=== PATIENT | male | born 1990 | race Caucasian/White ===

== ENCOUNTER 2023-11-17 14:00 | Outpatient (OUT) | payer BC, SELFPAY | END 2023-11-17 14:01 | disposition home or self-care (01) | LOC: SLEEP 11-18 09:36 | PROVIDERS: PCP Nurse Practitioner; Visit Provider Nurse Practitioner | DX: G47.33 Obstructive sleep apnea (adult) (pediatric) (principal); G47.11 Idiopathic hypersomnia with long sleep time | CPT/HCPCS: 95806 ==

== ENCOUNTER 2024-02-18 08:06 | Outpatient (OUT) | payer MEDICAID, SELFPAY ==
--- OUTSIDE RECORDS SUMMARY | 2024-02-18 08:29 | XMS_ITS | CCD ---
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 return in february for lab draw Ordered: Testosterone Level Total Adult BMI 60.0-69.9 kg/sq m (Z68.44: Body mass index [BMI] 60.0-69.9, adult) BMI education given. pt continues making healthy food choices. Ordered: phentermine, 37.5 mg = 1 tab(s), Oral, Daily, 30 day supply, # 30 tab(s), Refills(s) 0, Pharmacy: [facility] [id number], 180.3, cm, 12/02/23 10:22:00 EDT, Height/Length Dosing, 199.3, kg, 12/02/23 10:22:00 EDT, Weight Dosing phentermine, 37.5 mg = 1 tab(s), Oral, Daily, 30 day supply, # 30 tab(s), Refills(s) 0, Pharmacy: [facility] [id number], 180.2, cm, 01/13/24 10:23:00 EDT, Height/Length Dosing, 196, kg, 01/13/24 10:23:00 EDT, Weight Dosing Testosterone Level Total Obesities, morbid (E66.01: Morbid (severe) obesity due to excess calories) see above Ordered: phentermine, 37.5 mg = 1 tab(s), Oral, Daily, 30 day supply, # 30 tab(s), Refills(s) 0, Pharmacy: [facility] [id number], 180.3, cm, 12/02/23 10:22:00 EDT, Height/Length Dosing, 199.3, kg, 12/02/23 10:22:00 EDT, Weight Dosing phentermine, 37.5 mg = 1 tab(s), Oral, Daily, 30 day supply, # 30 tab(s), Refills(s) 0, Pharmacy: [id number], 180.2, cm, 01/13/24 10:23:00 EDT, Height/Length Dosing, 196, kg, 01/13/24 10:23:00 EDT, Weight Dosing Smokeless tobacco use (Z72.0: Tobacco use) consider not chewing tobacco Ordered: phentermine, 37.5 mg = 1 tab(s), Oral, Daily, 30 day supply, # 30 tab(s), Refills(s) 0, Pharmacy: [facility] [id number], 180.3, cm, 12/02/23 10:22:00 EDT, Height/Length Dosing, 199.3, kg, 12/02/23 10:22:00 EDT, Weight Dosing phentermine, 37.5 mg = 1 tab(s), Oral, Daily, 30 day supply, # 30 tab(s), Refills(s) 0, Pharmacy: [facility] [id number], 180.2, cm, 01/13/24 10:23:00 EDT, Height/Length Dosing, 196, kg, 01/13/24 10:23:00 EDT, Weight Dosing Orders: testosterone, = 2 pump, Topical, qAM, # 75 gm, Refills(s) 1, Pharmacy: [facility] [id number], 180.3, cm, 12/02/23 10:22:00 EDT, Height/Length Dosing, 199.3, kg, 12/02/23 10:22:00 EDT, Weight Dosing testosterone, = 2 pump, Topical, qAM, # 75 gm, Refills(s) 1, Pharmacy: [facility] [id number], 180.2, cm, 01/13/24 10:23:00 EDT, Height/Length Dosing, 196, kg, 01/13/24 10:23:00 EDT, Weight Dosing Follow-up No qualifying data available Problem List/Past Medical History Ongoing Adult BMI 60.0-69.9 kg/sq m Decreased libido Decreased testosterone level Encounter for weight management Fatigue Hypogonadism male Loud snoring Low testosterone in male Morbid obesity Obesities, morbid Obstructive sleep apnea Occipital neuralgia Screening for hypercholesterolemia Somnolence, daytime Wellness examination Witnessed episode of apnea Historical No qualifying data Procedure/Surgical History Gastric sleeve, Myringotomy, T and A (tonsillectomy and adenoidectomy) postoperative education. Medications Ajovy 225 mg/1.5 mL subcutaneous solution, 225 mg, SubCutaneous, qMonth (more content not included)... Normal [facility] Comment on above: Result Comment: Elec tronically Signed By: Rina Maguire.shaneka\Date and Time Signed: 01/13/24 12:38 EDT CNOVon 12-23-2023 CNOV Office Visit (NEAD[facility] ) ONEAL ECKERT ([id number]) 1990 M Date Time Provider Department 12/23/23 3:00 PM TEX ORDOÑEZFV During your visit today, we recorded the following information about you: Pulse Blood pressure Weight Height 80/minute 123/80 197.8 kg 1.829 m Jami Hopkins RN 12/23/2023 2:59 PM Signed Patient name and confirmed. Patient states he would like to receive Botox treatment today. 2 vials of Botox A (100 units in each) reconstituted with 2.2 cc of normal saline in each vial. Botox drawn up into four, 1 cc syringes. Each syringe containing 50 units of Botox. Assisted by: Otf Marie RN Botox, X 2 vials: Lot # [id number] Exp 02/[address] Ordoñez to administer and verified order. Tex Ordoñez MD 12/24/2023 12:01 PM Signed PROCEDURE NOTE UNIVERSAL PROTOCOL / SAFETY CHECKLIST Procedure to be Performed: Botox therapy for migraine Sign In: A Moment of CARE was completed. Personnel directly involved with the procedure wore the appropriate PPE (Personal Protective Equipment). Patient/Surrogate Stated/Verified: PATIENT VERIFIED(optional for EMERGENT procedures): Patient name, Date of , Relevant allergies and The intended procedure Time Out Communication: Intended patient and procedure match the source documents. Consent documented and matches the intended procedure. No relevant labs, photos, and/or imaging studies were applicable for review. No correct side/site applicable for marking and visibility. Medications required for procedure verified. No fire risk assessment and interventions applicable. No implant(s) inserted. Sign Out: SIGN OUT (optional for EMERGENT procedures): No specimen collected. No instruments, equipment or retained foreign bodies applicable. Post-procedure follow-up management communicated and Plan of Care Visit completed when applicable. Botox procedure note Treatment #7 Consent in EPIC BOTOX brought in by patient? No Dilution: 5 units/0.1 ml ( 100 unit vial with 2 cc diluent or 200 unit vial with 4 cc diluent) Diluent: normal saline Indication: Chronic Intractable Migraine Injection Sites Muscle Fixed Site/Fixed Dose Bilat Shellfish Grower 20 U divided in 2 sites Procerus 10 U in 1 site Bilat Frontalis 20 U divided in 4 sites Bilat Temporalis 50 U divided in 8 sites Bilat Occipitalis 40 U divided in 6 sites Bilat Cervical PSPs 20 U divided in 4 sites Bilat Trapezius 40 U divided in 6 sites Subtotals 200 units Total Units used: 200 Total Units wasted: 0 Tex Ordoñez MD Referring Provider: TEX ORDOÑEZ [[id number]] Allergies As of Date: 12/23/2023 (No Known Allergies) Date Reviewed: 12/23/2023 Reviewed by: Hannah Sims MA - Fully Assessed Reason for Visit: Established Patient [175] Cmt: Botox Primary Visit Diagnosis:Chronic migraine without aura, intractable, without status migrainosus [G43.719] Order(s):[] onabotulinum toxin type A 200 Units injection (BOTOX)Disp: Rfl: Prescriptions as of 12/24/2023 - Phentermine HCl (ADIPEX-P) 37.5 mg capsule Take 37.5 mg by mouth once daily. - lurasidone (LATUDA) 40 mg tablet - fremanezumab-vfrm (AJOVY AUTOINJECTOR) 225 mg/1.5 mL auto-injector Inject 1.5 mL subcutaneously once every month. - Naproxen Sodium 550 mg tablet Take 1 tablet by mouth two times a day as needed. - nortriptyline (PAMELOR) 50 mg capsule Take 1 capsule by mouth daily at bedtime. - DULoxetine (CYMBALTA) 60 mg capsule Take 1 capsule by mouth once daily. - topiramate (TOPAMAX) 200 mg tablet Take 1 tablet by mouth once daily. - clonazePAM (KLONOPIN) 1 mg tablet Take 1 tablet by mouth twice daily as needed for anxiety for up to 30 days. Problem List As Of Date: 12/23/2023 (None) Visit Notes: >> ApathyJami RN ThuDec 23, 2023 2:58 PM Status: Signed Patient name and confirmed. Patient states he would like to receive Botox treatment today. 2 vials of Botox A (100 units in each) reconstituted with 2.2 cc of normal saline in each vial. Botox drawn up into four, 1 cc syringes. Each syringe containing 50 units of Botox. Assisted by: Otf Marie RN Botox, X 2 vials: Lot # [id number] Exp 02/[address] Ordoñez to administer and verified order. Prescriptions ordered this encounter Disp Refills Start End ONABOTULINUMTOXINA 100 UNIT SOLUTION* 12/24/2023 12/24/2023 Route: INTRAMUSCULA Encounter Status:Closed by TEX ORDOÑEZ on 12/24/[address] [facility] Ambulatory Visit Summaryon 0 12-16-2023 Ambulatory Visit Summary ONEAL ECKERT :1990 Visit Date:12/16/2023 Ambulatory Visit Instructions Your Diagnosis Encounter for weight management BMI 60.0-69.9, adult, Adult BMI 60.0-69.9 kg/sq m, Body mass index [BMI] 60.0-69.9, adult Class 3 severe obesity due to excess calories with body mass index (BMI) of 60.0 to 69.9 in adult, Class 3 obesity, Obesities, morbid Smokeless tobacco use, Smokeless tobacco use Your Care Team Attending Physician - Rina Maguire Primary Care Physician - Rina Maguire This Is Your Medications List duloxetine (duloxetine 60 mg Pati) fremanezumab (Ajovy 225 mg/1.5 mL subcutaneous solution) lurasidone (lurasidone 40 mg oral tablet) naproxen (naproxen sodium 550 mg Tab) nortriptyline (nortriptyline 50 mg oral capsule) phentermine (phentermine 37.5 mg Tab) testosterone (testosterone 20.25 mg/1.25 g (1.62%) transdermal gel) topiramate (Topamax 200 mg Tab) Procedures Performed Gastric sleeve, Myringotomy, T and A (tonsillectomy and adenoidectomy) postoperative education. Discharge Vitals Temperature (Temporal Artery) 36.3 ?C Heart Rate (Peripheral) 134 Heart Rate (Apical) 80 Respiratory Rate 18 Blood Pressure 150/86 Height 71 in Height 180.3 cm Weight 435.38 lb Weight 197.9 kg BMI 60.88 What to do next Scheduled Follow-Up Appointments Thursday 10:00 AM EDT With: Rina Maguire Where: [facility] Normal [facility] Medicine Office/Clini c Noteon 12-16-2023 Family Medicine Office/Clinic Note HPI Staff Oneal is a 33 year old male presenting for 1 month follow up Weight management: Started Phentermine on 08/20/23 Sleeping well:Yes, 6-8 hoursvaries Chest pain:No Tremors:No Headaches:Yes Heart fluttering:No Blurred Vision:No Beginning weight: 487.3 Previous weight: 444.0 Today's weight: 435 lbs Questions/Concerns: none needs his adipex refilled History of Present Illness pt presents today for weight management Review of Systems PHQ Score Initial Depression Screen Score: 0 SCORE Physical Exam Vitals & Measurements T: 36.3 ?C(Temporal Artery) HR: 134(Peripheral) HR: 80(Apical) RR: 18 BP: 150/86 SpO2: 98% HT: 71 in HT: 180.3 cm WT: 197.9 kg WT: 435.38 lb BMI: 60.88 General: alert, no acute distress ENMT: oral mucosa moist, no pharyngeal erythema or exudate Cardiovascular: regular rate and rhythm, normal peripheral perfusion Respiratory: Lungs CTA, respirations non labored Extremities: no deformity, no trauma Neurological: oriented x 4, LOC appropriate for age, CN II-XII intact, motor strength equal & normal bilaterally, speech normal Assessment/Plan 1. Encounter for weight management (Z76.89: Persons encountering health services in other specified circumstances) pt is doing well down 52 pounds. will send refill. RTC 4 weeks Ordered: phentermine, 37.5 mg = 1 tab(s), Oral, Daily, 30 day supply bmi66.08, # 30 tab(s), Refills(s) 0, Pharmacy: [id number], 180.3, cm, 11/17/23 10:09:00 EDT, Height/Length Dosing, 201.4, kg, 11/17/23 10:09:00 EDT, Weight Dosing phentermine, 37.5 mg = 1 tab(s), Oral, Daily, 30 day supply, # 30 tab(s), Refills(s) 0, Pharmacy: [facility] [id number], 180.3, cm, 12/02/23 10:22:00 EDT, Height/Length Dosing, 199.3, kg, 12/02/23 10:22:00 EDT, Weight Dosing Body Mass Index (BMI) documented 3008F Current smokeless tobacco user 1035F Depression Screening Negative 3352F Most recent diastolic blood pressure 80-89 mm Hg 3079F Most recent systolic blood pressure >= 140 mm Hg 3077F 2. BMI 60.0-69.9, adult, (Z68.44: Body mass index [BMI] 60.0-69.9, adult)Adult BMI 60.0-69.9 kg/sq m, (Z68.44: Body mass index [BMI] 60.0-69.9, adult)Body mass index [BMI] 60.0-69.9, adult BMI education. pt is doing well with weight loss Ordered: phentermine, 37.5 mg = 1 tab(s), Oral, Daily, 30 day supply bmi66.08, # 30 tab(s), Refills(s) 0, Pharmacy: [id number], 180.3, cm, 11/17/23 10:09:00 EDT, Height/Length Dosing, 201.4, kg, 11/17/23 10:09:00 EDT, Weight Dosing phentermine, 37.5 mg = 1 tab(s), Oral, Daily, 30 day supply, # 30 tab(s), Refills(s) 0, Pharmacy: [facility] [id number], 180.3, cm, 12/02/23 10:22:00 EDT, Height/Length Dosing, 199.3, kg, 12/02/23 10:22:00 EDT, Weight Dosing Body Mass Index (BMI) documented 3008F Current smokeless tobacco user 1035F Depression Screening Negative 3352F Most recent diastolic blood pressure 80-89 mm Hg 3079F Most recent systolic blood pressure >= 140 mm Hg 3077F 3. Class 3 severe obesity due to excess calories with body mass index (BMI) of 60.0 to 69.9 in adult, (E66.01: Morbid (severe) obesity due to excess calories)Class 3 obesity, (E66.01: Morbid (severe) obesity due to excess calories)Obesities, morbid see above Ordered: phentermine, 37.5 mg = 1 tab(s), Oral, Daily, 30 day supply bmi66.08, # 30 tab(s), Refills(s) 0, Pharmacy: [facility], 180.3, cm, 11/17/23 10:09:00 EDT, Height/Length Dosing, 201.4, kg, 11/17/23 10:09:00 EDT, Weight Dosing phentermine, 37.5 mg = 1 tab(s), Oral, Daily, 30 day supply, # 30 tab(s), Refills(s) 0, Pharmacy: [facility] [id number], 180.3, cm, 12/02/23 10:22:00 EDT, Height/Length Dosing, 199.3, kg, 12/02/23 10:22:00 EDT, Weight Dosing Body Mass Index (BMI) documented 3008F Current smokeless tobacco user 1035F Depression Screening Negative 3352F Most recent diastolic blood pressure 80-89 mm Hg 3079F Most recent systolic blood pressure >= 140 mm Hg 3077F 4. Smokeless tobacco use, (Z72.0: Tobacco use)Smokeless tobacco use consider not using Ordered: phentermine, 37.5 mg = 1 tab(s), Oral, Daily, 30 day supply bmi66.08, # 30 tab(s), Refills(s) 0, Pharmacy: [facility], 180.3, cm, 11/17/23 10:09:00 EDT, Height/Length Dosing, 201.4, kg, 11/17/23 10:09:00 EDT, Weight Dosing phentermine, 37.5 mg = 1 tab(s), Oral, Daily, 30 day supply, # 30 tab(s), Refills(s) 0, Pharmacy: [facility] [id number], 180.3, cm, 12/02/23 10:22:00 EDT, Height/Length Dosing, 199.3, kg, 12/02/23 10:22:00 EDT, Weight Dosing Body Mass Index (BMI) documented 3008F Current smokeless tobacco user 1035F Depression Screening Negative 3352F Most recent diastolic blood pressure 80-89 mm Hg 3079F Most recent systolic blood pressure >= 140 mm Hg 3077F Follow-up No qualifying data available Problem List/Past Medical History Ongoing Adult BMI 60.0-69.9 kg/sq m Decreased libido Encounter for weight management Fatigue Hypogonadism male Loud snoring Low testosterone in male Morb (more content not included)... Normal [facility] Comment on above: Result Comment: Elec tronically Signed By: Rina Maguire\.br\Date and Time Signed: 12/16/23 09:52 EDT Ambulatory Visit Summaryon 0 12-02-2023 Ambulatory Visit Summary ONEAL ECKERT :1990 Visit Date:12/02/2023 Ambulatory Visit Instructions Your Diagnosis Wellness examination Screening for hypercholesterolemia Fatigue Morbid obesity BMI 60.0-69.9, adult Non-smoker Your Care Team Attending Physician - Rina Maguire Primary Care Physician - Rina Maguire This Is Your Medications List duloxetine (duloxetine 60 mg Walt-) fremanezumab (Ajovy 225 mg/1.5 mL subcutaneous solution) lurasidone (lurasidone 40 mg oral tablet) naproxen (naproxen sodium 550 mg Tab) nortriptyline (nortriptyline 50 mg oral capsule) phentermine (phentermine 37.5 mg Tab) testosterone (testosterone 20.25 mg/1.25 g (1.62%) transdermal gel) topiramate (Topamax 200 mg Tab) Procedures Performed Gastric sleeve, Myringotomy, T and A (tonsillectomy and adenoidectomy) postoperative education. Discharge Vitals Heart Rate (Peripheral) 76 Respiratory Rate 18 Blood Pressure 138/78 Height 180.3 cm Height 71 in Weight 199.3 kg Weight 438.46 lb BMI 61.31 What to do next Scheduled Follow-Up Appointments Thursday 8:40 AM EDT With: Rina Maguire Where: [facility] Normal [facility] CBC w/ Auto Diffon 4 Basophils/100 WBC (Bld) 4.0 % High 0.0-2.0 [facility] Comment on above: Performed By: #### 2 [id number] #### [facility] [address] [place] [address] Basophils/Leukocytes Auto (Bld) [Pure # fraction] 0.4 E9/L High 0.0-0.2 [facility] Comment on above: Performed By: #### 2 [id number] #### [facility] [address] [place] [address] Eosinophils (Bld) [#/Vol] 0.1 E9/L Normal 0.0-0.5 [facility] Comment on above: Performed By: #### 2 [id number] #### [facility] [address] [place] [address] Eosinophils/100 WBC (Bld) 1.0 % Normal 0.0-8.0 [facility] Comment on above: Performed By: #### 2 [id number] #### [facility] [address] [place] [address] Erythrocyte distribution width (RBC) [Ratio] 14.1 % Normal 10.9-14.2 [facility] Comment on above: Performed By: #### 2 [id number] #### [facility] [address] [place] [address] Hematocrit (Bld) [Volume fraction] 44.1 % Normal 37.7-49.0 [facility] Comment on above: Performed By: #### 2 [id number] #### [facility] [address] [place] [address] Hemoglobin (Bld) [Mass/Vol] 14.7 g/dL Normal 13.5-17.5 [facility] Comment on above: Performed By: #### 2 [id number] #### [facility] [address] [place] [address] Lymphocytes (Bld) [#/Vol] 1.8 E9/L Normal 1.0-4.0 [facility] Comment on above: Performed By: #### 2 [id number] #### [facility] [address] [place] [address] Lymphocytes/100 WBC (Bld) 20.2 % Normal 14.0-50.0 [facility] Comment on above: Performed By: #### 2 [id number] #### [facility] [address] [place] [address] MCH (RBC) [Entitic mass] 29.0 pg Normal 27.0-34.0 [facility] Comment on above: Performed By: #### 2 [id number] #### [facility] [address] [place] [address] MCHC (RBC) [Mass/Vol] 33.3 g/dL Normal 31.4-36.0 [facility] Comment on above: Performed By: #### 2 [id number] #### [facility] [address] [place] [address] MCV (RBC) [Entitic vol] 87.0 fL Normal 80.0-100.0 [facility] Comment on above: Performed By: #### 2 [id number] #### [facility] [address] [place] [address] Monocytes (Bld) [#/Vol] 0.5 E9/L Normal 0.2-1.0 [facility] Comment on above: Performed By: #### 2 [id number] #### [facility] [address] [place] [address] Neutrophils (Bld) [#/Vol] 6.2 E9/L Normal 2.0-7.5 [facility] Comment on above: Performed By: #### 2 [id number] #### [facility] [address] [place] [address] Neutrophils/100 WBC (Bld) 69.2 % Normal 36.0-75.0 [facility] Comment on above: Performed By: #### 2 [id number] #### [facility] [address] [place] [address] Platelet 216.0 E9/L Normal 150.0-500.0 [facility] Comment on above: Performed By: #### 2 [id number] #### [facility] [address] [place] [address] Platelet mean volume (Bld) [Entitic vol] 10.5 fL Normal 6.4-10.8 [facility] Comment on above: Performed By: #### 2 [id number] #### [facility] [address] [place] [address] RBC (Bld) [#/Vol] 5.1 E12/L Normal 4.3-5.9 [facility] Comment on above: Performed By: #### 2 [id number] #### [facility] [address] [place] [address] WBC corrected for nucl RBC Auto (Bld) [#/Vol] 9.0 E9/L Normal 4.0-11.0 [facility] Comment on above: Performed By: #### 2 [id number] #### [facility] [address] [place] [address] CHEMISTRYOrdered By: SYSTEM SYSTEM on 12-02-2023 Albumin [Mass/Vol] 4.2 g/dL Normal 3.3 - 5.0 gm/dL R emisol Chem Albumin/Globulin [Mass ratio] 1.5 {ratio} Normal 1.1 - 2.2 [facility] ALP [Catalytic activity/Vol] 68 [iU]/d Normal 21 - 98 Int._Unit/L [facility] ALT No additional P-5'-P [Catalytic activity/Vol] 15 [iU]/d Normal 6 - 46 Int._Unit/L [facility] Anion gap [Moles/Vol] 12 mmol/L Normal 6 - 16 mEq/L R em[facility] Chem AST [Catalytic activity/Vol] 14 [iU]/d Normal 5 - 43 Int._Unit/L [facility] Bilirubin [Mass/Vol] 0.5 mg/dL Normal 0.0 - 1.1 mg/dL [facility] Calcium [Mass/Vol] 8.8 mg/dL Low 8.9 - 11. 1 mg/dL [facility] Chloride [Moles/Vol] 107 mmol/L Normal 101 - 1 11 mmol/L [facility] Cholesterol [Mass/Vol] 149 mg/dL Normal 120 - 200 mg/dL [facility] Cholesterol in HDL [Mass/Vol] 32 mg/dL Invalid Interpretation Code [facility] Comment on above: Result Comment: '>= 60 LOW RISK' '<= 40 HIGH RISK' Cholesterol in LDL [Mass/Vol] 108 mg/dL Normal <=129mg/dL [facility] Cholesterol in VLDL [Mass/Vol] 14 mg/dL Normal 7 - 40 mg/dL [facility] CO2 [Moles/Vol] 23 mmol/L Normal 21 - 31 mmol/L [facility] Creatinine [Mass/Vol] 1.0 mg/dL Normal 0.5 - 1.3 mg/d L [facility] eGFR 103 mL/min/1.73 m2 Normal >=59mL/mi n/1.73 m2 [facility] Globulin (S) [Mass/Vol] 2.8 g/dL Normal 1.4 - 4.0 gm/dL [facility] Glucose [Mass/Vol] 108 mg/dL Normal 55 - 199 mg/dL Re misol Chem Potassium [Moles/Vol] 3.6 mmol/L Normal 3.5 - 5.3 mmol/L [facility] Protein [Mass/Vol] 7.0 g/dL Normal 6.0 - 7.8 gm/dL R em[facility] Chem Sodium [Moles/Vol] 138 mmol/L Normal 135 - 145 mmol/L [facility] Triglyceride [Mass/Vol] 71 mg/dL Normal <=149mg/dL [facility] TSH Qn 1.82 m[IU]/L Normal 0.34 - 5.60 mcIU/mL [facility] Urea nitrogen [Mass/Vol] 17 mg/dL Normal 5 - 21 mg/dL [facility] Urea nitrogen/Creatinine [Mass ratio] 17 mg/mg Normal 10 - 20 [facility] CMPon 12-02-2023 Albumin [Mass/Vol] 4.2 g/dL Normal 3.3-5.0 [facility] Comment on above: Performed By: #### 2 [id number] #### [facility] [address] [place] [address] Albumin/Globulin (S) [Mass conc ratio] 1.5 Normal 1.1-2.2 [facility] Comment on above: Performed By: #### 2 [id number] #### [facility] [address] [place] [address] ALP [Catalytic activity/Vol] 68 Int._Unit/L Normal 21-98 [facility] Comment on above: Performed By: #### 2 [id number] #### [facility] [address] [place] [address] ALT No additional P-5'-P [Catalytic activity/Vol] 15 Int._Unit/L Normal 6-46 [facility] Comment on above: Performed By: #### 2 [id number] #### [facility] [address] [place] [address] Anion gap [Moles/Vol] 12 mmol/L Normal 6-16 [facility] Comment on above: Performed By: #### 2 [id number] #### [facility] [address] [place] [address] AST [Catalytic activity/Vol] 14 Int._Unit/L Normal 5-43 [facility] Comment on above: Performed By: #### 2 628114 #### [facility] [address] [place] [address] Bilirubin [Mass/Vol] 0.5 mg/dL Normal 0.0-1.1 [facility] Comment on above: Performed By: #### 2 [id number] #### [facility] [address] [place] [address] Calcium [Mass/Vol] 8.8 mg/dL Low 8.9-11.1 [facility] Comment on above: Performed By: #### 2 [id number] #### [facility] [address] [place] [address] Chloride [Moles/Vol] 107 mmol/L Normal 101-111 [facility] Comment on above: Performed By: #### 2 377508 #### [facility] [address] [place] [address] CO2 [Moles/Vol] 23 mmol/L Normal 21-31 [facility] Comment on above: Performed By: #### 2 529698 #### [facility] [address] [place] [address] Creatinine [Mass/Vol] 1.0 mg/dL Normal 0.5-1.3 [facility] Comment on above: Performed By: #### 2 250757 #### [facility] [address] [place] [address] Globulin (S) [Mass/Vol] 2.8 g/dL Normal 1.4-4.0 [facility] Comment on above: Performed By: #### 2 [id number] #### [facility] [address] [place] [address] Glucose [Mass/Vol] 108 mg/dL Normal 55-199 [facility] Comment on above: Performed By: #### 2 [id number] #### [facility] Laboratory [address] [place] [address] Potassium [Moles/Vol] 3.6 mmol/L Normal 3.5-5.3 [facility] Comment on above: Performed By: #### 2 [id number] #### [facility] [address] [place] [address] Protein [Mass/Vol] 7.0 g/dL Normal 6.0-7.8 [facility] Comment on above: Performed By: #### 2 [id number] #### [facility] [address] [place] [address] Sodium [Moles/Vol] 138 mmol/L Normal 135-145 [facility] Comment on above: Performed By: #### 2 [id number] #### [facility] [address] [place] [address] Urea nitrogen [Mass/Vol] 17 mg/dL Normal 5-21 [facility] Comment on above: Performed By: #### 2 [id number] #### [facility] [address] [place] [address] Urea nitrogen/Creatinine [Mass ratio] 17 No Units Normal 10-20 [facility] Comment on above: Performed By: #### 2 [id number] #### [facility] [address] [place] [address] Family Medicine Office/Clini c Noteon 12-02-2023 Family Medicine Office/Clinic Note HPI Staff Oneal is a 33 year old male presenting for physical Health Maintenance: Colonoscopy: 5-10 years ago [place], EGD scare tissue on esophagus- Eosinophilic esophagitis PSA: n/a Last Labs: Due needs refill testosterone History of Present Illness pt presents today for wellness visit. due for labs Review of Systems PHQ Score Initial Depression Screen Score: 0 SCORE Physical Exam Vitals & Measurements HR: 76(Peripheral) RR: 18 BP: 138/78 SpO2: 99% HT: 71 in HT: 180.3 cm WT: 199.3 kg WT: 438.46 lb BMI: 61.31 General: alert, no acute distress ENMT: oral mucosa moist, no pharyngeal erythema or exudate Cardiovascular: regular rate and rhythm, normal peripheral perfusion Respiratory: Lungs CTA, respirations non labored Extremities: no deformity, no trauma Neurological: oriented x 4, LOC appropriate for age, CN II-XII intact, motor strength equal & normal bilaterally, speech normal Assessment/Plan 1. Wellness examination (Z00.00: Encounter for general adult medical examination without abnormal findings) pt presents for wellness visit. c/o fatigue would like to discuss increasing testosterone to 2 pumps. labs drawn in office. pt to continue with weight loss program is already down 49 pounds. RTC as needed Ordered: CBC w/ Auto Diff Comprehensive Metabolic Panel Lab Specimen Collect [id number] Lipid Panel Thyroid Stimulating Hormone 2. Screening for hypercholesterolemia (Z13.220: Encounter for screening for lipoid disorders) lipid drawn in office today Ordered: CBC w/ Auto Diff Comprehensive Metabolic Panel Lab Specimen Collect [id number] Lipid Panel Thyroid Stimulating Hormone 3. Fatigue (R53.83: Other fatigue) testosterone dose increased to 2 pumps. will recheck in 6 weeks Ordered: CBC w/ Auto Diff Comprehensive Metabolic Panel Lab Specimen Collect [id number] Lipid Panel Thyroid Stimulating Hormone 4. Morbid obesity (E66.01: Morbid (severe) obesity due to excess calories) on adipex. has lost 49 pounds so far Ordered: CBC w/ Auto Diff Comprehensive Metabolic Panel Lab Specimen Collect [id number] Lipid Panel Thyroid Stimulating Hormone 5. BMI 60.0-69.9, adult (Z68.44: Body mass index [BMI] 60.0-69.9, adult) BMI education complete 6. Non-smoker (Z78.9: Other specified health status) continue not smoking Orders: testosterone, = 2 pump, Topical, qAM, # 75 gm, Refills(s) 1, Pharmacy: [facility] [id number], 180.3, cm, 12/02/23 10:22:00 EDT, Height/Length Dosing, 199.3, kg, 12/02/23 10:22:00 EDT, Weight Dosing testosterone, = 1 pump, Topical, qAM, # 75 gram, Refills(s) 0, Pharmacy: [facility], 180.3, cm, 09/18/23 10:05:00 EDT, Height/Length Dosing, 214.8, kg, 09/18/23 10:05:00 EDT, Weight Dosing testosterone, = 1 patch(es), Topical, Once a day (at bedtime), # 60 EA, Refills(s) 1, Pharmacy: [facility], 180.3, cm, 09/18/23 10:05:00 EDT, Height/Length Dosing, 214.8, kg, 09/18/23 10:05:00 EDT, Weight Dosing Follow-up No qualifying data available Problem List/Past Medical History Ongoing Adult BMI 60.0-69.9 kg/sq m Decreased libido Encounter for weight management Fatigue Hypogonadism male Loud snoring Low testosterone in male Morbid obesity Obesities, morbid Obstructive sleep apnea Occipital neuralgia Screening for hypercholesterolemia Somnolence, daytime Wellness examination Witnessed episode of apnea Historical No qualifying data Procedure/Surgical History Gastric sleeve, Myringotomy, T and A (tonsillectomy and adenoidectomy) postoperative education. Medications Ajovy 225 mg/1.5 mL subcutaneous solution, 225 mg, SubCutaneous, qMonth duloxetine 60 mg Cap-DR, 60 mg, Oral, Daily lurasidone 40 mg oral tablet, 40 mg= 1 tab(s), Oral, Daily naproxen sodium 550 mg Tab, 550 mg= 1 tab(s), Oral, BID nortriptyline 50 mg oral capsule, 50 mg= 1 cap(s), Oral, Once a day (at bedtime) phentermine 37.5 mg Tab, 37.5 mg= 1 tab(s), Oral, Daily testosterone 20.25 mg/1.25 g (1.62%) transdermal gel, 2 pump, Topical, qAM, 1 refills Topamax 200 mg Tab, 200 mg= 1 tab(s), Oral, Daily Allergies No Known Medication Allergies Social History Tobacco Never (less than 100 in lifetime) Tobacco Use:. Smokeless tobacco user within last 30 days Smokeless Tobacco Use:. Household tobacco concerns: No., 12/02/2023 Family History Family history is negative Immunizations Vaccine Date Status influenza virus vaccine, inactivated 04/27/2020 Recorded influenza virus vaccine, inactivated 04/28/2018 Recorded human papillomavirus vaccine 03/23/2017 Recorded influenza, whole 04/05/2015 Recorded diphtheria/pertussis, acel/tetanus adult 02/25/2014 Recorded hepatitis B pediatric vaccine 10/26/2008 Recorded hepatitis B pediatric vaccine 07/27/2008 Recorded meningococcal conjugate vaccine 04/27/2008 Recorded hepatitis B pediatric vaccine 04/27/2008 Recorded measles/mumps/rubella virus vaccine 02/15/1998 Recorded DTaP, unspecified fo (more content not included)... Normal [facility] Comment on above: Result Comment: Elec tronically Signed By: Rina Maguire\.br\Date and Time Signed: 12/02/23 11:24 EDT HEMATOLOGYOrdered By: SYSTEM SYSTEM on 12-02-2023 Basophils/100 WBC (Bld) 4.0 % High 0.0 - 2.0 % Remisol Heme Basophils/Leukocytes Auto (Bld) [Pure # fraction] 0.4 E9/L High 0.0 - 0.2 E9/L Remisol Heme Eosinophils (Bld) [#/Vol] 0.1 E9/L Normal 0.0 - 0.5 E9/L Remisol Heme Eosinophils/100 WBC (Bld) 1.0 % Normal 0.0 - 8.0 % Remisol Heme Erythrocyte distribution width (RBC) [Ratio] 14.1 % Normal 10.9 - 14.2 % Remisol Heme Hematocrit (Bld) [Volume fraction] 44.1 % Normal 37.7 - 49.0 % Remisol Heme Hemoglobin (Bld) [Mass/Vol] 14.7 g/dL Normal 13.5 - 17.5 gm/dL Remisol Heme Lymphocytes (Bld) [#/Vol] 1.8 E9/L Normal 1.0 - 4.0 E9/L Remisol Heme Lymphocytes/100 WBC (Bld) 20.2 % Normal 14.0 - 50.0 % Remisol Heme MCH (RBC) [Entitic mass] 29.0 pg Normal 27.0 - 34.0 pg Remisol Heme MCHC (RBC) [Mass/Vol] 33.3 g/dL Normal 31.4 - 36.0 gm/dL Remisol Heme MCV (RBC) [Entitic vol] 87.0 fL Normal 80.0 - 100.0 fL Remisol Heme Monocytes (Bld) [#/Vol] 0.5 E9/L Normal 0.2 - 1.0 E9/L Remisol Heme Monocytes/100 WBC (Bld) 5.6 % Normal 4.0 - 14.0 % Remisol Heme Neutrophils (Bld) [#/Vol] 6.2 E9/L Normal 2.0 - 7.5 E9/L Remisol Heme Neutrophils/100 WBC (Bld) 69.2 % Normal 36.0 - 75.0 % Remisol Heme Platelet 216.0 E9/L Normal 150.0 - 500.0 E9/L Remisol Heme Platelet mean volume (Bld) [Entitic vol] 10.5 fL Normal 6.4 - 10.8 fL Remisol Heme RBC (Bld) [#/Vol] 5.1 E12/L Normal 4.3 - 5.9 E12/L Re misol Heme WBC corrected for nucl RBC Auto (Bld) [#/Vol] 9.0 E9/L Normal 4.0 - 11.0 E9/L Remisol Heme Lipid Panelon 12-02-2023 Cholesterol [Mass/Vol] 149 mg/dL Normal 120-200 [facility] Comment on above: Performed By: #### 2 [id number] #### [facility] [address] [place] [address] Cholesterol in HDL [Mass/Vol] 32 mg/dL Invalid Interpretation Code [facility] Comment on above: Result Comment: '>= 60 LOW RISK' '<= 40 HIGH RISK' Performed By: #### 2 [id number] #### [facility] [address] [place] [address] Cholesterol in LDL [Mass/Vol] 108 mg/dL Normal <=129 [facility] Comment on above: Performed By: #### 2 [id number] #### [facility] [address] [place] [address] Cholesterol in VLDL [Mass/Vol] 14 mg/dL Normal 7-40 [facility] Comment on above: Performed By: #### 2 [id number] #### [facility] [address] [place] [address] Triglyceride [Mass/Vol] 71 mg/dL Normal <=149 [facility] Comment on above: Performed By: #### 2 [id number] #### [facility] [address] [place] [address] TSHon 12-02-2023 TSH Qn 1.82 m[IU]/L Normal 0.34-5.60 [facility] Comment on above: Performed By: #### 2 [id number] #### [facility] [address] [place] [address] eGFRon 12-02-2023 eGFR 103 mL/min/1.73 m2 Normal >=59 [facility] Comment on above: Order Comment: Order added by Discern Expert. Performed By: #### 1 [id number] #### [facility] [address] [place] [address] Testost Totalon 11-19-2023 Testosterone [Mass/Vol] 266 ng/dL Invalid Interpretation Code [id number] [facility] Comment on above: Result Comment: Adul t male reference interval is based on a population of healthy nonobese males (BMI <30) between 19 and 39 years old. Travison, et.al. JCEM 2017,102;4440-0684. PMID: [id number]. Performed at: [facility] [id number] PhD David Freitas Performed By: #### 2 [id number] #### [facility] [address] [place] [address] Ambulatory Visit Summaryon 0 11-17-2023 Ambulatory Visit Summary ONEAL ECKERT :1990 Visit Date:11/17/2023 Ambulatory Visit Instructions Your Diagnosis Encounter for weight management Low testosterone in male Non-smoker Adult BMI 60.0-69.9 kg/sq m Class 3 obesity, Obesities, morbid Smokeless tobacco use Your Care Team Attending Physician - Rina Maguire Primary Care Physician - Rina Maguire This Is Your Medications List duloxetine (duloxetine 60 mg Walt-DR) fremanezumab (Ajovy 225 mg/1.5 mL subcutaneous solution) lurasidone (lurasidone 40 mg oral tablet) naproxen (naproxen sodium 550 mg Tab) nortriptyline (nortriptyline 50 mg oral capsule) phentermine (phentermine 37.5 mg Tab) testosterone (Androderm 2 mg/24 hr transdermal film, extended release) testosterone (testosterone 20.25 mg/1.25 g (1.62%) transdermal gel) topiramate (Topamax 200 mg Tab) Procedures Performed Gastric sleeve, Myringotomy, T and A (tonsillectomy and adenoidectomy) postoperative education. Discharge Vitals Heart Rate (Peripheral) 80 Respiratory Rate 18 Blood Pressure 136/84 Height 180.3 cm Height 71 in Weight 201.395 kg Weight 443.069 lb BMI 61.95 What to do next Scheduled Follow-Up Appointments Thursday. 2023 10:00 AM EDT With: Rina Maguire Where: [facility] Normal [address] [place] [phone] \.br\ Medications\.br \ What How Much When Why Instructions\.b r\ New phentermine (phentermine 37.5 mg Tab) 1 Tablets By Mouth Every day Encounter for weight management Occipital neuralgia Smokeless tobacco use Adult BMI 60.0-69.9 kg/sq m Obesities, morbid Class 3 obesity 30 day supply bmi66.08 Pickup at [facility]\.br\ Unchanged duloxetine (duloxetine 60 mg Cap-DR) 60 Milligram By Mouth Every day\.br\ Unchanged fremanezumab (Ajovy 225 mg/ 1.5 mL subcutaneous solution) 225 Milligram Subcutaneous Once a month\.br\ Unchanged lurasidone (lurasidone 40 mg oral tablet) 1 Tablets By Mouth Every day\.br\ Unchanged naproxen (naproxen sodium 550 mg Tab) 1 Tablets By Mouth 2 times a day as needed \.br\ Unchanged nortriptyline (nortriptyline 50 mg oral capsule) 1 Capsules By Mouth Once a day (at bedtime)\.br\ Unchanged testosterone (Androderm 2 mg/ 24 hr transdermal film, extended release) 1 Patches Topical Once a day (at bedtime)\.br\ Unchanged testosterone (testosterone 20.25 mg/ 1.25 g (1.62%) transdermal gel) 1 Pump Topical Once a day (in the morning)\.br\ Unchanged topiramate (Topamax 200 mg Tab) 1 Tablets By Mouth Every day at bedtime \.br\ Pharmacy Information\.br \ [facility]: [address] [place], [place] [id number] [phone]\.br\ Allergies\.br\ No Known Medication Allergies\.br\ Problems\.br\ Ongoing - Any problem that you are currently receiving treatment for.\.br\ Adult BMI 60.0-69.9 kg/sq m\.br\ Decreased libido\.br\ Encounter for weight management\.br\ Fatigue\.br\ Hypogonadism male\.br\ Loud snoring\.br\ Low testosterone in male\.br\ Obesities, morbid\.br\ Obstructive sleep apnea\.br\ Occipital neuralgia\.br\ Somnolence, daytime\.br\ Witnessed episode of apnea\.br\ Patient Survey\.br\ You may receive a survey via text or e-mail asking about your office visit. Please share your experience with us by completing your survey. We appreciate your feedback and thank you for choosing us for your care.\.br\ \.br\ [facility] Ambulatory Visit Summary ONEAL ECKERT :1990 Visit Date:11/17/2023 Ambulatory Visit Instructions Your Diagnosis Encounter for weight management Low testosterone in male Non-smoker Adult BMI 60.0-69.9 kg/sq m Class 3 obesity, Obesities, morbid Smokeless tobacco use Your Care Team Attending Physician - Rina Maguire Primary Care Physician - Rina Maguire This Is Your Medications List duloxetine (duloxetine 60 mg Cap-DR) fremanezumab (Ajovy 225 mg/1.5 mL subcutaneous solution) lurasidone (lurasidone 40 mg oral tablet) naproxen (naproxen sodium 550 mg Tab) nortriptyline (nortriptyline 50 mg oral capsule) phentermine (phentermine 37.5 mg Tab) testosterone (Androderm 2 mg/24 hr transdermal film, extended release) testosterone (testosterone 20.25 mg/1.25 g (1.62%) transdermal gel) topiramate (Topamax 200 mg Tab) Procedures Performed Gastric sleeve, Myringotomy, T and A (tonsillectomy and adenoidectomy) postoperative education. Discharge Vitals Heart Rate (Peripheral) 80 Respiratory Rate 18 Blood Pressure 136/84 Height 180.3 cm Height 71 in Weight 201.395 kg Weight 443.069 lb BMI 61.95 What to do next Scheduled Follow-Up Appointments Thursday. 2023 10:00 AM EDT With: Rina Maguire Where: [facility] Normal [address] [place], [place] [id number]- \.br\ Medications\.br \ What How Much When Why Instructions\.b r\ New phentermine (phentermine 37.5 mg Tab) 1 Tablets By Mouth Every day Encounter for weight management Occipital neuralgia Smokeless tobacco use Adult BMI 60.0-69.9 kg/sq m Obesities, morbid Class 3 obesity 30 day supply bmi66.08 Pickup at [facility]\.br\ Unchanged duloxetine (duloxetine 60 mg Cap-DR) 60 Milligram By Mouth Every day\.br\ Unchanged fremanezumab (Ajovy 225 mg/ 1.5 mL subcutaneous solution) 225 Milligram Subcutaneous Once a month\.br\ Unchanged lurasidone (lurasidone 40 mg oral tablet) 1 Tablets By Mouth Every day\.br\ Unchanged naproxen (naproxen sodium 550 mg Tab) 1 Tablets By Mouth 2 times a day as needed \.br\ Unchanged nortriptyline (nortriptyline 50 mg oral capsule) 1 Capsules By Mouth Once a day (at bedtime)\.br\ Unchanged testosterone (Androderm 2 mg/ 24 hr transdermal film, extended release) 1 Patches Topical Once a day (at bedtime)\.br\ Unchanged testosterone (testosterone 20.25 mg/ 1.25 g (1.62%) transdermal gel) 1 Pump Topical Once a day (in the morning)\.br\ Unchanged topiramate (Topamax 200 mg Tab) 1 Tablets By Mouth Every day at bedtime \.br\ Pharmacy Information\.br \ [facility]: [address] [place], [place] [id number] [phone]\.br\ Allergies\.br\ No Known Medication Allergies\.br\ Problems\.br\ Ongoing - Any problem that you are currently receiving treatment for.\.br\ Adult BMI 60.0-69.9 kg/sq m\.br\ Decreased libido\.br\ Encounter for weight management\.br\ Fatigue\.br\ Hypogonadism male\.br\ Loud snoring\.br\ Low testosterone in male\.br\ Obesities, morbid\.br\ Obstructive sleep apnea\.br\ Occipital neuralgia\.br\ Somnolence, daytime\.br\ Witnessed episode of apnea\.br\ Patient Survey\.br\ You may receive a survey via text or e-mail asking about your office visit. Please share your experience with us by completing your survey. We appreciate your feedback and thank you for choosing us for your care.\.br\ \.br\ [facility] Family Medicine Office/Clini c Noteon 11-17-2023 Family Medicine Office/Clinic Note HPI Staff No is a 33 year old male presenting for 1 month follow up Weight management: Started Phentermine on 08/20/23 Sleeping well:Yes, 6-8 hours Chest pain:No Tremors:No Headaches:No Heart fluttering:No Blurred Vision:No Beginning weight: 487.3 Previous weight: 459.36 Today's weight: 444.0 Questions/Concerns: none History of Present Illness pt presents today for wellness visit Review of Systems PHQ Score Initial Depression Screen Score: 0 SCORE Physical Exam Vitals & Measurements HR: 80(Peripheral) RR: 18 BP: 136/84 SpO2: 99% HT: 71 in HT: 180.3 cm WT: 201.395 kg WT: 443.069 lb BMI: 61.95 General: alert, no acute distress ENMT: oral mucosa moist, no pharyngeal erythema or exudate Cardiovascular: regular rate and rhythm, normal peripheral perfusion Respiratory: Lungs CTA, respirations non labored Extremities: no deformity, no trauma Neurological: oriented x 4, LOC appropriate for age, CN II-XII intact, motor strength equal & normal bilaterally, speech normal Assessment/Plan 1. Encounter for weight management (Z76.89: Persons encountering health services in other specified circumstances) pt down another 16 pounds since last visit. pt is doing well. denies needs. RTC 4 weeks. would like to come back for wellness visit and labs Ordered: phentermine, 37.5 mg = 1 tab(s), Oral, Daily, 30 day supply bmi66.08, # 30 tab(s), Refills(s) 0, Pharmacy: [facility], 180.3, cm, 11/17/23 10:09:00 EDT, Height/Length Dosing, 201.4, kg, 11/17/23 10:09:00 EDT, Weight Dosing phentermine, 37.5 mg = 1 tab(s), Oral, Daily, 30 day supply bmi66.08, # 30 tab(s), Refills(s) 0, Pharmacy: [facility], 180.3, cm, 10/15/23 10:14:00 EDT, Height/Length Dosing, 208.8, kg, 10/15/23 10:14:00 EDT, Weight Dosing 2. Low testosterone in male (R79.89: Other specified abnormal findings of blood chemistry) testosterone drawn in office today Ordered: Testosterone Level Total 3. Non-smoker (Z78.9: Other specified health status) continue not smoking Ordered: Testosterone Level Total Adult BMI 60.0-69.9 kg/sq m (Z68.44: Body mass index [BMI] 60.0-69.9, adult) BMI education complete. pt down 16 pounds Ordered: phentermine, 37.5 mg = 1 tab(s), Oral, Daily, 30 day supply bmi66.08, # 30 tab(s), Refills(s) 0, Pharmacy: [facility], 180.3, cm, 11/17/23 10:09:00 EDT, Height/Length Dosing, 201.4, kg, 11/17/23 10:09:00 EDT, Weight Dosing phentermine, 37.5 mg = 1 tab(s), Oral, Daily, 30 day supply bmi66.08, # 30 tab(s), Refills(s) 0, Pharmacy: [facility], 180.3, cm, 10/15/23 10:14:00 EDT, Height/Length Dosing, 208.8, kg, 10/15/23 10:14:00 EDT, Weight Dosing Testosterone Level Total Class 3 obesity, (E66.01: Morbid (severe) obesity due to excess calories)Obesities, morbid see above Ordered: phentermine, 37.5 mg = 1 tab(s), Oral, Daily, 30 day supply bmi66.08, # 30 tab(s), Refills(s) 0, Pharmacy: [facility], 180.3, cm, 11/17/23 10:09:00 EDT, Height/Length Dosing, 201.4, kg, 11/17/23 10:09:00 EDT, Weight Dosing phentermine, 37.5 mg = 1 tab(s), Oral, Daily, 30 day supply bmi66.08, # 30 tab(s), Refills(s) 0, Pharmacy: [facility], 180.3, cm, 10/15/23 10:14:00 EDT, Height/Length Dosing, 208.8, kg, 10/15/23 10:14:00 EDT, Weight Dosing Smokeless tobacco use (Z72.0: Tobacco use) consider not using tobacco Ordered: phentermine, 37.5 mg = 1 tab(s), Oral, Daily, 30 day supply bmi66.08, # 30 tab(s), Refills(s) 0, Pharmacy: [facility], 180.3, cm, 11/17/23 10:09:00 EDT, Height/Length Dosing, 201.4, kg, 11/17/23 10:09:00 EDT, Weight Dosing phentermine, 37.5 mg = 1 tab(s), Oral, Daily, 30 day supply bmi66.08, # 30 tab(s), Refills(s) 0, Pharmacy: [facility], 180.3, cm, 10/15/23 10:14:00 EDT, Height/Length Dosing, 208.8, kg, 10/15/23 10:14:00 EDT, Weight Dosing Follow-up No qualifying data available Problem List/Past Medical History Ongoing Adult BMI 60.0-69.9 kg/sq m Decreased libido Encounter for weight management Fatigue Hypogonadism male Loud snoring Low testosterone in male Obesities, morbid Obstructive sleep apnea Occipital neuralgia Somnolence, daytime Witnessed episode of apnea Historical No qualifying data Procedure/Surgical History Gastric sleeve, Myringotomy, T and A (tonsillectomy and adenoidectomy) postoperative education. Medications Ajovy 225 mg/1.5 mL subcutaneous solution, 225 mg, SubCutaneous, qMonth Androderm 2 mg/24 hr transdermal film, extended release, 1 patch(es), Topical, Once a day (at bedtime), 1 refills duloxetine 60 mg Cap-DR, 60 mg, Oral, Daily lurasidone 40 mg oral tablet, 40 mg= 1 tab(s), Oral, Daily naproxen sodium 550 mg Tab, 550 mg= 1 tab(s), Oral, BID nortriptyline 50 mg oral capsule, 50 mg= 1 cap(s), Oral, Once a day (at bedtime) phentermine 37.5 mg Tab, 37.5 mg= 1 tab(s), Oral, Daily testosterone 20.25 mg/1.25 g (1.62%) transdermal gel, 1 pump, Topical, qAM Topamax 200 mg Tab, (more content not included)... Normal [facility] Comment on above: Result Comment: Elec tronically Signed By: Rina Maguire.shaneka\Date and Time Signed: 11/17/23 10:52 EDT Princess 10-27-2023 CNOV Office Visit ([facility] ) TOMEKAONEAL ([id number]) 1990 M Date Time Provider Department 10/27/23 2:00 PM TEX ORDOÑEZ [facility] During your visit today, we recorded the following information about you: Pulse Blood pressure Weight Height 80/minute 123/80 206.8 kg 1.829 m Tex Ordoñez MD 10/28/2023 9:13 AM Signed PROCEDURE NOTE: UNIVERSAL PROTOCOL / SAFETY CHECKLIST Procedure to be Performed: Occipital neuralgia Sign In: A Moment of CARE was completed. Personnel directly involved with the procedure wore the appropriate PPE (Personal Protective Equipment). Patient/Surrogate Stated/Verified: PATIENT VERIFIED(optional for EMERGENT procedures): Patient name, Date of , Relevant allergies and The intended procedure Time Out Communication: Intended patient and procedure match the source documents. Consent documented and matches the intended procedure. No relevant labs, photos, and/or imaging studies were applicable for review. No correct side/site applicable for marking and visibility. Medications required for procedure verified. No fire risk assessment and interventions applicable. No implant(s) inserted. Sign Out: SIGN OUT (optional for EMERGENT procedures): No specimen collected. No instruments, equipment or retained foreign bodies applicable. Post-procedure follow-up management communicated and Plan of Care Visit completed when applicable. Bilateral Occipital Nerve Block: Dx: Occipital neuralgia Consent: In Epic Informational guide about Occipital nerve block given Procedure: The patient was placed in a seated position. The site of pain and procedure were confirmed with the patient prior to starting the procedure. The patient's nuchal ridge of the occipital bone was identified and prepped with well with chlorhexidine x 3. A 25 Gauge 5/8 inch needle was advanced through the skin and subcutaneous tissues lateral to the occipital protuberance in the area of the Greater Occipital Nerve bilaterally. Aspiration for blood and CSF was negative. FOR AURA: The needle was again repositioned 2 cm laterally. This area was injected with 1 cc of fluid after ensuring there was no obstruction or back flow of blood. A total of 4 cc of bupivacaine 0.25% mixed with 40 mg of Kenalog was injected. Needle was then removed and bleeding was nil. MD Chiki Ruano Luzma M, MD 10/28/2023 9:13 AM Signed PROGRESS NOTE- HEADACHE MEDICINE SERVICE DATE: October 27, 2023 Participants: patient and provider Location: [facility] Subjective HPI: Oneal Eckert is here for nerve block. The last one was 06/09/2023 and still has not wore off completely. His occipital pain disappeared and he feels it even helped decreased his migraine frequency. BP 123/80 Pulse 80 Ht 182.9 cm (6') Wt (!) 206.8 kg (456 lb) BMI 61.84 kg/m? Current Outpatient Medications Medication Sig Phentermine HCl (ADIPEX-P) 37.5 mg capsule Take 37.5 mg by mouth once daily. lurasidone (LATUDA) 40 mg tablet fremanezumab-vfrm (AJOVY AUTOINJECTOR) 225 mg/1.5 mL auto-injector Inject 1.5 mL subcutaneously once every month. Naproxen Sodium 550 mg tablet Take 1 tablet by mouth two times a day as needed. nortriptyline (PAMELOR) 50 mg capsule Take 1 capsule by mouth daily at bedtime. DULoxetine (CYMBALTA) 60 mg capsule Take 1 capsule by mouth once daily. topiramate (TOPAMAX) 200 mg tablet Take 1 tablet by mouth once daily. clonazePAM (KLONOPIN) 1 mg tablet Take 1 tablet by mouth twice daily as needed for anxiety for up to 30 days. No current facility-administered medications for this visit. PAST MEDICAL HISTORY Diagnosis Date Anxiety Chronic migraine without aura Impression/Recommendat ions - Bilateral Occipital neuralgia RECS: 1. STACIA block today, see attached procedure note Tex Ordoñez MD [facility] Allergies As of Date: 10/27/2023 (No Known Allergies) Date Reviewed: 10/27/2023 Reviewed by: Hannah Sims MA - Fully Assessed Reason for Visit: Established Patient [175] Cmt: Occipital nerve block Primary Visit Diagnosis:Bilateral occipital neuralgia [M54.81] Order(s):[] triamcinolone acetonide 40 mg injection (KeNALog 40)Disp: Rfl: [] bupivacaine (PF) 0.25 % (2.5 mg/mL) 12 mg injection (SENSORCAINE MPF)Disp: Rfl: Prescriptions as of 10/29/2023 - Phentermine HCl (ADIPEX-P) 37.5 mg capsule Take 37.5 mg by mouth once daily. - lurasidone (LATUDA) 40 mg tablet - fremanezumab-vfrm (AJOVY AUTOINJECTOR) 225 mg/1.5 mL auto-injector Inject 1.5 mL subcutaneously once every month. - Naproxen Sodium 550 mg tablet Take 1 tablet by mouth two times a day as needed. - nortriptyline (PAMELOR) 50 mg capsule Take 1 capsule by mouth daily at bedtime. - DULoxetine (CYMBALTA) 60 mg capsule Take 1 capsule by mouth once daily. - topiramate (more content not included)... Normal [facility] Ambulatory Visit Summaryon 0 10-15-2023 Ambulatory Visit Summary ONEAL ECKERT :1990 Visit Date:10/15/2023 Ambulatory Visit Instructions Your Diagnosis Encounter for weight management Low testosterone in male BMI 60.0-69.9, adult Your Care Team Attending Physician - Rina Maguire Primary Care Physician - Rina Maguire This Is Your Medications List duloxetine (duloxetine 60 mg Pati) fremanezumab (Ajovy 225 mg/1.5 mL subcutaneous solution) lurasidone (lurasidone 40 mg oral tablet) naproxen (naproxen sodium 550 mg Tab) nortriptyline (nortriptyline 50 mg oral capsule) phentermine (phentermine 37.5 mg Tab) testosterone (Androderm 2 mg/24 hr transdermal film, extended release) testosterone (testosterone 20.25 mg/1.25 g (1.62%) transdermal gel) topiramate (Topamax 200 mg Tab) Procedures Performed Gastric sleeve, Myringotomy, T and A (tonsillectomy and adenoidectomy) postoperative education. Discharge Vitals Heart Rate (Peripheral) 96 Blood Pressure 140/90 Height 180.3 cm Height 71 in Weight 208.8 kg Weight 459.36 lb BMI 64.23 What to do next Scheduled Follow-Up Appointments Thursday. 2023 10:00 AM EDT With: Rina Maguire Where: [facility] [place] [facility] Family Medicine Office/Clini c Noteon 10-15-2023 Family Medicine Office/Clinic Note Chief Complaint weight loss HPI Staff Oneal is a 33 year old male presenting for 1 month follow up Weight management: Started Phentermine on 08/20/23 Sleeping well:Yes, 6-8 hours Chest pain:No Tremors:No Headaches:Yes nothing new Heart fluttering:No Blurred Vision:No Beginning weight: 487.3Ibs Previous weight: 472.6 Ibs Today's weight: 459.36 lbs Questions/Concerns: History of Present Illness pt presents today for weight managmenet Review of Systems PHQ Score Initial Depression Screen Score: 0 SCORE Physical Exam Vitals & Measurements HR: 96(Peripheral) BP: 140/90 SpO2: 98% HT: 71 in HT: 180.3 cm WT: 208.8 kg WT: 459.36 lb BMI: 64.23 General: alert, no acute distress ENMT: oral mucosa moist, no pharyngeal erythema or exudate Cardiovascular: regular rate and rhythm, normal peripheral perfusion Respiratory: Lungs CTA, respirations non labored Extremities: no deformity, no trauma Neurological: oriented x 4, LOC appropriate for age, CN II-XII intact, motor strength equal & normal bilaterally, speech normal Assessment/Plan 1. Encounter for weight management (Z76.89: Persons encountering health services in other specified circumstances) pt presents today for weight management. pt is down 28 pounds. doing very well. all questions answered. RTC 4 weeks Ordered: phentermine, 37.5 mg = 1 tab(s), Oral, Daily, 30 day supply bmi66.08, # 30 tab(s), Refills(s) 0, Pharmacy: [facility], 180.3, cm, 09/18/23 10:05:00 EDT, Height/Length Dosing, 214.8, kg, 09/18/23 10:05:00 EDT, Weight Dosing phentermine, 37.5 mg = 1 tab(s), Oral, Daily, 30 day supply bmi66.08, # 30 tab(s), Refills(s) 0, Pharmacy: [facility], 180.3, cm, 10/15/23 10:14:00 EDT, Height/Length Dosing, 208.8, kg, 10/15/23 10:14:00 EDT, Weight Dosing 2. Low testosterone in male (R79.89: Other specified abnormal findings of blood chemistry) had some issues with prescribing testosterone that insurance would cover and what pharmacy had available. pt was able to get that picked up last week. says he is feeling better 3. Obstructive sleep apnea (G47.33: Obstructive sleep apnea (adult) (pediatric)) pt was diagnosed many years ago but has not used his machine in over 7 years. states machine is dirty and has a residue inside of it. will order home sleep study. pt will call supplies store to see if he can get new machine or what kind of orders he needs to get a new machine. 4. Witnessed episode of apnea (R06.81: Apnea, not elsewhere classified) see above 5. Somnolence, daytime (R40.0: Somnolence) see above 6. Loud snoring (R06.83: Snoring) girlfriend has to go to a different room to sleep due to loud snoring 7. Adult BMI 60.0-69.9 kg/sq m, (Z68.44: Body mass index [BMI] 60.0-69.9, adult)BMI 60.0-69.9, adult Pt is down 28 pounds since starting adipex Ordered: phentermine, 37.5 mg = 1 tab(s), Oral, Daily, 30 day supply bmi66.08, # 30 tab(s), Refills(s) 0, Pharmacy: [facility], 180.3, cm, 09/18/23 10:05:00 EDT, Height/Length Dosing, 214.8, kg, 09/18/23 10:05:00 EDT, Weight Dosing phentermine, 37.5 mg = 1 tab(s), Oral, Daily, 30 day supply bmi66.08, # 30 tab(s), Refills(s) 0, Pharmacy: [facility], 180.3, cm, 10/15/23 10:14:00 EDT, Height/Length Dosing, 208.8, kg, 10/15/23 10:14:00 EDT, Weight Dosing 9. Obesities, morbid (E66.01: Morbid (severe) obesity due to excess calories) see above Ordered: phentermine, 37.5 mg = 1 tab(s), Oral, Daily, 30 day supply bmi66.08, # 30 tab(s), Refills(s) 0, Pharmacy: [facility], 180.3, cm, 09/18/23 10:05:00 EDT, Height/Length Dosing, 214.8, kg, 09/18/23 10:05:00 EDT, Weight Dosing phentermine, 37.5 mg = 1 tab(s), Oral, Daily, 30 day supply bmi66.08, # 30 tab(s), Refills(s) 0, Pharmacy: [facility], 180.3, cm, 10/15/23 10:14:00 EDT, Height/Length Dosing, 208.8, kg, 10/15/23 10:14:00 EDT, Weight Dosing Follow-up No qualifying data available Problem List/Past Medical History Ongoing Adult BMI 60.0-69.9 kg/sq m Decreased libido Encounter for weight management Fatigue Hypogonadism male Loud snoring Low testosterone in male Obesities, morbid Obstructive sleep apnea Occipital neuralgia Somnolence, daytime Witnessed episode of apnea Historical No qualifying data Procedure/Surgical History Gastric sleeve, Myringotomy, T and A (tonsillectomy and adenoidectomy) postoperative education. Medications Ajovy 225 mg/1.5 mL subcutaneous solution, 225 mg, SubCutaneous, qMonth Androderm 2 mg/24 hr transdermal film, extended release, 1 patch(es), Topical, Once a day (at bedtime), 1 refills duloxetine 60 mg Cap-DR, 60 mg, Oral, Daily lurasidone 40 mg oral tablet, 40 mg= 1 tab(s), Oral, Daily naproxen sodium 550 mg Tab, 550 mg= 1 tab(s), Oral, BID nortriptyline 50 mg oral capsule, 50 mg= 1 cap(s), Oral, Once a day (at bedtime) phentermine 37.5 mg Tab, 37.5 mg= 1 tab(s), Oral, Daily testosterone 20.25 mg/1.25 g (1.62%) transde (more content not included)... [facility] Comment on above: Result Comment: Elec tronically Signed By: Rina Maguire.br\Date and Time Signed: 10/15/23 11:13 EDT Pre-Certification Formon Pre-Certification Form [id number]#[id number] 0TIFF Normal [facility] Pre-Certification Formon Pre-Certification Form [id number]#1.0 0TIFF Normal [facility] Pre-Certification Formon Pre-Certification Form [id number]#1.0 0TIFF Normal [facility] Testost Totalon 09-20-2023 Testosterone [Mass/Vol] 210 ng/dL Low 264-916 [facility] Comment on above: Result Comment: Adul t male reference interval is based on a population of healthy nonobese males (BMI <30) between 19 and 39 years old. Luci et.al. JCEM 2017,102;4441-5780. PMID: [id number]. Performed at: [facility] [address] [id number] PhD David Freitas Performed By: #### [id number] ####[facility] [id number] [place] [address] [facility] Medicine Office/Clini c Noteon 09-18-2023 Family Medicine Office/Clinic Note HPI Staff Oneal is a 33 year old male presenting for 1 month follow up Weight management: Started Phentermine on 08/20/23 Sleeping well:Yes, 6-8 hours Chest pain:No Tremors:No Headaches:No Heart fluttering:No Blurred Vision:No Beginning weight: 487.3Ibs Previous weight: same as above Today's weight: 472.60Ibs Questions/Concerns: History of Present Illness pt presents today for weight management. pt is also wanting testosterone level drawn Review of Systems PHQ Score Initial Depression Screen Score: 0 SCORE Physical Exam Vitals & Measurements HR: 88(Peripheral) RR: 18 BP: 130/86 SpO2: 99% HT: 71 in HT: 180.3 cm WT: 214.82 kg WT: 472.604 lb BMI: 66.08 General: alert, no acute distress ENMT: oral mucosa moist, no pharyngeal erythema or exudate Cardiovascular: regular rate and rhythm, normal peripheral perfusion Respiratory: Lungs CTA, respirations non labored Extremities: no deformity, no trauma Neurological: oriented x 4, LOC appropriate for age, CN II-XII intact, motor strength equal & normal bilaterally, speech normal Assessment/Plan 1. Encounter for weight management (Z76.89: Persons encountering health services in other specified circumstances) pt presents today for weight management. is down 15 pounds. doing very well. all questions answered. RTC 4 weeks 2. Hypogonadism male (E29.1: Testicular hypofunction) pt would like testosterone level checked today. feels it is low due to fatigue, decreased libido Ordered: Testosterone Level Total 3. Fatigue (R53.83: Other fatigue) see above Ordered: Testosterone Level Total 4. Decreased libido (R68.82: Decreased libido) see above Ordered: Testosterone Level Total 5. Adult BMI 60.0-69.9 kg/sq m (Z68.44: Body mass index [BMI] 60.0-69.9, adult) BMI education complete Ordered: Testosterone Level Total 6. Non-smoker (Z78.9: Other specified health status) continue not smoking Ordered: Testosterone Level Total Follow-up No qualifying data available Problem List/Past Medical History Ongoing Adult BMI 60.0-69.9 kg/sq m Decreased libido Encounter for weight management Fatigue Hypogonadism male Obesities, morbid Occipital neuralgia Historical No qualifying data Procedure/Surgical History Gastric sleeve, Myringotomy, T and A (tonsillectomy and adenoidectomy) postoperative education. Medications Ajovy 225 mg/1.5 mL subcutaneous solution, 225 mg, SubCutaneous, qMonth duloxetine 60 mg Cap-DR, 60 mg, Oral, Daily lurasidone 40 mg oral tablet, 40 mg= 1 tab(s), Oral, Daily naproxen sodium 550 mg Tab, 550 mg= 1 tab(s), Oral, BID nortriptyline 50 mg oral capsule, 50 mg= 1 cap(s), Oral, Once a day (at bedtime) phentermine 37.5 mg Tab, 37.5 mg= 1 tab(s), Oral, Daily Topamax 200 mg Tab, 200 mg= 1 tab(s), Oral, Daily Allergies No Known Medication Allergies Social History Tobacco Never (less than 100 in lifetime) Tobacco Use:. Smokeless tobacco user within last 30 days Smokeless Tobacco Use:. Household tobacco concerns: No., 09/18/2023 Family History Family history is negative Immunizations Vaccine Date Status influenza virus vaccine, inactivated 04/27/2020 Recorded influenza virus vaccine, inactivated 04/28/2018 Recorded human papillomavirus vaccine 03/23/2017 Recorded influenza, whole 04/05/2015 Recorded diphtheria/pertussis, acel/tetanus adult 02/25/2014 Recorded hepatitis B pediatric vaccine 10/26/2008 Recorded hepatitis B pediatric vaccine 07/27/2008 Recorded meningococcal conjugate vaccine 04/27/2008 Recorded hepatitis B pediatric vaccine 04/27/2008 Recorded measles/mumps/rubella virus vaccine 02/15/1998 Recorded DTaP, unspecified formulation 02/15/1998 Recorded measles/mumps/rubella virus vaccine 02/20/1994 Recorded Hib, unspecified formulation 02/20/1994 Recorded DTaP, unspecified formulation 02/20/1994 Recorded Hib, unspecified formulation 01/03/1993 Recorded Hib, unspecified formulation 1992 Recorded Hib, unspecified formulation 1992 Recorded Normal [facility] Comment on above: Result Comment: Elec tronically Signed By: Rina Maguire\.br\Date and Time Signed: 09/18/23 10:18 EDT Ambulatory Visit Summaryon 0 08-20-2023 Ambulatory Visit Summary ONEAL ECKERT :1990 Visit Date:08/20/2023 Ambulatory Visit Instructions Your Diagnosis Encounter for weight management Obesities, morbid, Class 3 obesity Occipital neuralgia BMI 60.0-69.9, adult Smokeless tobacco use Your Care Team Attending Physician - Rina Maguire Primary Care Physician - Rina Maguire This Is Your Medications List duloxetine (duloxetine 60 mg Pati) fremanezumab (Ajovy 225 mg/1.5 mL subcutaneous solution) lurasidone (lurasidone 40 mg oral tablet) naproxen (naproxen sodium 550 mg Tab) nortriptyline (nortriptyline 50 mg oral capsule) topiramate (Topamax 200 mg Tab) Procedures Performed Gastric sleeve, Myringotomy, T and A (tonsillectomy and adenoidectomy) postoperative education. Discharge Vitals Temperature (Oral) 36.7 ?C Heart Rate (Peripheral) 78 Respiratory Rate 16 Blood Pressure 142/88 Height 180.3 cm Height 71 in Weight 221.5 kg Weight 487.3 lb BMI 68.14 What to do next Scheduled Follow-Up Appointments Thursday 10:00 AM EDT With: Rina Maguire Where: [facility] [place] [facility] Family Medicine Office/Clini c Noteon 08-20-2023 Family Medicine Office/Clinic Note HPI Staff Patient presents to establish care. Establish Care: History: anxiety, depression, migraines, occiptial neuralgia Last provider: michoacano Flores Any recent labs: none Health Maintenance UTD: Colonoscopy: within last 10 years, also EGD at that time EGD found esophagitis PSA: none phq: 4 phq9: 23 joe: 14 Acute: wants to talk about his head issues and maybe change psych drPan and weight loss medicine ( you see his girlfriend and put her on weight loss and it's worked great for her) Gets botox and nerve blocks for the occiptal neuralgia @ [facility] Current issues/complaints: History of Present Illness pt presents today to discuss weight management. pt is also looking for referral for his psych issues Review of Systems PHQ Score Initial Depression Screen Score: 4 SCORE Detailed Depression Screen Score: 19 Total Depression Screen Score: 23 ROS - Provider Constitutional: no fever, no chills, no sweats, no fatigue Respiratory: no shortness of breath, no cough, no orthopnea, no wheezing. Cardiovascular: no chest pain, no palpitations, no edema. Neurologic: no headache, no dizziness, no numbness, no weakness. Physical Exam Vitals & Measurements T: 36.7 ?C(Oral) HR: 78(Peripheral) RR: 16 BP: 142/88 SpO2: 99% HT: 71 in HT: 180.3 cm WT: 221.5 kg WT: 487.3 lb BMI: 68.14 General: alert, no acute distress ENMT: oral mucosa moist, no pharyngeal erythema or exudate Cardiovascular: regular rate and rhythm, normal peripheral perfusion Respiratory: Lungs CTA, respirations non labored Extremities: no deformity, no trauma Neurological: oriented x 4, LOC appropriate for age, CN II-XII intact, motor strength equal & normal bilaterally, speech normal Assessment/Plan 1. Encounter for weight management (Z76.89: Persons encountering health services in other specified circumstances) pt would like to discuss weight loss. will start adipex. medication agreement signed. risks and benefits discussed. all questions answered. RTC 4 weeks. Gave pt information on in [place]. he will check into that. Ordered: phentermine, 37.5 mg = 1 tab(s), Oral, Daily, # 30 tab(s), Refills(s) 0, Pharmacy: [facility], 180.3, cm, 08/20/23 9:34:00 EST, Height/Length Dosing, 221.5, kg, 08/20/23 9:34:00 EST, Weight Dosing 2. Occipital neuralgia (M54.81: Occipital neuralgia) follows neurologist. botox injections Ordered: phentermine, 37.5 mg = 1 tab(s), Oral, Daily, # 30 tab(s), Refills(s) 0, Pharmacy: [facility], 180.3, cm, 08/20/23 9:34:00 EST, Height/Length Dosing, 221.5, kg, 08/20/23 9:34:00 EST, Weight Dosing 3. Smokeless tobacco use (Z72.0: Tobacco use) consider no using tobacco Ordered: phentermine, 37.5 mg = 1 tab(s), Oral, Daily, # 30 tab(s), Refills(s) 0, Pharmacy: [facility], 180.3, cm, 08/20/23 9:34:00 EST, Height/Length Dosing, 221.5, kg, 08/20/23 9:34:00 EST, Weight Dosing Body Mass Index (BMI) documented 3008F Current smokeless tobacco user 1035F Depression Screening Positive 3354F Influenza immunization status assessed 1030F Most recent diastolic blood pressure 80-89 mm Hg 3079F Most recent systolic blood pressure >= 140 mm Hg 3077F 4. Adult BMI 60.0-69.9 kg/sq m (Z68.44: Body mass index [BMI] 60.0-69.9, adult) BMI education complete. will start adipex Ordered: phentermine, 37.5 mg = 1 tab(s), Oral, Daily, # 30 tab(s), Refills(s) 0, Pharmacy: [facility], 180.3, cm, 08/20/23 9:34:00 EST, Height/Length Dosing, 221.5, kg, 08/20/23 9:34:00 EST, Weight Dosing Body Mass Index (BMI) documented 3008F Current smokeless tobacco user 1035F Depression Screening Positive 3354F Influenza immunization status assessed 1030F Most recent diastolic blood pressure 80-89 mm Hg 3079F Most recent systolic blood pressure >= 140 mm Hg 3077F 5. Obesities, morbid, (E66.01: Morbid (severe) obesity due to excess calories)Class 3 obesity see above Ordered: phentermine, 37.5 mg = 1 tab(s), Oral, Daily, # 30 tab(s), Refills(s) 0, Pharmacy: [facility], 180.3, cm, 08/20/23 9:34:00 EST, Height/Length Dosing, 221.5, kg, 08/20/23 9:34:00 EST, Weight Dosing Body Mass Index (BMI) documented 3008F Current smokeless tobacco user 1035F Depression Screening Positive 3354F Influenza immunization status assessed 1030F Most recent diastolic blood pressure 80-89 mm Hg 3079F Most recent systolic blood pressure >= 140 mm Hg 3077F Follow-up No qualifying data available Problem List/Past Medical History Ongoing Adult BMI 60.0-69.9 kg/sq m Encounter for weight management Obesities, morbid Occipital neuralgia Historical No qualifying data Procedure/Surgical History Gastric sleeve, Myringotomy, T and A (tonsillectomy and adenoidectomy) postoperative education. Medications Ajovy 225 mg/1.5 mL subcutaneous solution, 225 mg, SubCutaneous, qMonth duloxetine 60 mg Cap-DR, 60 mg, Oral, Daily lurasidone 40 mg oral tablet, 40 mg= 1 tab(s), Oral, (more content not included)... [facility] Comment on above: Result Comment: Elec tronically Signed By: Rina Maguire\.shaneka\Date and Time Signed: 08/20/23 10:19 EST Medication Consenton 024 Medication Consent [id number]#1.0 0TIFF [facility] CNOVon 06-09-2023 CNOV Office Visit ([facility]AD[facility] ) ONEAL ECKERT ([id number]) 1990 M Date Time Provider Department 06/09/23 4:30 PM TEX ORDOÑEZ NEAD[facility] During your visit today, we recorded the following information about you: Pulse Blood pressure Weight Height 85/minute 135/82 221.8 kg 1.829 m Masha Valenzuela Ma 06/09/2023 5:14 PM Signed There is no data to display for this encounter Tex Ordoñez MD 06/09/2023 5:14 PM Signed PROCEDURE NOTE: UNIVERSAL PROTOCOL / SAFETY CHECKLIST Procedure to be Performed: Occipital neuralgia Sign In: A Moment of CARE was completed. Personnel directly involved with the procedure wore the appropriate PPE (Personal Protective Equipment). Patient/Surrogate Stated/Verified: PATIENT VERIFIED(optional for EMERGENT procedures): Patient name, Date of , Relevant allergies and The intended procedure Time Out Communication: Intended patient and procedure match the source documents. Consent documented and matches the intended procedure. No relevant labs, photos, and/or imaging studies were applicable for review. No correct side/site applicable for marking and visibility. Medications required for procedure verified. No fire risk assessment and interventions applicable. No implant(s) inserted. Sign Out: SIGN OUT (optional for EMERGENT procedures): No specimen collected. No instruments, equipment or retained foreign bodies applicable. Post-procedure follow-up management communicated and Plan of Care Visit completed when applicable. Bilateral Occipital Nerve Block: Dx: Occipital neuralgia Consent: In [facility] Informational guide about Occipital nerve block given Procedure: The patient was placed in a seated position. The site of pain and procedure were confirmed with the patient prior to starting the procedure. The patient's nuchal ridge of the occipital bone was identified and prepped with well with chlorhexidine x 3. A 25 Gauge 5/8 inch needle was advanced through the skin and subcutaneous tissues lateral to the occipital protuberance in the area of the Greater Occipital Nerve bilaterally. Aspiration for blood and CSF was negative. FOR AURA: The needle was again repositioned 2 cm laterally. This area was injected with 1 cc of fluid after ensuring there was no obstruction or back flow of blood. A total of 4 cc of bupivacaine 0.25% mixed with 40 mg of Kenalog was injected. Needle was then removed and bleeding was nil. Tex Ordoñez MD Referring Provider: TEX ORDOÑEZ [[id number]] Allergies As of Date: 06/09/2023 (No Known Allergies) Date Reviewed: 06/09/2023 Reviewed by: Hannah Sims MA - Fully Assessed Primary Visit Diagnosis:Bilateral occipital neuralgia [M54.81] Other Visit Diagnosis:Chronic migraine without aura, intractable, without status migrainosus [G43.719] Order(s):fremanezumab- vfrm (AJOVY AUTOINJECTOR) 225 mg/1.5 mL auto-injectorInject 1.5 mL subcutaneously once every month.Disp: 1.5 mLRfl: 5 Naproxen Sodium 550 mg tabletTake 1 tablet by mouth two times a day as needed.Disp: 20 tabletRfl: 5 triamcinolone acetonide 40 mg injection (KeNALog 40)Disp: Rfl: bupivacaine (PF) 0.25 % (2.5 mg/mL) 12 mg injection (SENSORCAINE MPF)Disp: Rfl: Prescriptions as of 06/09/2023 - lurasidone (LATUDA) 40 mg tablet - fremanezumab-vfrm (AJOVY AUTOINJECTOR) 225 mg/1.5 mL auto-injector Inject 1.5 mL subcutaneously once every month. - Naproxen Sodium 550 mg tablet Take 1 tablet by mouth two times a day as needed. - nortriptyline (PAMELOR) 50 mg capsule Take 1 capsule by mouth daily at bedtime. - DULoxetine (CYMBALTA) 60 mg capsule Take 1 capsule by mouth once daily. - topiramate (TOPAMAX) 200 mg tablet Take 1 tablet by mouth once daily. - clonazePAM (KLONOPIN) 1 mg tablet Take 1 tablet by mouth twice daily as needed for anxiety for up to 30 days. Facility-Administered Medications as of 06/09/2023 - triamcinolone acetonide 40 mg injection (KeNALog 40) (Completed) - bupivacaine (PF) 0.25 % (2.5 mg/mL) 12 mg injection (SENSORCAINE MPF) (Completed) Problem List As Of Date: 06/09/2023 (None) Prescriptions ordered this encounter Disp Refills Start End AJOVY 225 MG/1.5 ML SUBCUTANEOUS AUT* 1.5 * 5 06/09/2023 Route: SUBCUTANEOUS Sig: Inject 1.5 mL subcutaneously once every month. NAPROXEN SODIUM 550 MG TABLET 20 t* 5 06/09/2023 Route: ORAL Sig: Take 1 tablet by mouth two times a day as needed. TRIAMCINOLONE ACETONIDE 40 MG/ML JOSIAS* 06/09/2023 06/09/2023 Route: INTRALESIONA BUPIVACAINE (PF) 0.25 % (2.5 MG/ML) * 06/09/2023 06/09/2023 Route: [id number] Medications Discontinued During This Encounter Prescriptions - fremanezumab-vfrm (AJOVY AUTOINJECTOR) 225 mg/1.5 mL auto-injector (Discontinued) Inject 1.5 mL subcutaneously once every month. - Naproxen Sodium 550 mg tablet (Discontinued) Take 1 tablet by mouth twice daily as needed Encounter Number: (more content not included)... [facility] CNOVon 04-21-2023 OV Office Visit (NEADFV ) ONEAL ECKERT ([id number]) 1990 M Date Time Provider Department 04/21/23 11:00 AM TEX ORDOÑEZ NEADFV During your visit today, we recorded the following information about you: Pulse Blood pressure Weight Height 69/minute 130/83 219.5 kg 1.829 m Tex Ordoñez MD 04/21/2023 12:18 PM Signed PROGRESS NOTE- HEADACHE MEDICINE SERVICE DATE: April 21, 2023 Participants: patient and provider Location: [facility] Subjective HPI: Oneal Eckert is here for follow up visit and Botox therapy. He had a STACIA block in February and he says it helped. Decreased frequency and severity of headaches. He also feels that Ajovy helps, he feels it wearing off. BOTOX PRIOR TO TREATMENT Total headache days per month: daily Severity of headaches: mild to severe Start date: 12/25/21 AFTER TREATMENT Now Total headache days per month: 5-10 Severity of headaches: mild to moderate Wearing off: 1 week Migraine description: see note from October 07, 2021 Ubrelvy not helpful. PAST MEDICAL HISTORY Diagnosis Date Anxiety Chronic migraine without aura Current Outpatient Medications Medication Sig Naproxen Sodium 550 mg tablet Take 1 tablet by mouth twice daily as needed nortriptyline (PAMELOR) 50 mg capsule Take 1 capsule by mouth daily at bedtime. DULoxetine (CYMBALTA) 60 mg capsule Take 1 capsule by mouth once daily. topiramate (TOPAMAX) 200 mg tablet Take 1 tablet by mouth once daily. fremanezumab-vfrm (AJOVY AUTOINJECTOR) 225 mg/1.5 mL auto-injector Inject 1.5 mL subcutaneously once every month. clonazePAM (KLONOPIN) 1 mg tablet Take 1 tablet by mouth twice daily as needed for anxiety for up to 30 days. Current Facility-Administered Medications Medication Dose Route Frequency [COMPLETED] onabotulinum toxin type A 200 Units injection (BOTOX) 200 Units INTRAMUSCULAR ONCE (AMB - Up to 30 Days) Allergies: No Known Allergies Impression/Recommendat ions - chronic migraine without aura - episodes of cognitive impairment/brain fog - I suspect he has an underlying/untreated generalized anxiety disorder. RECS: 1. Migraine prevention: -Botox therapy today, see attached procedure note. -Continue Topamax 200 mg at bedtime continue. -Continue Cymbalta 60 mg daily. This is also prescribed for the suspected JOE -Continue nortriptyline 50 mg at bedtime -Continue Ajovy 2. Migraine abortive therapy: -Continue naproxen 550 mg. 3. STACIA block PRN 4.Follow-up in 3 months. Tex Ordoñez MD [facility] [place] Violette Ceron RN 04/21/2023 11:12 AM Signed Patient name and confirmed. Patient states she would like to receive Botox treatment today. 2 vials of Botox A (100 units in each) reconstituted with 2.2 cc of normal saline in each vial. Botox drawn up into four, 1 cc syringes. Each syringe containing 50 units of Botox. Assisted by: Ruth Ann GRACE Botox, 2 vials: Lot # [id number] Exp Lot # [id number] Exp Botox handed to Dr. Ordoñez to administer and verified order. Tex Ordoñez MD 04/21/2023 12:18 PM Signed PROCEDURE NOTE UNIVERSAL PROTOCOL / SAFETY CHECKLIST Procedure to be Performed: Botox therapy for migraine Sign In: A Moment of CARE was completed. Personnel directly involved with the procedure wore the appropriate PPE (Personal Protective Equipment). Patient/Surrogate Stated/Verified: PATIENT VERIFIED(optional for EMERGENT procedures): Patient name, Date of , Relevant allergies and The intended procedure Time Out Communication: Intended patient and procedure match the source documents. Consent documented and matches the intended procedure. No relevant labs, photos, and/or imaging studies were applicable for review. No correct side/site applicable for marking and visibility. Medications required for procedure verified. No fire risk assessment and interventions applicable. No implant(s) inserted. Sign Out: SIGN OUT (optional for EMERGENT procedures): No specimen collected. No instruments, equipment or retained foreign bodies applicable. Post-procedure follow-up management communicated and Plan of Care Visit completed when applicable. Botox procedure note Treatment #6 Consent in EPIC BOTOX brought in by patient? No Dilution: 5 units/0.1 ml ( 100 unit vial with 2 cc diluent or 200 unit vial with 4 cc diluent) Diluent: normal saline Indication: Chronic Intractable Migraine Injection Sites Muscle Fixed Site/Fixed Dose Bilat Shellfish Grower 20 U divided in 2 sites Procerus 10 U in 1 site Bilat Frontalis 20 U divided in 4 sites Bilat Temporalis 50 U divided in 8 sites Bilat Occipitalis 40 U divided in 6 sites Bilat Cervical PSPs 20 U divided in 4 sites Bilat Trapezius 40 U divided in 6 sites Subtotals 200 units Total Units used: 200 Total Units wasted: 0 Tex Gordillo Car (more content not included)... [facility] 03-30-2023 [facility] ([facility]) ONEAL ECKERT ([id number]) 1990 Date Time Provider Department 03/30/23 TEX ORDOÑEZ [facility] During your visit today, we recorded the following information about you: Dorothy Apodaca 03/30/2023 9:40 AM Signed Botox PA denied, Peer to peer required: Reason for Peer to Peer Request Denial for botox Off Label Use: Y/N N Ordering Provider: Ajay Ordoñez MD Provider Tax ID: [id number] [facility] code(s) AND drug name(s): [id number] Botox Diagnosis submitted (ICD -10 code AND description): G43.719 (ICD-10-CM) - Chronic migraine without aura, intractable, without status migrainosus Clinical Documentation Submitted: 02/17 OV, 01/08 OV, 01/2023 OV, 07/2022 OV showing improvement with Botox New Start or Renewal? Renewal [place] / [place] Plan order applied date (if applicable) - new starts only Patient: Oneal Eckert : 1990 DOS: 04/21/2023 Date request submitted to payer: 03/17/2023 SDND Add On:? 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 He said about 5-10 headaches a month that are mild to moderate. Nimajonathon Colette 04/01/2023 1:22 PM Signed Spoke with Insurance regarding botox.re-completing botox PA for reconsideration. Called patient again to confirm that he is not currently taking ajovy. He states he e has not been able to time it up correctly with the botox as Dr. Ordoñez wanted him to take it 2 weeks before botox, and he cant get it from pharmacy until the (which is same time he is due for botox). Patient has not taken ajovy this month. PA# [id number] Will fax office visit notes to [phone] Nimajonathon Colette 04/01/2023 2:11 PM Signed Faxed office visit notes from 01/08/23, confirmation received. Minnie Fall 04/01/2023 3:20 PM Signed Received approval for Botox. Patient approved from 04/21/23 to 04/20/24 auth # [id number]. Uploaded fax to patient's chart. Allergies As of Date: 03/30/2023 (No Known Allergies) Date Reviewed: 02/17/2023 Reviewed by: Hannah Sims MA - Fully Assessed Reason for Visit: Insurance Authorization [[id number]] Cmt: Botox denied; Peer to peer requested Prescriptions as of 04/03/2023 - nortriptyline (PAMELOR) 50 mg capsule Take 1 capsule by mouth daily at bedtime. - DULoxetine (CYMBALTA) 60 mg capsule Take 1 capsule by mouth once daily. - topiramate (TOPAMAX) 200 mg tablet Take 1 tablet by mouth once daily. - Naproxen Sodium 550 mg tablet Take 1 tablet by mouth twice daily as needed. - fremanezumab-vfrm (AJOVY AUTOINJECTOR) 225 mg/1.5 mL auto-injector Inject 1.5 mL subcutaneously once every month. - clonazePAM (KLONOPIN) 1 mg tablet Take 1 tablet by mouth twice daily as needed for anxiety for up to 30 days. Problem List As Of Date: 03/30/2023 (None) Encounter Status:Closed by DOROTHY APODACA on 04/03/23 [facility] CNOVon 02-17-2023 CNOV Office Visit (NEADFV ) TOMEKAONEAL ([id number]) 1990 M Date Time Provider Department 02/17/23 3:30 PM TEX ORDOÑEZ NEADFV During your visit today, we recorded the following information about you: Pulse Blood pressure Weight Height 80/minute 136/82 219 kg 1.829 m Tex Ordoñez MD 02/17/2023 4:13 PM Signed Occipital Nerve Block Procedure note: - no procedures with a steroid in the last 3 months UNIVERSAL PROTOCOL / SAFETY CHECKLIST Procedure to be Performed: Occipital neuralgia Sign In: A Moment of CARE was completed. Personnel directly involved with the procedure wore the appropriate PPE (Personal Protective Equipment). Patient/Surrogate Stated/Verified: PATIENT VERIFIED(optional for EMERGENT procedures): Patient name, Date of , Relevant allergies and The intended procedure Time Out Communication: Intended patient and procedure match the source documents. Consent documented and matches the intended procedure. No relevant labs, photos, and/or imaging studies were applicable for review. No correct side/site applicable for marking and visibility. Medications required for procedure verified. No fire risk assessment and interventions applicable. No implant(s) inserted. Sign Out: SIGN OUT (optional for EMERGENT procedures): No specimen collected. No instruments, equipment or retained foreign bodies applicable. Post-procedure follow-up management communicated and Plan of Care Visit completed when applicable. Bilateral Occipital Nerve Block: Dx: Occipital neuralgia Consent: In Epic Informational guide about Occipital nerve block given Procedure: The patient was placed in a seated position. The site of pain and procedure were confirmed with the patient prior to starting the procedure. The patient's nuchal ridge of the occipital bone was identified and prepped with well with chlorhexidine x 3. A 25 Gauge 5/8 inch needle was advanced through the skin and subcutaneous tissues lateral to the occipital protuberance in the area of the Greater Occipital Nerve bilaterally. Aspiration for blood and CSF was negative. FOR AURA: The needle was again repositioned 2 cm laterally. This area was injected with 1 cc of fluid after ensuring there was no obstruction or back flow of blood. A total of 4 cc of bupivacaine 0.25% mixed with 40 mg of Kenalog was injected. Needle was then removed and bleeding was nil. Tex Ordoñez MD Referring Provider: TEX ORDOÑEZ [[id number]] Allergies As of Date: 02/17/2023 (No Known Allergies) Date Reviewed: 02/17/2023 Reviewed by: Hannah Sims MA - Fully Assessed Primary Visit Diagnosis:Bilateral occipital neuralgia [M54.81] Order(s):[] triamcinolone acetonide 40 mg injection (KeNALog 40)Disp: Rfl: [] BUPivacaine (PF) 0.25 % (2.5 mg/mL) 12 mg injection (SENSORCAINE MPF)Disp: Rfl: Prescriptions as of 02/17/2023 - Naproxen Sodium 550 mg tablet Take 1 tablet by mouth twice daily as needed. - fremanezumab-vfrm (AJOVY AUTOINJECTOR) 225 mg/1.5 mL auto-injector Inject 1.5 mL subcutaneously once every month. - nortriptyline (PAMELOR) 50 mg capsule Take 1 capsule by mouth daily at bedtime. - DULoxetine (CYMBALTA) 60 mg capsule Take 1 capsule by mouth once daily. - topiramate (TOPAMAX) 200 mg tablet Take 1 tablet by mouth once daily. - clonazePAM (KLONOPIN) 1 mg tablet Take 1 tablet by mouth twice daily as needed for anxiety for up to 30 days. Problem List As Of Date: 02/17/2023 (None) Prescriptions ordered this encounter Disp Refills Start End TRIAMCINOLONE ACETONIDE 40 MG/ML JOSIAS* 02/17/2023 02/17/2023 Route: INTRALESIONA BUPIVACAINE (PF) 0.25 % (2.5 MG/ML) * 02/17/2023 02/17/2023 Route: [id number] Medications Discontinued During This Encounter Prescriptions - traZODone (DESYREL) 50 mg tablet (Discontinued) Reported on 02/17/2023 - TENS unit and electrodes (CEFALY) cmpk (Discontinued) Reported on 02/17/2023 Encounter Status:Closed by TEX ORDOÑEZ on 02/17/23 [facility] 08-07-2022 [facility] Tele[facility] (NIQ) ONEAL ECKERT ([id number]) 1990 Date Time Provider Department 08/07/22 TEX ORDOÑEZ NI During your visit today, we recorded the following information about you: Ivonne Kennedy Pss 08/07/2022 8:55 AM Signed Received Markie approval by fax from [employer]. Scanned to patient's chart. Allergies As of Date: 08/07/2022 (No Known Allergies) Date Reviewed: 07/10/2022 Reviewed by: Marie Elias MA - Fully Assessed Reason for Visit: AJovy [Other] Prescriptions as of 09/12/2022 - fremanezumab-vfrm (AJOVY AUTOINJECTOR) 225 mg/1.5 mL auto-injector Inject 1.5 mL subcutaneously once every month. - TENS unit and electrodes (CEFALY) cmpk 1 Device once daily as needed (use for 20 minutes. For migraine.). - Naproxen Sodium 550 mg tablet TAKE 1 TABLET BY MOUTH TWICE DAILY NEEDED WITH MEALS AT MIGRAINE ONSET - nortriptyline (PAMELOR) 50 mg capsule Take 1 capsule by mouth daily at bedtime. - DULoxetine (CYMBALTA) 60 mg capsule Take 1 capsule by mouth once daily. - topiramate (TOPAMAX) 200 mg tablet Take 1 tablet by mouth once daily. - clonazePAM (KLONOPIN) 1 mg tablet Take 1 tablet by mouth twice daily as needed for anxiety for up to 30 days. - traZODone (DESYREL) 50 mg tablet Take 1 tablet by mouth at bedtime as needed. Problem List As Of Date: 08/07/2022 (None) Encounter Status:Closed by KENNEDY HILLJERONIMOIVONNE on 09/12/[facility] (NIQ) ONEAL ECKERT ([id number]) 1990 Date Time Provider Department 07/17/22 TEX ORDOÑEZ During your visit today, we recorded the following information about you: Ivonne Kennedy Hill 07/17/2022 10:40 AM Signed Received approval letter by fax from [employer] for Ubrelvy. Scanned fax to patient's chart. Allergies As of Date: 07/17/2022 (No Known Allergies) Date Reviewed: 07/10/2022 Reviewed by: Marie Elias MA - Fully Assessed Reason for Visit: Medication Authorization [[id number]] Prescriptions as of 09/12/2022 - fremanezumab-vfrm (AJOVY AUTOINJECTOR) 225 mg/1.5 mL auto-injector Inject 1.5 mL subcutaneously once every month. - TENS unit and electrodes (CEFALY) cmpk 1 Device once daily as needed (use for 20 minutes. For migraine.). - Naproxen Sodium 550 mg tablet TAKE 1 TABLET BY MOUTH TWICE DAILY NEEDED WITH MEALS AT MIGRAINE ONSET - nortriptyline (PAMELOR) 50 mg capsule Take 1 capsule by mouth daily at bedtime. - DULoxetine (CYMBALTA) 60 mg capsule Take 1 capsule by mouth once daily. - topiramate (TOPAMAX) 200 mg tablet Take 1 tablet by mouth once daily. - clonazePAM (KLONOPIN) 1 mg tablet Take 1 tablet by mouth twice daily as needed for anxiety for up to 30 days. - traZODone (DESYREL) 50 mg tablet Take 1 tablet by mouth at bedtime as needed. Problem List As Of Date: 07/17/2022 (None) Encounter Status:Closed by IVONNE SHANKAR on 09/12/[address] [facility] XR CHEST (2 VW)on 06-06-2022 XR CHEST (2 VW) EXAMINATION: TWO XRAY VIEWS OF THE CHEST 06/06/2022 10:34 am COMPARISON: May 2021 HISTORY: ORDERING SYSTEM PROVIDED HISTORY: Shortness of breath FINDINGS: The lungs are without acute focal process. There is no effusion or pneumothorax. The cardiomediastinal silhouette is without acute process. The osseous structures are without acute process. IMPRESSION: No acute process. Interpreted by: Jake Son DO Signed by: Jake Son DO 06/06/22 Final result Normal [facility] CBC auto differentialOrdered By: Eligio Soriano on 05-08-2021 Absolute Eos # 0.03 [employer] Phone: Absolute Immature Granulocyte 0.00 [employer] Phone: Absolute Lymph # 0.99 Low [employer] Phone: Absolute [place] # 0.17 [employer] Phone: Atypical Lymphocytes 9 % [place] Phone: Atypical Lymphocytes Absolute 0.30 k/uL [employer] Phone: Basophils (Bld) [#/Vol] 0.00 10*3/uL [employer] Phone: Basophils/100 WBC (Bld) 0 % 0 - 2 % [employer] Phone: Differential Type NOT REPORTED [employer] Phone: Eosinophils/100 WBC (Bld) 1 % 1 - 4 % [employer] Phone: Hematocrit (Bld) [Volume fraction] 46.4 % 40.7 - 50.3 % [employer] Phone: Hemoglobin.gastrointe stinal spec 1 Ql (Stl) 15.5 g/dL 13.0 - 17.0 g/dL [employer] Phone: Immature granulocytes/100 WBC (Bld) 0 % 0 [employer] Phone: Interpretation and review of laboratory results Abnormal [employer] Phone: Lymphocytes/100 WBC (Bld) 30 % 24 - 43 % [employer] Phone: MCH (RBC) [Entitic mass] 29.0 pg 25.2 - 33.5 pg [employer] Phone: MCHC (RBC) [Mass/Vol] 33.4 g/dL 28.4 - 34.8 g/dL [employer] Phone: MCV (RBC) [Entitic vol] 86.7 fL 82.6 - 102.9 fL [employer] Phone: Monocytes/100 WBC (Bld) 5 % 3 - 12 % [employer] Phone: Morphology Ramon (Bld) [Interp] Normal [employer] Phone: NRBC Automated 0.0 0.0 per 100 WBC [employer] Phone: Platelet distribution width (Bld) [Ratio] 12.1 % 11.8 - 14.4 % [employer] Phone: Platelet Estimate NOT REPORTED [employer] Phone: Platelet mean volume (Bld) [Entitic vol] NOT REPORTED 8.1 - 13.5 fL [employer] Phone: Platelets (Bld) [#/Vol] See Reflexed IPF Result [employer] Phone: RBC (Bld) [#/Vol] 5.35 10*6/uL 4.21 - 5.7 7 m/uL [employer] Phone: RBC (Bld) [#/Vol] NOT REPORTED [employer] Phone: Segmented neutrophils/100 WBC (Bld) 55 % 36 - 65 % [employer] Phone: Segs Absolute 1.81 [employer] Phone: WBC (Bld) [#/Vol] 3.3 10*3/uL Low [employer] Phone: WBC (Bld) [#/Vol] NOT REPORTED [employer] Phone: [employer] Phone: CT CHEST PULMONARY EMBOLISM W CONTRASTOrdered By: Haider James on 05-08-2021 EXAMINATION: CTA OF THE CHEST 05/08/2021 8:12 pm TECHNIQUE: CTA of the chest was performed after the administration of intravenous contrast. Multiplanar reformatted images are provided for review. MIP images are provided for review. Dose modulation, iterative reconstruction, and/or weight based adjustment of the mA/kV was utilized to reduce the radiation dose to as low as reasonably achievable. COMPARISON: Chest x-ray 05/08/2021 HISTORY: ORDERING SYSTEM PROVIDED HISTORY: r/o PE TECHNOLOGIST PROVIDED HISTORY: r/o PE Decision Support Exception - unselect if not a suspected or confirmed emergency medical condition->Emergency Medical Condition (MA) FINDINGS: Pulmonary Arteries: Evaluation challenge due to patient body habitus and motion. No central or lobar pulmonary emboli. No definite proximal segmental emboli Mediastinum: . Heart is borderline size. Right hilar lymph nodes and right paratracheal lymph nodes could be reactive. A mildly enlarged. Lungs/pleura: Multifocal airspace opacities identified worrisome for multifocal pneumonia. Airspace opacities have a more however slight nodular component right upper lobe left lower lobe again likely infectious inflammatory a given nodular component, follow-up is strongly recommended to document complete resolution 3 months. No effusion pneumothorax Upper Abdomen: Previous bypass surgery. Spleen is enlarged/normal size. Soft Tissues/Bones: Mild degenerate change. [employer] Phone: Clay, Mhpn Incoming Radiant Results From [employer] - 05/08/2021 9:35 PM EDT EXAMINATION: CTA OF THE CHEST 05/08/2021 8:12 pm TECHNIQUE: CTA of the chest was performed after the administration of intravenous contrast. Multiplanar reformatted images are provided for review. MIP images are provided for review. Dose modulation, iterative reconstruction, and/or weight based adjustment of the mA/kV was utilized to reduce the radiation dose to as low as reasonably achievable. COMPARISON: Chest x-ray 05/08/2021 HISTORY: ORDERING SYSTEM PROVIDED HISTORY: r/o PE TECHNOLOGIST PROVIDED HISTORY: r/o PE Decision Support Exception - unselect if not a suspected or confirmed emergency medical condition->Emergency Medical Condition (MA) FINDINGS: Pulmonary Arteries: Evaluation challenge due to patient body habitus and motion. No central or lobar pulmonary emboli. No definite proximal segmental emboli Mediastinum: . Heart is borderline size. Right hilar lymph nodes and right paratracheal lymph nodes could be reactive. A mildly enlarged. Lungs/pleura: Multifocal airspace opacities identified worrisome for multifocal pneumonia. Airspace opacities have a more however slight nodular component right upper lobe left lower lobe again likely infectious inflammatory a given nodular component, follow-up is strongly recommended to document complete resolution 3 months. No effusion pneumothorax Upper Abdomen: Previous bypass surgery. Spleen is enlarged/normal size. Soft Tissues/Bones: Mild degenerate change. IMPRESSION: Evaluation challenge due to patient body habitus. No central to proximal pulmonary emboli. Multifocal airspace opacities. Favor multifocal pneumonia. However given the nodular appearance of the upper lobe opacities, 3 month follow-up is recommended document complete resolution following medical treatment course. [employer] Phone: [employer] Phone: Comprehensive Metabolic Pane lOrdered By: Eligio Soriano on 05-08-2021 Albumin [Mass/Vol] 4.2 g/dL 3.5 - 5.2 g/dL [employer] Phone: Albumin/Globulin [Mass ratio] 1.3 {ratio} [employer] Phone: ALP (Bld) [Catalytic activity/Vol] 69 U/L 40 - 129 U/L [employer] Phone: ALT [Catalytic activity/Vol] 27 U/L 5 - 41 U/L [employer] Phone: Anion gap [Moles/Vol] 10 mmol/L 9 - 17 mmol/L [employer] Phone: AST [Catalytic activity/Vol] 31 U/L <40 [employer] Phone: Bilirubin [Mass/Vol] 0.34 mg/dL 0.3 - 1.2 mg/dL [employer] Phone: Calcium [Mass/Vol] 8.8 mg/dL 8.6 - 10. 4 mg/dL [employer] Phone: Chloride [Moles/Vol] 101 mmol/L 98 - 107 mmol/L [employer] Phone: CO2 [Moles/Vol] 26 mmol/L 20 - 31 mmol/L [employer] Phone: Creatinine [Mass/Vol] 0.78 mg/dL 0.70 - 1.20 mg/dL [employer] Phone: Free PSA/Total PSA [Mass fraction] 7.5 g/dL 6.4 - 8.3 g/dL [employer] Phone: GFR >60 >60 mL/min [place] Phone: GFR Non- >60 >60 mL/min [employer] Phone: Glucose [Mass/Vol] 114 mg/dL High 70 - 99 mg/dL [facility] [employer] Phone: Interpretation and review of laboratory results Abnormal [employer] Phone: Potassium [Moles/Vol] 4.0 mmol/L 3.7 - 5.3 mmol/L [employer] Phone: Sodium [Moles/Vol] 137 mmol/L 135 - 144 mmol/L [employer] Phone: Urea nitrogen (BldV) [Mass/Vol] 10 mg/dL 6 - 20 mg/dL [employer] Phone: Urea nitrogen/Creatinine (Bld) [Mass ratio] 13 [employer] Phone: [employer] Phone: D-Dimer, QuantitativeOrdered By: Haider James on 05-08-2021 D-Dimer, Quant 0.91 High [employer] Phone: Comment on above: When combined with a low clinical probability, a D dimer value of <0.50 mg/L FEU is considered negative for DVT and PE (negative predictive value of 98%, sensitivity of 97%). If this test is not being used to help rule out DVT and PE, then the following reference range should be utilized: 0.00 - 0.59 mg/L FEU. The D-Dimer assay is intended for use as an aid in the diagnosis of venous thromboembolism (DVT and PE) and the results should be interpreted in conjunction with the patient's medical history, clinical presentation, and other findings. Elevated levels of D-dimer activity can be seen in any state of coagulation activation and is not recommended in patients with therapeutic dose anticoagulant therapy for >24 hours, fibrinolytic therapy within the previous 7 days, trauma or surgery within the previous 4 weeks, disseminated malignancies, aortic aneurysm, sepsis, severe infections, pneumonia, severe skin infections, liver cirrhosis, advanced age, coronary disease, diabetes, and . A very low percentage of patients with DVT may yield D-dimer results below the cutoff of 0.5 mg/L FEU. This is known to be more prevalent in patients with distal DVT. Interpretation and review of laboratory results Abnormal [employer] Phone: [employer] Phone: Immature Platelet FractionOr dered By: Eligio Soriano on 05-08-2021 Interpretation and review of laboratory results Abnormal [employer] Phone: Platelet, Fluorescence 131 Low [employer] Phone: Platelet, Immature Fraction 8.6 % 1.1 - 10.3 % [employer] Phone: [employer] Phone: Laboratory - Chemistry and C hemistry - challengeOrdered By: Eligio Soriano on 05-08-2021 GFR/1.73 sq M.predicted MDRD (S/P/Bld) [Vol rate/Area] [employer] Phone: Comment on above: Average GFR for 20-2 9 years old: 116 mL/min/1.73sq m Chronic Kidney Disease: <60 mL/min/1.73sq m Kidney failure: <15 mL/min/1.73sq m eGFR calculated using average adult body mass. Additional eGFR calculator available at: http://www.[employer]/multiple_crcl_2012.htm Stage 1: Some kidney damage normal GFR Stage 2: Mild kidney damage GFR 60-89 Stage 3: Moderate kidney damage GFR 30-59 Stage 4: Severe kidney damage GFR 15-29 Stage 5: Severe kidney damage GFR <15 ESRD - chronic treatment by dialysis or transplant TroponinOrdered By: Eligio Centeno ches on 05-08-2021 Troponin Interp NOT REPORTED [employer] Phone: Troponin T NOT REPORTED <0.03 ng/mL [employer] Phone: Troponin, High Sensitivity <6 0 - 22 ng/L [employer] Phone: Comment on above: High Sensitivity Troponin values cannot be compared with other Troponin methodologies. Patients with high levels of Biotin oral intake (i.e >5mg/day) may have falsely decreased Troponin levels. Samples collected within 8 hours of biotin intake may require additional information for diagnosis. [facility] Phone: XR CHEST PORTABLEOrdered By: Eligio Soriano on 05-08-2021 SARS-CoV-2 (COVID-19) RNA DANIEL+probe Ql (Unsp spec) Bilateral pulmonary opacities suggest multifocal pneumonia, in this COVID positive patient COVID pneumonia could give this appearance [employer] Phone: EXAMINATION: ONE XRA Y VIEW OF THE CHEST 05/08/2021 6:36 pm COMPARISON: 12/27/2018 HISTORY: ORDERING SYSTEM PROVIDED HISTORY: chest pain, shortness of breath, COVID + TECHNOLOGIST PROVIDED HISTORY: chest pain, shortness of breath, COVID + FINDINGS: Cardiomediastinal silhouette stable. Bilateral pulmonary opacities. No pneumothorax. No pleural effusion. [employer] Phone: Clay, Mhpn Incoming Radiant Results From [employer] - 05/08/2021 6:55 PM EDT EXAMINATION: ONE XRAY VIEW OF THE CHEST 05/08/2021 6:36 pm COMPARISON: 12/27/2018 HISTORY: ORDERING SYSTEM PROVIDED HISTORY: chest pain, shortness of breath, COVID + TECHNOLOGIST PROVIDED HISTORY: chest pain, shortness of breath, COVID + FINDINGS: Cardiomediastinal silhouette stable. Bilateral pulmonary opacities. No pneumothorax. No pleural effusion. IMPRESSION: Bilateral pulmonary opacities suggest multifocal pneumonia, in this COVID positive patient COVID pneumonia could give this appearance [employer] Phone: [employer] Phone: CBC Auto DifferentialOrdered By: Matty Cordoba on 01-30-2021 Absolute Eos # 0.30 [employer] Phone: Absolute Immature Granulocyte 0.04 [employer] Phone: Absolute Lymph # 2.45 [employer] Phone: Absolute [place] # 0.82 [employer] Phone: Basophils (Bld) [#/Vol] 0.04 10*3/uL [employer] Phone: Basophils/100 WBC (Bld) 0 % 0 - 2 % [employer] Phone: Differential Type NOT REPORTED [employer] Phone: Eosinophils/100 WBC (Bld) 3 % 1 - 4 % [employer] Phone: Hematocrit (Bld) [Volume fraction] 48.8 % 40.7 - 50.3 % [employer] Phone: Hemoglobin.gastrointe stinal spec 1 Ql (Stl) 15.7 g/dL 13.0 - 17.0 g/dL [employer] Phone: Immature granulocytes/100 WBC (Bld) 0 % 0 [employer] Phone: Lymphocytes/100 WBC (Bld) 25 % 24 - 43 % [employer] Phone: MCH (RBC) [Entitic mass] 28.7 pg 25.2 - 33.5 pg [employer] Phone: MCHC (RBC) [Mass/Vol] 32.2 g/dL 28.4 - 34.8 g/dL [employer] Phone: MCV (RBC) [Entitic vol] 89.2 fL 82.6 - 102.9 fL [employer] Phone: Monocytes/100 WBC (Bld) 8 % 3 - 12 % [employer] Phone: NRBC Automated 0.0 0.0 per 100 WBC [employer] Phone: Platelet distribution width (Bld) [Ratio] 13.2 % 11.8 - 14.4 % [employer] Phone: Platelet Estimate NOT REPORTED [employer] Phone: Platelet mean volume (Bld) [Entitic vol] 11.3 fL 8.1 - 13.5 fL [employer] Phone: Platelets (Bld) [#/Vol] 240 10*3/uL [employer] Phone: RBC (Bld) [#/Vol] 5.47 10*6/uL 4.21 - 5.7 7 m/uL [employer] Phone: RBC (Bld) [#/Vol] NOT REPORTED [employer] Phone: Segmented neutrophils/100 WBC (Bld) 64 % 36 - 65 % [employer] Phone: Segs Absolute 6.33 [employer] Phone: WBC (Bld) [#/Vol] 10.0 10*3/uL [employer] Phone: WBC (Bld) [#/Vol] NOT REPORTED [employer] Phone: [employer] Phone: CKOrdered By: Matty Cordoba on 01-30-2021 CK [Catalytic activity/Vol] 146 U/L 39 - 308 U/L [employer] Phone: Myoglobin, SerumOrdered By: Matty Cordoba on 01-30-2021 Myoglobin [Mass/Vol] 56 ng/mL 28 - 72 ng/mL [place] Phone: [employer] Phone: No Panel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 Work Phone: End: 02-03-2025 EPIL EEG ROUTINE EPIL EEG ROUTINE NEUROLOGY Routine Loss of consciousness (HCC) Transient alteration of awareness 1 Occurrences starting 02/04/2024 until 02/03/2025 [facility] Work Phone: Comment on above: 1 Occurrences starti ng 02/04/2024 until 02/03/2025 End: 01-30-2021 Hemoglobin A1c/Hemoglobin.total in Blood Hemoglobin A1C Lab Routine Once for 1 Occurrences starting 01/30/2021 until 01/30/2021 [employer] Phone: Comment on above: Once for 1 Occurrenc es starting 01/30/2021 until 01/30/2021 Hemoglobin A1c/Hemoglobin.total in Blood Hemoglobin A1C Lab Routine 01/30/2021 10:11 AM [employer] Work Phone: End: 01-30-2021 Nuclear Ab [Titer] in Serum by Immunofluorescence [facility] Lab Routine Once for 1 Occurrences starting 01/30/2021 until 01/30/2021 [employer] Phone: Comment on above: Once for 1 Occurrenc es starting 01/30/2021 until 01/30/2021 Nuclear Ab [Titer] i n Serum by Immunofluorescence [facility] Lab Routine 01/30/2021 10:11 AM [employer] Work Phone: [facility] Immunizations Immunization Date Immunization Notes Care Provider Sonia andrade 04-27-2020 influenza virus vacc ine, unspecified formulation Tex Ordoñez MD Work Phone: [facility] 04-28-2018 influenza virus vacc ine, unspecified formulation Rina Shahab [facility] 03-23-2017 HPV, unspecified formulation Rina Shahab [facility] 04-05-2015 influenza virus vacc ine, whole virus Deon Herrera [facility] [place] 04-05-2015 influenza, whole Rina Shahab [facility] 02-25-2014 tetanus toxoid, redu cleve diphtheria toxoid, and acellular pertussis vaccine, [facility] 10-26-2008 hepatitis B vaccine, pediatric or pediatric/adolescent dosage Rina Shahab [facility] 07-27-2008 hepatitis B vaccine, pediatric or pediatric/adolescent dosage Rina Shahab [facility] 04-27-2008 hepatitis B vaccine, pediatric or pediatric/adolescent dosage Rina Shahab [facility] 04-27-2008 meningococcal ACWY vaccine, unspecified formulation Rina Shahab [facility] 02-15-1998 DTaP, unspecified formulation Rina Shahab [facility] 02-15-1998 measles, mumps and rubella virus vaccine Rina Shahab [facility] 02-20-1994 DTaP, unspecified formulation Rina Shahab [facility] 02-20-1994 Hib, unspecified formulation Rina Shahab [facility] 02-20-1994 measles, mumps and rubella virus vaccine Rina Shahab [facility] 01-03-1993 Hib, unspecified formulation Rina Shahab [facility] 1992 Hib, unspecified formulation Rina Shahab [facility] 1992 Hib, unspecified formulation Rina Shahab [facility] Payers Date Payer Category Payer Medicaid [id number] 2020 Medicaid [employer] MEDICAID [id number] 2020-Present [phone] [address] [place] [address] Medicaid [id number] 2020 Medicaid [id number] 2018 Unknown 2017 Unknown [employer] AGE [employer]AGE xxxxxxxxxxx 2017-Present [phone] [address] [place] [address] xxxxxxxxxxx [id number] 2017 Unknown [id number] 2017 Unknown [id number] [id number]. [id number] 1992 Unknown [id number] 2.16.840.1.974711.3.579.2. 196 1992 Unknown [id number] 2.16.840.1.306316.3.579.2. 175 1992 Unknown [id number] 2.16.840.1.666547.3.579.2. 175 1992 Unknown [id number] 2.16.840.1.315345.3.579.2. 175 1992 Unknown [id number] 2.16.840.1.944390.3.579.2. 173 1992 Unknown [id number] 2.16.840.1.429245.3.579.2. 173 1992 Unknown [id number] 2.16.840.1.790715.3.579.2. 727 1992 Unknown [id number] 2.16.840.1.193371.3.579.2. 727 1992 Unknown [id number] 2.16.840.1.707366.3.579.2. 72 1992 Unknown [id number] 2.16.840.1.645112.3.579.2. 727 1992 Unknown [id number] 2.16.840.1.671878.3.579.2. 72 1992 Unknown [id number] 2.16.840.1.607052.3.579.2. 727 1992 Unknown [id number] 2.16.840.1.643821.3.579.2. 72 1992 Unknown [id number] 2.16.840.1.539541.3.579.2. 727 1992 Unknown [id number] 2.16.840.1.071255.3.579.2. 727 1992 Unknown [id number] 2.16.840.1.286344.3.579.2. 727 1992 Unknown [id number] 2.16.840.1.978122.3.579.2. 727 1992 Unknown [id number] 2.16.840.1.392512.3.579.2. 727 1992 Unknown [id number] 2.16.840.1.565034.3.579.2. 727 1992 Unknown [id number] 2.16.840.1.284196.3.579.2. 727 1959 Private Health Insurance [id number] Social History Date Type Detail Facility Start: 02-16-2019 End: 04-03-2022 Tobacco smoking status NHIS Never smoker [facility] End: 08-06-2018 History of tobacco use [facility] Start: 02-16-2019 End: 11-13-2022 Alcohol intake No [facility] Start: 1990 [facility] Start: 09-14-2019 End: 05-08-2021 Tobacco use and exposure Former user [employer] Start: 09-14-2019 End: 05-08-2021 Alcohol intake Current non-drinker of alcohol (finding) [facility] [employer] Work Phone: Start: 09-14-2019 End: 11-13-2022 Alcohol intake [facility] Exposure to SARS-CoV -2 (event) Yes [facility] Tobacco smoking stat us [facility] Tobacco smoking consumption unknown [facility] Start: 09-27-2021 End: 12-25-2021 Exposure to SARS-CoV-2 (event) Not sure [facility] Work Phone: Start: 10-07-2021 End: 04-03-2022 Tobacco use and exposure User of smokeless tobacco [facility] Start: 1990 Sex Assigned At Male C [facility] Adult Depression Screening Assessment 2 [facility] Start: 12-25-2021 Gender identity Identifies as male gender (finding) [facility] Start: 12-25-2021 Sexual orientation Heterosexual (fin ding) [facility] Clinical Notes 05-08-2021 to 02-04-2024 Tex Ordoñez MD - 02/04/2024 9:56 AM Tex Hancock MD - 12/24/2023 11:59 AM Tex Hancock MD - 12/24/2023 11:59 AM Jami Bejarano RN - 12/23/2023 2:58 PM EDTInstructions Note Date & Type Note Facility 02-04-2024 Note HNO ID: [id number] Author: TEX ORDOÑEZ MD Service: ? Author Type: Physician Type: Progress Notes Filed: 02/04/2024 10:34 Note Text: DISTANCE HEALTH VISIT I have communicated my name and active licensure. The patient's identity and physical location were verified at the time of this visit. Either the patient or their legal field representative has been informed of the risks and benefits of -- and alternatives to -- treatment through a remote evaluation and consents to proceed with the evaluation remotely. Total time spent on medical discussion: 30 minutes Tex Ordoñez MD PROGRESS NOTE- HEADACHE MEDICINE SERVICE DATE: February 04, 2024 Participants: patient and provider Subjective HPI: Oneal Eckert is here for follow up visit. Last Botox therapy done by a mid-level. Complaint #1 My severe migraines are getting more severe. Number remains the same. Complaint# 2 He says he has a band pressure like pain that started 1 month ago without a precipitant and has continued daily. No associated migrainous, positional, sinus, autonomic or valsalva related symptoms. Complaint #3 I am losing time he is unaware of this episodes of losing time. His girlfriend says that sometimes it takes him 20 minutes to put on a shirt, for him only a few minutes have passed by. He is concerned that he has a return of seizures. He says that after his head trauma he was told that he had seizures. I could not find any documentation and he says that this is from many years ago and that records by that neurology team have been lost. He tried to get those records because I had requested them for his migraines. Apparently is the same neurologist that treated him back then and he says that when he called office he was told the records are no longer available. Migraine description: see note from October 07, 2021 Ubrelvy not helpful. PAST MEDICAL HISTORY No date: Anxiety No date: Chronic migraine without aura Current Outpatient Medications Medication Sig Phentermine HCl (ADIPEX-P) 37.5 mg capsule Take 37.5 mg by mouth once daily. lurasidone (LATUDA) 40 mg tablet fremanezumab-vfrm (AJOVY AUTOINJECTOR) 225 mg/1.5 mL auto-injector Inject 1.5 mL subcutaneously once every month. Naproxen Sodium 550 mg tablet Take 1 tablet by mouth two times a day as needed. nortriptyline (PAMELOR) 50 mg capsule Take 1 capsule by mouth daily at bedtime. DULoxetine (CYMBALTA) 60 mg capsule Take 1 capsule by mouth once daily. topiramate (TOPAMAX) 200 mg tablet Take 1 tablet by mouth once daily. clonazePAM (KLONOPIN) 1 mg tablet Take 1 tablet by mouth twice daily as needed for anxiety for up to 30 days. No current facility-administered medications for this visit. Current medication review: 1.BOTOX PRIOR TO TREATMENT Total headache days per month: daily Severity of headaches: mild to severe Start date: 12/25/21 AFTER TREATMENT Total headache days per month: 5-10 Severity of headaches: mild to moderate Wearing off: 1 week 2.Ajovy- for migraine prevention since . He also feels that Ajovy helps, he feels it wearing off. 3.Duloxetine- for migraine and anxiety 4.Nortriptyline- for migraine prevention 5.Topiramate- for migraine prevention 6. STACIA block 10/27/2023 Allergies: No Known Allergies Impression/Recommendations - chronic migraine without aura - new headache is a tension type vs NDPH. RECS: 1. Migraine prevention: -Continue Botox therapy -Continue Topamax 200 mg at bedtime continue. -Continue Cymbalta 60 mg daily. -Continue nortriptyline 50 mg at bedtime -Continue Ajovy 2. Migraine abortive therapy: -Continue naproxen 550 mg. 3. STACIA block PRN 4. For his new headache I asked him to keep a headache journal. If it ends up being tension type headache we can try a TCA with physical therapy. If it is new daily persistent headache I would have to go back and review his headache workup and if it is too old repeat brain imaging and then discussed with him potential pharmacotherapy trials. We will discuss this during his next Botox appointment in roughly 2 months. 5. Follow-up in 2 months. Tex Ordoñez MD [facility] Neurological [facility] 02-04-2024 History of Present illness Narrative DISTANCE HEALTH VISIT I have communicated my name and active licensure. The patient's identity and physical location were verified at the time of this visit. Either the patient or their legal field representative has been informed of the risks and benefits of -- and alternatives to -- treatment through a remote evaluation and consents to proceed with the evaluation remotely. Total time spent on medical discussion: 30 minutes Tex Ordoñez MD PROGRESS NOTE- HEADACHE MEDICINE SERVICE DATE: February 04, 2024 Participants: patient and provider Subjective HPI: Oneal Eckert is here for follow up visit. Last Botox therapy done by a mid-level. Complaint #1 My severe migraines are getting more severe. Number remains the same. Complaint# 2 He says he has a band pressure like pain that started 1 month ago without a precipitant and has continued daily. No associated migrainous, positional, sinus, autonomic or valsalva related symptoms. Complaint #3 I am losing time he is unaware of this episodes of losing time. His girlfriend says that sometimes it takes him 20 minutes to put on a shirt, for him only a few minutes have passed by. He is concerned that he has a return of seizures. He says that after his head trauma he was told that he had seizures. I could not find any documentation and he says that this is from many years ago and that records by that neurology team have been lost. He tried to get those records because I had requested them for his migraines. Apparently is the same neurologist that treated him back then and he says that when he called office he was told the records are no longer available. Migraine description: see note from October 07, 2021 Ubrelvy not helpful. PAST MEDICAL HISTORY No date: Anxiety No date: Chronic migraine without aura Current Outpatient Medications Medication Sig Phentermine HCl (ADIPEX-P) 37.5 mg capsule Take 37.5 mg by mouth once daily. lurasidone (LATUDA) 40 mg tablet fremanezumab-vfrm (AJOVY AUTOINJECTOR) 225 mg/1.5 mL auto-injector Inject 1.5 mL subcutaneously once every month. Naproxen Sodium 550 mg tablet Take 1 tablet by mouth two times a day as needed. nortriptyline (PAMELOR) 50 mg capsule Take 1 capsule by mouth daily at bedtime. DULoxetine (CYMBALTA) 60 mg capsule Take 1 capsule by mouth once daily. topiramate (TOPAMAX) 200 mg tablet Take 1 tablet by mouth once daily. clonazePAM (KLONOPIN) 1 mg tablet Take 1 tablet by mouth twice daily as needed for anxiety for up to 30 days. No current facility-administered medications for this visit. Current medication review: 1.BOTOX PRIOR TO TREATMENT Total headache days per month: daily Severity of headaches: mild to severe Start date: 12/25/21 AFTER TREATMENT Total headache days per month: 5-10 Severity of headaches: mild to moderate Wearing off: 1 week 2.Ajovy- for migraine prevention since . He also feels that Ajovy helps, he feels it wearing off. 3.Duloxetine- for migraine and anxiety 4.Nortriptyline- for migraine prevention 5.Topiramate- for migraine prevention 6. STACIA block 10/27/2023 Allergies: No Known Allergies Impression/Recommendations - chronic migraine without aura - new headache is a tension type vs NDPH. RECS: 1. Migraine prevention: -Continue Botox therapy -Continue Topamax 200 mg at bedtime continue. -Continue Cymbalta 60 mg daily. -Continue nortriptyline 50 mg at bedtime -Continue Ajovy 2. Migraine abortive therapy: -Continue naproxen 550 mg. 3. STACIA block PRN 4. For his new headache I asked him to keep a headache journal. If it ends up being tension type headache we can try a TCA with physical therapy. If it is new daily persistent headache I would have to go back and review his headache workup and if it is too old repeat brain imaging and then discussed with him potential pharmacotherapy trials. We will discuss this during his next Botox appointment in roughly 2 months. 5. Follow-up in 2 months. Tex Ordoñez MD [facility] Neurological [place] documented in this encounter [facility] 12-24-2023 Note HNO ID: [id number] Author: TEX ORDOÑEZ MD Service: ? Author Type: Physician Type: Procedures Filed: 12/24/2023 12:01 Note Text: PROCEDURE NOTE UNIVERSAL PROTOCOL / SAFETY CHECKLIST Procedure to be Performed: Botox therapy for migraine Sign In: A Moment of CARE was completed. Personnel directly involved with the procedure wore the appropriate PPE (Personal Protective Equipment). Patient/Surrogate Stated/Verified: PATIENT VERIFIED(optional for EMERGENT procedures): Patient name, Date of , Relevant allergies and The intended procedure Time Out Communication: Intended patient and procedure match the source documents. Consent documented and matches the intended procedure. No relevant labs, photos, and/or imaging studies were applicable for review. No correct side/site applicable for marking and visibility. Medications required for procedure verified. No fire risk assessment and interventions applicable. No implant(s) inserted. Sign Out: SIGN OUT (optional for EMERGENT procedures): No specimen collected. No instruments, equipment or retained foreign bodies applicable. Post-procedure follow-up management communicated and Plan of Care Visit completed when applicable. Botox procedure note Treatment #7 Consent in EPIC BOTOX brought in by patient? No Dilution: 5 units/0.1 ml ( 100 unit vial with 2 cc diluent or 200 unit vial with 4 cc diluent) Diluent: normal saline Indication: Chronic Intractable Migraine Injection Sites Muscle Fixed Site/Fixed Dose Bilat Shellfish Grower 20 U divided in 2 sites Procerus 10 U in 1 site Bilat Frontalis 20 U divided in 4 sites Bilat Temporalis 50 U divided in 8 sites Bilat Occipitalis 40 U divided in 6 sites Bilat Cervical PSPs 20 U divided in 4 sites Bilat Trapezius 40 U divided in 6 sites Subtotals 200 units Total Units used: 200 Total Units wasted: 0 Tex Ordoñez MD [facility] 12-24-2023 Procedure note PROCEDURE NOTE UNIVERSAL PROTOCOL / SAFETY CHECKLIST Procedure to be Performed: Botox therapy for migraine Sign In: A Moment of CARE was completed. Personnel directly involved with the procedure wore the appropriate PPE (Personal Protective Equipment). Patient/Surrogate Stated/Verified: PATIENT VERIFIED(optional for EMERGENT procedures): Patient name, Date of , Relevant allergies and The intended procedure Time Out Communication: Intended patient and procedure match the source documents. Consent documented and matches the intended procedure. No relevant labs, photos, and/or imaging studies were applicable for review. No correct side/site applicable for marking and visibility. Medications required for procedure verified. No fire risk assessment and interventions applicable. No implant(s) inserted. Sign Out: SIGN OUT (optional for EMERGENT procedures): No specimen collected. No instruments, equipment or retained foreign bodies applicable. Post-procedure follow-up management communicated and Plan of Care Visit completed when applicable. Botox procedure note Treatment #7 Consent in EPIC BOTOX brought in by patient? No Dilution: 5 units/0.1 ml ( 100 unit vial with 2 cc diluent or 200 unit vial with 4 cc diluent) Diluent: normal saline Indication: Chronic Intractable Migraine Injection Sites Muscle Fixed Site/Fixed Dose Bilat Shellfish Grower 20 U divided in 2 sites Procerus 10 U in 1 site Bilat Frontalis 20 U divided in 4 sites Bilat Temporalis 50 U divided in 8 sites Bilat Occipitalis 40 U divided in 6 sites Bilat Cervical PSPs 20 U divided in 4 sites Bilat Trapezius 40 U divided in 6 sites Subtotals 200 units Total Units used: 200 Total Units wasted: 0 Tex Ordoñez MD T [facility] 12-24-2023 Procedure note PROCEDURE NOTE UNIVERSAL PROTOCOL / SAFETY CHECKLIST Procedure to be Performed: Botox therapy for migraine Sign In: A Moment of CARE was completed. Personnel directly involved with the procedure wore the appropriate PPE (Personal Protective Equipment). Patient/Surrogate Stated/Verified: PATIENT VERIFIED(optional for EMERGENT procedures): Patient name, Date of , Relevant allergies and The intended procedure Time Out Communication: Intended patient and procedure match the source documents. Consent documented and matches the intended procedure. No relevant labs, photos, and/or imaging studies were applicable for review. No correct side/site applicable for marking and visibility. Medications required for procedure verified. No fire risk assessment and interventions applicable. No implant(s) inserted. Sign Out: SIGN OUT (optional for EMERGENT procedures): No specimen collected. No instruments, equipment or retained foreign bodies applicable. Post-procedure follow-up management communicated and Plan of Care Visit completed when applicable. Botox procedure note Treatment #7 Consent in EPIC BOTOX brought in by patient? No Dilution: 5 units/0.1 ml ( 100 unit vial with 2 cc diluent or 200 unit vial with 4 cc diluent) Diluent: normal saline Indication: Chronic Intractable Migraine Injection Sites Muscle Fixed Site/Fixed Dose Bilat Shellfish Grower 20 U divided in 2 sites Procerus 10 U in 1 site Bilat Frontalis 20 U divided in 4 sites Bilat Temporalis 50 U divided in 8 sites Bilat Occipitalis 40 U divided in 6 sites Bilat Cervical PSPs 20 U divided in 4 sites Bilat Trapezius 40 U divided in 6 sites Subtotals 200 units Total Units used: 200 Total Units wasted: 0 Tex Ordoñez MD documented in this encounter [facility] 12-23-2023 Nurse Note Patient name and confirmed. Patient states he would like to receive Botox treatment today. 2 vials of Botox A (100 units in each) reconstituted with 2.2 cc of normal saline in each vial. Botox drawn up into four, 1 cc syringes. Each syringe containing 50 units of Botox. Assisted by: Otf Marie RN Botox, X 2 vials: Lot # [id number] Exp 02/[address] Ordoñez to administer and verified order. [facility] Work Phone: 12-23-2023 Nurse Note Patient name and confirmed. Patient states he would like to receive Botox treatment today. 2 vials of Botox A (100 units in each) reconstituted with 2.2 cc of normal saline in each vial. Botox drawn up into four, 1 cc syringes. Each syringe containing 50 units of Botox. Assisted by: Otf Marie RN Botox, X 2 vials: Lot # [id number] Exp 02/[address] Ordoñez to administer and verified order. documented in this encounter [facility] 10-28-2023 Note HNO ID: [id number] Author: TEX ORDOÑEZ MD Service: ? Author Type: Physician Type: Progress Notes Filed: 10/28/2023 09:13 Note Text: PROGRESS NOTE- HEADACHE MEDICINE SERVICE DATE: October 27, 2023 Participants: patient and provider Location: [facility] Subjective HPI: Oneal Eckert is here for nerve block. The last one was 06/09/2023 and still has not wore off completely. His occipital pain disappeared and he feels it even helped decreased his migraine frequency. BP 123/80 Pulse 80 Ht 182.9 cm (6') Wt (!) 206.8 kg (456 lb) BMI 61.84 kg/m? Current Outpatient Medications Medication Sig Phentermine HCl (ADIPEX-P) 37.5 mg capsule Take 37.5 mg by mouth once daily. lurasidone (LATUDA) 40 mg tablet fremanezumab-vfrm (AJOVY AUTOINJECTOR) 225 mg/1.5 mL auto-injector Inject 1.5 mL subcutaneously once every month. Naproxen Sodium 550 mg tablet Take 1 tablet by mouth two times a day as needed. nortriptyline (PAMELOR) 50 mg capsule Take 1 capsule by mouth daily at bedtime. DULoxetine (CYMBALTA) 60 mg capsule Take 1 capsule by mouth once daily. topiramate (TOPAMAX) 200 mg tablet Take 1 tablet by mouth once daily. clonazePAM (KLONOPIN) 1 mg tablet Take 1 tablet by mouth twice daily as needed for anxiety for up to 30 days. No current facility-administered medications for this visit. PAST MEDICAL HISTORY Diagnosis Date Anxiety Chronic migraine without aura Impression/Recommendations - Bilateral Occipital neuralgia RECS: 1. STACIA block today, see attached procedure note Tex Ordoñez MD [facility] 10-28-2023 History of Present illness Narrative PROGRESS NOTE- HEADACHE MEDICINE SERVICE DATE: October 27, 2023 Participants: patient and provider Location: [facility] Subjective HPI: Oneal Eckert is here for nerve block. The last one was 06/09/2023 and still has not wore off completely. His occipital pain disappeared and he feels it even helped decreased his migraine frequency. BP 123/80 Pulse 80 Ht 182.9 cm (6') Wt (!) 206.8 kg (456 lb) BMI 61.84 kg/m Current Outpatient Medications Medication Sig Phentermine HCl (ADIPEX-P) 37.5 mg capsule Take 37.5 mg by mouth once daily. lurasidone (LATUDA) 40 mg tablet fremanezumab-vfrm (AJOVY AUTOINJECTOR) 225 mg/1.5 mL auto-injector Inject 1.5 mL subcutaneously once every month. Naproxen Sodium 550 mg tablet Take 1 tablet by mouth two times a day as needed. nortriptyline (PAMELOR) 50 mg capsule Take 1 capsule by mouth daily at bedtime. DULoxetine (CYMBALTA) 60 mg capsule Take 1 capsule by mouth once daily. topiramate (TOPAMAX) 200 mg tablet Take 1 tablet by mouth once daily. clonazePAM (KLONOPIN) 1 mg tablet Take 1 tablet by mouth twice daily as needed for anxiety for up to 30 days. No current facility-administered medications for this visit. PAST MEDICAL HISTORY Diagnosis Date Anxiety Chronic migraine without aura Impression/Recommendations - Bilateral Occipital neuralgia RECS: 1. STACIA block today, see attached procedure note Tex Ordoñez MD [facility] documented in this encounter [facility] 10-28-2023 Note HNO ID: [id number] Author: TEX ORDOÑEZ MD Service: ? Author Type: Physician Type: Procedures Filed: 10/28/2023 09:13 Note Text: PROCEDURE NOTE: UNIVERSAL PROTOCOL / SAFETY CHECKLIST Procedure to be Performed: Occipital neuralgia Sign In: A Moment of CARE was completed. Personnel directly involved with the procedure wore the appropriate PPE (Personal Protective Equipment). Patient/Surrogate Stated/Verified: PATIENT VERIFIED(optional for EMERGENT procedures): Patient name, Date of , Relevant allergies and The intended procedure Time Out Communication: Intended patient and procedure match the source documents. Consent documented and matches the intended procedure. No relevant labs, photos, and/or imaging studies were applicable for review. No correct side/site applicable for marking and visibility. Medications required for procedure verified. No fire risk assessment and interventions applicable. No implant(s) inserted. Sign Out: SIGN OUT (optional for EMERGENT procedures): No specimen collected. No instruments, equipment or retained foreign bodies applicable. Post-procedure follow-up management communicated and Plan of Care Visit completed when applicable. Bilateral Occipital Nerve Block: Dx: Occipital neuralgia Consent: In Epic Informational guide about Occipital nerve block given Procedure: The patient was placed in a seated position. The site of pain and procedure were confirmed with the patient prior to starting the procedure. The patient's nuchal ridge of the occipital bone was identified and prepped with well with chlorhexidine x 3. A 25 Gauge 5/8 inch needle was advanced through the skin and subcutaneous tissues lateral to the occipital protuberance in the area of the Greater Occipital Nerve bilaterally. Aspiration for blood and CSF was negative. FOR AURA: The needle was again repositioned 2 cm laterally. This area was injected with 1 cc of fluid after ensuring there was no obstruction or back flow of blood. A total of 4 cc of bupivacaine 0.25% mixed with 40 mg of Kenalog was injected. Needle was then removed and bleeding was nil. Tex Ordoñez MD [facility] 10-28-2023 Procedure note PROCEDURE NOTE: UNIVERSAL PROTOCOL / SAFETY CHECKLIST Procedure to be Performed: Occipital neuralgia Sign In: A Moment of CARE was completed. Personnel directly involved with the procedure wore the appropriate PPE (Personal Protective Equipment). Patient/Surrogate Stated/Verified: PATIENT VERIFIED(optional for EMERGENT procedures): Patient name, Date of , Relevant allergies and The intended procedure Time Out Communication: Intended patient and procedure match the source documents. Consent documented and matches the intended procedure. No relevant labs, photos, and/or imaging studies were applicable for review. No correct side/site applicable for marking and visibility. Medications required for procedure verified. No fire risk assessment and interventions applicable. No implant(s) inserted. Sign Out: SIGN OUT (optional for EMERGENT procedures): No specimen collected. No instruments, equipment or retained foreign bodies applicable. Post-procedure follow-up management communicated and Plan of Care Visit completed when applicable. Bilateral Occipital Nerve Block: Dx: Occipital neuralgia Consent: In [facility] Informational guide about Occipital nerve block given Procedure: The patient was placed in a seated position. The site of pain and procedure were confirmed with the patient prior to starting the procedure. The patient's nuchal ridge of the occipital bone was identified and prepped with well with chlorhexidine x 3. A 25 Gauge 5/8 inch needle was advanced through the skin and subcutaneous tissues lateral to the occipital protuberance in the area of the Greater Occipital Nerve bilaterally. Aspiration for blood and CSF was negative. FOR AURA: The needle was again repositioned 2 cm laterally. This area was injected with 1 cc of fluid after ensuring there was no obstruction or back flow of blood. A total of 4 cc of bupivacaine 0.25% mixed with 40 mg of Kenalog was injected. Needle was then removed and bleeding was nil. Tex Ordoñez MD [facility] 10-28-2023 Procedure note PROCEDURE NOTE: UNIVERSAL PROTOCOL / SAFETY CHECKLIST Procedure to be Performed: Occipital neuralgia Sign In: A Moment of CARE was completed. Personnel directly involved with the procedure wore the appropriate PPE (Personal Protective Equipment). Patient/Surrogate Stated/Verified: PATIENT VERIFIED(optional for EMERGENT procedures): Patient name, Date of , Relevant allergies and The intended procedure Time Out Communication: Intended patient and procedure match the source documents. Consent documented and matches the intended procedure. No relevant labs, photos, and/or imaging studies were applicable for review. No correct side/site applicable for marking and visibility. Medications required for procedure verified. No fire risk assessment and interventions applicable. No implant(s) inserted. Sign Out: SIGN OUT (optional for EMERGENT procedures): No specimen collected. No instruments, equipment or retained foreign bodies applicable. Post-procedure follow-up management communicated and Plan of Care Visit completed when applicable. Bilateral Occipital Nerve Block: Dx: Occipital neuralgia Consent: In [facility] Informational guide about Occipital nerve block given Procedure: The patient was placed in a seated position. The site of pain and procedure were confirmed with the patient prior to starting the procedure. The patient's nuchal ridge of the occipital bone was identified and prepped with well with chlorhexidine x 3. A 25 Gauge 5/8 inch needle was advanced through the skin and subcutaneous tissues lateral to the occipital protuberance in the area of the Greater Occipital Nerve bilaterally. Aspiration for blood and CSF was negative. FOR AURA: The needle was again repositioned 2 cm laterally. This area was injected with 1 cc of fluid after ensuring there was no obstruction or back flow of blood. A total of 4 cc of bupivacaine 0.25% mixed with 40 mg of Kenalog was injected. Needle was then removed and bleeding was nil. Tex Ordoñez MD documented in this encounter [facility] 09-01-2023 Procedure note Procedure(s): CHEMODERVATE FACIAL/TRIGEM/CERV MUSC MIGRAINE Pre-Procedure Diagnose(s): Intractable chronic migraine without aura and without status migrainosus Post-Procedure Diagnose(s): Intractable chronic migraine without aura and without status migrainosus [facility] for General Neurology Follow-Up Onabotulinum Toxin A (BotoxTM) for Migraine Indication: Chronic Intractable Migraine Treatment #: Since 12/25/2021 Referral Expiration: 04/20/2024 Prior to the initiation of the FIRST treatment with Onabotulinum Toxin A, the patient reported the following average headache frequency over the past 3 MONTHS: Number of moderate-severe migraine days/month: 30 Number of mild migraine days/month: 0 Number of headache free days/month: 0 Migraine severity: 10 After treatment with Onabotulinum Toxin A: Number of moderate-severe migraine days/month: 8 Number of mild migraine days/month: 22 Number of headache free days/month: 0 Migraine severity: 6/10 Patient reduction in overall migraine days: Yes Patient reduction in moderate-severe migraine days: Yes Patient reduction of headache hours by 100 hours or more: Individual has obtained clinical benefit deemed significant by individual or prescriber (Y/N): Yes Patient's quality of life and ability to perform ADLs has improved (Y/N): Yes Wearing off: A few week prior to next dosing The patient has been assessed for disorders which could contribute to breathing or swallowing difficulty, and there is no contraindication with PREEMPT Botox. There is no documented allergic reaction/hypersensitivity to any botulinum toxin and there is no active infection at proposed injection site. PAST HISTORY REVIEWED: PAST MEDICAL HISTORY Diagnosis Date Anxiety Chronic migraine without aura No past surgical history on file. SOCIAL HISTORY REVIEWED: Social History Tobacco Use Smoking status: Not on file Alcohol use: Not on file Drug use: Not on file EXAM: There were no vitals filed for this visit. Well-groomed. No acute distress. The patient was alert and oriented to person, place, and time with normal language, attention and concentration, recent and remote memory, praxis, and intellectual function. Affect was normal. The patient did not appear depressed. UNIVERSAL PROTOCOL / SAFETY CHECKLIST Procedure to be Performed: Botox Sign In: A Moment of CARE was completed. Personnel directly involved with the procedure wore the appropriate PPE (Personal Protective Equipment). No special equipment needed. Patient/Surrogate Stated/Verified: PATIENT VERIFIED(optional for EMERGENT procedures): Patient name, Date of , Relevant allergies, and The intended procedure Time Out Communication: Intended patient and procedure match the source documents. Consent documented and matches the intended procedure. No relevant labs, photos, and/or imaging studies were applicable for review. No correct side/site applicable for marking and visibility. Medications required for procedure verified. No fire risk assessment and interventions applicable. No implant(s) inserted. Sign Out: SIGN OUT (optional for EMERGENT procedures): No specimen collected. All instruments, equipment, possible retained foreign bodies accounted for. Post-procedure follow-up management communicated and Plan of Care Visit completed when applicable. Haylie Guillermo PA-C Botox Procedure Note Treatment # Since 12/25/2021 Consent: In [facility] Medication guide given: yes PA: until 04/20/2024 BOTOX brought in by patient? No Lot #: [id number] Dilution: 5 units/0.1 ml ( 100 unit vial with 2 cc diluent or 200 unit vial with 4 cc diluent) Diluent: normal saline Indication: chronic intractable migraine Shellfish Grower 5 Units in 1 site bilaterally Procerus 5 Units in 1 site Frontalis 5 Units in 2 sites bilaterally Temporalis 5 Units in 4 sites bilaterally Occipitalis 5 units in 3 sites bilaterally Cervical PSPs 5 Units in 2 site bilaterally Trapezius 5 Units in 3 sites bilaterally Subtotals 155 Units Total Units used: 155 Total Units wasted: 45 IMPRESSION/PLAN: Oneal Eckert is a 33 year old male with chronic migraine presents for botox treatment. The skin was prepped with alcohol three times. Trigger points were identified in the muscles prior to injection. The needle was then withdrawn. The patient tolerated the procedure well and there was no evidence of procedural complications. The patient was stable post-procedure. The patient was able to ambulate and had no dyspnea upon discharge to home. 1. Return in 90 days for Botox I spent a total of 30 minutes on the date of the service which included preparing to see the patient, [id number] patient care, completing clinical documentation, obtaining and/or reviewing separately obtained history, performing a medically appropriate examination, counseling and educating the patient/family/caregiver, and ordering medications, tests, or procedures. Haylie Guillermo PA-C documented in this encounter [facility] 09-01-2023 History of Present illness Narrative See procedure note. Haylie Guillermo PA-C documented in this encounter [facility] 06-09-2023 Note HNO ID: [id number] Author: Tex Ordoñez MD Service: ? Author Type: Physician Type: Procedures Filed: 06/09/2023 5:14 PM Note Text: PROCEDURE NOTE: UNIVERSAL PROTOCOL / SAFETY CHECKLIST Procedure to be Performed: Occipital neuralgia Sign In: A Moment of CARE was completed. Personnel directly involved with the procedure wore the appropriate PPE (Personal Protective Equipment). Patient/Surrogate Stated/Verified: PATIENT VERIFIED(optional for EMERGENT procedures): Patient name, Date of , Relevant allergies and The intended procedure Time Out Communication: Intended patient and procedure match the source documents. Consent documented and matches the intended procedure. No relevant labs, photos, and/or imaging studies were applicable for review. No correct side/site applicable for marking and visibility. Medications required for procedure verified. No fire risk assessment and interventions applicable. No implant(s) inserted. Sign Out: SIGN OUT (optional for EMERGENT procedures): No specimen collected. No instruments, equipment or retained foreign bodies applicable. Post-procedure follow-up management communicated and Plan of Care Visit completed when applicable. Bilateral Occipital Nerve Block: Dx: Occipital neuralgia Consent: In [facility] Informational guide about Occipital nerve block given Procedure: The patient was placed in a seated position. The site of pain and procedure were confirmed with the patient prior to starting the procedure. The patient's nuchal ridge of the occipital bone was identified and prepped with well with chlorhexidine x 3. A 25 Gauge 5/8 inch needle was advanced through the skin and subcutaneous tissues lateral to the occipital protuberance in the area of the Greater Occipital Nerve bilaterally. Aspiration for blood and CSF was negative. FOR AURA: The needle was again repositioned 2 cm laterally. This area was injected with 1 cc of fluid after ensuring there was no obstruction or back flow of blood. A total of 4 cc of bupivacaine 0.25% mixed with 40 mg of Kenalog was injected. Needle was then removed and bleeding was nil. Tex Ordoñez MD [facility] 06-09-2023 Procedure note PROCEDURE NOTE: UNIVERSAL PROTOCOL / SAFETY CHECKLIST Procedure to be Performed: Occipital neuralgia Sign In: A Moment of CARE was completed. Personnel directly involved with the procedure wore the appropriate PPE (Personal Protective Equipment). Patient/Surrogate Stated/Verified: PATIENT VERIFIED(optional for EMERGENT procedures): Patient name, Date of , Relevant allergies and The intended procedure Time Out Communication: Intended patient and procedure match the source documents. Consent documented and matches the intended procedure. No relevant labs, photos, and/or imaging studies were applicable for review. No correct side/site applicable for marking and visibility. Medications required for procedure verified. No fire risk assessment and interventions applicable. No implant(s) inserted. Sign Out: SIGN OUT (optional for EMERGENT procedures): No specimen collected. No instruments, equipment or retained foreign bodies applicable. Post-procedure follow-up management communicated and Plan of Care Visit completed when applicable. Bilateral Occipital Nerve Block: Dx: Occipital neuralgia Consent: In Epic Informational guide about Occipital nerve block given Procedure: The patient was placed in a seated position. The site of pain and procedure were confirmed with the patient prior to starting the procedure. The patient's nuchal ridge of the occipital bone was identified and prepped with well with chlorhexidine x 3. A 25 Gauge 5/8 inch needle was advanced through the skin and subcutaneous tissues lateral to the occipital protuberance in the area of the Greater Occipital Nerve bilaterally. Aspiration for blood and CSF was negative. FOR AURA: The needle was again repositioned 2 cm laterally. This area was injected with 1 cc of fluid after ensuring there was no obstruction or back flow of blood. A total of 4 cc of bupivacaine 0.25% mixed with 40 mg of Kenalog was injected. Needle was then removed and bleeding was nil. Tex Ordoñez MD documented in this encounter [facility] 06-09-2023 Note HNO ID: [id number] Author: Masha Valenzuela Ma Service: ? Author Type: ? Type: Progress Notes Filed: 06/09/2023 5:14 PM Note Text: There is no data to display for this encounter [facility] 06-09-2023 History of Present illness Narrative There is no data to display for this encounter documented in this encounter [facility] 04-21-2023 Note HNO ID: [id number] Author: Tex Ordoñez MD Service: ? Author Type: Physician Type: Procedures Filed: 04/21/2023 12:18 PM Note Text: PROCEDURE NOTE UNIVERSAL PROTOCOL / SAFETY CHECKLIST Procedure to be Performed: Botox therapy for migraine Sign In: A Moment of CARE was completed. Personnel directly involved with the procedure wore the appropriate PPE (Personal Protective Equipment). Patient/Surrogate Stated/Verified: PATIENT VERIFIED(optional for EMERGENT procedures): Patient name, Date of , Relevant allergies and The intended procedure Time Out Communication: Intended patient and procedure match the source documents. Consent documented and matches the intended procedure. No relevant labs, photos, and/or imaging studies were applicable for review. No correct side/site applicable for marking and visibility. Medications required for procedure verified. No fire risk assessment and interventions applicable. No implant(s) inserted. Sign Out: SIGN OUT (optional for EMERGENT procedures): No specimen collected. No instruments, equipment or retained foreign bodies applicable. Post-procedure follow-up management communicated and Plan of Care Visit completed when applicable. Botox procedure note Treatment #6 Consent in EPIC BOTOX brought in by patient? No Dilution: 5 units/0.1 ml ( 100 unit vial with 2 cc diluent or 200 unit vial with 4 cc diluent) Diluent: normal saline Indication: Chronic Intractable Migraine Injection Sites Muscle Fixed Site/Fixed Dose Bilat Shellfish Grower 20 U divided in 2 sites Procerus 10 U in 1 site Bilat Frontalis 20 U divided in 4 sites Bilat Temporalis 50 U divided in 8 sites Bilat Occipitalis 40 U divided in 6 sites Bilat Cervical PSPs 20 U divided in 4 sites Bilat Trapezius 40 U divided in 6 sites Subtotals 200 units Total Units used: 200 Total Units wasted: 0 Tex Ordoñez MD [facility] 04-21-2023 Procedure note PROCEDURE NOTE UNIVERSAL PROTOCOL / SAFETY CHECKLIST Procedure to be Performed: Botox therapy for migraine Sign In: A Moment of CARE was completed. Personnel directly involved with the procedure wore the appropriate PPE (Personal Protective Equipment). Patient/Surrogate Stated/Verified: PATIENT VERIFIED(optional for EMERGENT procedures): Patient name, Date of , Relevant allergies and The intended procedure Time Out Communication: Intended patient and procedure match the source documents. Consent documented and matches the intended procedure. No relevant labs, photos, and/or imaging studies were applicable for review. No correct side/site applicable for marking and visibility. Medications required for procedure verified. No fire risk assessment and interventions applicable. No implant(s) inserted. Sign Out: SIGN OUT (optional for EMERGENT procedures): No specimen collected. No instruments, equipment or retained foreign bodies applicable. Post-procedure follow-up management communicated and Plan of Care Visit completed when applicable. Botox procedure note Treatment #6 Consent in EPIC BOTOX brought in by patient? No Dilution: 5 units/0.1 ml ( 100 unit vial with 2 cc diluent or 200 unit vial with 4 cc diluent) Diluent: normal saline Indication: Chronic Intractable Migraine Injection Sites Muscle Fixed Site/Fixed Dose Bilat Shellfish Grower 20 U divided in 2 sites Procerus 10 U in 1 site Bilat Frontalis 20 U divided in 4 sites Bilat Temporalis 50 U divided in 8 sites Bilat Occipitalis 40 U divided in 6 sites Bilat Cervical PSPs 20 U divided in 4 sites Bilat Trapezius 40 U divided in 6 sites Subtotals 200 units Total Units used: 200 Total Units wasted: 0 Tex Ordoñez MD documented in this encounter [facility] 04-21-2023 Note HNO ID: [id number] Author: Tex Ordoñez MD Service: ? Author Type: Physician Type: Progress Notes Filed: 04/21/2023 12:18 PM Note Text: PROGRESS NOTE- HEADACHE MEDICINE SERVICE DATE: April 21, 2023 Participants: patient and provider Location: [facility] Subjective HPI: Oneal Eckert is here for follow up visit and Botox therapy. He had a STACIA block in February and he says it helped. Decreased frequency and severity of headaches. He also feels that Ajovy helps, he feels it wearing off. BOTOX PRIOR TO TREATMENT Total headache days per month: daily Severity of headaches: mild to severe Start date: 12/25/21 AFTER TREATMENT Now Total headache days per month: 5-10 Severity of headaches: mild to moderate Wearing off: 1 week Migraine description: see note from October 07, 2021 Ubrelvy not helpful. PAST MEDICAL HISTORY Diagnosis Date Anxiety Chronic migraine without aura Current Outpatient Medications Medication Sig Naproxen Sodium 550 mg tablet Take 1 tablet by mouth twice daily as needed nortriptyline (PAMELOR) 50 mg capsule Take 1 capsule by mouth daily at bedtime. DULoxetine (CYMBALTA) 60 mg capsule Take 1 capsule by mouth once daily. topiramate (TOPAMAX) 200 mg tablet Take 1 tablet by mouth once daily. fremanezumab-vfrm (AJOVY AUTOINJECTOR) 225 mg/1.5 mL auto-injector Inject 1.5 mL subcutaneously once every month. clonazePAM (KLONOPIN) 1 mg tablet Take 1 tablet by mouth twice daily as needed for anxiety for up to 30 days. Current Facility-Administered Medications Medication Dose Route Frequency [COMPLETED] onabotulinum toxin type A 200 Units injection (BOTOX) 200 Units INTRAMUSCULAR ONCE (AMB - Up to 30 Days) Allergies: No Known Allergies Impression/Recommendations - chronic migraine without aura - episodes of cognitive impairment/brain fog - I suspect he has an underlying/untreated generalized anxiety disorder. RECS: 1. Migraine prevention: -Botox therapy today, see attached procedure note. -Continue Topamax 200 mg at bedtime continue. -Continue Cymbalta 60 mg daily. This is also prescribed for the suspected JOE -Continue nortriptyline 50 mg at bedtime -Continue Ajovy 2. Migraine abortive therapy: -Continue naproxen 550 mg. 3. STACIA block PRN 4.Follow-up in 3 months. Tex Ordoñez MD [facility] 04-21-2023 History of Present illness Narrative PROGRESS NOTE- HEADACHE MEDICINE SERVICE DATE: April 21, 2023 Participants: patient and provider Location: [facility] Subjective HPI: Oneal Eckert is here for follow up visit and Botox therapy. He had a STACIA block in February and he says it helped. Decreased frequency and severity of headaches. He also feels that Ajovy helps, he feels it wearing off. BOTOX PRIOR TO TREATMENT Total headache days per month: daily Severity of headaches: mild to severe Start date: 12/25/21 AFTER TREATMENT Now Total headache days per month: 5-10 Severity of headaches: mild to moderate Wearing off: 1 week Migraine description: see note from October 07, 2021 Ubrelvy not helpful. PAST MEDICAL HISTORY Diagnosis Date Anxiety Chronic migraine without aura Current Outpatient Medications Medication Sig Naproxen Sodium 550 mg tablet Take 1 tablet by mouth twice daily as needed nortriptyline (PAMELOR) 50 mg capsule Take 1 capsule by mouth daily at bedtime. DULoxetine (CYMBALTA) 60 mg capsule Take 1 capsule by mouth once daily. topiramate (TOPAMAX) 200 mg tablet Take 1 tablet by mouth once daily. fremanezumab-vfrm (AJOVY AUTOINJECTOR) 225 mg/1.5 mL auto-injector Inject 1.5 mL subcutaneously once every month. clonazePAM (KLONOPIN) 1 mg tablet Take 1 tablet by mouth twice daily as needed for anxiety for up to 30 days. Current Facility-Administered Medications Medication Dose Route Frequency [COMPLETED] onabotulinum toxin type A 200 Units injection (BOTOX) 200 Units INTRAMUSCULAR ONCE (AMB - Up to 30 Days) Allergies: No Known Allergies Impression/Recommendations - chronic migraine without aura - episodes of cognitive impairment/brain fog - I suspect he has an underlying/untreated generalized anxiety disorder. RECS: 1. Migraine prevention: -Botox therapy today, see attached procedure note. -Continue Topamax 200 mg at bedtime continue. -Continue Cymbalta 60 mg daily. This is also prescribed for the suspected JOE -Continue nortriptyline 50 mg at bedtime -Continue Ajovy 2. Migraine abortive therapy: -Continue naproxen 550 mg. 3. STACIA block PRN 4.Follow-up in 3 months. Tex Ordoñez MD [facility] [place] documented in this encounter [facility] 04-21-2023 Nurse Note Patient name and confirmed. Patient states she would like to receive Botox treatment today. 2 vials of Botox A (100 units in each) reconstituted with 2.2 cc of normal saline in each vial. Botox drawn up into four, 1 cc syringes. Each syringe containing 50 units of Botox. Assisted by: Ruth Ann GRACE Botox, 2 vials: Lot # [id number] Exp Lot # [id number] Exp Botox handed to Dr. Ordoñez to administer and verified order. documented in this encounter [facility] 04-01-2023 Miscellaneous Notes Received approval for Botox. Patient approved from 04/21/23 to 04/20/24 auth # [id number]. Uploaded fax to patient's chart. Faxed office visit notes from 01/08/23, confirmation received. Spoke with Insurance regarding botox.re-completing botox PA for reconsideration. Called patient again to confirm that he is not currently taking ajovy. He states he e has not been able to time it up correctly with the botox as Dr. Ordoñez wanted him to take it 2 weeks before botox, and he cant get it from pharmacy until the (which is same time he is due for botox). Patient has not taken ajovy this month. PA# [id number] Will fax office visit notes to [phone] Called patient and got update on specific amount of headache days he is having a month. He said about 5-10 headaches a month that are mild to moderate. Botox PA denied, Peer to peer required: Reason for Peer to Peer Request Denial for botox Off Label Use: Y/N N Ordering Provider: Ajay Ordoñez MD Provider Tax ID: [id number] HCPCS code(s) & drug name(s): J0585 Botox Diagnosis submitted (ICD -10 code & description): G43.719 (ICD-10-CM) - Chronic migraine without aura, intractable, without status migrainosus Clinical Documentation Submitted: 02/17 OV, 01/08 OV, 01/2023 OV, 07/2022 OV showing improvement with Botox New Start or Renewal? Renewal [place] / [place] Plan order applied date (if applicable) - new starts only Patient: Oneal Eckert : 1990 DOS: 04/21/2023 Date request submitted to payer: 03/17/2023 SDND Add On:? 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 Author Type: Physician Type: Progress Notes Filed: 02/17/2023 4:13 PM Note Text: Occipital Nerve Block Procedure note: - no procedures with a steroid in the last 3 months UNIVERSAL PROTOCOL / SAFETY CHECKLIST Procedure to be Performed: Occipital neuralgia Sign In: A Moment of CARE was completed. Personnel directly involved with the procedure wore the appropriate PPE (Personal Protective Equipment). Patient/Surrogate Stated/Verified: PATIENT VERIFIED(optional for EMERGENT procedures): Patient name, Date of , Relevant allergies and The intended procedure Time Out Communication: Intended patient and procedure match the source documents. Consent documented and matches the intended procedure. No relevant labs, photos, and/or imaging studies were applicable for review. No correct side/site applicable for marking and visibility. Medications required for procedure verified. No fire risk assessment and interventions applicable. No implant(s) inserted. Sign Out: SIGN OUT (optional for EMERGENT procedures): No specimen collected. No instruments, equipment or retained foreign bodies applicable. Post-procedure follow-up management communicated and Plan of Care Visit completed when applicable. Bilateral Occipital Nerve Block: Dx: Occipital neuralgia Consent: In [facility] Informational guide about Occipital nerve block given Procedure: The patient was placed in a seated position. The site of pain and procedure were confirmed with the patient prior to starting the procedure. The patient's nuchal ridge of the occipital bone was identified and prepped with well with chlorhexidine x 3. A 25 Gauge 5/8 inch needle was advanced through the skin and subcutaneous tissues lateral to the occipital protuberance in the area of the Greater Occipital Nerve bilaterally. Aspiration for blood and CSF was negative. FOR AURA: The needle was again repositioned 2 cm laterally. This area was injected with 1 cc of fluid after ensuring there was no obstruction or back flow of blood. A total of 4 cc of bupivacaine 0.25% mixed with 40 mg of Kenalog was injected. Needle was then removed and bleeding was nil. Tex Ordoñez MD [facility] 02-17-2023 History of Present illness Narrative Occipital Nerve Block Procedure note: - no procedures with a steroid in the last 3 months UNIVERSAL PROTOCOL / SAFETY CHECKLIST Procedure to be Performed: Occipital neuralgia Sign In: A Moment of CARE was completed. Personnel directly involved with the procedure wore the appropriate PPE (Personal Protective Equipment). Patient/Surrogate Stated/Verified: PATIENT VERIFIED(optional for EMERGENT procedures): Patient name, Date of , Relevant allergies and The intended procedure Time Out Communication: Intended patient and procedure match the source documents. Consent documented and matches the intended procedure. No relevant labs, photos, and/or imaging studies were applicable for review. No correct side/site applicable for marking and visibility. Medications required for procedure verified. No fire risk assessment and interventions applicable. No implant(s) inserted. Sign Out: SIGN OUT (optional for EMERGENT procedures): No specimen collected. No instruments, equipment or retained foreign bodies applicable. Post-procedure follow-up management communicated and Plan of Care Visit completed when applicable. Bilateral Occipital Nerve Block: Dx: Occipital neuralgia Consent: In [facility] Informational guide about Occipital nerve block given Procedure: The patient was placed in a seated position. The site of pain and procedure were confirmed with the patient prior to starting the procedure. The patient's nuchal ridge of the occipital bone was identified and prepped with well with chlorhexidine x 3. A 25 Gauge 5/8 inch needle was advanced through the skin and subcutaneous tissues lateral to the occipital protuberance in the area of the Greater Occipital Nerve bilaterally. Aspiration for blood and CSF was negative. FOR AURA: The needle was again repositioned 2 cm laterally. This area was injected with 1 cc of fluid after ensuring there was no obstruction or back flow of blood. A total of 4 cc of bupivacaine 0.25% mixed with 40 mg of Kenalog was injected. Needle was then removed and bleeding was nil. Tex Ordoñez MD documented in this encounter [facility] 01-09-2023 Procedure note PROCEDURE NOTE UNIVERSAL PROTOCOL / SAFETY CHECKLIST Procedure to be Performed: Botox therapy for migraine Sign In: A Moment of CARE was completed. Personnel directly involved with the procedure wore the appropriate PPE (Personal Protective Equipment). Patient/Surrogate Stated/Verified: PATIENT VERIFIED(optional for EMERGENT procedures): Patient name, Date of , Relevant allergies and The intended procedure Time Out Communication: Intended patient and procedure match the source documents. Consent documented and matches the intended procedure. No relevant labs, photos, and/or imaging studies were applicable for review. No correct side/site applicable for marking and visibility. Medications required for procedure verified. No fire risk assessment and interventions applicable. No implant(s) inserted. Sign Out: SIGN OUT (optional for EMERGENT procedures): No specimen collected. No instruments, equipment or retained foreign bodies applicable. Post-procedure follow-up management communicated and Plan of Care Visit completed when applicable. Botox procedure note Treatment #5 Consent in [facility] BOTOX brought in by patient? No Dilution: 5 units/0.1 ml ( 100 unit vial with 2 cc diluent or 200 unit vial with 4 cc diluent) Diluent: normal saline Indication: Chronic Intractable Migraine Injection Sites Muscle Fixed Site/Fixed Dose Bilat Shellfish Grower 20 U divided in 2 sites Procerus 10 U in 1 site Bilat Frontalis 20 U divided in 4 sites Bilat Temporalis 50 U divided in 8 sites Bilat Occipitalis 40 U divided in 6 sites Bilat Cervical PSPs 20 U divided in 4 sites Bilat Trapezius 40 U divided in 6 sites Subtotals 200 units Total Units used: 200 Total Units wasted: 0 Tex Ordoñez MD documented in this encounter [facility] 01-08-2023 Nurse Note Patient name and confirmed. Patient states she would like to receive Botox treatment today. 2 vials of Botox A (100 units in each) reconstituted with 2.2 cc of normal saline in each vial. Botox drawn up into four, 1 cc syringes. Each syringe containing 50 units of Botox. Assisted by: Colette GRACE Botox, 2 vials: Lot # [id number] Exp Lot # [id number] Exp Botox handed to Dr. Ordoñez to administer and verified order. documented in this encounter [facility] 12-06-2022 History of Present illness Narrative DISTANCE HEALTH VISIT This visit is a distance health encounter. It required patient-provider interaction for the medical decision making as documented below. 1. Patient has consented to this telephone and video encounter instead of office visit due to COVID-19 pandemic 2. Patient and provider present during telemedicine encounter 3. Reason: headache 4. Total time spent on medical discussion: 25 minutes I have communicated my name and active licensure. The patient's identity and physical location were verified at the time of this visit. Either the patient or their legal field representative has been informed of the risks and benefits of -- and alternatives to -- treatment through a remote evaluation and consents to proceed with the evaluation remotely. Tex Ordoñez MD PROGRESS NOTE- ACCESS CLINIC- HEADACHE MEDICINE SERVICE DATE: December 06, 2022 Participants: patient and provider Subjective HPI: Oneal Eckert is here for virtual follow up visit. This appointment was made because of his concern about symptoms he is having after his nerve block. He says that after the November, block he has regressed to how he was doing when I first saw you. He says 1 week after the block he had a lot of occipital neuralgia episodes, minor things would trigger an attack. He says he is doing much better now after close to a month after the block. Not so many attacks but he is not back to baseline attacks before the block. He did some research online and found that he strongly thinks that he does have the occipital neuralgia. PAST MEDICAL HISTORY Diagnosis Date Anxiety Chronic migraine without aura Current Outpatient Medications Medication Sig fremanezumab-vfrm (AJOVY AUTOINJECTOR) 225 mg/1.5 mL auto-injector Inject 1.5 mL subcutaneously once every month. TENS unit and electrodes ([employer]) cmpk 1 Device once daily as needed (use for 20 minutes. For migraine.). Naproxen Sodium 550 mg tablet TAKE 1 TABLET BY MOUTH TWICE DAILY NEEDED WITH MEALS AT MIGRAINE ONSET nortriptyline (PAMELOR) 50 mg capsule Take 1 capsule by mouth daily at bedtime. DULoxetine (CYMBALTA) 60 mg capsule Take 1 capsule by mouth once daily. topiramate (TOPAMAX) 200 mg tablet Take 1 tablet by mouth once daily. clonazePAM (KLONOPIN) 1 mg tablet Take 1 tablet by mouth twice daily as needed for anxiety for up to 30 days. traZODone (DESYREL) 50 mg tablet Take 1 tablet by mouth at bedtime as needed. No current facility-administered medications for this visit. Allergies: No Known Allergies PHYSICAL EXAMINATION: via virtual observation General appearance: Well appearing, alert, in no acute distress, well-hydrated, well nourished. Skin: no jaundice Head: Normocephalic, no masses, atraumatic. Eyes: Anicteric sclera.Extraocular movements are grossly intact. Lungs: unlabored on room air Neuro: Negative findings: speech normal, mental status intact Impression/Recommendations - nerve block side effects? We discussed anatomy of the area and outcomes of the procedure. He may have had an atypical reaction. RECS: -He actually wishes to try another occipital nerve block because he feels that this is what is causing his occipital pain attacks. I am concerned that he might have the same result that he had after the November 13 block. We compromised to discuss this during his next Botox appointment. Tex Ordoñez MD [facility] [place] documented in this encounter [facility] 11-13-2022 Procedure note Procedure(s): GREATER OCCIPITAL NERVE BLOCK Responsible practitioner performing the procedure(s)/treatment(s): Tex Ordoñez Practitioner obtaining the consent: Tex Ordoñez Procedure(s)/treatment(s): Occipital neuralgia Consent Source: Patient Consent DEPARTMENT of NEUROLOGY UNIVERSAL PROTOCOL / SAFETY CHECKLIST Procedure to be Performed: Occipital neuralgia Sign In: A Moment of CARE was completed. Personnel directly involved with the procedure wore the appropriate PPE (Personal Protective Equipment). Patient/Surrogate Stated/Verified: PATIENT VERIFIED(optional for EMERGENT procedures): Patient name, Date of , Relevant allergies and The intended procedure Time Out Communication: Intended patient and procedure match the source documents. Consent documented and matches the intended procedure. No relevant labs, photos, and/or imaging studies were applicable for review. No correct side/site applicable for marking and visibility. Medications required for procedure verified. No fire risk assessment and interventions applicable. No implant(s) inserted. Sign Out: SIGN OUT (optional for EMERGENT procedures): No specimen collected. No instruments, equipment or retained foreign bodies applicable. Post-procedure follow-up management communicated and Plan of Care Visit completed when applicable. Bilateral Occipital Nerve Block: Dx: Occipital neuralgia Consent: In [facility] Informational guide about Occipital nerve block given Procedure: The patient was placed in a seated position. The site of pain and procedure were confirmed with the patient prior to starting the procedure. The patient's nuchal ridge of the occipital bone was identified and prepped with well with chlorhexidine x 3. A 25 Gauge 5/8 inch needle was advanced through the skin and subcutaneous tissues lateral to the occipital protuberance in the area of the Greater Occipital Nerve bilaterally. Aspiration for blood and CSF was negative. FOR AURA: The needle was again repositioned 2 cm laterally. This area was injected with 1 cc of fluid after ensuring there was no obstruction or back flow of blood. A total of 4 cc of bupivacaine 0.25% mixed with 40 mg of Kenalog was injected. Needle was then removed and bleeding was nil. Tex Ordoñez MD documented in this encounter [facility] 10-09-2022 Procedure note PROCEDURE NOTE UNIVERSAL PROTOCOL / SAFETY CHECKLIST Procedure to be Performed: Botox therapy for migraine Sign In: A Moment of CARE was completed. Personnel directly involved with the procedure wore the appropriate PPE (Personal Protective Equipment). Patient/Surrogate Stated/Verified: PATIENT VERIFIED(optional for EMERGENT procedures): Patient name, Date of , Relevant allergies and The intended procedure Time Out Communication: Intended patient and procedure match the source documents. Consent documented and matches the intended procedure. No relevant labs, photos, and/or imaging studies were applicable for review. No correct side/site applicable for marking and visibility. Medications required for procedure verified. No fire risk assessment and interventions applicable. No implant(s) inserted. Sign Out: SIGN OUT (optional for EMERGENT procedures): No specimen collected. No instruments, equipment or retained foreign bodies applicable. Post-procedure follow-up management communicated and Plan of Care Visit completed when applicable. Botox procedure note Treatment #4 Consent in EPIC BOTOX brought in by patient? No Dilution: 5 units/0.1 ml ( 100 unit vial with 2 cc diluent or 200 unit vial with 4 cc diluent) Diluent: normal saline Indication: Chronic Intractable Migraine Injection Sites Muscle Fixed Site/Fixed Dose Bilat Shellfish Grower 20 U divided in 2 sites Procerus 10 U in 1 site Bilat Frontalis 20 U divided in 4 sites Bilat Temporalis 50 U divided in 8 sites Bilat Occipitalis 40 U divided in 6 sites Bilat Cervical PSPs 20 U divided in 4 sites Bilat Trapezius 40 U divided in 6 sites Subtotals 200 units Total Units used: 200 Total Units wasted: 0 Tex Ordoñez MD documented in this encounter [facility] 10-09-2022 Nurse Note Patient name and confirmed. Patient states he would like to receive Botox treatment today. 2 vials of Botox A (100 units in each) reconstituted with 2.2 cc of normal saline in each vial. Botox drawn up into four, 1 cc syringes. Each syringe containing 50 units of Botox. Assisted by: Joanna Tidwell RN Botox, 2 vials: Lot # [id number] Exp 03/[address] Ordoñez to administer and verified order. documented in this encounter [facility] 08-07-2022 Miscellaneous Notes Received [employer] approval by fax from [employer]. Scanned to patient's chart. documented in this encounter [facility] 08-04-2022 History of Present illness Narrative DISTANCE HEALTH VISIT This visit is a distance health encounter. It required patient-provider interaction for the medical decision making as documented below. 1. Patient has consented to this telephone and video encounter instead of office visit due to COVID-19 pandemic 2. Patient and provider present during telemedicine encounter 3. Reason: headache 4. Total time spent on medical discussion: 30 minutes Tex Ordoñez MD PROGRESS NOTE- HEADACHE MEDICINE SERVICE DATE: August 04, 2022 Participants: patient and provider Subjective HPI: Oneal Eckert is here for virtual follow up visit. Last seen on July 10, 2022. Then he had his 3rd Botox therapy. He had been doing well on it, from daily headaches to 7 severe headaches a month. But he feels like this last cycle did nothing no effect. He has headaches daily again. He tried nerve blocks in the past, had several from a Month + of pain relief, last one lasted 1 day. Neuropsych tests report discussed extensively. Normal for age. Mild decreased processing. BOTOX: PRIOR TO TREATMENT Total headache days per month: daily Severity of headaches: mild to severe Start date: 12/25/21 AFTER TREATMENT 07/10/2022 Total headache days per month: 7 Severity of headaches: severe AFTER TREATMENT Today Total headache days per month: daily Severity of headaches: mild to severe Migraine description: see note from October 07, 2021 PAST MEDICAL HISTORY Diagnosis Date Anxiety Chronic migraine without aura Current Outpatient Medications Medication Sig fremanezumab-vfrm (AJOVY AUTOINJECTOR) 225 mg/1.5 mL auto-injector Inject 1.5 mL subcutaneously once every month. TENS unit and electrodes (CEFALY) cmpk 1 Device once daily as needed (use for 20 minutes. For migraine.). Naproxen Sodium 550 mg tablet TAKE 1 TABLET BY MOUTH TWICE DAILY NEEDED WITH MEALS AT MIGRAINE ONSET nortriptyline (PAMELOR) 50 mg capsule Take 1 capsule by mouth daily at bedtime. DULoxetine (CYMBALTA) 60 mg capsule Take 1 capsule by mouth once daily. topiramate (TOPAMAX) 200 mg tablet Take 1 tablet by mouth once daily. clonazePAM (KLONOPIN) 1 mg tablet Take 1 tablet by mouth twice daily as needed for anxiety for up to 30 days. traZODone (DESYREL) 50 mg tablet Take 1 tablet by mouth at bedtime as needed. No current facility-administered medications for this visit. Allergies: No Known Allergies PHYSICAL EXAMINATION: via virtual observation General appearance: Well appearing, alert, in no acute distress, well-hydrated, well nourished. Skin: no jaundice Head: Normocephalic, no masses, atraumatic. Eyes: Anicteric sclera.Extraocular movements are grossly intact. Lungs: unlabored on room air Neuro: Negative findings: speech normal, mental status intact Impression/Recommendations - chronic migraine without aura - episodes of cognitive impairment/brain fog are subjective. Neuropsych tests are normal. RECS: 1. Migraine prevention: -Continue Botox therapy today -Continue Topamax 200 mg at bedtime continue. -Continue Cymbalta 60 mg daily. This is also prescribed for the suspected anxiety. -Continue nortriptyline 50 mg at bedtime -Trial of Ajovy. Written information provided 2. Migraine abortive therapy: -Continue naproxen 550 mg. -Trial of Ubrelvy 100 mg. Has 8, 50 mg tabs at home, can try with those -Trial of Cefaly, in progress 3. He could do another occipital nerve block trial to see if he could be a candidate for ablation. He says he wishes to try them with me. 4.Pain clinic for Sphenopalatine ganglion block 5.Follow-up in 3 months. Tex Ordoñez MD [facility] [place] documented in this encounter [facility] 07-16-2022 Miscellaneous Notes Re-faxed pa form to rahul Received denial letter from rahul, uploaded to chart and forwarded for review. documented in this encounter [facility] 07-10-2022 History of Present illness Narrative PROGRESS NOTE- HEADACHE MEDICINE SERVICE DATE: July 10, 2022 Participants: patient and provider Location: [facility] Subjective HPI: Oneal Eckert is here for follow up visit and Botox therapy. Last seen on April 03, 2022. Migraine frequency decreased since last seen. BOTOX: PRIOR TO TREATMENT Total headache days per month: daily Severity of headaches: mild to severe Start date: 12/25/21 AFTER TREATMENT Total headache days per month: 7 Severity of headaches: severe Migraine description: see note from October 07, 2021 PAST MEDICAL HISTORY Diagnosis Date Anxiety Chronic migraine without aura Current Outpatient Medications Medication Sig Naproxen Sodium 550 mg tablet TAKE 1 TABLET BY MOUTH TWICE DAILY NEEDED WITH MEALS AT MIGRAINE ONSET nortriptyline (PAMELOR) 50 mg capsule Take 1 capsule by mouth daily at bedtime. DULoxetine (CYMBALTA) 60 mg capsule Take 1 capsule by mouth once daily. topiramate (TOPAMAX) 200 mg tablet Take 1 tablet by mouth once daily. traZODone (DESYREL) 50 mg tablet Take 1 tablet by mouth at bedtime as needed. TENS unit and electrodes (CEFALY) cmpk 1 Device once daily as needed (use for 20 minutes. For migraine.). ubrogepant (UBRELVY) 50 mg tablet Take 1 tablet by mouth as needed (take 1 tab at migraine onset. May repeat 2 hrs later if needed). clonazePAM (KLONOPIN) 1 mg tablet Take 1 tablet by mouth twice daily as needed for anxiety for up to 30 days. No current facility-administered medications for this visit. Allergies: No Known Allergies Impression/Recommendations - chronic migraine without aura - episodes of cognitive impairment/brain fog - I suspect he has an underlying/untreated generalized anxiety disorder. RECS: 1. Migraine prevention: -Botox therapy today, see attached procedure note. -Continue Topamax 200 mg at bedtime continue. -Continue Cymbalta 60 mg daily. This is also prescribed for the suspected anxiety. -Continue nortriptyline 50 mg at bedtime 2. Migraine abortive therapy: -Continue naproxen 550 mg. -Trial of Ubrelvy -Trial of Cefaly 3. Follow-up in 3 months. Tex Ordoñez MD [facility] [place] Patient name and confirmed. Patient states she would like to receive Botox treatment today. 2 vials of Botox A (100 units in each) reconstituted with 2.2 cc of normal saline in each vial. Botox drawn up into four, 1 cc syringes. Each syringe containing 50 units of Botox. Assisted by: Peri Tidwell RN Botox, 2 vials: Lot # [id number] Exp 09/2024 Lot # [id number] Exp 09/[address] Ordoñez to administer and verified order. documented in this encounter [facility] 07-10-2022 Procedure note PROCEDURE NOTE UNIVERSAL PROTOCOL / SAFETY CHECKLIST Procedure to be Performed: Botox therapy for migraine Sign In: A Moment of CARE was completed. Personnel directly involved with the procedure wore the appropriate PPE (Personal Protective Equipment). Patient/Surrogate Stated/Verified: PATIENT VERIFIED(optional for EMERGENT procedures): Patient name, Date of , Relevant allergies and The intended procedure Time Out Communication: Intended patient and procedure match the source documents. Consent documented and matches the intended procedure. No relevant labs, photos, and/or imaging studies were applicable for review. No correct side/site applicable for marking and visibility. Medications required for procedure verified. No fire risk assessment and interventions applicable. No implant(s) inserted. Sign Out: SIGN OUT (optional for EMERGENT procedures): No specimen collected. No instruments, equipment or retained foreign bodies applicable. Post-procedure follow-up management communicated and Plan of Care Visit completed when applicable. Botox procedure note Treatment #3 Consent in EPIC BOTOX brought in by patient? No Dilution: 5 units/0.1 ml ( 100 unit vial with 2 cc diluent or 200 unit vial with 4 cc diluent) Diluent: normal saline Indication: Chronic Intractable Migraine Injection Sites Muscle Fixed Site/Fixed Dose Bilat Shellfish Grower 20 U divided in 2 sites Procerus 10 U in 1 site Bilat Frontalis 20 U divided in 4 sites Bilat Temporalis 50 U divided in 8 sites Bilat Occipitalis 40 U divided in 6 sites Bilat Cervical PSPs 20 U divided in 4 sites Bilat Trapezius 40 U divided in 6 sites Subtotals 200 units Total Units used: 200 Total Units wasted: 0 Tex Ordoñez MD documented in this encounter [facility] 12-25-2021 Procedure note Responsible practitioner performing the procedure(s)/treatment(s): Tex Ordoñez Practitioner obtaining the consent: Tex Ordoñez Procedure(s)/treatment(s): Botox therapy for migraine Consent Source: Patient Consent DEPARTMENT of NEUROLOGY UNIVERSAL PROTOCOL / SAFETY CHECKLIST Procedure to be Performed: Botox therapy for migraine Sign In: A Moment of CARE was completed. Personnel directly involved with the procedure wore the appropriate PPE (Personal Protective Equipment). Patient/Surrogate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
== END 2024-02-18 08:07 | disposition home or self-care (01) ==
LOC: CARD 08:07
PROVIDERS: PCP Nurse Practitioner
DX: R40.20 Unspecified coma (principal); R40.4 Transient alteration of awareness
CPT/HCPCS: 95819

== ENCOUNTER 2025-05-24 14:53 | Emergency (ER) | payer MEDICARE, MEDICAID, SELFPAY ==
--- OUTSIDE RECORDS SUMMARY | 2024-09-26 04:45 | XMS_ITS ---
[facility] Organization [facility] Address [address] [place] [address] Care Team Providers Care Mill Beam Fitter Name Role Phone Hayden Duvall Primary Care Provider [phone] JEANCARLOS LEO [phone] REASON FOR VISIT BH F/U r/s from 09/23 Encounters Encounter Location Date Provider Diagnosis [address] [place] [address] 2024 Hayden Duvall Plan Of Treatment No Information Progress Notes * FELIPE ECKERT JDOB:1990 ( 34 yo M)Acc No.[id number]:09/26/2024 Behavioral Health Patient: FELIPE VARGAS :?THIERNO FisherPDOB:1990???Age:34 Y???Sex: MaleDate:09/26/2024Phone:[phone]:[address] [place], [place] [id number] Subjective: * Chief Complaints: * B H F/U r/s from 09/23 Billing Information: * Procedure Codes: * Electronic signature of JASMIN Fisher on 05/24/2025 at 03:33 PM ESTSign off status: Pending * Provider: JASMIN Dallas Date: 0 09/26/2024 Generated for Printing/Faxing/eTransmitting on:?05/24/2025 03:33 PM EST
--- OUTSIDE RECORDS SUMMARY | 2024-10-10 04:45 | XMS_ITS ---
Author Organization [employer] [facility] Address [address] [place] [address] Care Team Providers Care Health Care / Medical Job Titles Name Role Phone Jadiel Hayden Primary Care Provider JEANCARLOS LEO Unavailable [phone] REASON FOR VISIT Patient is here today for a medication follow up. Medications Medication SIG (Take, Route, Frequency, Duration) Notes Start Date End Date Status Gabapentin 400 MG Capsule 1 capsule Orally twice a day; Duration: 30 days 4ActiveARIPiprazole 10 MG Tablet1 tablet Orally Once a day; Duration: 10 days05/19/2024Not-Taking/PRNPropranolol HCl 40 MG Tablet 1 tablet Orally Twice a day; Duration: 30 days As needed 5ActiveALPRAZolam 0.5 MG Tablet 1 tablet Orally Twice a day; Duration: 30 days As needed 5ActivehydrOXYzine Pamoate 25 MG Capsule 1 capsule Orally three times a day; Duration: 30 days As needed 5ActiveARIPiprazole 15 MG Tablet1 tablet Orally Once a day; Duration: 30 days4ActiveBotoxActiveAjovy 225 MG/1.5ML Solution Prefilled Syringe 1.5 mL SubcutaneousActiveARIPiprazole 5 MG Tablet1 tablet Orally; Duration: 5 days05/10/2024Not-Taking/PRNDULoxetine HCl 60 MG Capsule Delayed Release Particles1 capsule Orally Once a dayNot-Taking/PRNTopiramate 200 MG Tablet1 tablet Orally Once a dayActiveTestosterone 20.25 MG/ACT (1.62%) Gel1 pump to skin in the morning to shoulder, upper arms or abdomen Transdermal Once a day ActiveNortriptyline HCl 50 MG Capsule1 capsule at bedtime Orally Once a day ActivePhentermine HCl 37.5 MG Capsule1 capsule Orally Once a dayActiveNaproxen 500 MG Tablet Delayed Release1 tablet as needed Orally every 12 hrsActiveVitamin DActive Encounters Encounter Location Date Provider Diagnosis [address] [address] 2024 Hayden Duvall Plan Of Treatment No Information Progress Notes * FELIPE ECKERTDOB:1990 ( 34 yo M)Acc No.[id number]:10/10/2024 Behavioral Health Patient: Shani GUEVARAFELIPE :?THIERNO FisherPDOB:1990???Age:34 Y???Sex: MaleDate:10/10/2024Phone:[phone]:[address] [place], [place] [address] Subjective: * Chief Complaints: * Linda kemelgin is here today for a medication follow up. * Medications: T akingVitamin D Testosterone 20.25 MG/ACT (1.62%) Gel 1 pump to skin in the morning to shoulder, upper arms or abdomen Transdermal Once a day Phentermine HCl 37.5 MG Capsule 1 capsule Orally Once a day Nortriptyline HCl 50 MG Capsule 1 capsule at bedtime Orally Once a day Naproxen 500 MG Tablet Delayed Release 1 tablet as needed Orally every 12 hrs Topiramate 200 MG Tablet 1 tablet Orally Once a day Ajovy 225 MG/1.5ML Solution Prefilled Syringe 1.5 mL Subcutaneous Botox ARIPiprazole 15 MG Tablet 1 tablet Orally Once a day Gabapentin 400 MG Capsule 1 capsule Orally twice a day Propranolol HCl 40 MG Tablet 1 tablet Orally Twice a day As neededhydrOXYzine Pamoate 25 MG Capsule 1 capsule Orally three times a day As neededALPRAZolam 0.5 MG Tablet 1 tablet Orally Twice a day As neededTaking Vitamin D Taking Testosterone 20.25 MG/ACT (1.62%) Gel 1 pump to skin in the morning to shoulder, upper arms or abdomen Transdermal Once a day Taking Phentermine HCl 37.5 MG Capsule 1 capsule Orally Once a day Taking Nortriptyline HCl 50 MG Capsule 1 capsule at bedtime Orally Once a day Taking Naproxen 500 MG Tablet Delayed Release 1 tablet as needed Orally every 12 hrs Taking Topiramate 200 MG Tablet 1 tablet Orally Once a day Taking Ajovy 225 MG/1.5ML Solution Prefilled Syringe 1.5 mL Subcutaneous Taking Botox Taking ARIPiprazole 15 MG Tablet 1 tablet Orally Once a day Taking Gabapentin 400 MG Capsule 1 capsule Orally twice a day Taking Propranolol HCl 40 MG Tablet 1 tablet Orally Twice a day As neededTaking hydrOXYzine Pamoate 25 MG Capsule 1 capsule Orally three times a day As neededTaking ALPRAZolam 0.5 MG Tablet 1 tablet Orally Twice a day As neededNot-Taking/PRNDULoxetine HCl 60 MG Capsule Delayed Release Particles 1 capsule Orally Once a day ARIPiprazole 5 MG Tablet 1 tablet Orally ARIPiprazole 10 MG Tablet 1 tablet Orally Once a day Not-Taking/PRN DULoxetine HCl 60 MG Capsule Delayed Release Particles 1 capsule Orally Once a day Not-Taking/PRN ARIPiprazole 5 MG Tablet 1 tablet Orally Not-Taking/PRN ARIPiprazole 10 MG Tablet 1 tablet Orally Once a day Billing Information: * Procedure Codes: * Electronic signature of JASMIN Fisher on 05/24/2025 at 03:32 PM ESTSign off status: Pending * Provider: JASMIN Dallas Date: 0 10/10/2024 Generated for Printing/Faxing/eTransmitting on:?05/24/2025 03:32 PM EST
--- OUTSIDE RECORDS SUMMARY | 2025-01-03 06:00 | XMS_ITS ---
Author Organization [facility] Address [address] [place] [address] Care Team Providers Care Railroad Auditor Name Role Phone Hayden Duvall Primary Care Provider JEANCARLOS LEO Unavailable [phone] Evangelista Garcia Unavailable [phone] REASON FOR VISIT [facility] Encounters Encounter Location Date Provider Diagnosis [facility] [address] [place] [address] 2024 Evangelista Garcia Plan Of Treatment No Information Progress Notes * FELIPE ECKERT JDOB:1990 ( 34 yo M)Acc No.[id number]:01/03/2025 F/U - Patient Patient: FELIPE VARGAS :?GITA Baptiste-SDOB:1990???Age:34 Y ???Sex:MaleDate:01/03/2025Phone:[phone]:[address] [place], [place] [id number]:Hayden Duvall Subjective: * Chief Complaints: * B H FU Care Plan Details* * Electronic signature of ALEX Baptiste, [id number] on 05/24/2025 at 03:32 PM ESTSign off status: Pending * Provider: ALEX Roldan Date: 0 01/03/2025 Generated for Printing/Faxing/eTransmitting on:?05/24/2025 03:32 PM EST
--- OUTSIDE RECORDS SUMMARY | 2025-01-30 05:30 | XMS_ITS ---
Author Organization [facility] Address [address] [place] [address] Care Team Providers Care Stone And Concrete Washer Name Role Phone Hayden Duvall Primary Care Provider [phone] JEANCARLOS LEO [phone] REASON FOR VISIT 3 month f/u Encounters Encounter Location Date Provider Diagnosis [address] [place] [address] 2024 Hayden Duvall Plan Of Treatment No Information Progress Notes * FELIPE ECKERT JDOB:1990 ( 34 yo M)Acc No.[id number]:01/30/2025 Behavioral Health Patient: Shani GUEVARAFELIPE :?THIERNO FisherPDOB:1990???Age:34 Y???Sex: MaleDate:01/30/2025Phone:[phone]:[address] [place], [place] [id number] Subjective: * Chief Complaints: * 3 month f/u * Electronic signature of JASMIN Fisher on 05/24/2025 at 03:32 PM ESTSign off status: Pending * Provider: JASMIN Dallas Date: 0 01/30/2025 Generated for Printing/Faxing/eTransmitting on:?05/24/2025 03:32 PM EST
--- OUTSIDE RECORDS SUMMARY | 2025-01-31 05:15 | XMS_ITS ---
Author Organization [facility] Address [address] [place] [address] Care Team Providers Care Dairy Machine Operator Farmworker Name Role Phone Hayden Duvall Primary Care Provider JEANCARLOS LEO [phone] REASON FOR VISIT BH F/U Encounters Encounter Location Date Provider Diagnosis [address] [address] 2024 Hayden Duvall Plan Of Treatment No Information Progress Notes * ECKERTFELIPE JDOB:1990 ( 34 yo M)Acc No.[id number]:01/31/2025 Behavioral Health Patient: Shani GUEVARAFELIPE :?THIERNO FisherPDOB:1990???Age:34 Y???Sex: MaleDate:01/31/2025Phone:[phone]:[address] [place], [place] [address] Subjective: * Chief Complaints: * B H F/U Billing Information: * Procedure Codes: * Electronic signature of JASMIN Fisher on 05/24/2025 at 03:31 PM ESTSign off status: Pending * Provider: JASMIN Dallas Date: 0 01/31/2025 Generated for Printing/Faxing/eTransmitting on:?05/24/2025 03:31 PM EST
--- OUTSIDE RECORDS SUMMARY | 2025-02-10 06:00 | XMS_ITS ---
Author Organization [facility] Address [address] [place] [address] Care Team Providers Care Audograph Operator Name Role Phone Hayden Duvall Primary Care Provider JEANCARLOS LEO [phone] REASON FOR VISIT 3 month F/U virtual Doximity Encounters Encounter Location Date Provider Diagnosis [address] [place] [address] 2024 Hayden Duvall Plan Of Treatment No Information Progress Notes * FELIPE ECKERT JDOB:1990 ( 34 yo M)Acc No.[id number]:02/10/2025 Behavioral Health Patient: FELIPE VARGAS :?THIERNO FisherPDOB:1990???Age:34 Y???Sex: MaleDate:02/10/2025Phone:[phone]:[address] [place], [place] [address] Subjective: * Chief Complaints: * 3 month F/U virtual Doximity * Electronic signature of JASMIN Fisher on 05/24/2025 at 03:32 PM ESTSign off status: Pending * Provider: JASMIN Dallas Date: 0 02/10/2025 Generated for Printing/Faxing/eTransmitting on:?05/24/2025 03:32 PM EST
[2025-05-24 14:59] VITALS: BP 165/95; PULSE 80; TEMP 36.7; O2SAT 99; BMI 62.8
--- NOTE | 2025-05-24 15:21 | ED_ITS ---
HPI HPI - General Adult General Chief complaint: Upper Respiratory Infection Stated complaint: SINUS PRESSURE Time Seen by Provider: 05/24/25 15:02 Source: patient Mode of arrival: walk-in History of Present Illness HPI narrative: 34-year-old male presented to the emergency department for a complaint that he thinks he has some food stuck in his left maxillary sinus. He states last night at 5 to 6 PM he was eating some peppers and he feels like 1 went into his left maxillary sinus. He was hoping to come here and we would be able to remove it. No fever or cough or vomiting. No forehead pain or right sided pain. Related Data Home Medications ?Medication ?Instructions ?Recorded ?Confirmed naproxen sodium 550 mg tablet mg 05/24/25 phentermine 37.5 mg tablet 37.5 mg PO DAILY 05/24/25 1 07/24/24 (Adipex-P) testosterone 05/24/25 topiramate 200 mg tablet (Topamax) 200 mg PO DAILY 05/24/25 Previous Rx's ?Medication ?Instructions ?Recorded amoxicillin 500 mg capsule 500 mg PO TID 10 days #30 c aps 05/24/25 loratadine 5 mg-pseudoephedrine ER 1 tab PO Q12H PRN n eber congestion 05/24/25 120 mg tablet,extended #20 tabs release,12hr (Claritin-D 12 Hour) Allergies Allergy/AdvReac Type Severity Reaction Status Date / Time No Known Drug Allergies Allergy Verified 05/24/25 14:58 Review of Systems ROS Narrative A ten point review of systems is negative except as noted above. PFSH PFSH Social History Little interest or pleasure in doing things: not at all Feeling down, depressed, or hopeless: not at all Exam Narrative Exam Narrative: Nurses note and vital signs reviewed General:The patient appears well and in no apparent distress.Patient is resting comfortably on cart, sitting upright. Skin:Warm, dry, no pallor noted.There is no rash noted. Head:Normocephalic, atraumatic Eye: Normal conjunctiva, no drainage Ears, Nose, Mouth, and Throat: oral mucosa is moist. Nares patent. No foreign bodies are present. Left nasal mucosa is mildly hyperemic compared to the right. No facial swelling or erythema. Cardiovascular:Regular Rate and Rhythm Respiratory:Patient is in no distress, no accessory muscle use, lungs are clear to auscultation, no wheezing, rales or rhonchi Back:non-tender GI: Soft and nontender Musculoskeletal: The patient has no evidence of calf tenderness, no pitting edema, symmetrical pulses noted bilaterally Neurological:A&O, normal speech Psychiatric:Cooperative Constitutional Vital Signs, click to edit/add: Last Vital Signs Temp 98.1 F 05/24/25 14:59 Pulse 80 05/24/25 14:59 Resp 18 05/24/25 14:59 BP 165/95 H 05/24/25 14:59 Pulse Ox 99 05/24/25 14:59 O2 Del Method Room Air 05/24/25 14:59 Course Vital Signs Vital signs: Vital Signs Temperature 98.1 F 05/24/25 14:59 Pulse Rate 80 05/24/25 14:59 Respiratory Rate 18 05/24/25 14:59 Blood Pressure 165/95 H 05/24/25 14:59 Pulse Oximetry 99 05/24/25 14:59 Oxygen Delivery Method Room Air 05/24/25 14:59 Temperature 98.1 F 05/24/25 14:59 Pulse Rate 80 05/24/25 14:59 Respiratory Rate 18 05/24/25 14:59 Blood Pressure 165/95 H 05/24/25 14:59 Pulse Oximetry 99 05/24/25 14:59 Oxygen Delivery Method Room Air 05/24/25 14:59 Medical Decision Making MDM Narrative Medical decision making narrative: I have discussed this matter with the patient. I have informed him that food would generally not go into a sinus such as the maxillary sinus. With the lack of visual foreign body in the nose there is no indication for attempting to remove anything with forceps, which is what he was hoping for. He will be placed on amoxicillin and Claritin-D and was referred to ENT if his symptoms do not improve. Treatment diagnosis and follow-up were discussed with the patient. Differential Diagnosis Differential Diagnosis: Nasal foreign body, sinusitis Discharge Plan Discharge Chief Complaint: Upper Respiratory Infection Clinical Impression: Sinus pressure Patient Disposition: Home, Self-Care Time of Disposition Decision: 15:19 Condition: Good Mode of Transportation: Private Vehicle Prescriptions / Home Meds: New amoxicillin 500 mg capsule 500 mg PO TID 10 Days Qty: 30 0RF Claritin-D 12 Hour 5-120 mg tablet extended release 12 hr 1 tab PO Q12H PRN (Reason: nasal congestion) Qty: 20 0RF No Action naproxen sodium 550 mg tablet topiramate [Topamax] 200 mg tablet 200 mg PO DAILY phentermine [Adipex-P] 37.5 mg tablet 37.5 mg PO DAILY Rx Instructions: must administer 30 minutes before or 1-2 hours after breakfast testosterone 20.25 mg/1.25 gram (1.62 %) gel in metered-dose pump Print Language: Greenlandic Instructions: Sinusitis (ED) Referrals: Irina Kaur MD [Physician, Ear, Nose, Throat] JEANCARLOS LEO [Primary Care Provider, FIELD EVIDENCE TECHNICIAN] - 1 week
--- OUTSIDE RECORDS SUMMARY | 2025-05-24 15:31 | XMS_ITS | Patient Health Record ---
Author Organization [facility] Address [address] [place] [address] Care Team Providers Care Pan Shover Name Role Phone Shaun Magallon DO Primary Care Provider Milind sanders Jenna Paco Unavailable [phone] Reason For Referral No Information Medications Medication SIG (Take, Route, Frequency, Duration) Notes Start Date End Date Status Mobic 15 mg take 1 tablet by oral route every day ORAL MOB IC 04/28/2018 Not-Taking Social History Tobacco Use: Social History Observation Description Date Details (start date - stop date) Never Smoker NA - NA Smoking History Question Answer Notes Smoking Status NonSmoker Problems Problem Type SNOMED Code ICD Code Onset Dates Problem Status W/U Status Risk Notes Problem Closed nondisplaced fracture of left talus with delayed healing, unspecified portion of talus, subsequent encounter (S92.102G)ActiveconfirmedProblem Tendonitis of right peroneus brevis tendon (M76.71)ActiveconfirmedProblemSinus tarsi syndrome of right ankle (88191389457392535)Sinus tarsi syndrome of right ankle (M25.571)ActiveconfirmedProblemArthralgia of the ankle and/or foot (256143615)Acute right ankle pain (M25.571)Activeconfirmed Plan Of Treatment No Information Insurance Providers Payer Name Payer Address Payer Phone Subscriber Number Group Number Insured Name Patient Relationship to Insured Coverage Start Date Coverage End Date xxP [employer] [address] [place] [address] [id number] Oneal Rothman Self - patient is the insured Medical (General) History Medical History History ICD Code CPAP Machine: Yes, Do you use the CPAP machine? No,Pacemaker or AICD No,Latex Allergy No,Drug Allergies: No,Bariatric Surgery: Yes,Have you been in close contact with someone who has had MRSA within the last year? No,Have you ever had or presently have MRSA? Yes,Are you a healthcare worker? No,Surgical History Surgery Date(Month/Year) Tonsilectomy, adenoidectomy unknown Tubes in ears unknown
--- OUTSIDE RECORDS SUMMARY | 2025-05-24 15:31 | XMS_ITS | Clinical Summary ---
Author Organization [facility] Address [id number] [address] [place] [address] Care Team Providers Care Energy Attorney Name Role Phone Sarah Hannon TAYLER-LOGGING ENGINEER Primary Care Provider + Allergies Active AllergyReactionsCriticalityNoted DateCommentsPhenylalanineDiarrhea 08/06/2015 Medications MedicationSigDispense QuantityRefillsLast FilledStart DateEnd DateStatus naproxen (NAPROSYN) 500 mg tablet Take 500 mg by mouth.Active clonazePAM (KlonoPIN) 0.5 mg tablet Take 0.5 mg by mouth.Active DULoxetine (CYMBALTA) 30 mg capsule Take 30 mg by mouth daily.Active traZODone (DESYREL) 50 mg tablet Take 50 mg by mouth nightly.Active NON FORMULARY [employer] 500 CBDActive divalproex (DEPAKOTE ER) 250 mg 24 hr tablet Indications:Intractable chronic migraine without aura and with status migrainosusTake 2 tablets (500 mg total) by mouth daily. 60 tablet ctive eletriptan (RELPAX) 20 mg tablet Indications:Intractable chronic migraine without aura and with status migrainosusTake 1 tablet (20 mg total) by mouth as needed for headaches or migraine. 9 tablet ctive Active Problems ProblemNoted DateDiagnosed DatePost concussion orrkyvwr31/14/2021H/O multiple hqxlcqxtcwo53/14/2021oor short term erslxn2706/18/2021Intractable chronic migraine without aura and with status ldfwlmlsudo87/14/2021Impulse control disorder in adult06/18/2021Outbursts of explosive dguhxufb52/14/2021osinophilic hdpztymsikb27/10/2016Irritable bowel syndrome with /24/2015 Gastroesophageal reflux disease without dpyrwlqmaxt50/27/2015 Immunizations ImmunizationAdministration DatesNext DueHPV Mrxucitkpkuz60/18/2017Influenza Whole04/05/2015MMR02/15/1998Meningococcal Qwvuzstiz46/23/1484Sxvi21/23/2014 Family History RelationNameStatusCommentsFatherAliveMotherAlive Social History Tobacco UseTypesPacks/DayYears UsedDateSmoking Tobacco: NeverSmokeless Tobacco: CurrentChewAlcohol UseStandard Drinks/WeekCommentsNo0 (1 standard drink = 0.6 oz pure alcohol)sociallyAUDIT-CAnswerDate RecordedFrequency of Alcohol Consumption Never06/19/2018Average Number of DrinksNot on file06/19/2018Frequency of Binge DrinkingNot on file06/19/2018PHQ-2AnswerDate RecordedTotal Dwxaa1444/14/2021 ChildcareAnswerDate IxtboahrWlzdjkupxGcxznrf98/10/2019EmploymentAnswerDate YzmmdvlwVzjdqwboixWvqosdl40/10/2019Purpose - LifeAnswerDate RecordedPurpose and direction in odpkCqoniuu35/10/2021ex and Gender InformationValueDate Recorded Sex Assigned at BirthNot on fileLegal VclMgtb7602/06/2015 3:19 PM EDTGender IdentityNot on fileSexual OrientationNot on file Last Filed Vital Signs Vital SignReadingTime TakenCommentsBlood Spdwedom968/7506/18/2021 2:56 PM EST Uibdm267106/18/2021 2:56 PM CWKBglrhxguvkg14.8 ??C (98.2 ??F)01/13/2017 12:53 AM EDTRespiratory Wxkw319212/22/2018 2:02 PM EDTOxygen Olkcmcplsk27%12/22/2018 2:02 PM EDTInhaled Oxygen Concentration--Kktawd300.5 kg (435 lb 6.4 oz)06/18/2021 2:56 PM RDWBoswdj213.9 cm (6')06/18/2021 2:56 PM ESTBody Mass Index59.05 06/18/2021 2:56 PM EST Plan of Treatment Health MaintenanceDue DateLast DoneCommentsDepression Bqcuumhem07/22/2004Tobacco Zubguthys08/22/2004Adult BMI Gwaouzsnq57/22/2010DTaP,Tdap and Td Vaccines (7 - Td or Tdap)/, 02/15/1998, 02/20/1994, Additional history existsInfluenza Jjaacul21/, 04/28/2018, 04/05/2015 Medical Devices Not on file Insurance Care Teams Team MemberRelationshipSpecialtyStart DateEnd Date Sarah Hannon, TAYLER-LOGGING ENGINEER PCP - GeneralNurse Lbecgsobgebc88/14/21
--- OUTSIDE RECORDS SUMMARY | 2025-05-24 15:32 | XMS_ITS | Patient Health Record ---
Author Organization [facility] Address [address] [place] [address] Care Team Providers Care Pricing Manager Name Role Phone Jadiel Hayden Primary Care Provider [phone] JEANCARLOS LEO Unavailable [phone] Evangelista Garcia Unavailable [phone] Allergies No Known Allergies Reason For Referral No Information Medications Medication SIG (Take, Route, Frequency, Duration) Notes Start Date End Date Status ARIPiprazole 15 MG Tablet 1 tablet Orally Once a day; Duration: 30 days 4ActiveGabapentin 400 MG Capsule1 capsule Orally twice a day; Duration: 30 days4ActiveVitamin DActivehydrOXYzine Pamoate 25 MG Capsule 1 capsule Orally three times a day; Duration: 30 days As needed 5ActiveTestosterone 20.25 MG/ACT (1.62%) Gel1 pump to skin in the morning to shoulder, upper arms or abdomen Transdermal Once a dayActive ALPRAZolam 0.5 MG Tablet 1 tablet Orally Twice a day; Duration: 30 days As needed 5ActivePropranolol HCl 40 MG Tablet 1 tablet Orally Twice a day; Duration: 30 days As needed 5ActiveNaproxen 500 MG Tablet Delayed Release1 tablet as needed Orally every 12 hrsActiveARIPiprazole 10 MG Tablet1 tablet Orally Once a day; Duration: 10 days05/19/2024Not-Taking/PRNTopiramate 200 MG Tablet1 tablet Orally Once a dayActivePhentermine HCl 37.5 MG Capsule1 capsule Orally Once a dayActive DULoxetine HCl 60 MG Capsule Delayed Release Particles1 capsule Orally Once a dayNot-Taking/PRNNortriptyline HCl 50 MG Capsule1 capsule at bedtime Orally Once a dayActiveARIPiprazole 5 MG Tablet1 tablet Orally; Duration: 5 days05/10/2024 Not-Taking/PRNBotoxActiveAjovy 225 MG/1.5ML Solution Prefilled Syringe1.5 mL SubcutaneousActive Social History Tobacco Use: Social History Observation Description Date Details (start date - stop date) Never Smoker NA - NA Social History GeneralSocial InfoQuestionAnswerNotesTransition of Care:ER/UC/hospital since last office visit?NoSpecialist seen since last office visit?NoDepression Screening (PHQ-9):Little interest or pleasure in doing thingsNearly every day Feeling down, depressed, or hopelessSeveral daysTrouble falling or staying asleep, or sleeping too muchNearly every dayFeeling tired or having little energyNearly every dayPoor appetite or overeatingNearly every dayFeeling bad about yourself-or that you are a failure or have let yourself or your family downSeveral daysTrouble concentrating on things, such as reading the newspaper or watching televisionNearly every dayMoving or speaking so slowly that other people could have noticed. Or the opposite being so fidgetyor restless that you have been moving around a lot more than usualMore than half the daysThoughts that you would be better off , or of hurting yourself in some wayNot at all Total Tlxgl81WujciosftswflVpldsvbiij severe depressionSubstance abuse/mental health issues of patient/familyPatient -Stress/Anxiety, DepressionAbility to understand healthcare/treatmentPatient:FairSocial/Support Concerns:Patient:No Behaviors affecting healthPoor/Risky Behaviors:Second Hand Smoke-Communication Barrier:Language Barrier?:NoDrug/Alcohol:Social InfoQuestionAnswerNotesAUDIT-C (Standard)Did you have a drink containing alcohol in the past year?NoPoints0 InterpretationNegativeTobacco Use:Social InfoQuestionAnswerNotesTobacco Control (Standard)Tobacco use:NonsmokerAdditional Findings: Tobacco non-userCurrent nonsmoker Problems Problem Type SNOMED Code ICD Code Onset Dates Problem Status W/U Status Risk Notes Problem Anxiety (74503647) Anxiety (F41.9) ActiveconfirmedProblemBipolar affective disorder, currently depressed, moderate (761234521)Bipolar affective disorder, currently depressed, moderate (F31.32) Activeconfirmed Vital Signs Heart Rate 67 /min 11/11/2024 Gfsfbytomej67.6 degrees Lnonvbjrhb59/21/2148Ftxcxsds63 %11/11/2024lood pressure qvmnjljou11 mm Hg11/11/20249504Tqoitw25 in11/11/2024lood pressure dptwnobn578 mm Hg 11/11/20249169Pqsfts718 lbs11/11/2024BMI55.87 kg/m211/11/2024 Encounters Encounter Location Date Provider Diagnosis [facility] [address] [place] [address] 08/17/2024 [facility] [place] [address]/04/2025[facility] [place] [address] 09/09/2024Kip SoviakS [address] [facility] [place] [address]/01/2025 Evangelista VelizBipolar affective disorder, currently depressed, moderate F31.32[facility] [address] [facility] [place] [address]/Joseph VelizBipolar affective disorder, currently depressed, moderate F31.32[facility] [address] [place] [address]/Joseph VelizBipolar affective disorder, currently depressed, moderate F31.32[facility] [address] [place] [address]/02/2025Joseph VelizBipolar affective disorder, currently depressed, moderate F31.32[facility] [address] [place] [address]/09/2023Kip SoviakBipolar affective disorder, currently depressed, moderate F31.32[facility] [address] [place] [address]/01/2025Kip SoviakBipolar affective disorder, currently depressed, moderate F31.32[facility] [address] [facility] [place] [address]/Kip SoviakBipolar affective disorder, currently depressed, moderate F31.32[facility] [address] [place] [address]/03/2025Kip SoviakBipolar affective disorder, currently depressed, moderate F31.32 Assessments Encounter Date Diagnosis (ICD Code) Assessment Notes Treatment Notes Treatment Clinical Notes Section Notes 06/07/2024 Bipolar affective di sorder, currently depressed, moderate (ICD-10 - F31.32) Patient will continue current treatment plan. Patient verbally acknowledges understanding instructions including medication education and has no further questions comments or concerns at this time. . Follow in 1 Month . Recommended treatment for Bipolar disorder includes FDA approved and OFF label medications: second generation antipsychotics and mood stabilizers. Discussed life threatening side effect of Lamotrigine. Pt is to monitor for new skin rashes or sensation of a sunburn or itchiness or redness, mouth sores or sores in mucus membranes, and call provider immediately and or go to ER, and stop the medication. Second generation antipsychotic medications can cause headache, drowsiness, agitation, dizziness, nausea, or extrapyramidal symptoms such as tremors, muscle spasms, slowness of movement or jerkingof muscles. . Stable . The patient verbalizes understanding with all questions answered thoroughly and is in agreement with treatment plan. . Continue current treatment. Call for problems . GOALS: . Maintain medication regimen . _Improve mood stability . _Improve anxiety control . _Improve social and interpersonal functioning . Patient/Guardian will call sooner if symptoms worsen. Patient understands to go to ER if needed if symptoms become severe. . Crisis Intervention plan was discussed and agreed upon. Patient/Guardian will call 911 in case of emergency. Emergency contact information was provided to the patient/guardian. . Pharmacological management: . Alternative medication plans were discussed with the patient/guardian. All relevant side effects and potential adverse effects were discussed with the patient/guardian. Standard cautions and potential benefits were discussed. Patient/Guardian consented to the start/continuation of the treatment. 08/12/2024ipolar affective disorder, currently depressed, moderate (ICD-10 - F31.32) Patient will continue current treatment plan. Patient verbally acknowledges understanding instructions including medication education and has no further questions comments or concerns at this time. . Follow in 3 Month . Recommended treatment for Bipolar disorder includes FDA approved and OFF label medications: second generation antipsychotics and mood stabilizers. Discussed life threatening side effect of Lamotrigine. Pt is to monitor for new skin rashes or sensation of a sunburn or itchiness or redness, mouth sores or sores in mucus membranes, and call provider immediately and or go to ER, and stop the medication. Second generation antipsychotic medications can cause headache, drowsiness, agitation, dizziness, nausea, or extrapyramidal symptoms such as tremors, muscle spasms, slowness of movement or jerkingof muscles. . Stable . The patient verbalizes understanding with all questions answered thoroughly and is in agreement with treatment plan. . Continue current treatment. Call for problems . GOALS: . Maintain medication regimen . _Improve mood stability . _Improve anxiety control . _Improve social and interpersonal functioning . Patient/Guardian will call sooner if symptoms worsen. Patient understands to go to ER if needed if symptoms become severe. . Crisis Intervention plan was discussed and agreed upon. Patient/Guardian will call 911 in case of emergency. Emergency contact information was provided to the patient/guardian. . Pharmacological management: . Alternative medication plans were discussed with the patient/guardian. All relevant side effects and potential adverse effects were discussed with the patient/guardian. Standard cautions and potential benefits were discussed. Patient/Guardian consented to the start/continuation of the treatment. 5Bipolar affective disorder, currently depressed, moderate (ICD-10 - F31.32) Patient will add some as needed antianxiety medications follow up in 30 days to discuss and evaluate. Patient will continue current treatment plan. Patient verbally acknowledges understanding instructions including medication education and has no further questions comments or concerns at this time. . Follow in 1 Month . Recommended treatment for Bipolar disorder includes FDA approved and OFF label medications: second generation antipsychotics and mood stabilizers. Discussed life threatening side effect of Lamotrigine. Pt is to monitor for new skin rashes or sensation of a sunburn or itchiness or redness, mouth sores or sores in mucus membranes, and call provider immediately and or go to ER, and stop the medication. Second generation antipsychotic medications can cause headache, drowsiness, agitation, dizziness, nausea, or extrapyramidal symptoms such as tremors, muscle spasms, slowness of movement or jerkingof muscles. . Stable . The patient verbalizes understanding with all questions answered thoroughly and is in agreement with treatment plan. . Continue current treatment. Call for problems . GOALS: . Maintain medication regimen . _Improve mood stability . _Improve anxiety control . _Improve social and interpersonal functioning . Patient/Guardian will call sooner if symptoms worsen. Patient understands to go to ER if needed if symptoms become severe. . Crisis Intervention plan was discussed and agreed upon. Patient/Guardian will call 911 in case of emergency. Emergency contact information was provided to the patient/guardian. . Pharmacological management: . Alternative medication plans were discussed with the patient/guardian. All relevant side effects and potential adverse effects were discussed with the patient/guardian. Standard cautions and potential benefits were discussed. Patient/Guardian consented to the start/continuation of the treatment. 5Bipolar affective disorder, currently depressed, moderate (ICD-10 - F31.32)5Bipolar affective disorder, currently depressed, moderate (ICD- 10 - F31.32)5Bipolar affective disorder, currently depressed, moderate (ICD-10 - F31.32)5Bipolar affective disorder, currently depressed, moderate (ICD-10 - F31.32)5Bipolar affective disorder, currently depressed, moderate (ICD-10 - F31.32) Patient will continue current treatment plan. Patient verbally acknowledges understanding instructions including medication education and has no further questions comments or concerns at this time. . Follow in 3 Month . Recommended treatment for Bipolar disorder includes FDA approved and OFF label medications: second generation antipsychotics and mood stabilizers. Discussed life threatening side effect of Lamotrigine. Pt is to monitor for new skin rashes or sensation of a sunburn or itchiness or redness, mouth sores or sores in mucus membranes, and call provider immediately and or go to ER, and stop the medication. Second generation antipsychotic medications can cause headache, drowsiness, agitation, dizziness, nausea, or extrapyramidal symptoms such as tremors, muscle spasms, slowness of movement or jerkingof muscles. . Stable . The patient verbalizes understanding with all questions answered thoroughly and is in agreement with treatment plan. . Continue current treatment. Call for problems . GOALS: . Maintain medication regimen . _Improve mood stability . _Improve anxiety control . _Improve social and interpersonal functioning . Patient/Guardian will call sooner if symptoms worsen. Patient understands to go to ER if needed if symptoms become severe. . Crisis Intervention plan was discussed and agreed upon. Patient/Guardian will call 911 in case of emergency. Emergency contact information was provided to the patient/guardian. . Pharmacological management: . Alternative medication plans were discussed with the patient/guardian. All relevant side effects and potential adverse effects were discussed with the patient/guardian. Standard cautions and potential benefits were discussed. Patient/Guardian consented to the start/continuation of the treatment. Plan Of Treatment No Information Insurance Providers Payer Name Payer Address Payer Phone Subscriber Number Group Number Insured Name Patient Relationship to Insured Coverage Start Date Coverage End Date [facility] [address] [place] [address] [id number] RIP ECKERTelf - patient is the [id number] [address] [address] [place] [id number], CODYSelf - patient is the [id number] 2022 Medical (General) History Medical History History ICD Code Mood swings Anxiety and depressionLOW TESTOSTERONESurgical History Surgery Date(Month/Year) T and A EAR SURGERIESGASTRIC SLEEVEHospitalization History Reason Date(Month/Year) SEE ABOVE
--- OUTSIDE RECORDS SUMMARY | 2025-05-24 15:32 | XMS_ITS | Clinical Summary ---
Author Organization [facility] Address [address] [place] [address] Care Team Providers Care Surgical Forceps Fabricator Name Role Phone Unavailable Primary Care Provider Unavailabl e Allergies No known active allergies Medications MedicationSigDispense QuantityRefillsLast FilledStart DateEnd DateStatus omeprazole [address] take 1 capsule by mouth 2 times daily. 30 capsule Active BUDESONIDE, INHALATION, 1 MG/2ML Suspension Indications:Eosinophilic esophagitisOral viscous slurry with 1 mg of budesonide mixed with 10 packets of Splenda twice daily. Do not eat or drink for 30 minutes 240 mL Active Active Problems ProblemNoted DateDiagnosed DateEosinophilic vxuhjtxkmxx96/10/2016 Social History Tobacco UseTypesPacks/DayYears UsedDateSmoking Tobacco: Every DaySmokeless Tobacco: CurrentChewAlcohol UseStandard Drinks/WeekCommentsYes3 (1 standard drink = 0.6 oz pure alcohol)Sex and Gender InformationValueDate RecordedSex Assigned at BirthNot on fileLegal SgtVnbz4710/26/2015 5:38 PM EDTGender Identity Not on fileSexual OrientationNot on file Last Filed Vital Signs Vital SignReadingTime TakenCommentsBlood Yajrsnjr641/8005 8:19 AM EDT Yvfin3202/10/2016 8:19 AM EDTTemperature--Respiratory Cycd042711/13/2015 8:19 AM EDTOxygen Ehlwxmvfpo02%11/13/2015 8:19 AM EDTInhaled Oxygen Concentration-- Tnpazx130.1 kg (441 lb 3.2 oz)11/13/2015 8:19 AM TOLAzqqmq571.9 cm (6') 11/13/2015 8:19 AM EDTBody Mass Index59.8405 8:19 AM EDT Plan of Treatment Health MaintenanceDue DateLast DoneCommentsHEPATITIS C VIRUS JCVZCRPBR1992 FXSLJYB23 1992HIV SCREENING AYBONGVWWB85/22/2007HEP B VACCINE (1 of 3 - 19+ 3-dose series)2011TDAP (ADULT)2011HPV VACCINE (1 - 3-dose SCDM series)2019COVID-19 VACCINE ( - 2024- season)2025INFLUENZA VACCINE (#1)2025PNEUMOCOCCAL VACCINE SERIESAged OutNo longer eligible based on patient's age to complete this topic Insurance
--- OUTSIDE RECORDS SUMMARY | 2025-05-24 15:33 | XMS_ITS | Clinical Summary ---
Author Organization [facility] [place] Address [address] [place] [id number] Care Team Providers Care Nutrition Services Assistant Name Role Phone Rina Gudino APRN.CNP Primary Care Provider Allergies Active AllergyReactionsCriticalityNoted DateCommentsAspartameGI Upset05/08/2025 LatexOther: See XhnydoolMgjuqc32/24/2019PhenylalanineDiarrhea,Gmebjqa1708/06/2015 Medications * This document contains information received from the source organization and may not represent a complete record from that organization. MedicationSigDispense QuantityRefillsLast FilledStart DateEnd DateStatus testosterone (ANDROGEL) 1.62 % (20.25 mg/1.25 gram) glpk Apply 1 Pump as directed once daily.10/08/2023ctive docusate sodium (COLACE) 100 mg capsule Take 1 capsule by mouth two times a day.03/13/2024ctive gabapentin (NEURONTIN) 300 mg capsule Take 1 capsule by mouth two times a day for 14 days. For sensitivity following monitoring 28 capsule 03/30/2024ctive ABILIFY 15 mg tablet Take 1 tablet by mouth once daily.05/30/2024ctive ALPRAZolam (XANAX) 0.5 mg tablet 08/26/2024tive propranolol (INDERAL) 40 mg tablet 08/26/2024tive hydrOXYzine pamoate (VISTARIL) 25 mg capsule 08/26/2024tive topiramate (TOPAMAX) 200 mg tablet Indications:Chronic migraine without aura, intractable, without status migrainosusTake 1 tablet by mouth once daily. 90 tablet 5Active Naproxen Sodium 550 mg tablet Indications:Chronic migraine without aura, intractable, without status migrainosusTake 1 tablet by mouth every 12 hours. 20 tablet 505Active fremanezumab-vfrm (AJOVY AUTOINJECTOR) 225 mg/1.5 mL auto-injector Indications:Chronic migraine without aura, intractable, without status migrainosusInject 1.5 mL subcutaneously once every month. 1.5 mL 5Active Phentermine HCl (ADIPEX-P) 37.5 mg capsule Take 37.5 mg by mouth once daily.05/08/2025Discontinued fremanezumab-vfrm (AJOVY AUTOINJECTOR) 225 mg/1.5 mL auto-injector Indications:Chronic migraine without aura, intractable, without status migrainosusInject 1.5 mL subcutaneously once every month. 1.5 mL 505107/08/2024DiscontinuedHospital, Clinic, or Other Facility Administered MedicationOrdered DoseRouteFrequencyStart DateEnd DateStatus onabotulinum toxin type A 200 Units injection (BOTOX) 200 UnitsIMONCE (UP TO 30 DAYS AMB)Ended Active Problems ProblemNoted DateDiagnosed DateObesity, Class III, BMI >= 4009Seizure- like /05/2024 Encounters DateTypeDepartmentCare KavaZwkynbjbyux19/03/2025 10:30 AM ESTOffice Visit Neurology [address] [place] [address] Marla Monet MD Chronic migraine without aura, intractable, without status lyuljtdvedl63/03/2025 Travelfrom Last 3 Months Social History Tobacco UseTypesPacks/DayYears UsedDateSmoking Tobacco: NeverSmokeless Tobacco: FormerChew Tobacco Cessation:Counseling Given: Not Answered Comments:Quit 08/2024 PHQ-2AnswerDate RecordedPHQ-2 [id number] Deprivation IndexAnswerDate RecordedNational Score (1-100), lower number is lower ylfa630011/13/2022State Score (1-10), lower number is lower [id number] from: https://www.neighborhoodatlas.medicine.[facility]/. Last address used for coaqf[address]xs[address]/13/2022Sex and Gender InformationValueDate RecordedSex Assigned at HvpdsPuot90/22/2022 7:42 AM EDTLegal VxmXcul0507/19/2021 4:06 PM EST Gender WjedtjenQkhe50/22/2022 7:42 AM EDTSexual GzrojmqhzxeQmbjnwma71/22/2022 7:42 AM EDT Last Filed Vital Signs Vital SignReadingTime TakenCommentsBlood Thybmuvu221/8211 10:33 AM EST Qtwms986605/08/2025 10:33 AM RIOTxvyoxjesll36.1 ??C (98.7 ??F)01/30/2025 11:01 AM EDTRespiratory Atns453301/30/2025 11:01 AM EDTOxygen Jeuxeengsk069%10/12/2024 11:18 AM EDTInhaled Oxygen Concentration--Odcgdn501.7 kg (471 lb 2 oz)05/08/2025 10:33 AM NNACrbhij199.9 cm (6')05/08/2025 10:33 AM ESTBody Mass Index63.9 05/08/2025 10:33 AM EST Plan of Treatment DateTypeDepartmentCare Team (Latest Contact Info)Ladqmfnirnv62/03/2026 11:30 AM ESTOffice Visit Neurology [address] [place] [address] [place] [address] [address]/[facility] [place] [address] BotoxHealth MaintenanceDue DateLast DoneCommentsAnxiety Ovuejaewa33/22/2010 Depression Nkskaybfm49/22/2010HIV Sekixmbnh68/22/2010Hepatitis C Screening 2010HPV Vaccine (2 - Male 3-dose series)Medicare Annual Wellness Visit3DTaP,Tdap,Td Vaccine (7 - Td or Tdap)02/26/2024 02/25/2014, 02/15/1998, 02/20/1994, Additional history existsCovid-19 Vaccine ( season)2025Influenza Vaccine (#1)51, 04/28/2018, 04/05/2015Hepatitis B HirynujLxsuuvivs79/23/2009, 07/27/2008, 04/27/2008 Insurance Care Teams Team MemberRelationshipSpecialtyStart DateEnd Date Rina Gudino APRN.DIGITAL PRINT OPERATOR [address] [place] [id number] PCP - GeneralNurse Practitioner03/09/24
--- OUTSIDE RECORDS SUMMARY | 2025-05-24 15:33 | XMS_ITS | Clinical Summary ---
Author Organization [facility] Address [address] [place] [address] Care Team Providers Care Plant Guard Name Role Phone Unavailable Primary Care Provider Unavailabl e Social History Tobacco UseTypesPacks/DayYears UsedDateSmoking Tobacco: Never AssessedSex and Gender InformationValueDate RecordedSex Assigned at BirthNot on fileLegal Sex Male09/17/2022 8:05 PM EDTGender IdentityNot on fileSexual OrientationNot on file Last Filed Vital Signs Vital SignReadingTime TakenCommentsBlood Khoewblh738/7206/06/2022 12:00 PM EST Pulse--Temperature--Respiratory Rate--Oxygen Saturation--Inhaled Oxygen Concentration--Tpjsvg674 kg (435 lb)06/06/2022 12:00 PM PBOBtoarr586.9 cm (6') 06/06/2022 12:00 PM ESTBody Mass Vsfzp696206/06/2022 12:00 PM EST Plan of Treatment Not on file Insurance
--- OUTSIDE RECORDS SUMMARY | 2025-05-24 15:38 | XMS_ITS | CCD ---
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 Name Role Phone LUIS VALDES Unavailable Unavailable LUIS VALDES Unavailable Unavailable MISC, DOCTOR Unavailable Unavailable SHAHAB PERRY R Unavailable Unavailable PRADEEP DUFFY Unavailable Unavailable FOGT, ALETHA Unavailable Unavailable FOGT, ALETHA Unavailable Unavailable FOGT, ALETHA Unavailable Unavailable FOGT, ALETHA Unavailable Unavailable YANG HARGROVE V Unavailable Unavailable MISC, DOCTOR Unavailable Unavailable FOGT, ALETHA Unavailable Unavailable FOGT, ALETHA Unavailable Unavailable FOGT, ALETHA Unavailable Unavailable ZIEBERWINGEN R Unavailable Unavailable FOGT, ALETHA Unavailable Unavailable FOGT, ALETHA Unavailable Unavailable FOGT, ALETHA Unavailable Unavailable ZIWING LANDINEN R Unavailable Unavailable FOGT, ALETHA Unavailable Unavailable Cj Bowman Attending Unavailable Shahab West Primary Care Unava ilable Shaun Magallon Primary Care Provider [phone] Shaun Magallon DO Primary Care Provider [phone] Shaun Magallon DO [facility] Provider [phone] Unavailable Primary Care Provider [facility] Jesus E Primary Care Provider [facility] CATRINA [facility] Primary Care Provider Jeancarlos Gudino Primary Care Physician [phone] [facility] CATRINA [facility] Primary Care Provider AhmetJeancarlos Attending Unavailable Ahmet, Jeancarlos L Admitting Unavailable Ahmet, Jeancarlos L Admitting Unavailable Ahmet, Jeancarlos L Attending Unavailable Ahmet, Jeancarlos L Attending Unavailable Ahmet, Jeancarlos L Attending Unavailable Ahmet, Jeancarlos L Attending Unavailable Ahmet, Jeancarlos L Attending Unavailable Ahmet, Jeancarlos L Attending Unavailable Ahmet, Jeancarlos L Attending Unavailable Ahmet, Jeancarlos Mccord Attending Unavailable Ahmet, Jeancarlos Mccord Admitting Unavailable Ahmet, Jeancarlos Mccord Attending Unavailable 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.CATRINA, Jeancarlos Aparicio Primary Care Provider Fru CATRINA, Jesus Cortez Primary Care Provider Sera Espinoza Admitting Unavailable MouchSera corona Attending Unavailable Sera Espinoza Referring Unavailable Ahmet, Jeancarlos Mccord Admitting Unavailable MouchSera corona Attending Unavailable Ahmet, Jeancarlos Mccord Attending Unavailable 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 TUBING, Jeancarlos Primary Care Provider Ahmet, Jeancarlos Mccord Attending Unavailable Ahmet, Jeancarlos Mccord Attending Unavailable Ahmet, Jeancarlos Mccord Attending Unavailable Ahmet, Jeancarlos Mccord Attending Unavailable Ahmet, Jeancarlos Mccord Admitting Unavailable Ahmet, Jeancarlos Mccord Attending Unavailable Ahmet, Jeancarlos Mccord Attending Unavailable Ahmet, Jeancarlos Mccord Admitting Unavailable MouchSera corona Attending Unavailable Unavailable Primary Care Provider Unavailabl e Ahmet 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 REPAIRER.CATRINA, Jeancarlos Mccord Primary Care Provider AHMET, JEANCARLOS Primary Care Unavailable JORDYN SHER Referring Unavailable BARBDAGOBERTO LEWIS Referring Unavailable AHMET, JEANCARLOS Primary Care Unavailable AHMETJEANCARLOS Primary Care Unavailable JORDYN SHER Attending Unavailable SHERJORDYN Referring Unavailable SHERJORDYN Admitting Unavailable SHERJORDYN BERG Attending Unavailable AHMETJEANCARLOS Primary Care Unavailable AHMETJEANCARLOS Primary Care Unavailable JORDYN SHER Referring Unavailable NEMMILAGROS MCKEON Attending Unavailabl e FRUTH JESUS E Primary Care Unavailable AHMETJEANCARLOS Primary Care Unavailable GLORIA RAMIREZ Attending Unavailable FRUSONIYA JESUS E Primary Care Unavailable NEME MERCANTEMILAGROS Attending Unavailabl e NEME MERCMILAGROS JAUREGUI Admitting Unavailabl e 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, 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 Jeancarlos Mccord Attending Unavailable 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, 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 Jeancarlos Mccord Admitting Unavailable MouchSera corona Attending Unavailable Ahmet, Jeancarlos Mccord Attending Unavailable Ahmet, Jeancarlos Mccord Attending Unavailable Ahmet, Jeancarlos Mccord Attending Unavailable Ahmet, Jeancarlos Mccord Attending Unavailable Ahmet, Jeancarlos L Attending Unavailable Ahmet, Jeancarlos L Admitting Unavailable Ahmet, Jeancarlos L Attending Unavailable Ahmet, Jeancarlos L Attending Unavailable ORDOÑEZ, TEX M Attending Unavailable AHMET, JEANCARLOS APARICIO Primary Care Unavailable ORDOÑEZ, TEX M Referring Unavailable ORDOÑEZ, TEX M Attending Unavailable AHMET, JEANCARLOS APARICIO Primary Care Unavailable ORDOÑEZ, TEX M Referring Unavailable ORDOÑEZ, TEX M Attending Unavailable AHMET, JEANCARLOS APARICIO Primary Care Unavailable ORDOÑEZ, TEX M Referring Unavailable AHMET, JEANCARLOS APARICIO Primary Care Unavailable ORDOÑEZ, TEX M Attending Unavailable ORDOÑEZ, TEX M Referring Unavailable Allergies Allergy ClassificationReported Allergen(s)Allergy TypeDate of OnsetReaction(s) Facilitycultivated mushroom extract (4 sources)cultivated mushroom extractDrug Wukfssj46-00-6335Dblqz (See Comments) [facility] HoldingsLatex (4 sources)LatexSubstance Itaggbg66-20-7575Ydnij (See Comments)[facility] [employer] (6 sources)cultivated mushroom extractDrug Awdtqof40-21-3511Ejvpz (See Comments) [place] (8 sources)Latex; Translations: [LATEX]Propensity to adverse reactions to drug 69-64-0498Lopke (See Comments)[place], [place] (11 sources)Aspartame And PhenylalaninePropensity to adverse reactions to drug 65-56-0822NqlvoxxvBvxfp Health- [place], [place] (6 sources)No Known Medication Allergies; Translations: [No Known Medication Allergies]Propensity to adverse reactions (disorder)[facility] Repository (1 source)Mushroom Extract Complex (Do Not Select)Propensity to adverse reactions to budc01-99-7862Aidye (See Comments)[facility] (1 source)Aspartame; Translations: [ASPARTAME]Drug Zxniuuo83-53-9676[facility]kigfqtorMet[facility] (1 source)Phenylalanine; Translations: [PHENYLALANINE]Drug Qhebveh82-59-7768 [facility] Repository Medications Current Medications MedicationDrug Class(es)DatesSig (Normalized)Sig (Original)ALPRAZolam 0.5 mg oral tablet (3 sources)BenzodiazepineStart: 63-74-1701AREUGOprdb (XANAX) 0.5 mg tablet 08/26/2024 ActiveARIPiprazole 15 mg oral tablet (8 sources)Atypical AntipsychoticStart: 74-53-7573zqyu 1 tablet by mouth once dailyABILIFY 15 mg tablet Take 1 tablet by mouth once daily. 05/30/2024 Active Start: 05-19-2024 End: 66-60-6418IADAzrlfbpbn (ABILIFY) 10 mg tablet 05/19/2024 10/12/2024 Discontinuedcalcium chloride 0.0014 meq/ml / potassium chloride 0.004 meq/ml / sodium chloride 0.103 meq/ml / sodium lactate 0.028 meq/ml injectable solution (1 source)Start: 80-77-2670OmotfJMJjsr, at 125 mL/hr, CONTINUOUS, Starting on Thu06/10/24 at 0845, Pre-op (day of surgery)calcium citrate 1040 mg oral tablet (1 source)Start: 95-40-3841xkwc 1 tablet by mouth once daily at bedtimecalcium citrate 1000 mg oral tablet = 1 tab(s), Oral, Once a day (at bedtime), Refills(s) 0 Start Date: 08/05/24 Status: OrderedFiber Tab (1 source)Start: 52-15-8058afab 1 tablet by mouth four times dailyFiber Tabs mg, Oral, QID, Refills(s) 0 Start Date: 03/31/24 Status: Ordereddocusate sodium 100 mg oral tablet (18 sources)Start: 58-53-3966vdec 100 mg by mouth once dailydocusate 100 mg, Oral, Daily, Refills(s) 0, Constipation Start Date: 03/14/24 Status: OrderedStart: 71-73-8297sdle 100 mg by mouth twice dailydocusate 100 mg, Oral, BID, Refills(s) 0 Start Date: 03/14/24 Status: OrderedStart: 46-01-2329drcn 1 capsule by mouth twice dailydocusate sodium (COLACE) 100 mg capsule Take 1 capsule by mouth two times a day. 03/13/2024 Activeduloxetine 60 mg Cap-DR (9 sources)Start: 00-32-5067uxsc 1 capsule by mouth once dailyduloxetine 60 mg Cap-DR 60 mg, Oral, Daily, Refills(s) 0, Depression Start Date: 08/20/23 Status: OrderedStart: 75-22-9602nhba 1 capsule by mouth once dailyduloxetine 60 mg Cap- DR 60 mg, Oral, Daily, Refills(s) 0 Start Date: 08/20/23 Status: Ordered esomeprazole 40 mg delayed release oral capsule (11 sources)Proton Pump InhibitorStart: 25-73-3454bfil 1 capsule by mouth twice dailyesomeprazole 40 mg Cap-EC 40 mg = 1 cap(s), Oral, BID, Refills(s) 0 Start Date: 08/05/24 Status: OrderedStart: 10-21-0823bucv 1 capsule by mouth once daily Nexium 40 mg Cap-EC 40 mg = 1 cap(s), Oral, Daily, # 60 cap(s), Refills(s) 3, [facility]acy: [facility] [id number], 179, cm, 04/06/24 8:26:00 EDT, Height/Length Dosing, 188.3, kg, 04/06/24 8:26:00 EDT,Weight Dosing Start Date: 04/08/24 Status: OrderedStart: 24-89-6813ayps 20 mg by mouth once dailyNexium 20 mg, Oral, Daily, Refills(s) 0, Control of stomach acid Start Date: 04/06/24 Status: OrderedFish Oils (3 sources)Start: 73-29-7045Lqtt Oil Oral, Refill(s) 0 Start Date: 04/21/24 Status: Ordered1.5 ml fremanezumab-vfrm 150 mg/ml auto-injector (20 sources)Start: 89-96-7035HTOAZ 225 MG/1.5ML SOAJ Inject 225 mg into the skin every 30 days 02/04/2024 ActiveStart: 68-13-9303syrhgm 225 mg by subcutaneous injection every monthAjovy 225 mg/1.5 mL subcutaneous solution 225 mg, SubCutaneous, qMonth, Refills(s) 0 Start Date: 08/20/23 Status: OrderedStart: 08-04-2022 End: 57-80-9273amwwto 1.5 mL by subcutaneous injection every monthfremanezumab- vfrm (AJOVY AUTOINJECTOR) 225 mg/1.5 mL auto-injector Indications: Chronic migraine without aura, intractable, without status migrainosus Inject 1.5 mL subcutaneously once every month. 1.5 mL 5 01/30/2025 ActiveComment on above: Inject 1.5 mL subcutaneously once every month.gabapentin 400 mg oral capsule (14 sources)Anti-epileptic AgentStart: 67-03-4119jjnh 1 capsule by mouth four times dailygabapentin 400 mg Cap 400 mg = 1 cap(s), Oral, QID, # 120 cap(s), Refills(s) 0 Start Date: 05/19/24Status: OrderedStart: 09-31-8694YFGNIUHWWQ PO 05/11/2024 ActiveStart: 64-19-6903fxbr 1 capsule by mouth twice dailygabapentin (NEURONTIN) 400 MG capsule Take 1 capsule by mouth 2 times daily. 05/10/2024 ActiveStart: 03-30-2024 End: 97-71-2466sdjl 1 capsule by mouth twice dailygabapentin (NEURONTIN) 300 mg capsule Take 1 capsule by mouth two times a day for 14 days. For sensitivity following monitoring 28 capsule 03/30/2024 ActivehydrOXYzine pamoate 25 mg oral capsule (3 sources)AntihistamineStart: 69-44-9703knqzEEUhgfo pamoate (VISTARIL) 25 mg capsule 08/26/2024 ActiveK2 Plus D3 oral tablet (3 sources)Start: 15-66-7152V9 Plus D3 oral tablet Refill(s) 0 Start Date: 04/21/24 Status: Aervgqc01 ml lidocaine hydrochloride 10 mg/ml injection (1 source)Antiarrhythmic, Amide Local AnestheticStart: 06-10-2024 End: 75-80-1878ahif 1 dose intravenously once daily1 mL, IntraDERmal, ONCE PRN, 1 dose, Starting on Thu06/10/24 at 0827, Until 06/11/24 at 0827, IVstart, Pre-op (day of surgery)Magnesium (3 sources)Start: 19-73-1762Pantccnyv Magnesium Start Date: 04/21/24 Status: Orderedmagnesium citrate 200 mg oral tablet (4 sources)take 2 tablets by mouth once dailyMagnesium Citrate 200 MG TABS Take 2 tablets by mouth daily Activemagnesium gluconate 250 mg oral tablet (4 sources)take 2 tablets by mouth once dailyMagnesium Gluconate 250 MG TABS Take 2 tablets by mouth daily ActiveMultiple Vitamin (MULTI VITAMIN DAILY) TABS (4 sources)take 4 tablets by mouth once dailyMultiple Vitamin (MULTI VITAMIN DAILY) TABS Take 4 tablets by mouth daily ActiveMultivitamin preparation (3 sources)Start: 12-11-6154wkflmktpsyiy Refill(s) 0 Start Date: 04/21/24 Status: Orderednaproxen sodium 550 mg oral tablet (20 sources)Nonsteroidal Anti-inflammatory DrugStart: 42-04-8410bwec 1 tablet by mouth every twelve hoursNaproxen Sodium 550 mg tablet Indications: Chronic migraine without aura, intractable, without status migrainosus Take 1 tablet by mouth every 12 hours. 20 tablet 5 01/30/2025 ActiveStart: 02-16-2023 End: 09-29-1358jzvl 1 tablet by mouth every twelve hoursNaproxen Sodium 550 mg tablet take 1 tablet by mouth 2 times a day as needed 20 tablet 5 03/09/2024 01/30/2025 DiscontinuedStart: 03-31-2022 End: 87-63-2293khfc 1 tablet by mouth twice daily as neededNaproxen Sodium 550 mg tablet TAKE 1 TABLET BY MOUTH TWICE DAILY NEEDED WITH MEALS AT MIGRAINE ON SET 30 tablet 0 12/24/2022 ActiveStart: 12-25-2021 End: 93-61-3554dvpx 1 tablet by mouth twice daily as neededNaproxen Sodium 550 mg tablet Indications: Chronic migraine without aura, intractable, without statu s migrainosus Take 1 tablet by mouth twice daily as needed (with meal, at migraine onset). 30 tablet 5 12/25/2021 01/24/2022 Activetake 1 tablet by mouth twice daily at mealtimenaproxen (NAPROSYN) 500 MG tablet Take 500 mg by mouth 2 times daily (with meals) 0 ActiveComment on above:Take 1 tablet by mouth twice daily as needed (with meal, at migraine onset).TAKE 1 TABLET BY MOUTH TWICE DAILY NEEDED WITH MEALS AT MIGRAINE ONSETTake 1 tablet by mouth twice daily as needed.Take 1 tablet by mouth twice daily as neededTake 1 tablet by mouth two times a day as needed.nortriptyline 50 mg oral capsule (20 sources)Tricyclic AntidepressantStart: 02-28-2023 End: 06-36-4404uwod 1 capsule by mouth once daily at bedtimenortriptyline 50 mg oral capsule 50 mg = 1 cap(s), Oral, Once a day (at bedtime), Refills(s) 0, Depr ession Start Date: 08/20/23 Status: OrderedStart: 12-25-2021 End: 53-98-9501gaen 1 capsule by mouth once daily at bedtimenortriptyline (PAMELOR) 50 mg capsule Indications: Chronic migraine without aura, intractable, without status migrainosus Take 1 capsule by mouth daily at bedtime. 90 capsule 3 12/25/2021 Active End: 74-19-2161mrfk 2 capsules by mouth once dailynortriptyline (PAMELOR) 25 MG capsule Take 2 capsules by mouth nightly ActiveComment on above:Take 50 mg by mouth.Take 1 capsule by mouth daily at bedtime.ondansetron 4 mg oral tablet (2 sources)Serotonin-3 Receptor AntagonistStart: 15-62-9805qzxu 1 tablet by mouth every eight hours as needed for nauseaondansetron (ZOFRAN) 4 MG tablet Take 1 tablet by mouth every 8 hours as needed for Nausea or Vomiting 30 tablet 0 01/04/2019 Activephentermine hydrochloride 37.5 mg oral tablet (20 sources)Sympathomimetic Amine AnorecticStart: 16-05-5541oshintmcwdj 37.5 mg Tab 37.5 mg = 1 tab(s), Oral, Daily, BMI 57.88, # 30 tab(s), Refills(s) 0, Pharm acy: [facility] [id number], 179, cm, 05/19/24 10:15:00 EST, Height/Length Dosing, 190.2, kg, 05/19/24 10:15:00 EST, Weight Dosing Start Date: 07/07/24 Status: Orderedtake 1 capsule by mouth once dailyPhentermine HCl (ADIPEX-P) 37.5 mg capsule Take 37.5 mg by mouth once daily. ActiveComment on above:Take 37.5 mg by mouth once daily.polysaccharide iron complex 50 mg oral capsule (1 source)Start: 44-63-9569yivj 2 capsules by mouth once daily at bedtimeiron polysaccharide (as elemental iron) 50 mg oral capsule = 2 cap(s), Oral, Once a day (at bedtime), Refills(s) 0 Start Date: 08/05/24 Status: Orderedpropranolol hydrochloride 40 mg oral tablet (3 sources)beta-Adrenergic BlockerStart: 57-02-6528oheolgdwtec (INDERAL) 40 mg tablet 08/26/2024 ActiveRABEprazole sodium 5 mg oral granules (3 sources)Proton Pump InhibitorStart: 40-80-6238gppw 1 capsule by mouth once dailyRABEprazole 5 mg oral delayed release capsule 5 mg = 1 cap(s), Oral, Daily, # 90 cap(s), Refills(s)3, Pharmacy: [facility] [id number], 179, cm, 08/05/24 10:00:00 EST, Height/Length Dosing, 182.3,kg, 08/05/24 10:00:00 EST, Weight Dosing Start Date: 08/05/24 Status: OrderedStart: 74-42-6444zise 1 capsule by mouth once dailyRABEprazole 5 mg oral delayed release capsule 5 mg = 1 cap(s), Oral, Daily, # 90 cap(s), Refills(s)3, Pharmacy: [facility] [id number], 179, cm, 04/06/24 8:26:00 EDT, Height/Length Dosing, 188.3, kg, 04/06/24 8:26:00 EDT, Weight Dosing Start Date: 04/19/24 Status: Ywslwnh2548 ml sodium chloride 9 mg/ml injection (3 sources)Start: 38-41-9645fvhu 20 mL intravenously every hourIntraVENous, at 5-250 mL/hr, PRN, if patient receiving piggyback infusions and maintenance fluids are not ordered OR KVO fluids to protect IV site / prevent frequent line interruptions/ long duration, Starting on Thu06/10/24 at 0827, For piggyback infusion, administer at same rate as piggyback for a total of 25 mL. Enter 25 mL into dose field and piggyback rate into rate field of order. If piggyback is infusing at a rate less than 100 mL/hr, enter 25 mL into dose field and 100 mL/hr into rate field of order. For KVO fluids, enter rate of 20 mL/hr or less into rate field of order., Pre-op (dayof surgery)Start: -40 mL, IntraVENous, EVERY 12 HOURS SCHEDULED (2 times per day), First dose on Thu06/10/24 at 0900, Until Discontinued, For Line Patency: Peripheral IV = 5 mL; Midline or Central Line = 10 mL/lumen.If following IV push medication, administer flush at same rate as the IV push. Flush volume is determined by type of infusion therapy being given. For non-viscous solutions use: Peripheral IV = 5 mL Midline or Central Line = 10 mL/lumen For viscous solutions (i.e. blood components, parenteral nutrition, contrast media, or after obtaining blood sample) use: Peripheral IV = 10 mL Midline or CentralLine = 20 mL/lumen, Pre-op (day of surgery)Start: -40 mL, IntraVENous, PRN, Starting on Thu06/10/24 at 0827, Until Discontinued, Line Care, After every IV line use, For Line Patency: Peripheral IV = 5 mL; Midline or Central Line = 10 mL/lumen. If fo llowing IV push medication, administer flush at same rate as the IV push. Flush volume is determined by type of infusion therapy being given. For non-viscous solutions use: Peripheral IV = 5 mL Midline or Central Line = 10 mL/lumen For viscous solutions (i.e. blood components, parenteral nutrition,contrast media, or after obtaining blood sample) use: Peripheral IV = 10 mL Midline or Central Line= 20 mL/lumen, Pre-op (day of surgery)60 actuat testosterone 20.25 mg/actuat topical gel (20 sources)AndrogenStart: 42-42-8742iprsonsshrih 20.25 mg/1.25 g (1.62%) transdermal gel = 2 pump, Topical, qAM, # 75 gm, Refills(s) 1,Pharmacy: [facility] [id number], 179, cm, 05/19/24 10:15:00 EST, Height/Length Dosing, 190.2, kg, 05/19/24 10:15:00 EST, Weight Dosing Start Date: 07/27/24 Status: Ordered Start: 73-55-4992xnlpqncfupqs 20.25 mg/1.25 g (1.62%) transdermal gel = 2 pump, Topical, qAM, # 75 gm, Refills(s) 1,Pharmacy: [facility] [id number], 179, cm, 04/21/24 10:09:00 EDT, Height/Length Dosing, 189, kg, 04/21/24 10:09:00 EDT, Weight Dosing Start Date: 04/21/24 Status: OrderedStart: 81-05-4095qkvbbdaoibun 20.25 mg/1.25 g (1.62%) transdermal gel = 2 pump, Topical, qAM, # 75 gm, Refills(s) 1,Pharmacy: [facility] [id number], 180.2, cm, 01/13/24 10:23:00 EDT, Height/Length Dosing, 196, kg, 01/13/24 10:23:00 EDT, Weight Dosing Start Date: 01/13/24 Status: OrderedStart: 24-21-5063kllnmzoigtkr 20.25 mg/1.25 g (1.62%) transdermal gel = 2 pump, Topical, qAM, # 75 gm, Refills(s) 1,Pharmacy: [facility] [id number], 180.3, cm, 12/02/23 10:22:00 EDT, Height/Length Dosing, 199.3, kg, 12/02/23 10:22:00 EDT, Weight Dosing Start Date: 12/02/23 Status: OrderedStart: 71-49-3700shhxfmmaqsal (ANDROGEL) 1.62 % (20.25 mg/1.25 gram) glpk Apply 1 Pump as directed once daily. 10/08/2023 ActiveStart: 47-74-4401naqjfibdeuxu 20.25 mg/1.25 g (1.62%) transdermal gel = 1 pump, Topical, qAM, # 75 gram, Refills(s) 0, Pharmacy: [id number], 180.3, cm, 09/18/23 10:05:00 EDT, Height/Length Dosing, 214.8, kg, 09/18/23 10:05:00 EDT, Weight Dosing Start Date: 10/02/23 Status: OrderedStart: 09-28-2023 Testosterone (ANDRODERM) 2 MG/24HR PT24 Apply topically. 09/28/2023 ActiveStart: 73-07-8169Saahcadgq 2 mg/24 hr transdermal film, extended release = 1 patch(es), Topical, Once a day (at bedtime), # 60 EA, Refills(s) 1, Pharmacy: [id number], 180.3, cm, 09/18/23 10:05:00 EDT, Height/Length Dosing, 214.8, kg, 09/18/23 10:05:00 EDT, Weight Dosing Start Date: 09/28/23 Status: Orderedtopiramate 200 mg oral tablet (20 sources)Start: 02-28-2023 End: 92-59-1137imih 1 tablet by mouth once dailytopiramate (TOPAMAX) 200 mg tablet Indications: Chronic migraine without aura, intractable, withoutstatus migrainosus Take 1 tablet by mouth once daily. 90 tablet 3 01/30/2025 04/30/2025 ActiveStart: 12-25-2021 End: 65-14-4241gdir 1 tablet by mouth once dailytopiramate (TOPAMAX) 200 mg tablet Indications: Chronic migraine without aura, intractable, withoutstatus migrainosus Take 1 tablet by mouth once daily. 90 tablet 3 12/25/2021 Activetake 1 tablet by mouth twice dailytopiramate (TOPAMAX) 200 MG tablet Take 1 tablet by mouth 2 times daily ActiveComment on above:Take 200 mg by mouth.Take 1 tablet by mouth once daily.Vitamin D (3 sources)Start: 74-96-7072Dppojzs D International_Unit, Oral, qWeek, Refills(s) 0 Start Date: 04/21/24 Status: OrderedVitamin D-Vitamin K (VITAMIN K2-VITAMIN D3 PO) (4 sources)take 2 tablets by mouth once dailyVitamin D-Vitamin K (VITAMIN K2- VITAMIN D3 PO) Take 2 tablets by mouth daily ActiveZinc (3 sources)Start: 88-88-3865Gcsx Refills(s) 0 Start Date: 04/21/24 Status: Ordered Completed/Discontinued Medications MedicationDrug Class(es)DatesSig (Normalized)Sig (Original)barium sulfate 96 % suspension 120 mL (1 source)Start: 05-12-2024 End: 36-31-0156odnu 1 dose by mouth esvz850 mL, Oral, IMG ONCE PRN, 1 dose, Starting on Thu05/12/24 at 1026, Until Thu05/12/24 at 1027, Otherbarium sulfate 98 % suspension 140 mL (1 source)Start: 05-12-2024 End: 93-55-3182ffro 1 dose by mouth rfym961 mL, Oral, IMG ONCE PRN, 1 dose, Starting on Berna 05/12/24 at 1026, Until Berna 05/12/24 at 1027, Other onabotulinumtoxina 100 unt injection (15 sources)Acetylcholine Release InhibitorStart: 01-30-2025 End: 81-63-8453epjxej 1 dose by intramuscular injection every 30 vurc037 Units, INTRAMUSCULAR, ONCE (UP TO 30 DAYS AMB), 1 dose, On Thu01/30/25 at 1330, This record documents the total dose provided to patient. See progress note for specific locations and amounts administered. REFRIGERATE - Pharmaceutical Waste: Lab Pack -Start: 01-30-2025 End: 50-33-2548egmlaerbodye toxin type A 200 Units injection (BOTOX)Start: 10-12-2024 End: 37-28-9626tpspym 1 dose by intramuscular injection every 30 opwu970 Units, INTRAMUSCULAR, ONCE (UP TO 30 DAYS AMB), 1 dose, On Thu10/12/24 at 1300, This record documents the total dose provided to patient. See progress note for specific locations and amounts administered. REFRIGERATE - Pharmaceutical Waste: Lab Pack -Start: 10-12-2024 End: 43-48-2367qjswixajlchr toxin type A 200 Units injection (BOTOX)Start: 07-12-2024 End: 18-46-4084cwdynzdzxmpn toxin type A 200 Units injection (BOTOX)Start: 03-29-2024 End: 90-42-7351xtqcyf 1 dose by intramuscular injection every 30 pbtk846 Units, INTRAMUSCULAR, ONCE (UP TO 30 DAYS AMB), 1 dose, On Thu03/29/24 at 1230, This record documents the total dose provided to patient. See progress note for specific locations and amounts administered. REFRIGERATE - Pharmaceutical Waste: Lab Pack -Start: 03-29-2024 End: 59-24-4932japwgjgctbwh toxin type A 200 Units injection (BOTOX)Start: 12-24-2023 End: 46-80-6734qetpmstzdrsp toxin type A 200 Units injection (BOTOX)Start: 12-24-2023 End: 49-04-2733hgdumkcwsdse toxin type A 200 Units injection (BOTOX)Start: 09-01-2023 End: 36-93-3901bvevtqozprum toxin type A 200 Units injection (BOTOX)Start: 04-21-2023 End: 75-62-6494jvafmfaptcmw toxin type A 200 Units injection (BOTOX)Start: 01-09-2023 End: 20-87-8722sdyagzqtjkpi toxin type A 200 Units injection (BOTOX)Start: 10-09-2022 End: 10-71-7953gumbuviudkcb toxin type A 200 Units injection (BOTOX)Start: 07-10-2022 End: 99-13-0902rwjpupstbpru toxin type A 200 Units injection (BOTOX)Start: 12-25-2021 End: 34-88-7736cvgdfzqfhipn toxin type A 200 Units injection (BOTOX)30 ml bupivacaine hydrochloride 2.5 mg/ml injection (5 sources)Amide Local AnestheticStart: 10-28-2023 End: 25-37-2197euntsaqrxfk (PF) 0.25 % (2.5 mg/mL) 12 mg injection (SENSORCAINE MPF)Start: 10-28-2023 End: 84-07-1132juqaklmxnib (PF) 0.25 % (2.5 mg/mL) 12 mg injection (SENSORCAINE MPF)Start: 06-09-2023 End: 89-46-1480enxbmtifxcl (PF) 0.25 % (2.5 mg/mL) 12 mg injection (SENSORCAINE MPF)Start: 02-17-2023 End: 91-23-4483LGXjlhisqmd (PF) 0.25 % (2.5 mg/mL) 12 mg injection (SENSORCAINE MPF)Start: 11-13-2022 End: 47-63-5029BMSnnjacewp (PF) 0.25 % (2.5 mg/mL) 12 mg injection (SENSORCAINE MPF)clonazePAM 1 mg oral tablet (20 sources)BenzodiazepineStart: 12-25-2021 End: 44-67-6168ssny 1 tablet by mouth every twelve hours as needed for anxiety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 tobacco use BMI 50.0-59.9, adult Morbid obesity BMI 62 Z76.89 Pickup at [facility] [id number] New testosterone (testosterone 20.25 mg/ 1.25 g (1.62%) transdermal gel) 2 Pump Topical Once a day (in the morning) Refills: 1 Pickup at [facility] [id number] Unchanged alprazolam (alprazolam 0.5 mg Tab) 1 Tablets By Mouth 3 times a day as needed for for anxiety Unchanged aripiprazole (aripiprazole 15 mg Tab) Unchanged calcium citrate (calcium citrate 1000 mg oral tablet) 1 Tablets By Mouth Once a day (at bedtime) Unchanged docusate 100 Milligram By Mouth Every day Unchanged duloxetine (duloxetine 60 mg Cap-DR) 60 Milligram By Mouth Every day Unchanged ergocalciferol (ergocalciferol 50,000 intl units Cap) 1 Capsules By Mouth Every week Unchanged ergocalciferol (Vitamin D) By Mouth Every week Unchanged esomeprazole (Nexium 40 mg Cap-EC) 1 Capsules By Mouth Every day Unchanged fremanezumab (Ajovy 225 mg/ 1.5 mL subcutaneous solution) 225 Milligram Subcutaneous Oncea month Unchanged gabapentin (gabapentin 400 mg Cap) 1 Capsules By Mouth 4 times a day Unchanged hydrOXYzine (hydrOXYzine pamoate 25 mg Cap) 1 Capsules By Mouth 4 times a day as needed for for anxiety Unchanged iron polysaccharide (iron polysaccharide (as elemental iron) 50 mg oral capsule) 2 Capsules By Mouth Once a day (at bedtime) Unchanged Misc Prescription (Magnesium) 0 Unchanged multivitamin Unchanged multivitamin (K2 Plus D3 oral tablet) Unchanged naproxen (naproxen sodium 550 mg Tab) 1 Tablets By Mouth 2 times a day as needed Unchanged nortriptyline (nortriptyline 50 mg oral capsule) 1 Capsules By Mouth Once a day (at bedtime) Unchanged omega-3 polyunsaturated fatty acids (Fish Oil) By Mouth Unchanged propranolol (propranolol 40 mg Tab) 1 Tablets By Mouth As needed for Anxiety Unchanged rabeprazole (RABEprazole 5 mg oral delayed release capsule) 1 Capsules By Mouth Every day Unchanged topiramate (Topamax 200 mg Tab) 1 Tablets By Mouth Every day Unchanged zinc sulfate (Zinc) Pharmacy Information [facility] [id number]: [address], [place] [id number] [phone] Allergies No Known Medication Allergies Problems Ongoing - Any problem that you are currently receiving treatment for. Annual wellness visit Anxiety Chronic (more content not included)...NormalPark[facility] w/ Auto Diffon [id number] Absolute0.0 E9/LNormal0.0-0.2FUniversity Hospitals Health SystemComment on above:Performed By: #### [id number] #### [facility] [address], [place] [address]Exsfitwie/100 WBC (Bld)0.6 %Normal0.0-2.0[facility] HospitalComment on above:Performed By: #### [id number] #### [facility] [address], [place] [address]Kol Absolute0.2 E9/LNormal0.0-0.5FUniversity Hospitals Health System Comment on above:Performed By: #### [id number] #### [facility] [address], [place] [address]Enpqtaifffq/100 WBC (Bld)3.1 %Normal0.0-8.0[facility] HospitalComment on above:Performed By: #### [id number] #### [facility] [address], [place] [address]Hrcebmbdvht distribution width (RBC) [Ratio]13.5 %Normal 10.9-14.2FUniversity Hospitals Health SystemComment on above:Performed By: #### [id number] #### [facility] [address], [place] [address]Fznlypfazi (Bld) [Volume fraction]40.2 %Ienbna95.7-49.0[facility] HospitalComment on above:Performed By: #### [id number] #### [facility] [address], [place] [address]Cflrcxmite (Bld) [Mass/Vol]13.7 g/nCGnswrm30.5-17.5FUniversity Hospitals Health SystemComment on above:Performed By: #### [id number] #### [facility] [address] [place] [address]Asggk Absolute2.1 E9/LNormal1.0-4.0[facility] Comment on above:Performed By: #### [id number] #### [facility] [address] [place] [address]Mbbllffeqkw/100 WBC (Bld)36.8 %Bxymeq89.0-50.0[facility] HospitalComment on above:Performed By: #### [id number] #### [facility] [address] [place] [address]MEU (RBC) [Entitic mass]29.2 lkFgarif88.0-34.0[facility] HospitalComment on above:Performed By: #### [id number] #### [facility] [address] [place] [address]HJXZ (RBC) [Mass/Vol]34.1 g/pCQjgilu95.4-36.0[facility] HospitalComment on above:Performed By: #### [id number] #### [facility] [address] [place] [address]WXZ (RBC) [Entitic vol]85.7 eTXplknm68.0-100.0[facility] HospitalComment on above:Performed By: #### [id number] #### [facility] [address] [place] [address]Twgi Absolute0.4 E9/LNormal0.2-1.0[facility] Comment on above:Performed By: #### [id number] #### [facility] [address] [place] [address]Xijfhmkua/100 WBC (Bld)6.5 %Normal4.0-14.0[facility] HospitalComment on above:Performed By: #### [id number] #### [facility] [address], [place] [address]Nulmuu Absolute3.0 E9/LNormal2.0-7.5FUniversity Hospitals Health System Comment on above:Performed By: #### [id number] #### [facility] [address], [place] [address]Lpwnje Auto53.0 %Ciwfoc67.0-75.0[facility] Comment on above:Performed By: #### [id number] #### [facility] [address], [place] [address]Tlnvielc464.0 E9/GUgfzzp663.0-500.0[facility] Comment on above:Performed By: #### [id number] #### [facility] [address] [place] [address]Heatamwv mean volume (Bld) [Entitic vol]9.4 fLNormal6.4-10.8 [facility] HospitalComment on above:Performed By: #### [id number] #### [facility] [address] [place] [address]IAP8.7 E12/LNormal4.3-5.9[facility] HospitalComment on above:Performed By: #### [id number] #### [facility] [address] [place] [address]OHC7.7 E9/LNormal4.0-11.0[facility] HospitalComment on above:Performed By: #### [id number] #### [facility] [address], [place] [address]EGRpe 56-25-0575Spzeypu [Mass/Vol]4.0 g/dLNormal3.3-5.0[facility] HospitalComment on above:Performed By: #### [id number] #### [facility] [address] [place] [address]Wzozgpq/Globulin [Mass ratio]1.7 {ratio}Normal1.1-2.2FUniversity Hospitals Health SystemComment on above:Performed By: #### [id number] #### [facility] [address], [place] [address]Con Phos58 Int._Unit/OPrqdig92-86VgcfthBethesda North Hospital Comment on above:Performed By: #### [id number] #### [facility] [address], [place] [address]RJC45 Int._Unit/LNormal6-46[facility] HospitalComment on above:Performed By: #### [id number] #### [facility] [address], [place] [address]Znyuf gap [Moles/Vol]10 mmol/LNormal6-16[facility] HospitalComment on above:Performed By: #### [id number] #### [facility] [address], [place] [address]MOY83 Int._Unit/LNormal5-43[facility] HospitalComment on above:Performed By: #### [id number] #### [facility] [address], [place] [address]Gajd Total0.8 mg/dLNormal0.0-1.1FUniversity Hospitals Health System Comment on above:Performed By: #### [id number] #### [facility] [address], [place] [address]AWY/Creat Ratio34 No SwmsxRmti20-98UyhbznBethesda North Hospital Comment on above:Performed By: #### [id number] #### [facility] [address], [place] [address]Xqvcgmo [Mass/Vol]8.9 mg/dLNormal8.9-11.1FUniversity Hospitals Health SystemComment on above:Performed By: #### [id number] #### [facility] [address], [place] [address]Tkxlhifs [Moles/Vol]108 mmol/YLtivpd264-183EcrgllBethesda North HospitalComment on above:Performed By: #### [id number] #### [facility] [address], [place] [address]FY1 [Moles/Vol]24 mmol/BYajeia60-03OdcjhqBethesda North Hospital Comment on above:Performed By: #### [id number] #### [facility] [address], [place] [address]Kbverazeao [Mass/Vol]0.7 mg/dLNormal0.5-1.3FUniversity Hospitals Health SystemComment on above:Performed By: #### [id number] #### [facility] [address], [place] [address]Iceltoja (S) [Mass/Vol]2.3 g/dLNormal1.4-4.0[facility] HospitalComment on above:Performed By: #### [id number] #### [facility] [address], [place] [address]Qobigbe [Mass/Vol]105 mg/aRLvkxdg85-091TwtyrsBethesda North HospitalComment on above:Performed By: #### [id number] #### [facility] [address], [place] [address]Urziozyjx [Moles/Vol]3.8 mmol/LNormal3.5-5.3FUniversity Hospitals Health SystemComment on above:Performed By: #### [id number] #### [facility] [address], [place] [address]Kvfpyhy [Mass/Vol]6.3 g/dLNormal6.0-7.8[facility] HospitalComment on above:Performed By: #### [id number] #### [facility] [address], [place] [address]Apfeqr [Moles/Vol]138 mmol/QFuctul831-154GglnvgBethesda North HospitalComment on above:Performed By: #### [id number] #### [facility] [address], [place] [address]Yjsp nitrogen [Mass/Vol]24 mg/dLHigh5-21[facility] HospitalComment on above:Performed By: #### [id number] #### [facility] [address] [place], [place] [address]Inhcpv Medicine Office/Clinic Noteon [id number] Medicine Office/Clinic NoteFakindred hospital northeast Medicine Office/Clinic Note HPI Staff Oneal is a 34 year old male presenting with 3 month f/u with possible labs (has not filled adipex since November) Do for annual wellness labs Last labs were done Dec 02 2023 Weight management Phentermine Sleeping well:Yes, 6-8 hours Chest pain:No Tremors:No Headaches:No Heart fluttering:No Blurred Vision:No Starting Weight: 431.2 lbs Weight last visit: 414 lbs Weight this visit: 444 lbs. Refills needed: Adipex, and testosterone He ran out of this a month ago, he is in the middle switching insurance, he is good now refills needed History of Present Illness pt presents today for wellness visit. due for labs Review of Systems PHQ Score Initial Depression Screen Score: 5 SCORE Detailed Depression Screen Score: 21 Total Depression Screen Score: 26 Physical Exam Vitals & Measurements T: 36.4 ???C(Temporal Artery) HR: 70(Peripheral) RR: 20 BP: 116/80 SpO2: 98% HT: 70 in HT: 179.0 cm WT: 444.672 lb WT: 201.7 kg BMI: 62.95 General: alert, no acute distress ENMT: oral [...] medical examination without abnormal findings) pt presents today for wellness visit. annual labs drawn in office today. all questions answered. RTC month for weight check Ordered: CBC w/ Auto Diff Comprehensive Metabolic Panel Est Preventative 18 to 39 years [address] Lab Specimen Collect 33432 Lipid Panel Testosterone Level Total Thyroid Stimulating Hormone 2. Hypogonadism male (E29.1: Testicular hypofunction) testosterone checked . will send refills Ordered: CBC w/ Auto Diff Comprehensive Metabolic Panel Est Preventative 18 to 39 years [address] Lipid Panel Testosterone Level Total Thyroid Stimulating Hormone 3. Screening for hyperlipidemia (Z13.220: Encounter for screening for lipoid disorders) lipid panel ordered Ordered: CBC w/ Auto Diff Comprehensive Metabolic Panel Est Preventative 18 to 39 years [address] Lipid Panel Testosterone Level Total Thyroid Stimulating Hormone 4. BMI 60.0-69.9, adult (Z68.44: Body mass index [BMI] 60.0-69.9, adult) pt is up 40 pounds since last visit. pt is not interested in bariatric surgery at this time. is going to hold off on that. Ordered: CBC w/ Auto Diff Comprehensive Metabolic Panel Est Preventative 18 to 39 years [address] Lipid Panel Testosterone Level Total Thyroid Stimulating Hormone Morbid (severe) obesity due to excess calories (E66.01: Morbid (severe) obesity due to excess calories) see above Ordered: phentermine, 37.5 mg = 1 tab(s), Oral, Daily, BMI 55.78 Z76.89, # 30 tab(s), Refills(s) 0, Pharmacy: [facility] [id number], 179, cm, 11/17/24 10:13:00 EDT, Height/Length Dosing, 188.2, kg, 11/17/24 10:13:00 EDT, Weight Dosing phentermine, 37.5 mg = 1 tab(s), Oral, Daily, BMI 62 Z76.89, # 30 tab(s), Refills(s) 0, Pharmacy: [facility] [id number], 179, cm, 02/16/25 10:48:00 EDT, Height/Length Dosing, 201.7, kg, 02/16/25 10:48:00 EDT, Weight Dosing CBC w/ Auto Diff Comprehensive Metabolic Panel Lipid Panel Testosterone Level Total Thyroid Stimulating Hormone Smokeless tobacco use (Z72.0: Tobacco use) consider not using. Ordered: phentermine, 37.5 mg = 1 tab(s), Oral, Daily, BMI 55.78 Z76.89, # 30 tab(s), Refills(s) 0, Pharmacy: [facility] [id number], 179, cm, 11/17/24 10:13:00 EDT, Height/Length Dosing, 188.2, kg, 11/17/24 10:13:00 EDT, Weight Dosing phentermine, 37.5 mg = 1 tab(s), Oral, Daily, BMI 62 Z76.89, # 30 tab(s), Refills(s) 0, Pharmacy: [facility] [id number], 179, cm, 02/16/25 10:48:00 EDT, Height/Length Dosing, 201.7, kg, 02/16/25 10:48:00 EDT, Weight Dosing Orders: testosterone, = 2 pump, Topical, qAM, # 75 gm, Refills(s) 1, Pharmacy: [facility] [id number], 179, cm, 11/17/24 10:13:00 EDT, Height/Length Dosing, 188.2, kg, 11/17/24 10:13:00 EDT, Weight Dosing testosterone, = 2 pump, Topical, qAM, # 75 gm, Refills(s) 1, Pharmacy: [facility] [id number], 179, cm, 02/16/25 10:48:00 EDT, Height/Length Dosing, 201.7, kg, 02/16/25 10:48:00 EDT, Weight Dosing Follow-up No qualifying data available Problem List/Past Medical History Ongoing Annual wellness visit Anxiety Chronic constipation Decreased libido Decreased testosterone level Depression Disassociation disorder Encounter for weight management Eosinophilic esophagitis Esophageal dysphagia Fatigue H/O gastric sleeve Hiatal hernia Hypogonadism male [place] grade C esophagitis Loud snoring Low testosterone in male Morbid obesity Morbid obesity with BMI of 50.0-59.9, adult Morbid ob (more content not included)...NormalBethesda North HospitalComment on above:Result Comment: Electronically Signed By: Jeancarlos Maguire\.br\Date and Time Signed: 02/16/25 12:39 EDTLipid Panelon [id number] [Mass/Vol]139 mg/uEAxwwaz441-711FgaengBethesda North HospitalComment on above: Performed By: #### [id number] #### [facility] [address], [place] [address]Qevhygujrvp in HDL [Mass/Vol]48 mg/dLInvalid Interpretation CodeBethesda North HospitalComment on above:Result Comment: '>= 60 LOW RISK' '<= 40 HIGH RISK'Performed By: #### [id number] #### [facility] [address], [place] [address]Tfjmocpzcli in LDL [Mass/Vol]85 mg/dLNormal<=129[facility] HospitalComment on above:Performed By: #### [id number] #### [facility] [address], [place] [address]Vnzhpxmsklj in VLDL [Mass/Vol]14 mg/dLNormal7-40[facility] HospitalComment on above:Performed By: #### [id number] #### [facility] [address], [place] [address]Amcqceriwujy [Mass/Vol]69 mg/dLNormal<=149[facility] HospitalComment on above:Performed By: #### [id number] #### [facility] [address] [place] [address]EZSgx 65-58-4439NBV Qn1.12 m[IU]/LNormal0.34-5.60[facility] HospitalComment on above:Performed By: #### [id number] #### [facility] [address] [place] [address]pMLDlt [id number] mL/min/1.73 y0Ixforj>=59Bet[facility] North HospitalComment on above:Performed By: #### [id number] #### [facility] [address] [place] [address]BUJLam [id number] Visit ([facility]AD[facility]) ONEAL ECKERT ([id number]) 1990 M Date Time Provider Department 01/30/25 11:00 AM TEX ORDOÑEZ [facility] During your visit today, we recorded the following information about you: Temperature Pulse Respiration Blood pressure 98.7 degrees 65/minute 18/minute 104/66 Weight Height 195.4 kg 1.829 m Jami Dowling RN 01/30/2025 1:23 PM Signed Patient name and confirmed. Patient states he would like to receive Botox treatment today. 2 vials of Botox A (100 units in each) reconstituted with 2.2 cc of normal saline in each vial. Botox drawn up into four, 1 cc syringes. Each syringe containing 50 units of Botox. Assisted by: Christiane Mccall RN Botox,X 2 vials: Lot # [id number] Exp 03/[address] Ordoñez to administer and verified order. Tex Ordoñez MD 01/30/2025 1:23 PM Signed PROCEDURE NOTE UNIVERSAL PROTOCOL / [...] completed when applicable. Botox procedure note Treatment # 11 Consent in EPIC BOTOX brought in by patient? No Dilution: 5 units/0.1 ml ( 100 unit vial with 2 cc diluent or 200 unit vial with 4 cc diluent) Diluent: normal saline Indication: Chronic Intractable Migraine Injection Sites Muscle Fixed Site/Fixed Dose Bilat Hoister 20 U divided in 2 sites Procerus [...] Units used: 200 Total Units wasted: 0 MD Chiki Ruano Luzma M, MD 01/30/2025 1:23 PM Signed PROGRESS NOTE- [facility] SERVICE DATE: January 30, 2025 Participants: patient and provider Location: [facility] Subjective HPI: Oneal Eckert is here for follow up and Botox therapy. Awaiting hiatal hernia repair and Gastric bypass surgery. Migraine description: see note from October 07, 2021 Ubrelvy not helpful. Duloxetine and Nortriptyline for migraine for many years. NO change when discontinued, maybe some help when first prescribed. PAST MEDICAL HISTORY Diagnosis Date Anxiety Chronic migraine without aura Current Outpatient Medications Medication Sig ALPRAZolam (XANAX) 0.5 mg tablet propranolol (INDERAL) 40 mg tablet hydrOXYzine pamoate (VISTARIL) 25 mg capsule ABILIFY 15 mg tablet Take 1 tablet by mouth once daily. docusate sodium (COLACE) 100 mg capsule Take 1 capsule by mouth two times a day. testosterone (ANDROGEL) 1.62 % (20.25 mg/1.25 gram) glpk Apply 1 Pump as directed once daily. Phentermine HCl (ADIPEX-P) 37.5 mg capsule Take 37.5 mg by mouth once daily. topiramate (TOPAMAX) 200 mg tablet Take 1 tablet by mouth once daily. fremanezumab-vfrm (AJOVY AUTOINJECTOR) 225 mg/1.5 mL auto-injector Inject 1.5 mL subcutaneously once every month. Naproxen Sodium 550 mg tablet Take 1 tablet by mouth every 12 hours. gabapentin (NEURONTIN) 300 mg capsule Take 1 capsule by mouth two times a day for 14 days. For sensitivity following monitoring No current facility-administered medications for this visit. [...] Ajovy helps, he feels it wearing off. 3.Topiramate- for migraine prevention 4. STACIA block PRN, last one on 10/27/2023 Allergies: No Known Allergies Impression/Recommendations - chronic migraine without aura - tension type headaches better after a better management of his anxiety RECS: 1. Migraine prevention: -Continue Botox therapy -Con (more content not included)...[facility] [id number] Telephone ([facility]) ECKERTONEAL ([id number]) 1990 M Date Time Provider Department 01/10/25 TEX ORDOÑEZ [facility] During your visit today, we recorded the following information about you: Liss Meadows 01/10/2025 12:25 PM Signed Hello, Please see below and advise Thank You Liss Allergies As of Date: 01/10/2025 (No Known Allergies) Date Reviewed: 10/12/2024 Reviewed by: Masha Valenzuela MA - Fully Assessed Reason for Visit: Insurance Authorization [[id number]] Cmt: ADDITIONAL INFORMATION NEEDED FOR BOTOX Prescriptions as of 01/10/2025 - ALPRAZolam (XANAX) 0.5 mg tablet - propranolol (INDERAL) 40 mg tablet - hydrOXYzine pamoate (VISTARIL) 25 mg capsule - ABILIFY 15 mg tablet Take 1 tablet by mouth once daily. - fremanezumab-vfrm (AJOVY AUTOINJECTOR) 225 mg/1.5 mL auto-injector Inject 1.5 mL subcutaneously once every month. - gabapentin (NEURONTIN) 300 mg capsule Take 1 capsule by mouth two times a day for 14 days. For sensitivity following monitoring - docusate sodium (COLACE) 100 mg capsule Take 1 capsule by mouth two times a day. - topiramate (TOPAMAX) 200 mg tablet Take 1 tablet by mouth once daily. - testosterone (ANDROGEL) 1.62 % (20.25 mg/1.25 gram) glpk Apply 1 Pump as directed once daily. - Naproxen Sodium 550 mg tablet take 1 tablet by mouth 2 times a day as needed - Phentermine HCl (ADIPEX-P) 37.5 mg capsule Take 37.5 mg by mouth once daily. Problem List As Of Date 01/10/2025 Noted Resolved Seizure-like activity (HCC) [R56.9] 03/10/2024 Obesity, Class III, BMI >= 40 [E66.813] 03/11/2024 Encounter Status:Closed by LISS MEADOWS on 01/10/25[facility]Amb[facility] Summaryon [id number] Visit SummaryAmbulatory Visit Summary ONEAL ECKERT :1990 Visit Date:11/17/2024 Ambulatory Visit Instructions Your Diagnosis Encounter for weight management BMI 50.0-59.9, adult Non-smoker Anxiety Depression Eosinophilic esophagitis Morbid obesity Smokeless tobacco use Your Care Team Attending Physician - Jeancarlos Maguire Primary Care Physician - Jeancarlos Maguire This Is Your Medications List [facility] Prescription (Magnesium) alprazolam (alprazolam 0.5 mg Tab) aripiprazole (aripiprazole 15 mg Tab) calcium citrate (calcium citrate 1000 mg oral tablet) docusate duloxetine (duloxetine 60 mg Cap-DR) ergocalciferol (Vitamin D) ergocalciferol (ergocalciferol 50,000 intl units Cap) esomeprazole (Nexium 40 mg Cap-EC) fremanezumab (Ajovy 225 mg/1.5 mL subcutaneous solution) gabapentin (gabapentin 400 mg Cap) hydrOXYzine (hydrOXYzine pamoate 25 mg Cap) iron polysaccharide (iron polysaccharide (as elemental iron) 50 mg oral capsule) multivitamin multivitamin (K2 Plus D3 oral tablet) naproxen (naproxen sodium 550 mg Tab) nortriptyline (nortriptyline 50 mg oral capsule) omega-3 polyunsaturated fatty acids (Fish Oil) phentermine (phentermine 37.5 mg Tab) propranolol (propranolol 40 mg Tab) rabeprazole (RABEprazole 5 mg oral delayed release capsule) testosterone (testosterone 20.25 mg/1.25 g (1.62%) transdermal gel) topiramate (Topamax 200 mg Tab) zinc sulfate (Zinc) Procedures Performed Esophagogastroduodenoscopy (04/06/2024), Colonoscopy, EGD (esophagogastroduodenoscopic) electrohydraulic lithotripsy of bezoar in stomach, Gastric sleeve, Myringotomy, Surgery, T and A (tonsillectomyand adenoidectomy) postoperative education. Discharge Vitals Heart Rate (Peripheral) 78 Respiratory Rate 18 Blood Pressure 118/80 Height 179.0 cm Height 70 in Weight 188.15 kg Weight 414.799 lb BMI 58.72 What to do next Scheduled Follow-Up Appointments 2024 10:40 AM EDT With: Jeancarlos Maguire Where: [place] [id number]- Medications What How Much When Why Instructions New phentermine (phentermine 37.5 mg Tab) 1 Tablets By Mouth Every day Anxiety Depression Eosinophilic esophagitis Smokeless tobacco use BMI 50.0-59.9, adult Morbid obesity BMI 55.78 Z76.89 [id number] New testosterone (testosterone 20.25 mg/ 1.25 g (1.62%) transdermal gel) 2 Pump Topical Once a day (in the morning) Refills: 1 Pickup at [facility] PHARMACY [id number] Unchanged alprazolam (alprazolam 0.5 mg Tab) 1 Tablets By Mouth 3 times a day as needed for for anxiety Unchanged aripiprazole (aripiprazole 15 mg Tab) Unchanged calcium citrate (calcium citrate 1000 mg oral tablet) 1 Tablets By Mouth Once a day (at bedtime) Unchanged docusate 100 Milligram By Mouth Every day Unchanged duloxetine (duloxetine 60 mg Cap-DR) 60 Milligram By Mouth Every day Unchanged ergocalciferol (ergocalciferol 50,000 intl units Cap) 1 Capsules By Mouth Every week Unchanged ergocalciferol (Vitamin D) By Mouth Every week Unchanged esomeprazole (Nexium 40 mg Cap-EC) 1 Capsules By Mouth Every day Unchanged fremanezumab (Ajovy 225 mg/ 1.5 mL subcutaneous solution) 225 Milligram Subcutaneous Oncea month Unchanged gabapentin (gabapentin 400 mg Cap) 1 Capsules By Mouth 4 times a day Unchanged hydrOXYzine (hydrOXYzine pamoate 25 mg Cap) 1 Capsules By Mouth 4 times a day as needed for for anxiety Unchanged iron polysaccharide (iron polysaccharide (as elemental iron) 50 mg oral capsule) 2 Capsules By Mouth Once a day (at bedtime) Unchanged Misc Prescription (Magnesium) 0 Unchanged multivitamin Unchanged multivitamin (K2 Plus D3 oral tablet) Unchanged naproxen (naproxen sodium 550 mg Tab) 1 Tablets By Mouth 2 times a day as needed Unchanged nortriptyline (nortriptyline 50 mg oral capsule) 1 Capsules By Mouth Once a day (at bedtime) Unchanged omega-3 polyunsaturated fatty acids (Fish Oil) By Mouth Unchanged propranolol (propranolol 40 mg Tab) 1 Tablets By Mouth As needed for Anxiety Unchanged rabeprazole (RABEprazole 5 mg oral delayed release capsule) 1 Capsules By Mouth Every day Unchanged topiramate (Topamax 200 mg Tab) 1 Tablets By Mouth Every day Unchanged zinc sulfate (Zinc) Pharmacy Information [facility] [id number]: [address], [place] [id number] [phone] Allergies No Known Medication Allergies Problems Ongoing - Any problem that you are currently receiving treatment for. Anxiety BMI 50.0-59.9, adult Chronic constipation Decreased libido Decreased testosterone level Depression Disassociation disorder Encounter for weight management Eosinophilic esophagitis Esophageal dysphagia Fatigue H/O gastric sleeve Hiatal hernia Hypogonadism male [place] grade C esophagitis Loud snoring Low testosterone in male Morbid (more content not included)...[facility] Medicine Office/Clinic Noteon [id number] Office/Clinic Note HPI Staff Oneal is a 34 year old male presenting for 3 month follow up Weight management: Phentermine Sleeping well:Yes, 6-8 hours Chest pain:No Tremors:No Headaches:No Heart fluttering:No Blurred Vision:No Beginning weight: 431.2 Previous weight: 392 Today's weight: 414 Questions/Concerns: Pt has been out of adipex for 2 weeks. History of Present Illness pt would like to re start adipex. Review of Systems PHQ Score Initial Depression Screen Score: 3 SCORE Detailed Depression Screen Score: 15 Total Depression Screen Score: 18 Physical Exam Vitals & Measurements HR: 78(Peripheral) RR: 18 BP: 118/80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 esophagitis) 2. Esophageal dysphagia (R13.19: Other dysphagia) 3. H/O gastric sleeve (Z90.3: Acquired absence of stomach [part of]) 4. Hiatal hernia (K44.9: Diaphragmatic hernia without obstruction or gangrene) 5. [place] grade C esophagitis (K20.80: Other esophagitis without bleeding) 6. Chronic constipation (K59.09: Other constipation) 7. BMI 50.0-59.9, adult (Z68.43: Body mass index [BMI] 50.0-59.9, adult) Continue rabeprazole 5 mg twice daily and decrease to once a day after 3 months total Continue to use squatty potty since it is helping Continue Dulcolax as needed Follow-up with surgery Follow-up No qualifying data available Problem List/Past Medical History Ongoing Anxiety BMI 50.0-59.9, adult Chronic constipation Decreased libido Decreased testosterone level Depression Disassociation disorder Encounter for weight management Eosinophilic esophagitis Esophageal dysphagia Fatigue H/O gastric sleeve Hiatal hernia Hypogonadism male [place] grade C esophagitis Loud snoring Low testosterone in male Morbid obesity Obstructive sleep apnea Occipital neuralgia Screening for hypercholesterolemia Somnolence, daytime Wellness examination Witnessed episode of apnea Historical No qualifying data Procedure/Surgical History Esophagogastroduodenoscopy (04/06/2024), Colonoscopy, EGD (esophagogastroduodenoscopic) electrohydraulic lithotripsy of bezoar in stomach, Gastric sleeve, Myringotomy, Surgery, T and A (tonsillectomyand adenoidectomy) postoperative education. Medications Ajovy 225 mg/1.5 mL subcutaneous solution, 225 mg, SubCutaneous, qMonth aripiprazole 15 mg Tab calcium citrate 1000 mg oral tablet, 1 tab(s), Oral, Once a day (at bedtime) docusate, 100 mg, Oral, Daily duloxetine 60 mg Cap-DR, 60 mg, Oral, Daily, Not taking ergocalciferol 50,000 intl units Cap, 85872 International_Unit= 1 cap(s), Oral, qWeek, Not taking esomeprazole 40 mg Cap-EC, 40 mg= 1 cap(s), Oral, BID Fish Oil, Oral gabapent (more content not included)...[facility] HospitalComment on above:Result Comment: Electronically Signed By: Alexis SEGAL, Sera Garcia.br\Date and Time Signed: 08/05/2509:28 ESTDrug Scr, Abuse, Uron 08-03-2024 Opiate(s), UrPositiveAbnormalNEGMercy Helm HospitalComment on above:Result Comment: Cutoff: 300 ng/ml Note: The Opiate screen is not intended to detect Oxycodone.Performed By: #### LIPR #### [employer] [address] [place] [address] Brazing Machine Operator Helper: Ayo Baker MDAmphetamine(s),UrNegativeNormalNEGMercy Helm HospitalComment on above:Result Comment: Cutoff: 1000 ng/mLPerformed By: #### LIPR #### [employer] [address] [place] [address] Brazing Machine Operator Helper: Ayo Baker MDBarbiturate(s),UrNegativeNormalNEGMercy Helm HospitalComment on above:Result Comment: Cutoff: 200 ng/mlPerformed By: #### LIPR #### [employer] [address] [place] [address] Brazing Machine Operator Helper: Ayo Baker MDBenzodiazepine(s)NegativeNormalNEGMercy Helm HospitalComment on above:Result Comment: Cutoff: 200 ng/mlPerformed By: #### LIPR #### [employer] [address] [place] [address] Brazing Machine Operator Helper: Ayo Baker MDBuprenorphrine, UrNegativeNormalNEGMercy Helm HospitalComment on above:Result Comment: Cutoff: 5 ng/mlPerformed By: #### LIPR #### [address] [address] Brazing Machine Operator Helper: CHAVO Pintoannabinoid(s),UrNegativeNormalNEGMercy Helm HospitalComment on above:Result Comment: Cutoff: 50 ng/mlPerformed By: #### LIPR #### [address] [address] Brazing Machine Operator Helper: CHAVO Pintoocaine MetaboliteNegativeNormalNEGMercy Helm HospitalComment on above:Result Comment: Cutoff: 300 ng/mlPerformed By: #### LIPR #### [address] [address] Brazing Machine Operator Helper: Ayo Baker MDFentanyl, UrineNegativeNormalNEGMercy Helm HospitalComment on above:Result Comment: Cutoff: 5 ng/mlPerformed By: #### LIPR #### [address] [address] Brazing Machine Operator Helper: Ayo Baker MDInterpretive InfoThis method is a screening test to detect only these drug classes as part of [facility] Comment on above:Result Comment: medical workup. Confirmatory testing by another method should be ordered if clinically indicated.Performed By: #### LIPR #### [address] [address] Brazing Machine Operator Helper: MANA Pintoethadone Ql (U)NegativeNormalNEGMercy Helm HospitalComment on above:Result Comment: Cutoff: 300 ng/mlPerformed By: #### LIPR #### [address] [address] Brazing Machine Operator Helper: Ayo Baker MDOxycodone, UrineNegativeNormalNEGMercy Helm HospitalComment on above:Result Comment: Cutoff: 100 ng/mlPerformed By: #### LIPR #### [facility] [address] [place], [place] [id number] Brazing Machine Operator Helper: SHARONDA Pintohencyclidine, UrNegativeNormalNEGMercy Stamford HospitalComment on above:Result Comment: Cutoff: 25 ng/mlPerformed By: #### LIPR #### [facility] [address] [place], [place] [id number] Brazing Machine Operator Helper: Ayo Baker MDUrine Drug Screenon [id number] Ql (U)NegativeNEGATIVEBon Secours Mercy HealthComment on above:Cutoff: 1000 ng/mL Barbiturates Screen Ql (U)NegativeNEGATIVEBon Secours Mercy HealthComment on above:Cutoff: 200 ng/mlBenzodiazepines Ql (U)NegativeNEGATIVEBon Secours Mercy HealthComment on above:Cutoff: 200 ng/mlBuprenorphine Ql (U)NegativeNEGATIVEBon Secours Mercy HealthComment on above:Cutoff: 5 ng/mlCannabinoids Screen Ql (U) NegativeNEGATIVEBon Secours Mercy HealthComment on above:Cutoff: 50 ng/mlCocaine Ql (U)NegativeNEGATIVEBon Secours Mercy HealthComment on above:Cutoff: 300 ng/mlfentaNYL Ql (U)NegativeNEGATIVEBon Secours Mercy HealthComment on above: Cutoff: 5 ng/mlInterpretation and review of laboratory resultsAbnormalBon Secours Mercy HealthMethadone Ql (U)NegativeNEGATIVEBon Secours Mercy Health Comment on above:Cutoff: 300 ng/mlOpiates Screen Ql (U)PositiveAbnormalNEGATIVE [facility] HealthComment on above:Cutoff: 300 ng/ml Note: The Opiate screen is not intended to detect Oxycodone. oxyCODONE Ql (U)NegativeNEGATIVEBon Secours Mercy HealthComment on above:Cutoff: 100 ng/mlPhencyclidine Ql (U)NegativeNEGATIVEBon Secours Mercy HealthComment on above:Cutoff: 25 ng/mlTest InformationThis method is a screening test to detect only these drug classes as part of a medical workup. Confirmatory testing by another method should be ordered if clinically indicated.[facility] Mercy HealthBon Secours Mercy HealthCNOVnima [id number] Visit (NEADFV) ONEAL ECKERT ([id number]) 1990 Date Time Provider Department 07/12/24 11:00 AM TEX ORDOÑEZ NEADFV During your visit today, we recorded the following information about you: Pulse Blood pressure Weight Height 87/minute 140/67 182.3 kg 1.829 m Tex Ordoñez MD 07/12/2024 1:42 PM Signed PROCEDURE NOTE UNIVERSAL PROTOCOL / [...] completed when applicable. Botox procedure note Treatment # 9 Consent in EPIC BOTOX brought in by patient? No Dilution: 5 units/0.1 ml ( 100 unit vial with 2 cc diluent or 200 unit vial with 4 cc diluent) Diluent: normal saline Indication: Chronic Intractable Migraine Injection Sites Muscle Fixed Site/Fixed Dose Bilat Hoister 20 U divided in 2 sites Procerus [...] Units used: 200 Total Units wasted: 0 MD Osmany Ruano Cynthia, RN 07/12/2024 1:42 PM Signed 07/12/2024 PROMIS Global Health Physical Health Summary Physical health: Poor Everyday physical activity, ability: A little Fatigue: Moderate Pain level: 5 General health: Poor Social activities/roles, ability: Poor Physical Health T-Score 32.4 (Poor) Physical Health Percentile 4 PROMIS Global [facility] Mental Health Summary Quality of life: Poor Mental health (mood,thinking): Poor Social satisfaction: Poor Emotional problems (anxious,depressed): Often Mental Health T-Score 25.1 (Poor) Mental Health Percentile 1 Percentiles provide an indication of how a patient's score ranks in relation to the [place] general population. > 31st percentile is within normal limits or better *< 31st percentile is at least ? SD worse than population, which may be clinically relevant < 16th percentile is at least 1 SD worse than population and warrants attention Zabrina Ceron RN 07/12/2024 1:42 PM Signed Patient name and confirmed. Patient states she would like to receive Botox treatment today. 2 vials of Botox A (100 units in each) reconstituted with 2.2 cc of normal saline in each vial. Botox drawn up into four, 1 cc syringes. Each syringe containing 50 units of Botox. Assisted by: Marylou GRACE Botox, 2 vials: Lot # [id number] Exp Lot # [id number] Exp Botox handed to Dr. Ordoñez to administer and verified order. Tex Ordoñez MD 07/12/2024 1:42 PM Signed PROGRESS NOTE- HEADACHE MEDICINE SERVICE DATE: July 12, 2024 Participants: patient and provider Location: [facility] Subjective HPI: Oneal Eckert is here for follow up and Botox therapy. He stopped most of his medications after being diagnosed with a hiatal hernia. He restarted all of them except for Duloxetine and Nortriptyline. Migraine description: see note from October 07, 2021 Ubrelvy not helpful. PAST MEDICAL HISTORY Diagnosis Date Anxiety Chronic migraine without aura Current Outpatient Medications Medication Sig ABILIFY 15 mg tablet Take 1 tablet by mouth once daily. ARIPiprazole (ABILIFY) 10 mg tablet gabapentin (NEURONTIN) 300 mg capsule Take 1 capsule by mouth two times a day for 14 days. For sensitivity following monitoring (Patient taking differently: Take 40 mg by mouth two times a day. For sensitivity following monitoring) nortriptyline (PAMELOR) 50 mg capsule Take 1 capsule by mouth daily at bedtime. DULoxetine (CYMBALTA) 60 mg capsule Take 1 capsule by mouth once daily. topiramate (TOPAMAX) 200 mg tablet Take 1 tablet by mouth once daily. fremanezumab-vfrm (AJOVY AUTOINJECTOR) 225 mg/1.5 mL auto-injector Inject 1.5 mL subcutaneously once every month. docusate sodium (COLACE) 100 mg capsule Take 1 caps (more content not included)...[facility]-10-2024 Surgical Pathology Report(NOTE) Path Number: [id number] -- Diagnosis -- A. STOMACH, BIOPSY: - MILD TO MODERATE CHRONIC GASTRITIS. - HELICOBACTER PYLORI IMMUNOSTAIN (CONTROL APPROPRIATE) IS NEGATIVE FOR INFECTIOUS BACTERIA. B. ESOPHAGUS, Z-LINE, BIOPSIES: - BENIGN PROXIMAL GASTRIC MUCOSA WITH MODERATE CHRONIC AND FOCAL ACUTE INFLAMMATION. - BENIGN SQUAMOUS MUCOSA. - NEGATIVE FOR INTESTINAL METAPLASIA, DYSPLASIA, AND MALIGNANCY. Leon Barbosa M.D. Electronically Signed Out 06/13/2024 Clinical Information Pre-Op Diagnosis: STATUS POST GASTRIC BYPASS FOR OBESITY; MORBID OBESITY; HIATAL HERNIA Operative Findings: STOMACH BIOPSY RULE OUT H. PYLORI; Z-LINE BIOPSY Operation Performed: ESOPHAGOGASTRODUODENOSCOPY STOMACH BIOPSY AND Z-LINE BIOPSY se Source of Specimen A: STOMACH BIOPSY B: Z-LINE BIOPSY Gross Description A. ONEAL ECKERT STOMACH BIOPSY Received in formalin is one pink-parkinson tissue fragment, 0.4 x 0.3 x 0.2 cm. Entirely 1 cs. B. ONEAL ECKERT, Z-LINE BIOPSY Received in formalin are two pale pink-parkinson tissue fragments, measuring 0.4 cm each and are 0.4 x 0.4 x 0.2 cm in aggregate. Entirely 1 cs. lm/mj Leon Barbosa M.D./se:06/13/2024 Microscopic Description A, B. Microscopic examination performed. Processing Lab: [address] [address] Interpretation Performed at [address] [address] SURGICAL PATHOLOGY CONSULTATION Patient Name: ONEAL ECKERT [facility] Rec: [id number] [facility] ANATOMIC PATHOLOGY [facility] [place], [place] [address] NoMercy Health Fairfield HospitalAmbulatory Visit Summaryon [id number] Visit SummaryAmbulatory Visit Summary ONEAL ECKERT :1990 Visit Date:05/19/2024 Ambulatory Visit Instructions Your Diagnosis Encounter for weight management BMI 50.0-59.9, adult Non-smoker Your Care Team Attending Physician - Jeancarlos Maguire Primary Care Physician - Jeancarlos Maguire This Is Your Medications List [facility] Prescription (Magnesium) docusate duloxetine (duloxetine 60 mg Cap-DR) ergocalciferol (Vitamin D) ergocalciferol (ergocalciferol 50,000 intl units Cap) esomeprazole (Nexium 40 mg Cap-EC) esomeprazole (Nexium) fremanezumab (Ajovy 225 mg/1.5 mL subcutaneous solution) gabapentin (gabapentin 400 mg Cap) multivitamin multivitamin (K2 Plus D3 oral tablet) naproxen (naproxen sodium 550 mg Tab) nortriptyline (nortriptyline 50 mg oral capsule) omega-3 polyunsaturated fatty acids (Fish Oil) phentermine (phentermine 37.5 mg Tab) rabeprazole (RABEprazole 5 mg oral delayed release capsule) testosterone (testosterone 20.25 mg/1.25 g (1.62%) transdermal gel) topiramate (Topamax 200 mg Tab) zinc sulfate (Zinc) Procedures Performed Esophagogastroduodenoscopy (04/06/2024), Colonoscopy, EGD (esophagogastroduodenoscopic) electrohydraulic lithotripsy of bezoar in stomach, Gastric sleeve, Myringotomy, Surgery, T and A (tonsillectomyand adenoidectomy) postoperative education. Discharge Vitals Heart Rate (Peripheral) 90 Respiratory Rate 18 Blood Pressure 130/86 Height 179.0 cm Height 70 in Weight 190.2 kg Weight 419.319 lb BMI 59.36 What to do next Scheduled Follow-Up Appointments Thursday 8:30 AM EST With: Where: [facility] Surgical Services Thursday 9:45 AM EST With: Alexis SEGAL, Sera Marshall Where: [facility] [address] [address] 10:00 AM EST With: Jeancarlos Maguire Where: [facility] [address] [address]- Medications What How Much When Why Instructions Unchanged docusate 100 Milligram By Mouth Every day Unchanged duloxetine (duloxetine 60 mg Cap-DR) 60 Milligram By Mouth Every day Unchanged ergocalciferol (ergocalciferol 50,000 intl units Cap) 1 Capsules By Mouth Every week Unchanged ergocalciferol (Vitamin D) By Mouth Every week Unchanged esomeprazole (Nexium 40 mg Cap-EC) 1 Capsules By Mouth Every day Unchanged esomeprazole (Nexium) 20 Milligram By Mouth Every day Unchanged fremanezumab (Ajovy 225 mg/ 1.5 mL subcutaneous solution) 225 Milligram Subcutaneous Oncea month Unchanged gabapentin (gabapentin 400 mg Cap) 1 Capsules By Mouth 4 times a day Unchanged Misc Prescription (Magnesium) 0 Unchanged multivitamin Unchanged multivitamin (K2 Plus D3 oral tablet) Unchanged naproxen (naproxen sodium 550 mg Tab) 1 Tablets By Mouth 2 times a day as needed Unchanged nortriptyline (nortriptyline 50 mg oral capsule) 1 Capsules By Mouth Once a day (at bedtime) Unchanged omega-3 polyunsaturated fatty acids (Fish Oil) By Mouth Unchanged phentermine (phentermine 37.5 mg Tab) 1 Tablets By Mouth Every day Anxiety Depression Eosinophilic esophagitis Smokeless tobacco use BMI 50.0-59.9, adult Morbid obesity BMI 58.89 Unchanged rabeprazole (RABEprazole 5 mg oral delayed release capsule) 1 Capsules By Mouth Every day Unchanged testosterone (testosterone 20.25 mg/ 1.25 g (1.62%) transdermal gel) 2 Pump Topical Once a day (in the morning) Unchanged topiramate (Topamax 200 mg Tab) 1 Tablets By Mouth Every day Unchanged zinc sulfate (Zinc) Allergies No Known Medication Allergies Problems Ongoing - Any problem that you are currently receiving treatment for. Anxiety BMI 50.0-59.9, adult Chronic constipation Decreased libido Decreased testosterone level Depression Disassociation disorder Encounter for weight management Eosinophilic esophagitis Esophageal dysphagia Fatigue H/O gastric sleeve Hypogonadism male [place] grade C esophagitis Loud snoring Low testosterone in male Morbid obesity Obstructive sleep apnea Occipital neuralgia Screening for hypercholesterolemia Somnolence, daytime Wellness examination Witnessed episode of apnea Patient Survey You may receive a survey via text or e-mail asking about your office visit. Please share your experience with us by completing your survey. We appreciate your feedback and thank you for choosing us for your care. [facility] Medicine Office/Clinic Noteon [id number]/Clinic NoteV[facility]/Clinic Note HPI Staff Oneal is a 33 year old male presenting with 3 month f/u ROMELIA- he was still waiting to hear back from [facility] Weight management Phentermine 37.5 mg Sleeping well:Yes, 6-8 hours Chest pain:No Tremors:No Headaches:No Heart fluttering:No Blurred Vision:No Starting Weight: Weight last visit: 415.8 lbs Weight this visit: 419 History of Present Illness pt presents today for weight management Review of Systems PHQ Score Initial Depression Screen Score: 0 SCORE Physical Exam Vitals & Measurements HR: 90(Peripheral) RR: 18 BP: 130/86 SpO2: 98% HT: 70 in HT: 179.0 cm WT: 190.2 kg WT: 419.319 lb BMI: 59.36 General: alert, no acute distress ENMT: oral [...] (Z76.89: Persons encountering health services in other specifiedcircumstances) pt is up a couple pounds. was seen by bariatric surgeon yesterday. is considering ru en y surgery. surgeon would like him to lose a little more weight before the surgery. will send refill of adipex. RTC 3 months 2. BMI 50.0-59.9, adult (Z68.43: Body mass index [BMI] 50.0-59.9, adult) BMI education given. considering bariatric surgery Ordered: phentermine, 37.5 mg = 1 tab(s), Oral, Daily, BMI 58.89, # 30 tab(s), Refills(s) 0, Pharmacy: [facility] [id number], 179, cm, 05/19/24 10:15:00 EST, Height/Length Dosing, 190.2, kg, 05/19/24 10:15:00 EST, Weight Dosing phentermine, 37.5 mg = 1 tab(s), Oral, Daily, BMI 58.89, # 30 tab(s), Refills(s) 0, Pharmacy: [facility] [id number], 179, cm, 04/21/24 10:09:00 EDT, Height/Length Dosing, 189, kg, 04/21/24 10:09:00 EDT, Weight Dosing Morbid obesity (E66.01: Morbid (severe) obesity due to excess calories) see above Ordered: phentermine, 37.5 mg = 1 tab(s), Oral, Daily, BMI 58.89, # 30 tab(s), Refills(s) 0, Pharmacy: [facility] [id number], 179, cm, 05/19/24 10:15:00 EST, Height/Length Dosing, 190.2, kg, 05/19/24 10:15:00 EST, Weight Dosing phentermine, 37.5 mg = 1 tab(s), Oral, Daily, BMI 58.89, # 30 tab(s), Refills(s) 0, Pharmacy: [facility] [id number], 179, cm, 04/21/24 10:09:00 EDT, Height/Length Dosing, 189, kg, 04/21/24 10:09:00 EDT, Weight Dosing Smokeless tobacco use (Z72.0: Tobacco use) consider not using Ordered: phentermine, 37.5 mg = 1 tab(s), Oral, Daily, BMI 58.89, # 30 tab(s), Refills(s) 0, Pharmacy: [facility] [id number], 179, cm, 05/19/24 10:15:00 EST, Height/Length Dosing, 190.2, kg, 05/19/24 10:15:00 EST, Weight Dosing phentermine, 37.5 mg = 1 tab(s), Oral, Daily, BMI 58.89, # 30 tab(s), Refills(s) 0, Pharmacy: [facility] [id number], 179, cm, 04/21/24 10:09:00 EDT, Height/Length Dosing, 189, kg, 04/21/24 10:09:00 EDT, Weight Dosing Follow-up No qualifying data available Problem List/Past Medical History Ongoing Anxiety BMI 50.0-59.9, adult Chronic constipation Decreased libido Decreased testosterone level Depression Disassociation disorder Encounter for weight management Eosinophilic esophagitis Esophageal dysphagia Fatigue H/O gastric sleeve Hypogonadism male [place] grade C esophagitis Loud snoring Low testosterone in male Morbid obesity Obstructive sleep apnea Occipital neuralgia Screening for hypercholesterolemia Somnolence, daytime Wellness examination Witnessed episode of apnea Historical No qualifying data Procedure/Surgical History Esophagogastroduodenoscopy (04/06/2024), Colonoscopy, EGD (esophagogastroduodenoscopic) electrohydraulic lithotripsy of bezoar in stomach, Gastric sleeve, Myringotomy, Surgery, T and A (tonsillectomyand adenoidectomy) postoperative education. Medications Ajovy 225 mg/1.5 mL subcutaneous solution, 225 mg, SubCutaneous, qMonth docusate, 100 mg, Oral, Daily duloxetine 60 mg Cap-DR, 60 mg, Oral, Daily ergocalciferol 50,000 intl units Cap, 16480 International_Unit= 1 cap(s), Oral, qWeek Fish Oil, Oral gabapentin 400 mg Cap, 400 mg= 1 cap(s), Oral, QID K2 Plus D3 oral tablet Magnesium, 0 multivitamin naproxen sodium 550 mg Tab, 550 mg= 1 tab(s), Oral, BID Nexium, 20 mg, Oral, Daily Nexium 40 mg Cap-EC, 40 mg= 1 cap(s), Oral, Daily, 3 refills nortriptyline 50 mg oral capsule, 50 mg= 1 cap(s), Oral, Once a day (at bedtime) phentermine 37.5 mg Tab, 37.5 mg= 1 tab(s), Oral, Daily RABEprazole 5 mg oral delayed release capsule, 5 mg= 1 cap(s), Oral, Daily, 3 refills testosterone 20.25 mg/1.25 g (1.62%) transdermal gel, 2 pump, Topical, qAM, 1 refills Topamax 200 mg Tab, 200 mg= 1 tab(s), Oral, Daily Vitamin D, Oral, qWeek Zinc Allergies No Known Medication Allergies Social Histor (more content not included)...[facility] Comment on above:Result Comment: Electronically Signed By: Jeancarlos Maguire\.br\Date and Time Signed: 05/19/24 10:42 ESTCT ABDOMEN PELVIS W IV CONTRASTon [id number] ABDOMEN PELVIS W IV CONTRASTEXAMINATION: CT OF THE ABDOMEN AND PELVIS WITH CONTRAST 05/17/2024 1:22 pm TECHNIQUE: CT of the abdomen and pelvis was performed with the administration of intravenous contrast. Multiplanar reformatted images are provided for review. Automated exposure control, iterative reconstruction, and/or weight based adjustment of the mA/kV was utilized to reduce the radiation dose to as low as reasonably achievable. COMPARISON: Upper gastrointestinal series 05/12/2024, abdomen and pelvis CT 04/24/2015 HISTORY: ORDERING SYSTEM PROVIDED HISTORY: Paraesophageal hernia TECHNOLOGIST PROVIDED HISTORY: STAT Creatinine as needed:->Yes FINDINGS: LOWER CHEST: Calcified granuloma in the left lower lobe. Minimal gravity dependent atelectasis in the bilateral lower lobes. Mild cardiomegaly. No pleural nor pericardial effusions. ORGANS: Mild hepatomegaly and splenomegaly. Normal gallbladder, pancreas, adrenal glands, and kidneys. GI/BOWEL: Possible circumferential wall thickening in the distal thoracic esophagus. Tiny sliding hiatal hernia. Otherwise normal course and caliber of the stomach, small bowel, colon, and rectum without obstruction. Changes of sleeve gastrectomy normal appendix. Minimal colonic diverticulosis without findings of acute diverticulitis. PELVIS: Normal urinary bladder and prostate. PERITONEUM/RETROPERITONEUM: No abdominal nor pelvic lymphadenopathy. No free intraperitoneal fluid nor gas. SOFT TISSUES/BONES: Laxity of the anterior and lateral abdominal wall musculature have fat containing umbilical hernia. No inguinal lymphadenopathy. No acute fractures nor suspicious bony lesions. IMPRESSION: 1. Tiny sliding hiatal hernia partially decompressed from the recent fluoroscopy study, where up to small/moderate size was present. 2. Possible circumferential wall thickening in the distal thoracic esophagus potentially due to reflux esophagitis given the above finding. No overtly suspicious features to suggest malignancy. Interpreted by: Shaun Gonzalez MD Signed by: Shaun Gonzalez MD 05/18/24 Final resultNormalMerGreenwich Hospital Abdomen and Pelvis W contrast Nigel . Tiny sliding hiatal hernia partially decompressed from the recent fluoroscopy study, where up to small/moderate size was present. 2. Possible circumferential wall thickening in the distal thoracic esophagus potentially due to reflux esophagitis given the above finding. No overtly suspicious features to suggest malignancy. [facility] RIS CONSOLIDATEDEXAMINATION: CT OF THE ABDOMEN AND PELVIS WITH CONTRAST 05/17/2024 1:22 pm TECHNIQUE: CT of the abdomen and pelvis was performed with the administration of intravenous contrast. Multiplanar reformatted images are provided for review. Automated exposure control, iterative reconstruction, and/or weight based adjustment of the mA/kV was utilized to reduce the radiation dose to as low as reasonably achievable. COMPARISON: Upper gastrointestinal series 05/12/2024, abdomen and pelvis CT 04/24/2015 HISTORY: ORDERING SYSTEM PROVIDED HISTORY: Paraesophageal hernia TECHNOLOGIST PROVIDED HISTORY: STAT Creatinine as needed:->Yes FINDINGS: LOWER CHEST: Calcified granuloma in the left lower lobe. Minimal gravity dependent atelectasis in the bilateral lower lobes. Mild cardiomegaly. No pleural nor pericardial effusions. ORGANS: Mild hepatomegaly and splenomegaly. Normal gallbladder, pancreas, adrenal glands, and kidneys. GI/BOWEL: Possible circumferential wall thickening in the distal thoracic esophagus. Tiny sliding hiatal hernia. Otherwise normal course and caliber of the stomach, small bowel, colon, and rectum without obstruction. Changes of sleeve gastrectomy normal appendix. Minimal colonic diverticulosis without findings of acute diverticulitis. PELVIS: Normal urinary bladder and prostate. PERITONEUM/RETROPERITONEUM: No abdominal nor pelvic lymphadenopathy. No free intraperitoneal fluid nor gas. SOFT TISSUES/BONES: Laxity of the anterior and lateral abdominal wall musculature have fat containing umbilical hernia. No inguinal lymphadenopathy. No acute fractures nor suspicious bony lesions. [facility] Shaun Liu MD - 05/18/2024 EXAMINATION: CT OF THE ABDOMEN AND PELVIS WITH CONTRAST 05/17/2024 1:22 pm TECHNIQUE: CT of the abdomen and pelvis was performed with the administration of intravenous contrast. Multiplanar reformatted images are provided for review. Automated exposure control, iterative reconstruction, and/or weight based adjustment of the mA/kV was utilized to reduce the radiation dose to as low as reasonably achievable. COMPARISON: Upper gastrointestinal series 05/12/2024, abdomen and pelvis CT 04/24/2015 HISTORY: ORDERING SYSTEM PROVIDED HISTORY: Paraesophageal hernia TECHNOLOGIST PROVIDED HISTORY: STAT Creatinine as needed:->Yes FINDINGS: LOWER CHEST: Calcified granuloma in the left lower lobe. Minimal gravity dependent atelectasis in the bilateral lower lobes. Mild cardiomegaly. No pleural nor pericardial effusions. ORGANS: Mild hepatomegaly and splenomegaly. Normal gallbladder, pancreas, adrenal glands, and kidneys. GI/BOWEL: Possible circumferential wall thickening in the distal thoracic esophagus. Tiny sliding hiatal hernia. Otherwise normal course and caliber of the stomach, small bowel, colon, and rectum without obstruction. Changes of sleeve gastrectomy normal appendix. Minimal colonic diverticulosis without findings of acute diverticulitis. PELVIS: Normal urinary bladder and prostate. PERITONEUM/RETROPERITONEUM: No abdominal nor pelvic lymphadenopathy. No free intraperitoneal fluid nor gas. SOFT TISSUES/BONES: Laxity of the anterior and lateral abdominal wall musculature have fat containing umbilical hernia. No inguinal lymphadenopathy. No acute fractures nor suspicious bony lesions. IMPRESSION: 1. Tiny sliding hiatal hernia partially decompressed from the recent fluoroscopy study, where up to small/moderate size was present. 2. Possible circumferential wall thickening in the distal thoracic esophagus potentially due to reflux esophagitis given the above finding. No overtly suspicious features to suggest malignancy. [facility] [employer] Abdomen and Pelvis W contrast IVOrdered By: Shaun Gonzalez on [id number] Work Phone: CT Abdomen and Pelvis W contrast Nigel 05-17-2024 Radiology Study observation (narrative)[facility] [employer] UGI W AIR CONTRASTon [id number] UGI W AIR CONTRASTEXAMINATION: DOUBLE CONTRAST UPPER GI SERIES 05/12/2024 TECHNIQUE: Double contrast upper GI series was performed with barium and air contrast. FLUOROSCOPY DOSE AND TYPE: Fluoro time: 3.2 minutes DAP: 1845.141 dGycm2 COMPARISON: CT chest from 05/08/2021 HISTORY: ORDERING SYSTEM PROVIDED HISTORY: Paraesophageal hernia TECHNOLOGIST PROVIDED HISTORY: gerd 33-year-old male with paraesophageal hernia and gastroesophageal reflux disease FINDINGS: The esophagus demonstrates normal course and contour. Patulous esophagus. Mucosal pattern of the esophagus is grossly unremarkable. No abnormal intrinsic filling defect, abnormal extrinsic compression, segmental stricture or focal stenosis is identified. The esophagus demonstrates normal peristalsis. There is patency of the GE junction with adequate distention. Small to moderate-sized hiatal hernia with moderate to severe gastroesophageal reflux. The stomach demonstrates a normal mucosal pattern as well as normal peristalsis and motility. No abnormal extrinsic compression, abnormal intrinsic filling defect, segmental stricture or focal stenosis is identified in association with the stomach. The duodenal bulb and opacified proximal small bowel loops are grossly unremarkable in appearance. IMPRESSION: 1. Patulous esophagus. Small to moderate size hiatal hernia. Moderate to severe gastroesophageal reflux. 2. Otherwise, unremarkable double-contrast upper GI series. Interpreted by: Archie Jimenez MD Signed by: Archie Jimenez MD 05/12/24 Final resultNormalLima Memorial HospitalRF Gastrointestinal tract upper Single view W air contrast Abel . Patulous esophagus. Small to moderate size hiatal hernia. Moderate to severe gastroesophageal reflux. 2. Otherwise, unremarkable double-contrast upper GI series. [facility] RIS CONSOLIDATEDEXAMINATION: DOUBLE CONTRAST UPPER GI SERIES 05/12/2024 TECHNIQUE: Double contrast upper GI series was performed with barium and air contrast. FLUOROSCOPY DOSE AND TYPE: Fluoro time: 3.2 minutes DAP: 1845.141 dGycm2 COMPARISON: CT chest from 05/08/2021 HISTORY: ORDERING SYSTEM PROVIDED HISTORY: Paraesophageal hernia TECHNOLOGIST PROVIDED HISTORY: gerd 33-year-old male with paraesophageal hernia and gastroesophageal reflux disease FINDINGS: The esophagus demonstrates normal course and contour. Patulous esophagus. Mucosal pattern of the esophagus is grossly unremarkable. No abnormal intrinsic filling defect, abnormal extrinsic compression, segmental stricture or focal stenosis is identified. The esophagus demonstrates normal peristalsis. There is patency of the GE junction with adequate distention. Small to moderate-sized hiatal hernia with moderate to severe gastroesophageal reflux. The stomach demonstrates a normal mucosal pattern as well as normal peristalsis and motility. No abnormal extrinsic compression, abnormal intrinsic filling defect, segmental stricture or focal stenosis is identified in association with the stomach. The duodenal bulb and opacified proximal small bowel loops are grossly unremarkable in appearance. MHArchie Solomon MD - 05/12/2024 EXAMINATION: DOUBLE CONTRAST UPPER GI SERIES 05/12/2024 TECHNIQUE: Double contrast upper GI series was performed with barium and air contrast. FLUOROSCOPY DOSE AND TYPE: Fluoro time: 3.2 minutes DAP: 1845.141 dGycm2 COMPARISON: CT chest from 05/08/2021 HISTORY: ORDERING SYSTEM PROVIDED HISTORY: Paraesophageal hernia TECHNOLOGIST PROVIDED HISTORY: gerd 33-year-old male with paraesophageal hernia and gastroesophageal reflux disease FINDINGS: The esophagus demonstrates normal course and contour. Patulous esophagus. Mucosal pattern of the esophagus is grossly unremarkable. No abnormal intrinsic filling defect, abnormal extrinsic compression, segmental stricture or focal stenosis is identified. The esophagus demonstrates normal peristalsis. There is patency of the GE junction with adequate distention. Small to moderate-sized hiatal hernia with moderate to severe gastroesophageal reflux. The stomach demonstrates a normal mucosal pattern as well as normal peristalsis and motility. No abnormal extrinsic compression, abnormal intrinsic filling defect, segmental stricture or focal stenosis is identified in association with the stomach. The duodenal bulb and opacified proximal small bowel loops are grossly unremarkable in appearance. IMPRESSION: 1. Patulous esophagus. Small to moderate size hiatal hernia. Moderate to severe gastroesophageal reflux. 2. Otherwise, unremarkable double-contrast upper GI series. [facility] Gastrointestinal tract upper Single view W air contrast POOrdered By: Archie Jimenez on [id number] Work Phone: Ambulatory Visit Summaryon [id number] Visit SummaryAmbulatory Visit Summary ONEAL ECKERT :1990 Visit Date:04/21/2024 Ambulatory Visit Instructions Your Diagnosis Eosinophilic esophagitis Esophageal dysphagia H/O gastric sleeve Hiatal hernia [place] grade C esophagitis BMI 50.0-59.9, adult Chronic constipation Your Care Team Attending Physician - Alexis SEGAL, Sera Marshall Primary Care Physician - Jeancarlos Maguire This Is Your Medications List Contact prescribing physician if questions or concerns Misc Prescription (Magnesium) docusate duloxetine (duloxetine 60 mg Cap-DR) ergocalciferol (Vitamin D) esomeprazole (Nexium 40 mg Cap-EC) esomeprazole (Nexium) fremanezumab (Ajovy 225 mg/1.5 mL subcutaneous solution) gabapentin (gabapentin 300 mg Cap) multivitamin multivitamin (K2 Plus D3 oral tablet) naproxen (naproxen sodium 550 mg Tab) nortriptyline (nortriptyline 50 mg oral capsule) omega-3 polyunsaturated fatty acids (Fish Oil) phentermine (phentermine 37.5 mg Tab) rabeprazole (RABEprazole 5 mg oral delayed release capsule) testosterone (testosterone 20.25 mg/1.25 g (1.62%) transdermal gel) topiramate (Topamax 200 mg Tab) zinc sulfate (Zinc) Procedures Performed Esophagogastroduodenoscopy (04/06/2024), Colonoscopy, EGD (esophagogastroduodenoscopic) electrohydraulic lithotripsy of bezoar in stomach, Gastric sleeve, Myringotomy, T and A (tonsillectomy and adenoidectomy) postoperative education. Discharge Vitals Heart Rate (Peripheral) 82 Respiratory Rate 16 Blood Pressure 130/82 Height 70 in Height 179 cm Weight 415.8 lb Weight 189 kg BMI 58.99 What to do next Scheduled Follow-Up Appointments 2023 10:00 AM EST With: Jeancarlos Maguire Where: [facility] [address] [address]- Medications What How Much When Why Instructions Unchanged docusate 100 Milligram By Mouth Every day Contact prescribing physician if questions or concerns Unchanged duloxetine (duloxetine 60 mg Cap-DR) 60 Milligram By Mouth Every day Contact prescribing physician if questions or concerns Unchanged ergocalciferol (Vitamin D) By Mouth Every week Contact prescribing physician if questionsor concerns Unchanged esomeprazole (Nexium 40 mg Cap-EC) 1 Capsules By Mouth Every day Contact prescribing physician if questions or concerns Unchanged esomeprazole (Nexium) 20 Milligram By Mouth Every day Contact prescribing physician if questions or concerns Unchanged fremanezumab (Ajovy 225 mg/ 1.5 mL subcutaneous solution) 225 Milligram Subcutaneous Oncea month Contact prescribing physician if questions or concerns Unchanged gabapentin (gabapentin 300 mg Cap) 1 Capsules By Mouth 2 times a day Contact prescribing physician if questions or concerns Unchanged Misc Prescription (Magnesium) 0 Contact prescribing physician if questions or concerns Unchanged multivitamin Contact prescribing physician if questions or concerns Unchanged multivitamin (K2 Plus D3 oral tablet) Contact prescribing physician if questions or concerns Unchanged naproxen (naproxen sodium 550 mg Tab) 1 Tablets By Mouth 2 times a day as needed Contact prescribing physician if questions or concerns Unchanged nortriptyline (nortriptyline 50 mg oral capsule) 1 Capsules By Mouth Once a day (at bedtime) Contact prescribing physician if questions or concerns Unchanged omega-3 polyunsaturated fatty acids (Fish Oil) By Mouth Contact prescribing physician if questions or concerns Unchanged phentermine (phentermine 37.5 mg Tab) 1 Tablets By Mouth Every day Anxiety Depression Eosinophilic esophagitis Smokeless tobacco use BMI 50.0-59.9, adult Morbid obesity BMI 58.89 Contact prescribing physician if questions or concerns Unchanged rabeprazole (RABEprazole 5 mg oral delayed release capsule) 1 Capsules By Mouth Every dayContact prescribing physician if questions or concerns Unchanged testosterone (testosterone 20.25 mg/ 1.25 g (1.62%) transdermal gel) 2 Pump Topical Once a day (in the morning) Contact prescribing physician if questions or concerns Unchanged topiramate (Topamax 200 mg Tab) 1 Tablets By Mouth Every day Contact prescribing physician if questions or concerns Unchanged zinc sulfate (Zinc) Contact prescribing physician if questions or concerns Allergies No Known Medication Allergies Problems Ongoing - Any problem that you are currently receiving treatment for. Anxiety BMI 50.0-59.9, adult Chronic constipation Decreased libido Decreased testosterone level Depression Disassociation disorder Encounter for weight management Eosinophilic esophagitis Esophageal dysphagia Fatigue H/O gastric sleeve Hypogonadism male [place] grade C esophagitis Loud snoring Low testosterone in male Morbid obesity Obstructive sleep apnea Occipital neuralgia Screening for hypercholesterolemia Somnolence, daytime Wellness (more content not included)...[facility] Gastroenterology Office/Clinic Noteon [id number] Office/Clinic NoteGastroenterology Office/Clinic Note Chief Complaint follow up to egd HPI Staff This is a 33 year old male who presents today for a follow up to EGD. Needs to scheduled EGD for 07/2024 patient had issues with hernia for years, that has been causing pain. nexium bid, acid seems better, not as bad. swallowing is a lot easier than it was. Last office visit w/ Dr Espinoza History of Present Illness Pt with hx of EoE used to be on PPI in the past but currently on nexium 20 mg diagnosed in 2016 Has been avoiding steak since food could get stuck in the esophagus trouble swallowing pills hx of gastric sleeve has incomplete evacuation and wipes forever could spend hours in the bathroom Assessment/Plan 1. Eosinophilic esophagitis (K20.0: Eosinophilic esophagitis) 2. BMI 50.0-59.9, adult (Z68.43: Body mass index [BMI] 50.0-59.9, adult) 3. Esophageal dysphagia (R13.19: Other dysphagia) 4. H/O gastric sleeve (Z90.3: Acquired absence of stomach [part of]) 5. incomplete evacuation and altered bowel habits schedule EGD with bx and possible dilation cont PPI might be a candidate for for Dupixent cont to work on eating healthy and losing weight now with constipation but blaming it on medications advised to use fiber and docusate try prunes and kiwi fruit advised to use squatty potty pt to lose weight and eat healthy EGD w/ Dr Espinoza 04/06/24 Findings 1. Z-line at 37. Severe reflux esophagitis ([place] grade C). Nonobstructing Schatzki's ring. Large hiatal hernia measuring 12 cm. Biopsies obtained from mid and lower esophagus and from the ring. 2. Normal examined stomach 3. Normal duodenum. Impression and Plan severe reflux episodes Large hiatal hernia Nonobstructing Schatzki's ring Final Diagnosis (Verified) A: PROXIMAL ESOPHAGUS, BIOPSY: ? SQUAMOUS MUCOSA WITH NO SIGNIFICANT PATHOLOGIC CHANGES. B: DISTAL ESOPHAGUS, BIOPSY: ? GASTROESOPHAGEAL JUNCTION WITH MILD ESOPHAGITIS. ? NO INTESTINAL METAPLASIA IDENTIFIED (SEE COMMENT). Comment: Squamous epithelium of distal esophagus contains scattered intraepithelial eosinophils (upto 10 per high-power field). Clinical correlation is indicated for etiology. History of Present Illness I have reviewed HPI staff note, most recent labs and imaging, I agree with the above documentation with the following additions/exceptions : Pt is doing well no Nexium BID and it is helping swallowing is better followed up with surgery - might benefit from revision and hernia repair Review of Systems PHQ Score Initial Depression Screen Score: 0 SCORE All systems reviewed, negative except as mentioned above Physical Exam Vitals & Measurements HR: 82(Peripheral) RR: 16 BP: 130/82 HT: 70 in HT: 179 cm WT: 189 kg WT: 415.8 lb BMI: 58.99 General: alert, no acute distress HEENT: atraumatic normocephalic Cardiovascular: regular rate and rhythm, normal peripheral perfusion Respiratory: Lungs CTA, respirations non labored Extremities: no deformity, no trauma Abdomen: Benign, soft, nontender nondistended Assessment/Plan 1. Eosinophilic esophagitis (K20.0: Eosinophilic esophagitis) 2. Esophageal dysphagia (R13.19: Other dysphagia) 3. H/O gastric sleeve (Z90.3: Acquired absence of stomach [part of]) 4. Hiatal hernia (K44.9: Diaphragmatic hernia without obstruction or gangrene) 5. [place] grade C esophagitis (K20.80: Other esophagitis without bleeding) 6. BMI 50.0-59.9, adult (Z68.43: Body mass index [BMI] 50.0-59.9, adult) 7. Chronic constipation (K59.09: Other constipation) Continue Nexium 40 mg twice daily. Plan to repeat EGD after 3 months to assess healing Advised to follow-up with surgery to discuss revising gastric sleeve and correcting hiatal hernia. He is to see them next week Patient to continue to lose weight and eat healthy and exercise Continue to use Dulcolax and plan to have 1-2 bowel movements every day Continue to consume kiwi fruit Follow-up No qualifying data available Problem List/Past Medical History Ongoing Anxiety BMI 50.0-59.9, adult Chronic constipation Decreased libido Decreased testosterone level Depression Disassociation disorder Encounter for weight management Eosinophilic esophagitis Esophageal dysphagia Fatigue H/O gastric sleeve Hypogonadism male [place] grade C esophagitis Loud snoring Low testosterone in male Morbid obesity Obstructive sleep apnea Occipital neuralgia Screening for hypercholesterolemia Somnolence, daytime Wellness examination Witnessed episode of apnea Historical No qualifying data Procedure/Surgical History Esophagogastroduodenoscopy (04/06/2024), Colonoscopy, EGD (esophagogastroduodenoscopic) electrohydraulic lithotripsy of bezoar in stomach, Gastric sleeve, Myringotomy, T and A (tonsillectomy and adenoidectomy) postoperative education. Medications Ajovy 225 mg/1.5 mL subcutaneous solution, 225 mg, SubCutaneous, qMonth doc (more content not included)...[facility]:Result Comment: Electronically Signed By: Alexis SEGAL, Sera Marshall\.br\Date and Time Signed: 04/21/2410:49 EDTVitamin B1on 00-07-1322Izuhszz B1111 nmol/L [id number] Health St. Joseph Warren HospitalComment on above:Result Comment: (NOTE) INTERPRETIVE INFORMATION: Vitamin B1, Whole Blood This assay measures the concentration of thiamine diphosphate (TDP), the primary active form of vitamin B1. Approximately 90 percent of vitamin B1 present in whole blood is TDP. Thiamine and thiamine monophosphate, which comprise the remaining 10 percent, are not measured. This test was developed and its performance characteristics determined by [facility]. It has not been cleared or approved by the [place] Food and Drug Administration. This test was performed in a CLIA certified laboratory and is intended for clinical purposes. Performed By: [facility] [address] [place], [place] [id number] C.O.D. Clerk: Param Brown MD, PhD CLIA Number: [id number] By: #### LIPR #### [employer] [address] [id number] Brazing Machine Operator Helper: Ayo Baker MDVitamin Aon [id number] [facility] HospitalComup health system on above:Result Comment: (NOTE) This test was developed and its performance characteristics determined by [facility]. It has not been cleared or approved by the [place] Food and Drug Administration. This test was performed in a CLIA certified laboratory and is intended for clinical purposes. Performed By: [facility] [address] [place], [place] [id number] C.O.D. Clerk: Param Brown MD, PhD CLIA Number: [id number] By: #### LIPR #### [employer] [address] [place] [address] Brazing Machine Operator Helper: Ayo Baker MDRetinol (Vitamin A)0.50 mg/LNormal0.30-1.20[facility] Warren HospitalComment on above:Performed By: #### LIPR #### [facility] [employer] [address] [place] [address] Brazing Machine Operator Helper: DARLINE Pintoetinyl Palmitate<0.99Svxvcj7.00-0.10[facility] Warren HospitalComment on above:Performed By: #### LIPR #### [address] [address] Brazing Machine Operator Helper: Cecilio Pinto, Serumon [id number], Serum78.0 ug/dL Hxxcls11.0-120.0[facility] Joseph Warren HospitalComment on above:Result Comment: (NOTE) INTERPRETIVE INFORMATION: Zinc, Serum or Plasma Elevated results may be due to skin or collection-related contamination, including the use of a noncertified metal-free collection/transport tube. If contamination concerns exist due to elevated levels of serum/plasma zinc, confirmation with a second specimen collected in a certified metal-free tube is recommended. Circulating zinc concentrations are dependent on albumin status and are depressed with malnutrition. Zinc may also be lowered with infection, inflammation, stress, oral contraceptives, and . Zinc may be elevated with zinc supplementation or fasting. Elevated zinc concentrations may interfere with copper absorption. This test was developed and its performance characteristics determined by [facility]. It has not been cleared or approved by the US Food and Drug Administration. This test was performed in a CLIA certified laboratory and is intended for clinical purposes. Performed By: [facility] [address] [place] [id number] C.O.D. Clerk: Param Brown MD, PhD CLIA Number: [id number] By: #### LIPR #### [facility] [address] [place] [address] Brazing Machine Operator Helper: GILL Pinto/Folate Panelon [id number] (Vitamin B12) [Mass/Vol]449 pg/yDDcnvdd390-8222Ausyf Tiffin HospitalComment on above: Performed By: #### LIPR #### [facility] [address] [place] [address] Brazing Machine Operator Helper: Ayo Baker MDFolic Acid15.1 ng/mLNormal4.8-24.2Mtrihealth m[facility] hospitaly [place] HospitalComment on above:Performed By: #### LIPR #### [facility] [address] [place] [address] Brazing Machine Operator Helper: Ayo Baker MDFerritinon 47-47-2388Yxqjhcja [Mass/Vol]195 ng/gHZlfqkc51-637CjyjzMercy Health St. Joseph Warren HospitalComment on above:Result Comment: FERRITIN Reference Ranges: Adult Males 20 - 60 years: 30 - 400 ng/mL Adult females 17 - 60 years: 13 - 150 ng/mL Adults greater than 60 years: no established reference range Pediatrics: no established reference rangePerformed By: #### MG, CDP, CP #### [facility] [address] [place] [address] Brazing Machine Operator Helper: Yang Cintron MD #### FEBC, PTHNCA, B12FOL, FERI, GLYHGB, VD25 #### [address] [address] Brazing Machine Operator Helper: Ayo Baker MD #### GINGER GOEL AVITAS #### [facility] [address] [place] [address] Brazing Machine Operator Helper: Jordon Epstein MDHemoglobin A1Con 92-30-0400Poukwzx [Mass/Vol]105 mg/dLNormalMercy Health St. Joseph Warren HospitalComment on above:Result Comment: The ADA and AACC recommend providing the estimated average glucose result to permit better patient understanding of their HBA1c result.Performed By: #### LIPR #### [address] [address] Brazing Machine Operator Helper: Ayo Baker MDHbA1c (Bld) [Mass fraction]5.3 %Normal4.0-6.[address] [facility] Warren HospitalComment on above:Performed By: #### LIPR #### [address] [address] Brazing Machine Operator Helper: Alba Pinto Binding Cap.on 04-16-2024% Fe Fenxcjcggb36 %Jbzmeu24-06FbgtlMercy Health St. Joseph Warren HospitalComment on above:Performed By: #### MG CDP, CP #### [address] [place] [id number] Brazing Machine Operator Helper: Yang Cintron MD #### FEBC, PTHNCA, B12FOL, FERI, GLYHGB, VD25 #### [address] [phone] Brazing Machine Operator Helper: Ayo Baker MD #### GINGER GOEL, CLEM #### [address] [address] Brazing Machine Operator Helper: Alba Lobo [Mass/Vol]87 ug/aDVodpyw10-803ZkppvMercy Health St. Joseph Warren HospitalComment on above:Performed By: #### TORIBIO HARPER, CP #### [address] [place] [address] Brazing Machine Operator Helper: Yang Cintron MD #### LUISABC, PTHNCA, B12FOL, FERI, GLYHGB, VD25 #### [address] [id number] Brazing Machine Operator Helper: Ayo Baker MD #### ASHLEYTBMichael AZJordana, AVITAS #### [facility] [address] [place] [address] Brazing Machine Operator Helper: Shannan Lobo Fe Binding Rsp660 ug/uGFnurzz779-461BwxawMercy Health St. Joseph Warren HospitalComment on above:Performed By: #### MG CDP, CP #### [address] [place], [place] [id number] Brazing Machine Operator Helper: Yang Cintron MD #### FEBC, PTHNCA, B12FOL, FERI, GLYHGB, VD25 #### [facility] [employer] [address] [place] [address] Brazing Machine Operator Helper: Ayo Baker MD #### ASHLEYTB1, GINGER, CLEM #### [facility] [address] [place], [place] [id number] Brazing Machine Operator Helper: Jordon Epstein MDUnbound Fe Bind Poz511 ug/rVKmddif636-797SuvpsMercy Health St. Joseph Warren HospitalComment on above:Performed By: #### MG, CDP, CP #### [address] [place] [address] Brazing Machine Operator Helper: Yang Cintron MD #### FEBC, PTHNCA, B12FOL, FERI, GLYHGB, VD25 #### [facility] [employer] [address] [place] [address] Brazing Machine Operator Helper: Ayo Baker MD #### GINGER GOEL AVITAS #### [facility] [address] [place] [address] Brazing Machine Operator Helper: Jordon Epstein MDLipid Profileon 06-18-2141Waonrueioro [Mass/Vol] 150 mg/dLNormal0-199Mer[facility] St. Joseph Warren HospitalComment on above:Result Comment: Cholesterol Guidelines: <200 Desirable 200-240 Borderline >240 UndesirablePerformed By: #### LIPR #### [address] [address] Brazing Machine Operator Helper: CHAVO Pintoholesterol in HDL [Mass/Vol]38 mg/dLLow>40Mer[facility] St. Joseph Warren HospitalComment on above:Result Comment: HDL Guidelines: <40 Undesirable 40-59 Borderline >59 DesirablePerformed By: #### LIPR #### [address] [address] Brazing Machine Operator Helper: CHAVO Pintoholesterol in LDL [Mass/Vol]97 mg/dLNormal0-[address] [facility] Warren HospitalComment on above:Result Comment: LDL Guidelines: <100 Desirable 100-129 Near to/above Desirable 130-159 Borderline >159 Undesirable Direct (measured) LDL and calculated LDL are not interchangeable tests.Performed By: #### LIPR #### [address] [address] Brazing Machine Operator Helper: CHAVO Pintoholesterol in VLDL [Mass/Vol]16 mg/dLNormal [facility] Warren HospitalComment on above:Performed By: #### LIPR #### [address] [address] Brazing Machine Operator Helper: Marce Pintostomayra.total/Cholesterol in HDL [Mass ratio]4.0 {ratio}NormalMercy Health St. Joseph Warren HospitalComment on above:Performed By: #### LIPR #### [address] [address] Brazing Machine Operator Helper: Ayo Baker MDTriglyceride [Mass/Vol]79 mg/dLNormal<150Mer[facility] St. Joseph Warren HospitalComment on above:Result Comment: Triglyceride Guidelines: <150 Desirable 150-199 Borderline 200-499 High >499 Very high Based on AHA Guidelines for fasting triglyceride, April 2012.Performed By: #### LIPR #### [place] [address] Brazing Machine Operator Helper: Ayo Baker MDPTH, Intacton 77-74-3482DVA, Eykalq07.0 pg/mL Epmhew11-63KyoiqMercy Health St. Joseph Warren HospitalComment on above:Performed By: #### LIPR #### [address] [address] Brazing Machine Operator Helper: Ayo Baker MDThyroxine, Freeon 08-89-3633Mstygkabw, Free1.1 ng/dLNormal0.92-1.68[facility]. [facility] Warren HospitalComment on above:Performed By: #### TSH #### [address] [place] [address] Brazing Machine Operator Helper: Yang Cintron MD #### FT4 #### [address] [address] Brazing Machine Operator Helper: Ayo Baker MDVitamin D 25 OHon 42-33-1353Zinxhju D 25 OH19.2 ng/mLLow30.0-100.0[facility]. Joseph Warren HospitalComment on above:Result Comment: Reference Range: Vitamin D status Range Deficiency <20 ng/mL Mild Deficiency 20-30 ng/mL Sufficiency 30-100 ng/mL Toxicity >100 ng/mLPerformed By: #### TORIBIO HARPER, CP #### [address] [place], [place] 3184183 Brazing Machine Operator Helper: Yang Cintron MD #### JONH, ROLAA, B12FOL, FERI, GLYHGB, VD25 #### [facility] [employer] [address] [place] [address] Brazing Machine Operator Helper: Ayo Baker MD #### GINGER GOEL AVITAS #### [facility] [address] [place] [address] Brazing Machine Operator Helper: Jordon Epstein [facility] with Diffon 91-98-9625Mll. Basophil0.05 k/uL Normal0.00-0.20[facility]. [facility] Warren HospitalComment on above:Performed By: #### TORIBIO HARPER, CP #### [address] [place], [place] [phone] Brazing Machine Operator Helper: Yang Cintron MD #### ZACHARIAH BORJANCA, B12FOL, FERI, GLYHGB, VD25 #### [place] [id number] [place] [address] Brazing Machine Operator Helper: Ayo Baker MD #### GINGER GOEL AVITAS #### [facility] [address] [place] [address] Brazing Machine Operator Helper: Eric Lobo.Imm.Granulocyte0.04 k/uLNormal0.00-0.30[facility]. [facility] Warren HospitalComment on above:Performed By: #### MG, CDP, CP #### [address] [place] [address] Brazing Machine Operator Helper: Yang Cintron MD #### FEBC, PTHNCA, B12FOL, FERI, GLYHGB, VD25 #### [facility] [employer] [address] [place] [address] Brazing Machine Operator Helper: Ayo Baker MD #### AMANDO, CLEM MILES #### [facility] [address] [place] [address] Brazing Machine Operator Helper: Eric Lobo.Neutrophil (Seg)4.92 k/uLNormal1.50-8.10[facility] Warren HospitalComment on above:Performed By: #### TORIBIO HARPER, CP #### [address] [place], [place] 9843683 Brazing Machine Operator Helper: Yang Cintron MD #### JONH, PTHNCA, B12FOL, FERI, GLYHGB, VD25 #### [address] [address] Brazing Machine Operator Helper: Ayo Baker MD #### AMANDO, GINGER, CLEM #### [facility] [address] [place] [address] Brazing Machine Operator Helper: Jordon Epstein MDBasophils/100 WBC (Bld)1 %Normal0-2MNationwide Children's HospitalComment on above:Performed By: #### MG, CDP, CP #### [address] [place], [place] 0316983 Brazing Machine Operator Helper: Yang Cintron MD #### FEBC, PTHNCA, B12FOL, FERI, GLYHGB, VD25 #### [facility] [address] [place] [address] Brazing Machine Operator Helper: Ayo Baker MD #### AVITB1, AZN, ASHLEYTAMattie #### [facility] [address] [place] [address] Brazing Machine Operator Helper: Jordon Epstein MDEosinophils (Bld) [#/Vol]0.10 10*3/uLNormal 0.00-0.44[facility]. [facility] Warren HospitalComment on above:Performed By: #### MG, CDP, CP #### [address] [place] [phone] Brazing Machine Operator Helper: Yang Cintron MD #### FEBC, PTHNCA, B12FOL, FERI, GLYHGB, VD25 #### [address] [address] Brazing Machine Operator Helper: Ayo Baker MD #### AVITB1, AZN, HENRYS #### [facility] [address] [place], [place] [id number] Brazing Machine Operator Helper: Jordon Epstein MDEosinophils/100 WBC (Bld)1 %Normal1-4[facility] Warren HospitalComment on above:Performed By: #### MG, CDP, CP #### [address] [place] [phone] Brazing Machine Operator Helper: Yang Cintron MD #### FEBC, PTHNCA, B12FOL, FERI, GLYHGB, VD25 #### [facility] [address] [place] [address] Brazing Machine Operator Helper: Ayo Baker MD #### AVITB1, AZN, AVITAS #### [facility] [address] [place] [address] Brazing Machine Operator Helper: Jordon Epstein MDErythrocyte distribution width (RBC) [Ratio]13.2 %Hroxjj40.8-14.4[facility] Warren HospitalComment on above:Performed By: #### MG CDP, CP #### [address] [place] [phone] Brazing Machine Operator Helper: Yang Cintron MD #### FEBC, PTHNCA, B12FOL, FERI, GLYHGB, VD25 #### [address] [phone] Brazing Machine Operator Helper: Ayo Baker MD #### AVITB1, AZN, AVITAS #### [facility] [address] [place], [place] [id number] Brazing Machine Operator Helper: Jordon Epstein MDHematocrit (Bld) [Volume fraction]48.2 %Normal 40.7-50.3MNationwide Children's HospitalComment on above:Performed By: #### TORIBIO HARPER, CP #### [address] [place] [phone] Brazing Machine Operator Helper: Yang Cintron MD #### FEBC, PTHNCA, B12FOL, FERI, GLYHGB, VD25 #### [address] [id number] Brazing Machine Operator Helper: Ayo Baker MD #### AVITB1, AZN, AVITAS #### [facility] [address] [place] [address] [phone] Brazing Machine Operator Helper: Jordon Epstein MDHemoglobin (Bld) [Mass/Vol]15.6 g/dLNormal 13.0-17.0[facility]. [facility] Warren HospitalComment on above:Performed By: #### MG CDP, CP #### [address] [place] [phone] Brazing Machine Operator Helper: Yang Cintron MD #### FEBC, PTHNCA, B12FOL, FERI, GLYHGB, VD25 #### [address] [phone] Brazing Machine Operator Helper: Ayo Baker MD #### ASHLEYTB1, GINGER, CLEM #### [facility] [address] [place] [address] Brazing Machine Operator Helper: Jordon Epstein MDImmature granulocytes/100 WBC (Bld)1 %Orhj0WnuujMercy Health St. Joseph Warren HospitalComment on above:Performed By: #### MG, CDP, CP #### [address] [place] [phone] Brazing Machine Operator Helper: Yang Cintron MD #### FEBC, PTHNCA, B12FOL, FERI, GLYHGB, VD25 #### [facility] [address] [place] [address] Brazing Machine Operator Helper: Ayo Baker MD #### ASHLEYTB1, GINGER, CLEM #### [facility] [address] [place] [address] Brazing Machine Operator Helper: Jordon Epstein MDLymphocytes (Bld) [#/Vol]2.47 10*3/uLNormal 1.10-3.70[facility]. [facility] Warren HospitalComment on above:Performed By: #### , CDP, CP #### [address] [place] [phone] Brazing Machine Operator Helper: Yang Cintron MD #### FEBC, PTHNCA, B12FOL, FERI, GLYHGB, VD25 #### [facility] [address] [place] [address] Brazing Machine Operator Helper: Ayo Baker MD #### ASHLEYTB1, GINGER, CLEM #### [facility] [address] [place] [address] Brazing Machine Operator Helper: Jordon Epstein MDLymphocytes/100 WBC (Bld)31 %Hruhwz14-46XzcufMercy Health St. Joseph Warren HospitalComment on above:Performed By: #### MG, CDP, CP #### [address] [place], [place] 2611583 Brazing Machine Operator Helper: Yang Cintron MD #### FEBC, PTHNCA, B12FOL, FERI, GLYHGB, VD25 #### [address] [phone] Brazing Machine Operator Helper: Ayo Baker MD #### ASHLEYTB1, GINGER, CLEM #### [facility] [address] [place] [address] Brazing Machine Operator Helper: MARTIN Lobo (RBC) [Entitic mass]28.4 ouDlpnjf18.2-33.[address] [facility] Warren HospitalComment on above:Performed By: #### , CDP, CP #### [address] [place] [address] Brazing Machine Operator Helper: Yang Cintron MD #### FEBC, PTHNCA, B12FOL, FERI, GLYHGB, VD25 #### [address] [phone] Brazing Machine Operator Helper: Ayo Baker MD #### AMANDO, CLEM MILES #### [facility] [address] [place] [address] [phone] Brazing Machine Operator Helper: MARTIN LoboC (RBC) [Mass/Vol]32.4 g/vGFuejgx60.4-34.[address] [facility] Warren HospitalComment on above:Performed By: #### MG, CDP, CP #### [address] [place] [address] Brazing Machine Operator Helper: Yang Cintron MD #### FEBC, PTHNCA, B12FOL, FERI, GLYHGB, VD25 #### [address] [phone] Brazing Machine Operator Helper: Ayo Baker MD #### AVITB1, AZN, AVITAS #### [facility] [address] [place] [address] Brazing Machine Operator Helper: MANA LoboCV (RBC) [Entitic vol]87.8 oTOycmzt50.6-102.[address] [facility] Warren HospitalComment on above:Performed By: #### MG, CDP, CP #### [address] [place] [phone] Brazing Machine Operator Helper: Yang Cintron MD #### FEBC, PTHNCA, B12FOL, FERI, GLYHGB, VD25 #### [place] [phone] Brazing Machine Operator Helper: Ayo Baker MD #### AVITB1, AZN, AVITAS #### [facility] [address] [place], [place] [id number] Brazing Machine Operator Helper: MANA Loboonocytes (Bld) [#/Vol]0.48 10*3/uLNormal 0.10-1.20[facility] HospitalComment on above:Performed By: #### TORIBIO HARPER, CP #### [address] [place] [phone] Brazing Machine Operator Helper: Yang Cintron MD #### FEBC, PTHNCA, B12FOL, FERI, GLYHGB, VD25 #### [place] [phone] Brazing Machine Operator Helper: Ayo Baker MD #### AVITB1, AZN, AVITAS #### [facility] [address] [place], [place] [id number] Brazing Machine Operator Helper: MANA Loboonocytes/100 WBC (Bld)6 %Normal3-12[facility] HospitalComment on above:Performed By: #### MG, CDP, CP #### [address] [place] [address] Brazing Machine Operator Helper: Yang Cintron MD #### FEBC, PTHNCA, B12FOL, FERI, GLYHGB, VD25 #### [facility] [address] [place] [address] [phone] Brazing Machine Operator Helper: Ayo Baker MD #### AVITB1, AZN, AVITAS #### [facility] [address] [place], [place] [id number] Brazing Machine Operator Helper: Jordon Epstein MDNeutrophil (Seg)60 %Eztkzb91-17EztaeMercy Health St. Joseph Warren HospitalComment on above:Performed By: #### MG, CDP, CP #### [address] [place] [address] Brazing Machine Operator Helper: Yang Cintron MD #### FEBC, PTHNCA, B12FOL, FERI, GLYHGB, VD25 #### [facility] [address] [place] [address] [phone] Brazing Machine Operator Helper: Ayo Baker MD #### AVITB1, AZN, AVITAS #### [facility] [address] [place], [place] [id number] Brazing Machine Operator Helper: Jordon Epstein MDNRBC Automated0.0 per [address] [facility] Warren HospitalComment on above:Performed By: #### MG, CDP, CP #### [address] [place], [facility]83 Brazing Machine Operator Helper: Yang Cintron MD #### FEBC, PTHNCA, B12FOL, FERI, GLYHGB, VD25 #### [facility] [address] [place] [address] [phone] Brazing Machine Operator Helper: Ayo Baker MD #### AVITB1, AZN, AVITAS #### [facility] [address] [place], [place] [phone] Brazing Machine Operator Helper: SHARONDA Lobolatelet mean volume (Bld) [Entitic vol]11.9 fL Normal8.1-13.5[facility] HospitalComment on above:Performed By: #### TORIBIO HARPER, CP #### [address] [place], [place] [phone] Brazing Machine Operator Helper: Yang Cintron MD #### FEBC, PTHNCA, B12FOL, FERI, GLYHGB, VD25 #### [facility] [address] [place] [address] Brazing Machine Operator Helper: Ayo Baker MD #### AVITB1, AZN, AVITAS #### [facility] [address] [place], [place] [id number] Brazing Machine Operator Helper: Yady Lobo (Bld) [#/Vol]250 10*3/jWUxbmjb401-[address] [facility] HospitalComment on above:Performed By: #### TORIBIO HARPER, CP #### [address] [place], [facility]83 Brazing Machine Operator Helper: Yang Cintron MD #### FEBC, PTHNCA, B12FOL, FERI, GLYHGB, VD25 #### [address] [address] Brazing Machine Operator Helper: Ayo Baker MD #### ASHLEYTB1, MILAGROSN, AVITAS #### [facility] [address] [place], [place] [id number] Brazing Machine Operator Helper: MORELIA Lobo (Bld) [#/Vol]5.49 10*6/uLNormal4.21-5.77[facility] HospitalComment on above:Performed By: #### TORIBIO HARPER, CP #### [address] [place], [place] [phone] Brazing Machine Operator Helper: Yang Cintron MD #### FEBC, PTHNCA, B12FOL, FERI, GLYHGB, VD25 #### [facility] [address] [place] [address] Brazing Machine Operator Helper: Ayo Baker MD #### GINGER GOEL AVITAS #### [facility] [address] [place] [address] Brazing Machine Operator Helper: Jordon Epstein MDWBC (d) [#/Vol]8.1 10*3/uLNormal3.5-11.3[facility] HospitalComment on above:Performed By: #### MG, CDP, CP #### [address] [place] [address] Brazing Machine Operator Helper: Yang Cintron MD #### FEBC, PTHNCA, B12FOL, FERI, GLYHGB, VD25 #### [facility] [address] [place] [address] Brazing Machine Operator Helper: Ayo Baker MD #### AMANDO, GINGER, CLEM #### [facility] [address] [place], [place] [phone] Brazing Machine Operator Helper: CHAVO Lobojordan [facility] Metabolic Profon 34-10-6953Kcsmryl [Mass/Vol]4.1 g/dLNormal3.5-5.2[facility] HospitalComment on above:Performed By: #### MG, CDP, CP #### [address] [place], [place] 4267583 Brazing Machine Operator Helper: Yang Cintron MD #### FEBC, PTHNCA, B12FOL, FERI, GLYHGB, VD25 #### [facility] [address] [place] [address] Brazing Machine Operator Helper: Ayo Baker MD #### AVITB1, GINGER, CLEM #### [facility] [address] [place] [address] Brazing Machine Operator Helper: Jordon Epstein MDAlbumin/Glob Ratio1.1Dvsjqn6.0-2.5Mer[facility] HospitalComment on above:Performed By: #### MG, CDP, CP #### [address] [place], [place] 1711883 Brazing Machine Operator Helper: Yang Cintron MD #### FEBC, PTHNCA, B12FOL, FERI, GLYHGB, VD25 #### [facility] [address] [place] [address] [phone] Brazing Machine Operator Helper: Ayo Baker MD #### AVITB1, AZN, ASHLEYTAS #### [facility] [address] [place], [place] [id number] Brazing Machine Operator Helper: Alvaro Lobo Phos88 U/TWrpxar99-729DtgweMercy Health St. Joseph Warren HospitalComment on above:Performed By: #### MG, CDP, CP #### [address] [place] [phone] Brazing Machine Operator Helper: Yang Cintron MD #### FEBC, PTHNCA, B12FOL, FERI, GLYHGB, VD25 #### [facility] [address] [place] [address] [phone] Brazing Machine Operator Helper: Ayo Baker MD #### AVITB1, AZN, CLEM #### [facility] [address] [place] [address] Brazing Machine Operator Helper: JEANE Lobo [Catalytic activity/Vol]10 U/NUfcvkc04-[address] [facility] HospitalComup health system on above:Performed By: #### MG, CDP, CP #### [address] [place] [address] Brazing Machine Operator Helper: Yang Cintron MD #### FEBC, PTHNCA, B12FOL, FERI, GLYHGB, VD25 #### [facility] [address] [place] [address] [phone] Brazing Machine Operator Helper: Ayo Baker MD #### AVITB1, AZN, AVITAS #### [facility] [address] [place] [address] Brazing Machine Operator Helper: Charlotte Lobo gap [Moles/Vol]10 mmol/LNormal9-16[facility] HospitalComment on above:Performed By: #### MG, CDP, CP #### [address] [place] [address] Brazing Machine Operator Helper: Yang Cintron MD #### FEBC, PTHNCA, B12FOL, FERI, GLYHGB, VD25 #### [address] [phone] Brazing Machine Operator Helper: Ayo Baker MD #### AVITB1, AZN, ASHLEYTAS #### [facility] [address] [place], [place] [id number] Brazing Machine Operator Helper: Jordon Epstein MDAST [Catalytic activity/Vol]12 U/WGobeab12-[address] [facility] HospitalComment on above:Performed By: #### , CDP, CP #### [address] [place] [address] Brazing Machine Operator Helper: Yang Cintron MD #### FEBC, PTHNCA, B12FOL, FERI, GLYHGB, VD25 #### [address] [phone] Brazing Machine Operator Helper: Ayo Baker MD #### AVITB1, AZN, AVITAS #### [facility] [address] [place] [address] Brazing Machine Operator Helper: Jordon Epstein MDBilirubin [Mass/Vol]0.5 mg/dLNormal0.00-1.20[facility] HospitalComment on above:Performed By: #### MG, CDP, CP #### [address] [place] [address] Brazing Machine Operator Helper: Yang Cintron MD #### FEBC, PTHNCA, B12FOL, FERI, GLYHGB, VD25 #### [facility] [address] [place], [place] 2619908 Brazing Machine Operator Helper: Ayo Baker MD #### AVITB1, AZN, CLEM #### [facility] [address] [place], [place] [id number] Brazing Machine Operator Helper: Jordon Epstein MDBUN/CRE Pekar80Bvlvja9-69Grjud [facility] Comment on above:Performed By: #### , CDP, CP #### [address] [place] [address] Brazing Machine Operator Helper: Yang Cintron MD #### FEBC, PTHNCA, B12FOL, FERI, GLYHGB, VD25 #### [address] [id number] Brazing Machine Operator Helper: Ayo Baker MD #### AVITB1, GINGER, CLEM #### [facility] [address] [place] [address] Brazing Machine Operator Helper: CHAVO Loboalcium [Mass/Vol]9.3 mg/dLNormal8.6-10.4[facility] HospitalComment on above:Performed By: #### , CDP, CP #### [address] [place] [address] Brazing Machine Operator Helper: Yang Cintron MD #### FEBC, PTHNCA, B12FOL, FERI, GLYHGB, VD25 #### [facility] [address] [place] [address] [phone] Brazing Machine Operator Helper: Ayo Baker MD #### AVITB1, AZN, ASHLEYTAS #### [facility] [address] [place], [place] [id number] Brazing Machine Operator Helper: Jordon Epstein MDChloride [Moles/Vol]104 mmol/HHjvfnb56-661IepbhMercy Health St. Joseph Warren HospitalComment on above:Performed By: #### MG, CDP, CP #### [address] [place], [place] 5963083 Brazing Machine Operator Helper: Yang Cintron MD #### FEBC, PTHNCA, B12FOL, FERI, GLYHGB, VD25 #### [address] [id number] Brazing Machine Operator Helper: Ayo Baker MD #### AVITB1, AZN, AVITAS #### [facility] [address] [place], [place] [id number] Brazing Machine Operator Helper: CHAVO LoboO2 [Moles/Vol]23 mmol/[id number] Health St. Joseph Warren HospitalComment on above:Performed By: #### , CDP, CP #### [address] [place] [id number] Brazing Machine Operator Helper: Yang Cintron MD #### FEBC, PTHNCA, B12FOL, FERI, GLYHGB, VD25 #### [address] [id number] Brazing Machine Operator Helper: Ayo Baker MD #### ASHLEYTB1, AZN, AVITAS #### [facility] [address] [place] [address] Brazing Machine Operator Helper: CHAVO Loboreatinine [Mass/Vol]0.9 mg/dLNormal0.70-1.[address] [facility] Warren HospitalComment on above:Performed By: #### MG, CDP, CP #### [address] [place] [address] Brazing Machine Operator Helper: Yang Cintron MD #### FEBC, PTHNCA, B12FOL, FERI, GLYHGB, VD25 #### [address] [id number] Brazing Machine Operator Helper: Ayo Baker MD #### GINGER GOEL AVITAS #### [facility] [address] [place] [address] Brazing Machine Operator Helper: Jordon Epstein MDGFR/1.73 sq M.predicted among non-blacks MDRD (S/P/Bld) [Vol rate/Area]mL/min/{1.73_m2}Normal>60[facility] Warren HospitalComment on above:Result Comment: These results are not intended for use in patients <18 years of age. eGFR results are calculated without a race factor using the 2020 CKD-EPI equation. Careful clinical correlation is recommended, particularly when comparing to results calculated using previous equations. The CKD-EPI equation is less accurate in patients with extremes of muscle mass, extra-renal metabolism of creatine, excessive creatine ingestion, or following therapy that affects renal tubular secretion.Performed By: #### MG CDP, CP #### [address] [place] [address] Brazing Machine Operator Helper: Yang Cintron MD #### FEBC, PTHNCA, B12FOL, FERI, GLYHGB, VD25 #### [facility] [employer] [address] [place] [address] Brazing Machine Operator Helper: Ayo Baker MD #### GINGER GOEL AVITAS #### [facility] [address] [place] [address] Brazing Machine Operator Helper: Jordon Epstein MDGlucose [Mass/Vol]98 mg/rHZrnkwo16-70Yqbck[address] [place], [place] [address] on above:Performed By: #### MG, CDP, CP #### [address] [place] [address] Brazing Machine Operator Helper: Yang Cintron MD #### FEBC, PTHNCA, B12FOL, FERI, GLYHGB, VD25 #### [facility] [address] [place] [address] Brazing Machine Operator Helper: Ayo Baker MD #### AVITB1, AZN, ASHLEYTAS #### [facility] [address] [place], [place] [id number] Brazing Machine Operator Helper: SHARODNA Lobootassium [Moles/Vol]4.0 mmol/LNormal3.7-5.3[facility] HospitalComment on above:Performed By: #### MG, CDP, CP #### [address] [place] [address] Brazing Machine Operator Helper: Yang Cintron MD #### FEBC, PTHNCA, B12FOL, FERI, GLYHGB, VD25 #### [address] [id number] Brazing Machine Operator Helper: Ayo Baker MD #### AVITB1, AZN, AVITAS #### [facility] [address] [place], [place] [id number] Brazing Machine Operator Helper: SHARONDA Loborotein [Mass/Vol]6.8 g/dLNormal6.6-8.7[facility] HospitalComment on above:Performed By: #### TORIBIO HARPER, CP #### [address] [place] [id number] Brazing Machine Operator Helper: Yang Cintron MD #### FEBC, PTHNCA, B12FOL, FERI, GLYHGB, VD25 #### [place] [id number] Brazing Machine Operator Helper: Ayo Baker MD #### AVITB1, AZN, AVITAS #### [facility] [address] [place], [place] [id number] Brazing Machine Operator Helper: Jordon Epstein MDSodium [Moles/Vol]137 mmol/XAcvthh011-146Reqps [facility]iff[facility] HospitalComment on above:Performed By: #### MG, CDP, CP #### [address] [place] [address] Brazing Machine Operator Helper: Yang Cintron MD #### FEBC, PTHNCA, B12FOL, FERI, GLYHGB, VD25 #### [address] [id number] Brazing Machine Operator Helper: Ayo Baker MD #### AVITB1, AZN, AVITAS #### [facility] [address] [place], [place] [id number] Brazing Machine Operator Helper: Jordon Epstein MDUrea nitrogen [Mass/Vol]14 mg/dLNormal6-20[facility] HospitalComment on above:Performed By: #### TORIBIO HARPER, CP #### [address] [place] [address] Brazing Machine Operator Helper: Yang Cintron MD #### FEBC, PTHNCA, B12FOL, FERI, GLYHGB, VD25 #### [place] [id number] Brazing Machine Operator Helper: Ayo Baker MD #### AVITB1, MILAGROSN, ASHLEYTAS #### [facility] [address] [place] [address] Brazing Machine Operator Helper: Marshall Lobognesiumon [id number] [Mass/Vol]2.1 mg/dLNormal1.6-2.6[facility] HospitalComment on above:Performed By: #### MG CDP, CP #### [address] [place] [address] Brazing Machine Operator Helper: Yang Cintron MD #### FEBC, PTHNCA, B12FOL, FERI, GLYHGB, VD25 #### [place] [id number] Brazing Machine Operator Helper: Ayo Baker MD #### AVITB1, AZN, AVITAS #### [facility] [address] [place] [address] Brazing Machine Operator Helper: Jordon Epstein MDThyroid Stim. Horm.on [id number] Stim. Horm.1.38 uIU/mLNormal0.27-4.20[facility] HospitalComment on above:Performed By: #### TSH #### [facility] [address] [place] [address] Brazing Machine Operator Helper: Yang Cintron MD #### FT4 #### [facility] [employer] [address] [place], [place] [id number] Brazing Machine Operator Helper: ART Pintourgical Pathology Reporton [id number] Pathology Report[address] [address]- Surgical Pathology Report Collected Date/Time: 04/06/2024 09:26 EDT Pathologist: Dudley SEGAL PhD, Rolando Mccord Received Date/Time: 04/06/2024 11:24 EDT Alexis SEGAL, Sera Espinoza MD, Sera Young Surgical Pathology Report - 04/08/2024 16:51 EDT - Auth (Verified) Final Diagnosis A: PROXIMAL ESOPHAGUS, BIOPSY: - SQUAMOUS MUCOSA WITH NO SIGNIFICANT PATHOLOGIC CHANGES. B: DISTAL ESOPHAGUS, BIOPSY: - GASTROESOPHAGEAL JUNCTION WITH MILD ESOPHAGITIS. - NO INTESTINAL METAPLASIA IDENTIFIED (SEE COMMENT). Comment: Squamous epithelium of distal esophagus contains scattered intraepithelial eosinophils (up to 10 per high-power field). Clinical correlation is indicated for etiology. (Electronic Signature) Rolando Buckner MD PhD 04/08/2024 16:51 Clinical Information Eosinophilic esophagitis, dysphagia Pre-Op Diagnosis: Eosinophilic esophagitis, dysphagia Procedure: EGD Post-Op Diagnosis: 1. Severe esophagitis 2. Large hiatal hernia 3. Nonobstructing Schatzki's ring Specimen(s) Received A.Proximal esophagus biopsy B.Distal esophagus biopsy Gross Description A: Received in formalin labeled with patient name, number, and proximal esophagus biopsy are multiple fragments of parkinson/pink tissue ranging from less than 0.1 cm up to 0.3 cm in greatest dimension. Specimen is entirely submitted in one cassette. B: Received in formalin labeled with patient name, number, and distal esophagus biopsy are multiple fragments of parkinson/pink tissue ranging from less than 0.1 cm up to 0.5 cm in greatest dimension. Specimen is entirely submitted in one cassette. (DC) DC:[facility] Microscopic Description Microscopic examination performed unless gross only specified.[facility] HospitalComment on above:Performed By: #### [id number] #### [facility] [address], [place] [address]Pxrn OR Intraoperative Recordon [id number] OR Intraoperative RecordMain OR Intraoperative Record IntraOp Document Type FT Summary Primary Physician: Sera Espinoza MD Finalized Date/Time: 04/07/24 09:17:06 Pt. Name: ONEAL ECKERT/Sex: 1990 Male Med Rec #: [id number] Physician: Sera Espinoza MD Financial #: [id number] Pt. Type: O Room/Bed: / Admit/Disch: 04/06/24 08:12:57 - 04/06/24 23:59:59 Institution: Case Times FT Entry 1 Patient Times In Room 04/06/24 09:16:00 Out Room 04/06/24 09:33:00 Procedure Times Start 04/06/24 09:23:00 Stop 04/06/24 09:27:00 Anesthesia Times Start 04/06/24 09:16:00 Stop 04/06/24 09:33:00 Last Modified By: Alonso Dykes RN 04/06/24 09:33:31 General Comments: 04/07/24 Chart opened to review and send charges LRoth CSFA Case Attendance FT Entry 1 Entry 2 Entry 3 Case Attendee Corie MA, HOG STOMACH PREPARER, Queen Jania GRACE, Francisco Javier Lombardo Role Performed HOG STOMACH PREPARER Slitter Creaser Slotter Operator - Primary Scrub - Primary Time In 04/06/24 09:16:00 04/06/24 09:16:00 04/06/24 09:16:00 Time Out 04/06/24 09:33:00 04/06/24 09:33:00 04/06/24 09:33:00 Procedure EGD(.) EGD(.) EGD(.) Comments Dr. Liu supervising case Last Modified By: Alonso Dykes RN, RN, Morgan E Souter RN, Morgan E 04/06/24 09:33:32 04/06/24 09:33:32 04/06/24 09:33:32 Entry 4 Case Attendee Alexis SEGAL, Sera Marshall Role Performed Surgeon - Primary Time In 04/06/24 09:16:00 Time Out 04/06/24 09:33:00 Procedure EGD(.) Comments Last Modified By: Alonso Dykes RN 04/06/24 09:33:32 Perioperative Protocols FT Pre-Care Text: Implements protective measures prior to operative or invasive procedure, confirms identity before the operative or invasive procedure, verifies operative procedure, surgical site, and laterality Entry 1 Procedure(s) EGD(.) Patient Identity Birthday, ID Band Verified (select at Check, Patient least 2): Participation Consents / H and P Anesthesia Consent, Operative Site N/A Verified H&P, Surgery/Procedure Marking Verified Consent Surgical Site No Laterality Verified n/a Verified Procedure Verified Yes Correct Patient Yes Position Verified Availability Equipment, Medication Prep Dry n/a Verified (If Applicable) PreOp Antibiotic No Time Out Mitpedro luis DNP, HOG STOMACH PREPARER, Domínguez Given Participants N., Alonso Dykes RN, Francisco Javier Kenny, Alexis SEGAL, Sera Marshall Time Out Complete 04/06/24 09:18:00 Outcomes Met? Yes Last Modified By: Alonso Dykes RN 04/06/24 09:18:35 Post-Care Text: The patient is free from signs and symptoms of injury caused by extraneous objects Allergy Information FT Pre-Care Text: Verifies allergies Entry 1 Allergies Reviewed? Yes Allergies Reviewed Self/Patient With Outcomes Met? Yes Last Modified By: Alonso Dykes RN 04/06/24 09:18:41 Post-Care Text: The patient received appropriate medication(s) safely administered during the perioperative period Surgical Procedures FT Entry 1 Procedure Description Procedure EGD Modifiers . Surgeon Description EGD with distal esophagus biopsy, proximal esophagus biopsy, and disruption of schatzki ring using biopsy forceps Primary Procedure Yes Primary Surgeon Alexis SEGAL, Sera Marshall Start 04/06/24 09:23:00 Stop 04/06/24 09:27:00 Anesthesia Type General Surgical Service Gastroenterology Wound Class 2 - Clean-Contaminated Last Modified By: Alonso Dykes RN 04/06/24 09:32:28 General Case Data FT Pre-Care Text: Classifies surgical wound, implements aseptic technique, initiates traffic control Entry 1 Case Information OR ENDO 1 FT Case Level Level 2 Wound Class 2 - Clean-Contaminated Specialty Gastroenterology ASA Class 3 Preop Diagnosis Eosinophilic Postop Same As Preop No esophagitis, Dysphagia Postop Diagnosis Hiatal hernia, LA Grade Outcomes Met? Yes C esophagitis, Schatzki ring Last Modified By: Alonso Dykes RN 04/06/24 09:31:40 Post-Care Text: The patient is free from signs and symptoms of infection Skin Assessment (Pre Procedure) FT Pre-Care Text: Implements protective measures to prevent skin/ tissue injury due to thermal or mechanical sources Evaluates for signs and symptoms of physical injury to skin and tissue Entry 1 Skin Integrity Dry, Warm Skin Abnormality No Outcomes Met? Yes Last Modified By: Alonso Dykes RN 04/06/24 09:19:33 Post-Care Text: The patient is free from signs and symptoms of injury caused by extraneous objects Patient Positioning FT Pre-Care Text: Identifies physical alterations that require additional precautions for procedure-specific positioning, verifies presence of prosthetics or corrective devices, positions the patient, evaluates the patient for signs and symptoms of injury as a result of positioning Entry 1 Procedure EGD(.) Body Position Lateral, right side up Feet Uncrossed? Yes Left Arm Position Resting at Side Right Arm Position Resting at Side Left Leg Position Extended Right Leg Positi (more content not included)...[facility] [id number]aw[facility] Case Information Case Priority: None Programs: -- Referral Source: Hand Pleater Referral Reason: Care coordination Case Type: High Risk Adult Risk Score: -- Case Status: Enrolled (March 14, 2024) Date Assigned: March 14, 2024 Assigned By: Davie Cabrera Date Enrolled: March 14, 2024 Assigned Primary Personnel: Davie Cabrera Assigned Secondary Personnel: -- Case Physician: Jeancarlos Maguire Problems Ongoing Anxiety BMI 50.0-59.9, adult Decreased libido Decreased testosterone level Depression Disassociation disorder Encounter for weight management Eosinophilic esophagitis Esophageal dysphagia Fatigue H/O gastric sleeve Hypogonadism male Loud snoring Low testosterone in male Morbid obesity Obstructive sleep apnea Occipital neuralgia Screening for hypercholesterolemia Somnolence, daytime Wellness examination Witnessed episode of apnea Historical No qualifying data Procedure/Surgical History Esophagogastroduodenoscopy (04/06/2024), Colonoscopy, EGD (esophagogastroduodenoscopic) electrohydraulic lithotripsy of bezoar in stomach, Gastric sleeve, Myringotomy, T and A (tonsillectomy and adenoidectomy) postoperative education. Home Medications Ajovy 225 mg/1.5 mL subcutaneous solution, 225 mg, SubCutaneous, qMonth docusate, 100 mg, Oral, Daily duloxetine 60 mg Cap-DR, 60 mg, Oral, Daily gabapentin 300 mg Cap, 300 mg= 1 cap(s), Oral, BID naproxen sodium 550 mg Tab, 550 mg= 1 tab(s), Oral, BID Nexium, 20 mg, Oral, Daily nortriptyline 50 mg oral capsule, 50 mg= [...] within last 30 days Smokeless Tobacco Use:. Oral, chewing tabacco , Household tobacco concerns: No. Yes, 04/01/2024 Family History Primary malignant neoplasm of colon: Grandparent. Thyroid cancer: Grandparent. Screenings and Assessments 03/14/24 11:35:00 Result Name Value Comment Phone Call Monitoring Consent Agreed to continue call Phone Verification Patient Information Full name, street address and date of verified CM Program Enrollment Provides verbal consent for enrollment Goals and Interventions Care Plan Progress Note [facility]#4- Called patient for final follow up call. Patient notes he is doing 'okay.' Notes that EGD was completed yesterday and he was found to have a hiatal hernia. Patient states that the diagnosis explains a lot of the symptoms he had been having over the last year or so; CP, SOB, cramping. Patientis waiting to hear back from for follow-up and biopsy results. Patient spoke with SW from [facility] yesterday and she provided a list of psychiatrist for him to possibly to follow. Patient states he hasnot heard from [facility] as of today. CN advised patient it is his choice where he decides to follow and encouraged to review list today to prevent any further delay. Advised patient to call if anything further needed, he verbalized understanding. Patient denies any need for medication refills. Patient denies any further questions or concerns. 0856- message left with [facility] of Sandhya in follow up of psych referral. Communication Events Date: April 07, 2024 Method: Phone call Type: Outbound Duration (min): 8 Outcome: Case discussion Contact Type: Patient Contact Name: ONEAL ECKERT Notes: MATHEMATICAL TECHNICIAN#4- see note Created By: Davie Cabrera Date: March 31, 2024 Method: Phone call Type: Outbound Duration (min): 19 Outcome: Case handoff Contact Type: Patient Contact Name: ONEAL ECKERT Notes: MATHEMATICAL TECHNICIAN#3- see educational technician note. Created By: Davie Cabrera Date: March 21, 2024 Method: Phone call Type: Outbound Duration (min): 1 Outcome: Left message-voicemail Contact Type: Patient Contact Name: ONAEL ECKERT Notes: MATHEMATICAL TECHNICIAN#2- message left for return call. Created By: Davie Cabrera Date: March 14, 2024 Method: Phone call Type: Outbound Duration (min): 11 Outcome: Case discussion Contact Type: Patient Contact Name: ONEAL ECKERT Notes: MATHEMATICAL TECHNICIAN#1- see educational technician note. Created By: Davie Cabrera RNBluffton HospitalCNon 04-06-2024 CNPNTelephone (CHUYN) ONEAL ECKERT ([id number]) 1990 Date Time Provider Department 04/06/24 NI LUJAN During your visit today, we recorded the following information about you: Ni Lujan LISW 04/06/2024 2:48 PM Addendum AUTO PARTS HANDLER received consult stating patient is requesting assistance in finding mental health resources. AUTO PARTS HANDLER called patient to discuss. Patient reported during recent PMU stay providers questioned whether his staring spells are caused by mental health concerns/dissociation. He stated he was hoping to get services through an agency near him but he can no longer get a hold of them. He is seeking this account underwriter's assistance. AUTO PARTS HANDLER informed pt account underwriter can ask for a psychiatry consult for patient, which pt said he would appreciate. AUTO PARTS HANDLER also inquired about therapy, and pt said he is interested in beginning talk therapy as well. Pt stated he is not interested in going through [facility] [place], and is open to seeing a female virtually. Patient also reported he has been denied SSDI and is appealing it. He said with his migraines he tends to sleep a lot, and this was witnessed during EMU stay. Pt is curious if a provider from EMU would be willing to write a statement he can provide to SSDI stating his excess sleep. Pt said he spoke with Kaitlin Ramirez about this and she was going to provide patient with some kind of report, but he has not received it yet. Plan: AUTO PARTS HANDLER consulted [facility] team to complete a psychiatry referral AUTO PARTS HANDLER routed message to [facility] team for follow-up regarding report to be sent to pt AUTO PARTS HANDLER sent in request to providers regarding letter pt is hoping to receive about excess sleep in EMU for SSDI AUTO PARTS HANDLER sent patient via [employer] therapy options Encouraged patient to reach back out with additional questions. Mayela Ramos PA-C 04/06/2024 3:04 PM Signed Addended by: MAYELA RAMOS on: 04/06/2024 03:04 PM Modules accepted: Orders Allergies As of Date: 04/06/2024 (No Known Allergies) Date Reviewed: 03/29/2024 Reviewed by: Tommy Sims MA - Fully Assessed Reason for Visit: Social Work Services [507] Primary Visit Diagnosis:Depression, unspecified depression type [F32.A] Order(s):CONSULT TO PSYCHIATRY [9035] Order #: [id number]: 1 FUTURE Prescriptions as of 04/06/2024 - gabapentin (NEURONTIN) 300 mg capsule Take 1 capsule by mouth two times a day for 14 days. For sensitivity following monitoring - docusate sodium (COLACE) 100 mg capsule Take 1 capsule by mouth two times a day. - nortriptyline (PAMELOR) 50 mg capsule Take 1 capsule by mouth daily at bedtime. - DULoxetine (CYMBALTA) 60 mg capsule Take 1 capsule by mouth once daily. - topiramate (TOPAMAX) 200 mg tablet Take 1 tablet by mouth once daily. - testosterone (ANDROGEL) 1.62 % (20.25 mg/1.25 gram) glpk Apply 1 Pump as directed once daily. - Naproxen Sodium 550 mg tablet take 1 tablet by mouth 2 times a day as needed - fremanezumab-vfrm (AJOVY AUTOINJECTOR) 225 mg/1.5 mL auto-injector Inject 1.5 mL subcutaneously once every month. - Phentermine HCl (ADIPEX-P) 37.5 mg capsule Take 37.5 mg by mouth once daily. Problem List As Of Date 04/06/2024 Noted Resolved Seizure-like activity (HCC) [R56.9] 03/10/2024 Obesity, Class III, BMI >= 40 [E66.01] 03/11/2024 Encounter Status:Closed by NI LUJAN on 04/06/24[facility] CenterDis[facility] Instructionson [id number] InstructionsDischarge Instructions ONEAL ECKERT :1990 Visit Date:04/06/2024 Inpatient Discharge Instructions Your Care Team Admitting Physician - Sera Espinoza MD Referring Physician - Sera Espinoza MD Reason for Your Visit EOE, ESOPHAGEAL DYSPHAGIA Your Diagnosis Hernia, hiatal [place] grade C esophagitis Tests Performed Pathology Tissue Exam -- Results Pending -- Please visit your patient portal for your results or contact your primary care physician. This Is Your Medications List docusate duloxetine (duloxetine 60 mg Cap-DR) esomeprazole (Nexium) fremanezumab (Ajovy 225 mg/1.5 mL subcutaneous solution) gabapentin (gabapentin 300 mg Cap) naproxen (naproxen sodium 550 mg Tab) nortriptyline (nortriptyline 50 mg oral capsule) phentermine (phentermine 37.5 mg Tab) testosterone (testosterone 20.25 mg/1.25 g (1.62%) transdermal gel) topiramate (Topamax 200 mg Tab) Procedure History Esophagogastroduodenoscopy (04/06/2024), Colonoscopy, EGD (esophagogastroduodenoscopic) electrohydraulic lithotripsy of bezoar in stomach, Gastric sleeve, Myringotomy, T and A (tonsillectomy and adenoidectomy) postoperative education. What to do next Instructions From Your Doctor No qualifying data available. Previously Scheduled Follow-Up Appointments 2023 10:00 AM EST With: Jeancarlos Maguire Where: [place] [phone]- New Follow Up Appointments after Discharge Follow Up with Alexis SEGAL, ROSIO Amador, [facility] When: Comments: Call for any problems. The office will reach out in about one week from procedure date. Where: Medications What How Much When Why Instructions Next Dose Changed topiramate (Topamax 200 mg Tab) 1 Tablets By Mouth Every day Unchanged docusate 100 Milligram By Mouth Every day Unchanged duloxetine (duloxetine 60 mg Cap-DR) 60 Milligram By Mouth Every day Unchanged esomeprazole (Nexium) 20 Milligram By Mouth Every day Unchanged fremanezumab (Ajovy 225 mg/ 1.5 mL subcutaneous solution) 225 Milligram Subcutaneous Oncea month Unchanged gabapentin (gabapentin 300 mg Cap) 1 Capsules By Mouth 2 times a day Unchanged naproxen (naproxen sodium 550 mg Tab) 1 Tablets By Mouth 2 times a day as needed Unchanged nortriptyline (nortriptyline 50 mg oral capsule) 1 Capsules By Mouth Once a day (at bedtime) Unchanged phentermine (phentermine 37.5 mg Tab) 1 Tablets By Mouth Every day Anxiety Depression Eosinophilic esophagitis Smokeless tobacco use BMI 50.0-59.9, adult Morbid obesity BMI 58.89 Unchanged testosterone (testosterone 20.25 mg/ 1.25 g (1.62%) transdermal gel) 2 Pump Topical Once a day (in the morning) Test Results No qualifying data available. Allergies No Known Medication Allergies Problems Ongoing - Any problem that you are currently receiving treatment for. Anxiety BMI 50.0-59.9, adult Decreased libido Decreased testosterone level Depression Disassociation disorder Encounter for weight management Eosinophilic esophagitis Esophageal dysphagia Fatigue H/O gastric sleeve Hypogonadism male Loud snoring Low testosterone in male Morbid obesity Obstructive sleep apnea Occipital neuralgia Screening for hypercholesterolemia Somnolence, daytime Wellness examination Witnessed episode of apnea Education Materials Esophageal Stricture Esophageal stricture is a narrowing of the esophagus. The esophagus is the part of the body that moves food and liquid from your mouth to your stomach. The esophagus can become narrow because of disease or damage to the area. This condition can make swallowing difficult, painful, or even impossible. It also makes choking more likely. What are the causes? The most common cause of this condition is gastroesophageal reflux disease (GERD). Normally, food travels down the esophagus and stays in the stomach to be digested. In GERD, food and stomach acid move back up into the esophagus. Over time, this causes scar tissue and leads to narrowing. Other causes of esophageal stricture include: ? Scarring from swallowing a harmful substance. ? Damage from medical instruments used in the esophagus. ? Radiation therapy. ? Cancer. ? Inflammation of the esophagus. What increases the risk? You are more likely to develop an esophageal stricture if you have GERD or esophageal cancer. What are the signs or symptoms? Symptoms of this condition include: ? Difficulty swallowing. ? Pain when swallowing. ? Burning pain or discomfort in the throat or chest (heartburn). ? Vomiting or spitting up food or liquids. ? Unexplained weight loss. How is this diagnosed? This condition may be diagnosed based on: ? Your symptoms and a physical exam. ? Tests, such as: ? Upper endoscopy. Your health care provider will insert a flexible (more content not included)...[facility] HospitalComment on above:Result Comment: Electronically Signed By: Elda Sauceda I\.br\Date and Time Signed: 04/06/24 09:49 EDTH&P Updateon 04-06-2024H&P UpdateH&P Update Patient: ONEAL ECKERT Age: 33 years Sex: Male : 1990 Associated Diagnoses: None Author: Sera Espinoza MD Preoperative Information Chief compliant/Indication for procedure: EOE Chief Complaint as above Review of Systems All systems reviewed, negative except as mentioned above Physical Examination Vital Signs (last 24 hrs) Last Charted Temp Temporal L 36.2 DegC (APR 06:) Heart Rate Monitored 70 bpm (APR 06:) Resp Rate 15 br/min (APR 06) SBP 130 mmHg (APR 06) DBP 76 mmHg (APR 06:) Weight 188.3 kg (APR 06:) BMI 58.77 (APR 06:) General: in Nad Abdomen: Soft, NTND Impression and Plan Diagnosis: [facility]ysph[facility] PACU II Recordon [id number] OR PACU II RecordMain OR PACU II Record PACU Phase II Document Type FT Summary Primary Physician: Sera Espinoza MD Finalized Date/Time: 04/06/24 10:28:43 Pt. Name: ONEAL ECKERT/Sex: 1990 Male Med Rec #: [id number] Physician: Sera Espinoza MD Financial #: [id number] Pt. Type: O Room/Bed: / Admit/Disch: 04/06/24 08:12:57 - Institution: Case Times PACU II FT Pre-Care Text: Identifies barriers to communication and implements measures to provide psychological support and determines knowledge level Develops individualized plan of care, and ensures continuity of care Maintains patient's dignity and privacy, and maintains patient confidentiality Identifies and reports philosophical, cultural, and spiritual beliefs and values Identifies individual values and wishes concerning care administers prescribed antibiotic therapy and immunizing agents as ordered, Evaluates postoperative tissue perfusion Implements thermoregulation measures, and monitors body temperature Evaluates postoperative respiratory statusEvaluates postoperative cardiac status Evaluates postoperative neurological status Assesses pain control, collaborated in initiating patient-controlled analgesia and implements alternative methods of pain control Verifies allergies, administers prescribed medications and solutions, evaluates response to medications Entry 1 In PACU II 04/06/24 09:35:00 Discharge from PACU 04/06/24 10:05:00 II Outcomes Met? Yes Last Modified By: Elda Sauceda I 04/06/24 10:28:39 Post-Care Text: The patient demonstrates knowledge of the expected response to the operative or invasive procedure The patient's care is consistent with the individualized perioperative plan of care The patient's rightto privacy is maintained The patient's value system, lifestyle, ethnicity, and culture are considered, respected, and incorporated into the perioperative plan of care The patient participates in decisions affecting his or her perioperative plan of care. The patient is free from signs and symptoms of infection The patient has wound/tissue perfusion consistent with or improved from baseline levels established preoperatively The patient is at or returning to normothermia at the conclusion of the immediate postoperative period The patient's respiratory function is consistent with or improved from baseline levels established preoperativelyThe patient's cardiovascular status is consistent with or improved from baseline levels established preoperatively The patient's neurological status is consistent with or improved from baseline levels established preoperatively The patient demonstrates and/or reports adequate pain control throughout the perioperative period The patient received appropriate medication(s), safely administered during the perioperativeperiod Finalized By: Elda Sauceda I Document Signatures Signed By: Elda Sauceda I 04/06/24 10:28[facility] Preoperative Recordon [id number] OR Preoperative RecordMain OR Preoperative Record Holding Area Document Type FT Summary Primary Physician: Sera Espinoza MD Finalized Date/Time: 04/06/24 08:22:38 Pt. Name: ONEAL ECKERT/Sex: 1990 Male Med Rec #: [id number] Physician: Sera Espinoza MD Financial #: [id number] Pt. Type: O Room/Bed: / Admit/Disch: 04/06/24 08:12:57 - Institution: Case Times Holding FT Pre-Care Text: Verifies consent for planned procedure, identifies individual values and wishes concerning care, includes family members in perioperative teaching Secures patient's records' belongings, and valuables, maintains patient's dignity and privacy, and maintains patient confidentiality Entry 1 In Holding 04/06/24 08:15:00 Outcomes Met? Yes Last Modified By: Lina Jaramillo RN 04/06/24 08:20:43 Post-Care Text: The patient participates in decisions affecting his or her perioperative plan of care The patient'sright to privacy is maintained Surgery Checklist FT Entry 1 Patient Birthday, ID Band Procedure History and Physical, Identification: Check, Patient Verification: Surgical Consent, With Participation Patient NPO after Midnight: Yes Date/Time: 04/06/24 00:00:00 Personal Items: Glasses Limitations: vision Pain Comment: denies Operative Site n/a Marking: Availability Equipment Verified: Does Patient Smoke Yes If Yes to Smoking. chews tobacco daily Cigars or Cigarettes. How much per day? Patient states Yes Comment - Adult Esperanza- fiancee postop adult Supervision supervision available Case Cancelled in No Holding Area see comments below for reason Last Modified By: Lina Jaramillo RN 04/06/24 08:22:34 Finalized By: Lina Jaramillo RN Document Signatures Signed By: Lina Jaramillo RN 04/06/24 08:22[facility] HospitalOperative Reporton [id number] ReportOperative Report Patient: ONEAL ECKERT Age: 33 years Sex: Male : 1990 Associated Diagnoses: None Author: Sera Espinoza MD Pre-Procedure Procedure Date 04/06/2024 09:30:00 . Procedure Type: Esophagogastroduodenoscopy with biopsy. Procedure provider Performed by Sera Espinoza MD. Current history and physical Documented on chart. Informed Consent After discussing the rationale, risks and benefits, and alternatives to this procedure, the patient provided signed consent for the procedure. Pre-procedure diagnosis: Dysphagia and EOE. Medications (Selected) Inpatient Medications Ordered Lactated Ringers IV Margarita 1000 mL 1,000 mL: 1,000 mL, IV, 100 mL/hr, Routine, Start date 04/06/24 9:13:00 EDT, 10 hour(s), Total volume (mL): 1,000, 188.3 kg, 3.06, m2 Sodium Chloride 0.9% IV Margarita 1000 mL 1,000 mL: 1,000 mL, IV, 20 mL/hr, Routine, Start date 04/06/24 6:42:00 EDT, 50 hour(s), Total volume (mL): 1,000, 188.3 kg, 3.06, m2 Prescriptions Prescribed phentermine 37.5 mg Tab: 37.5 mg = 1 tab(s), Oral, Daily, BMI 58.89, # 30 tab(s), Refills(s) 0, Pharmacy: [facility] [id number], 179, cm, 03/29/24 12:42:00 EDT, Height/Length Dosing, 188.7, kg, 03/29/24 12:42:00 EDT, Weight Dosing testosterone 20.25 mg/1.25 g (1.62%) transdermal gel: = 2 pump, Topical, qAM, # 75 gm, Refills(s) 1, Pharmacy: [facility] [id number], 180.2, cm, 01/13/24 10:23:00 EDT, Height/Length Dosing, 196, kg, 01/13/24 10:23:00 EDT, Weight Dosing Documented Medications Documented Ajovy 225 mg/1.5 mL subcutaneous solution: 225 mg, SubCutaneous, qMonth, Refills(s) 0 Nexium: 20 mg, Oral, Daily, Refills(s) 0, Control of stomach acid Topamax 200 mg Tab: 200 mg = 1 tab(s), Oral, Daily, Refills(s) 0, Migraine headache docusate: 100 mg, Oral, Daily, Refills(s) 0, Constipation duloxetine 60 mg Cap-DR: 60 mg, Oral, Daily, Refills(s) 0, Depression gabapentin 300 mg Cap: 300 mg = 1 cap(s), Oral, BID, Refills(s) 0, Neuropathy naproxen sodium 550 mg Tab: 550 mg = 1 tab(s), Oral, BID, as needed, Refills(s) 0 nortriptyline 50 mg oral capsule: 50 mg = 1 cap(s), Oral, Once a day (at bedtime), Refills(s) 0, Depression Anticoagulant/antiplatelet None. ASA Classification: Class III. . Monitoring: See anesthesia record. . Procedure The procedure was performed in the hospital. See anesthesia record for sedation given during procedure. The patient was positioned starting in the left lateral decubitus position and with safety measures. Endoscope type used was an adult- size, introduced orally, advanced to the 2nd portion of the duodenum. No difficulty was encountered during the procedure. Views were excellent. The patient tolerated the procedure well. Findings 1. Z-line at 37. Severe reflux esophagitis ([place] grade C). Nonobstructing Schatzki's ring. Large hiatal hernia measuring 12 cm. Biopsies obtained from mid and lower esophagus and from the ring. 2. Normal examined stomach 3. Normal duodenum. Images Procedure images: [id number].jpg [id number].jpg [id number]_[id number]__[id number].jpg [id number].jpg [id number]_[id number].jpg [id number]_[id number]__[id number].jpg [id number]__[id number].jpg [id number]__[id number].jpg . Post-Procedure Complications: none. Estimated blood loss: minimal. Specimens: sent to pathology. Devices/ implants: none left in place. Impression and Plan severe reflux episodes Large hiatal hernia Nonobstructing Schatzki's ring Recommendations: -Resume previous diet -Resume home medications -Increase PPI to twice a day -Repeat EGD after 3 months to assess healing -Await pathology results, follow in GI clinic in 1-2 after dischargeRiverside [facility] HospitalComment on above:Result Comment: Electronically Signed By: Alexis SEGAL, Sera Garcia.br\Date and Time Signed: 04/06/2409:31 EDTOther Comment: Missing Attachment - attachment storage system not supported [id number] Can be viewed in source systemMissing Attachment - attachment storage system not supported [id number] Can be viewed insource systemMissing Attachment - attachment storage system not supported [id number] Can be viewed in source systemMissing Attachment - attachment storage system not supported [id number] Can be viewed in so urce systemMissing Attachment - attachment storage system not supported [id number] Can be viewed in source systemMissing Attachment - attachment storage system not supported [id number] Can be viewed in source systemMissing Attachment - attachment storage system not supported [id number] Can be viewed in source systemMissing Attachment - attachment storage system not supported [id number] Can be viewed in source systemAmbulatory Visit Summaryon [id number] Visit Summary Ambulatory Visit Summary ONEAL ECKERT :1990 Visit Date:04/01/2024 Ambulatory Visit Instructions Your Diagnosis BMI 50.0-59.9, adult, Body mass index [BMI] 50.0-59.9, adult Class 3 severe obesity due to excess calories with body mass index (BMI) of 50.0 to 59.9 in adult Chewing tobacco use Your Care Team Attending Physician - Jeancarlos Maguire Primary Care Physician - Jeancarlos Maguire This Is Your Medications List docusate duloxetine (duloxetine 60 mg Cap-DR) fremanezumab (Ajovy 225 mg/1.5 mL subcutaneous solution) naproxen (naproxen sodium 550 mg Tab) nortriptyline (nortriptyline 50 mg oral capsule) phentermine (phentermine 37.5 mg Tab) polycarbophil (Fiber Tabs) testosterone (testosterone 20.25 mg/1.25 g (1.62%) transdermal gel) topiramate (Topamax 200 mg Tab) [Image Removed: STOP]Stop taking these medications gabapentin (gabapentin 300 mg Cap) Procedures Performed Colonoscopy, EGD (esophagogastroduodenoscopic) electrohydraulic lithotripsy of bezoar in stomach, Gastric sleeve, Myringotomy, T and A (tonsillectomy and adenoidectomy) postoperative education. Discharge Vitals Temperature (Oral) 36.4 ?C Heart Rate (Peripheral) 70 Respiratory Rate 18 Blood Pressure 138/88 Height 179.0 cm Height 70 in Weight 188.3 kg Weight 414.26 lb BMI 58.77 What to do next Scheduled Follow-Up Appointments Thursday 9:00 AM EDT With: Where: [facility] 2023 10:00 AM EST With: Ahmte CASTELLANOS, Jeancarlos Mccord Where: [address] [address]- Medications What How Much When Why Instructions Unchanged docusate 100 Milligram By Mouth 2 times a day Unchanged duloxetine (duloxetine 60 mg Cap-DR) 60 Milligram By Mouth Every day Unchanged fremanezumab (Ajovy 225 mg/ 1.5 mL subcutaneous solution) 225 Milligram Subcutaneous Oncea month Unchanged naproxen (naproxen sodium 550 mg Tab) 1 Tablets By Mouth 2 times a day as needed Unchanged nortriptyline (nortriptyline 50 mg oral capsule) 1 Capsules By Mouth Once a day (at bedtime) Unchanged phentermine (phentermine 37.5 mg Tab) 1 Tablets By Mouth Every day Anxiety Depression Eosinophilic esophagitis Smokeless tobacco use BMI 50.0-59.9, adult Morbid obesity BMI 58.89 Unchanged polycarbophil (Fiber Tabs) By Mouth 4 times a day Unchanged testosterone (testosterone 20.25 mg/ 1.25 g (1.62%) transdermal gel) 2 Pump Topical Once a day (in the morning) Unchanged topiramate (Topamax 200 mg Tab) 1 Tablets By Mouth Every day at bedtime What How Much When Comments Stop Taking gabapentin (gabapentin 300 mg Cap) 1 Capsules By Mouth 2 times a day Allergies No Known Medication Allergies Problems Ongoing - Any problem that you are currently receiving treatment for. Anxiety BMI 50.0-59.9, adult Decreased libido Decreased testosterone level Depression Encounter for weight management Eosinophilic esophagitis Esophageal dysphagia Fatigue H/O gastric sleeve Hypogonadism male Loud snoring Low testosterone in male Morbid obesity Obstructive sleep apnea Occipital neuralgia Screening for hypercholesterolemia Somnolence, daytime Wellness examination Witnessed episode of apnea Patient Survey You may receive a survey via text or e-mail asking about your office visit. Please share your experience with us by completing your survey. We appreciate your feedback and thank you for choosing us for your care. [facility] Medicine Office/Clinic Noteon [id number] Medicine Office/Clinic NoteFakindred hospital northeast Medicine Office/Clinic Note HPI Staff Pt presents today for [facility] follow up Message from 03/15 patient has not heard from [facility] [employer]. (2 messages has been made to [facility] to return call, as of yesterday there has been 2 VM left to return call from [facility] but has not returned call yet) Hospital: [facility] Admission date:03/10/24 Discharge date:03/13/24 Symptoms the patient presented with:seizure like activity Current concerns: Thursday he had an appt with Neurologist Dr. Ordoñez History of Present Illness pt presents today for hospital follow up Review of Systems PHQ Score Initial Depression Screen Score: 0 SCORE Physical Exam Vitals & Measurements T: 36.4 ?C(Oral) HR: 70(Peripheral) RR: 18 BP: 138/88 SpO2: 99% HT: 70 in HT: 179.0 cm WT: 188.3 kg WT: 414.26 lb BMI: 58.77 General: alert, no acute distress ENMT: oral mucosa moist, no pharyngeal erythema or exudate Cardiovascular: regular rate and rhythm, normal peripheral perfusion Respiratory: Lungs CTA, respirations non labored Extremities: no deformity, no trauma Neurological: oriented x 4, LOC appropriate for age, CN II-XII intact, motor strength equal & normal bilaterally, speech normal Assessment/Plan 1. Occipital neuralgia (M54.81: Occipital neuralgia) pt was admitted to [facility]. was on continuous eeg monitoring for 3 days. they did not observe any seizure activity. epilepsy specialist seen him on Thursday and they plan to refer him to psych through [facility]. I placed a referral to [facility] but they still have not contacted him. the 2. 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 will have further evaluation of this with psych. pt having sensory issues especially on right side of head and ear and also feels like eeg electrodes are still on his head. this feeling is driving him insane. 3. BMI 50.0-59.9, adult, (Z68.43: Body mass index [BMI] 50.0-59.9, adult)Body mass index [BMI] 50.0-59.9, adult BMI education given 4. Class 3 severe obesity due to excess calories with body mass index (BMI) of 50.0 to 59.9 in adult (E66.01: Morbid (severe) obesity due to excess calories) see above 5. Chewing tobacco use (Z72.0: Tobacco use) consider not chewing tobacco Follow-up No qualifying data available Problem List/Past Medical History Ongoing Anxiety BMI 50.0-59.9, adult Decreased libido Decreased testosterone level Depression Disassociation disorder Encounter for weight management Eosinophilic esophagitis Esophageal dysphagia Fatigue H/O gastric sleeve Hypogonadism male Loud snoring Low testosterone in male Morbid obesity Obstructive sleep apnea Occipital neuralgia Screening for hypercholesterolemia Somnolence, daytime Wellness examination Witnessed episode of apnea Historical No qualifying data Procedure/Surgical History Colonoscopy, EGD (esophagogastroduodenoscopic) electrohydraulic lithotripsy of bezoar in stomach, Gastric sleeve, Myringotomy, T and A (tonsillectomy and adenoidectomy) postoperative education. Medications Ajovy 225 mg/1.5 mL subcutaneous solution, 225 mg, SubCutaneous, qMonth docusate, 100 mg, Oral, BID duloxetine 60 mg Cap-DR, 60 mg, Oral, Daily Fiber Tabs, Oral, QID naproxen sodium 550 mg Tab, 550 mg= [...] within last 30 days Smokeless Tobacco Use:. Oral, chewing tabacco , Household tobacco concerns: No. Yes, 04/01/2024 Family History Primary malignant neoplasm of colon: Grandparent. Thyroid cancer: Grandparent. Immunizations Vaccine Date Status influenza virus vaccine, [...] Hib, unspecified formulation 1990 Recorded Hib, unspecified form (more content not included)...[facility] HospitalComment on above:Result Comment: Electronically Signed By: Jeancarlos Maguire\.br\Date and Time Signed: 04/01/24 12:14 EDTAmbulatory Visit Summaryon [id number] Visit SummaryAmbulatory Visit Summary ONEAL ECKERT :1990 Visit Date:03/31/2024 Ambulatory Visit Instructions Your Diagnosis Eosinophilic esophagitis BMI 50.0-59.9, adult Esophageal dysphagia H/O gastric sleeve Your Care Team Attending Physician - Sera Espinoza MD Primary Care Physician - Jeancarlos Maguire This Is Your Medications List Contact prescribing physician if questions or concerns docusate duloxetine (duloxetine 60 mg Walt-) fremanezumab (Ajovy 225 mg/1.5 mL subcutaneous solution) naproxen (naproxen sodium 550 mg Tab) nortriptyline (nortriptyline 50 mg oral capsule) phentermine (phentermine 37.5 mg Tab) polycarbophil (Fiber Tabs) testosterone (testosterone 20.25 mg/1.25 g (1.62%) transdermal gel) topiramate (Topamax 200 mg Tab) Procedures Performed Colonoscopy, EGD (esophagogastroduodenoscopic) electrohydraulic lithotripsy of bezoar in stomach, Gastric sleeve, Myringotomy, T and A (tonsillectomy and adenoidectomy) postoperative education. Discharge Vitals Heart Rate (Peripheral) 75 Blood Pressure 129/85 Height 179 cm Height 70 in Weight 188.3 kg Weight 414.26 lb BMI 58.77 What to do next Scheduled Follow-Up Appointments Thursday 10:40 AM EDT With: Jeancarlos Maguire Where: [address] [address]- 2023 10:00 AM EST With: Jeancarlos Maguire Where: [address] [address]- Medications What How Much When Why Instructions Unchanged docusate 100 Milligram By Mouth 2 times a day Contact prescribing physician if questions or concerns Unchanged duloxetine (duloxetine 60 mg Cap-DR) 60 Milligram By Mouth Every day Contact prescribing physician if questions or concerns Unchanged fremanezumab (Ajovy 225 mg/ 1.5 mL subcutaneous solution) 225 Milligram Subcutaneous Oncea month Contact prescribing physician if questions or concerns Unchanged naproxen (naproxen sodium 550 mg Tab) 1 Tablets By Mouth 2 times a day as needed Contact prescribing physician if questions or concerns Unchanged nortriptyline (nortriptyline 50 mg oral capsule) 1 Capsules By Mouth Once a day (at bedtime) Contact prescribing physician if questions or concerns Unchanged phentermine (phentermine 37.5 mg Tab) 1 Tablets By Mouth Every day Anxiety Depression Eosinophilic esophagitis Smokeless tobacco use BMI 50.0-59.9, adult Morbid obesity BMI 58.89 Contact prescribing physician if questions or concerns Unchanged polycarbophil (Fiber Tabs) By Mouth 4 times a day Contact prescribing physician if questions or concerns Unchanged testosterone (testosterone 20.25 mg/ 1.25 g (1.62%) transdermal gel) 2 Pump Topical Once a day (in the morning) Contact prescribing physician if questions or concerns Unchanged topiramate (Topamax 200 mg Tab) 1 Tablets By Mouth Every day at bedtime Contact prescribing physician if questions or concerns Allergies No Known Medication Allergies Problems Ongoing - Any problem that you are currently receiving treatment for. Anxiety BMI 50.0-59.9, adult Decreased libido Decreased testosterone level Depression Encounter for weight management Eosinophilic esophagitis Esophageal dysphagia Fatigue H/O gastric sleeve Hypogonadism male Loud snoring Low testosterone in male Morbid obesity Obstructive sleep apnea Occipital neuralgia Screening for hypercholesterolemia Somnolence, daytime Wellness examination Witnessed episode of apnea Patient Survey You may receive a survey via text or e-mail asking about your office visit. Please share your experience with us by completing your survey. We appreciate your feedback and thank you for choosing us for your care. [facility] Office/Clinic Noteon [id number] Office/Clinic NoteGastroenterology Office/Clinic Note Chief Complaint EOE HPI Staff This is a 33 year old male who presents today for a referral by Ahmet for complaints of EOE and reflux. Diagnosed 2015- 100 eos/hpf on EGD, Sent to [facility], allergy testing was negative for foodand enviromental; was started on Omeprazole BID and Fluticasone 2 puffs BID (was only on for a short time due to insurance). He was due to repeat EGD 6 months after, but this was never completed. He is taking currently Nexium 20mg daily Dysphagia: How Often? couple times a week When did it start: since Diagnosis 2015 Solids or liquids: solids- depends on texture of food and with pills Frequency (very meal? Or less often): couple times a week Gastric Sleeve 01/04/19 -- Diagnosis -- 1. Stomach, sleeve gastrectomy: No significant diagnostic abnormality EGD/Colon @ [facility] 10/03/15- no op note available -- Diagnosis -- 1. ESOPHAGEAL BIOPSY: - EOSINOPHILIC ESOPHAGITIS. 2. GASTRIC BIOPSY: - MILD TO MODERATE CHRONIC INACTIVE GASTRITIS. - NEGATIVE FOR HELICOBACTER PYLORI ON IMMUNOSTAIN. 3. DUODENAL BIOPSY: - NORMAL SMALL INTESTINAL MUCOSA. 4. RANDOM COLON BIOPSIES: - NORMAL COLONIC MUCOSA. Microscopic Description 1. Multiple of squamous mucosa show basaloid hyperplasia, intracellular edema and prominent intraepithelial eosinophils with some foci of over 100 eos/hpf. Focally the lamina propria appears fibrotic. History of Present Illness I have reviewed HPI staff note, most recent labs and imaging, more than 30 minutes spent reviewing the chart, during encounter, placing orders and counseling the patient. Pt with hx of EoE used to be on PPI in the past but currently on nexium 20 mg diagnosed in 2016 Has been avoiding steak since food could get stuck in the esophagus trouble swallowing pills hx of gastric sleeve has incomplete evacuation and wipes forever could spend hours in the bathroom Review of Systems PHQ Score Initial Depression Screen Score: 0 SCORE All systems reviewed, negative except as mentioned above Physical Exam Vitals & Measurements HR: 75(Peripheral) BP: 129/85 HT: 70 in HT: 179 cm WT: 188.3 kg WT: 414.26 lb BMI: 58.77 General: alert, no acute distress HEENT: atraumatic normocephalic Cardiovascular: regular rate and rhythm, normal peripheral perfusion Respiratory: Lungs CTA, respirations non labored Extremities: no deformity, no trauma Abdomen: Benign, soft, nontender nondistended Assessment/Plan 1. Eosinophilic esophagitis (K20.0: Eosinophilic esophagitis) Ordered: EGD Endoscopy (Hospital Procedure) 2. BMI 50.0-59.9, adult (Z68.43: Body mass index [BMI] 50.0-59.9, adult) Ordered: EGD Endoscopy (Hospital Procedure) 3. Esophageal dysphagia (R13.19: Other dysphagia) Ordered: EGD Endoscopy (Hospital Procedure) 4. H/O gastric sleeve (Z90.3: Acquired absence of stomach [part of]) 5. incomplete evacuation and altered bowel habits schedule EGD with bx and possible dilation cont PPI might be a candidate for for Dupixent cont to work on eating healthy and losing weight now with constipation but blaming it on medications advised to use fiber and docusate try prunes and kiwi fruit advised to use squatty potty pt to lose weight and eat healthy Follow-up No qualifying data available Problem List/Past Medical History Ongoing Anxiety BMI 50.0-59.9, adult Decreased libido Decreased testosterone level Depression Encounter for weight management Eosinophilic esophagitis Esophageal dysphagia Fatigue H/O gastric sleeve Hypogonadism male Loud snoring Low testosterone in male Morbid obesity Obstructive sleep apnea Occipital neuralgia Screening for hypercholesterolemia Somnolence, daytime Wellness examination Witnessed episode of apnea Historical No qualifying data Procedure/Surgical History Colonoscopy, EGD (esophagogastroduodenoscopic) electrohydraulic lithotripsy of bezoar in stomach, Gastric sleeve, Myringotomy, T and A (tonsillectomy and adenoidectomy) postoperative education. Medications Ajovy 225 mg/1.5 mL subcutaneous solution, 225 mg, SubCutaneous, qMonth docusate, 100 mg, Oral, BID duloxetine 60 mg Cap-DR, 60 mg, Oral, Daily Fiber Tabs, Oral, QID naproxen sodium 550 mg Tab, 550 mg= [...] within last 30 days Smokeless Tobacco Use:. Oral, chewing tabacco, Household tobacco concerns: No. Yes, 03/31/2024 Family History Primary malignant neoplasm of colon: Grandparent. Thyroid cancer: Grandparen (more content not included)...[facility] HospitalComment on above:Result Comment: Electronically Signed By: Alexis SEGAL, Sera Marshall\.br\Date and Time Signed: 03/31/2411:30 EDTPCincinnati [facility] [id number] Healthcare Case Information Case Priority: None Programs: -- Referral Source: Hand Pleater Referral Reason: Care coordination Case Type: High Risk Adult Risk Score: -- Case Status: Enrolled (March 14, 2024) Date Assigned: March 14, 2024 Assigned By: Davie Cabrera Date Enrolled: March 14, 2024 Assigned Primary Personnel: Davie Cabrera Assigned Secondary Personnel: -- Case Physician: Jeancarlos Maguire Problems Ongoing Anxiety BMI 50.0-59.9, adult Decreased libido Decreased testosterone level Depression Encounter for weight management Eosinophilic esophagitis Fatigue Hypogonadism male Loud snoring Low testosterone in male Morbid obesity Obstructive sleep apnea Occipital neuralgia Screening for hypercholesterolemia Somnolence, daytime Wellness examination Witnessed episode of apnea Historical No qualifying data Procedure/Surgical History Gastric sleeve, Myringotomy, T and A (tonsillectomy and adenoidectomy) postoperative education. Home Medications Ajovy 225 mg/1.5 mL subcutaneous solution, 225 mg, SubCutaneous, qMonth docusate, 100 mg, Oral, BID, Not taking: Patient has not started yet 03/14/24 duloxetine 60 mg Cap-DR, 60 mg, Oral, Daily naproxen sodium 550 mg Tab, [...] within last 30 days Smokeless Tobacco Use:. chewing tabacco, Household tobacco concerns: No. Yes, 02/18/2024 Family History Family history is negative Screenings and Assessments 03/14/24 11:35:00 Result Name Value Comment Phone Call Monitoring Consent Agreed to continue call Phone Verification Patient Information Full name, street address and date of verified CM Program Enrollment Provides verbal consent for enrollment Goals and Interventions Care Plan Progress Note MATHEMATICAL TECHNICIAN#3- Patient states he 'is hanging in there.' Notes he had follow up with neurology yesterday andthey referred him the the [facility] for further evaluation. Patient completed a video visit with the Epilepsy Clinic yesterday and was given a prescription for gabapentin, has not yetpicked up. Patient also notes the Clinic is setting him up with a social services director to help assist withcare. Patient reports since his EEG procedure at [facility], 'it still feels like' he is 'wearing the wires,' adds the right side of his face 'feels weird.' Patient received his regular Botox treatment at his neurology follow up and notes in the past he has never felt the injection before. Patient notes that it 'hurt me' this time. Patient states he did discuss this while at appointment. Patient notes putting his glasses on this morning was uncomfortable. Patient was encouraged to discuss with neuro, he verbalized understanding. Patient notes he has still not heard from psych (CN made follow up call/message sent to PCP.) Patient scheduled for PCP follow up 04/01/24 at 1040. GI OV scheduled today. Kieran cooperciaran denies any further questions or concerns. Communication Events Date: March 31, 2024 Method: Phone call Type: Outbound Duration (min): 19 Outcome: Case handoff Contact Type: Patient Contact Name: ONEAL ECKERT Notes: MATHEMATICAL TECHNICIAN#3- see educational technician note. Created By: Davie Cabrera Date: March 21, 2024 Method: Phone call Type: Outbound Duration (min): 1 Outcome: Left message-voicemail Contact Type: Patient Contact Name: ONEAL ECKERT Notes: MATHEMATICAL TECHNICIAN#2- message left for return call. Created By: Davie Cabrera Date: March 14, 2024 Method: Phone call Type: Outbound Duration (min): 11 Outcome: Case discussion Contact Type: Patient Contact Name: ONEAL ECKERT Notes: MATHEMATICAL TECHNICIAN#1- see educational technician note. Created By: Davie Cabrera [facility]Rem[facility] [id number] From: Davie Cabrera To: [facility] Cryptologist; Sent: 03/31/2024 09:41:28 EDT Show up: 03/31/2024 09:42:00 EDT Subject: MATHEMATICAL TECHNICIAN-OV Due Date/Time: 04/01/2024 09:41:00 EDT Reminder/RecallNormClermont County HospitalCNPNon [id number] (NE50MN) ONEAL ECKERT ([id number]) 1990 Date Time Provider Department 03/21/24 MILAGROS OROSCO NE50MN During your visit today, we recorded the following information about you: Bertha Cunningham 03/21/2024 4:26 PM Signed General call : Full name of person calling: Oneal Eckert Relationship to patient: self Phone # : [phone] (home) Reason for call: questions re EEG study Patient of Kisha Sharma RN 03/22/2024 3:28 PM Signed I spoke with Oneal, stated since EMU stay he continues to have a weird sensation that the leads are still on his head. Sensation is throughout the day. Denies seizure activity. SANJAY Chun Kelly, APRN.CATRINA 03/22/2024 4:08 PM Signed I would continue to monitor and make sure all glue and residue has been removed with shampoo. Tommy Shepard APRN.Kisha Garnica RN 03/23/2024 1:59 PM Addendum Call was made to the patient, no answer. Detailed message was left tocontinue to monitor and make sure all glue and residue has been removed with shampoo. Kisha Mayfield RN Allergies As of Date: 03/21/2024 (No Known Allergies) Date Reviewed: 03/13/2024 Reviewed by: Malina Tobar RN - Fully Assessed Reason for Visit: General [Other] Cmt: EEG Prescriptions as of 03/23/2024 - docusate sodium (COLACE) 100 mg capsule Take 1 capsule by mouth two times a day. - nortriptyline (PAMELOR) 50 mg capsule Take 1 capsule by mouth daily at bedtime. - DULoxetine (CYMBALTA) 60 mg capsule Take 1 capsule by mouth once daily. - topiramate (TOPAMAX) 200 mg tablet Take 1 tablet by mouth once daily. - testosterone (ANDROGEL) 1.62 % (20.25 mg/1.25 gram) glpk Apply 1 Pump as directed once daily. - Naproxen Sodium 550 mg tablet take 1 tablet by mouth 2 times a day as needed - fremanezumab-vfrm (AJOVY AUTOINJECTOR) 225 mg/1.5 mL auto-injector Inject 1.5 mL subcutaneously once every month. - Phentermine HCl (ADIPEX-P) 37.5 mg capsule Take 37.5 mg by mouth once daily. Problem List As Of Date 03/21/2024 Noted Resolved Seizure-like activity (HCC) [R56.9] 03/10/2024 Obesity, Class III, BMI >= 40 [E66.01] 03/11/2024 Encounter Status:Closed by KISHA ELAM on 03/23/24[facility] [id number] Case Information Case Priority: None Programs: -- Referral Source: Hand Pleater Referral Reason: Care coordination Case Type: High Risk Adult Risk Score: -- Case Status: Enrolled (March 14, 2024) Date Assigned: March 14, 2024 Assigned By: Davie Cabrera Date Enrolled: March 14, 2024 Assigned Primary Personnel: Davie Cabrera Assigned Secondary Personnel: -- Case Physician: Jeancarlos Maguire Problems Ongoing Anxiety BMI 50.0-59.9, adult Decreased libido Decreased testosterone level Depression Encounter for weight management Eosinophilic esophagitis Fatigue Hypogonadism male Loud snoring Low testosterone in male Morbid obesity Obstructive sleep apnea Occipital neuralgia Screening for hypercholesterolemia Somnolence, daytime Wellness examination Witnessed episode of apnea Historical No qualifying data Procedure/Surgical History Gastric sleeve, Myringotomy, T and A (tonsillectomy and adenoidectomy) postoperative education. Home Medications Ajovy 225 mg/1.5 mL subcutaneous solution, 225 mg, SubCutaneous, qMonth docusate, 100 mg, Oral, BID, Not taking: Patient has not started yet 03/14/24 duloxetine 60 mg Cap-DR, 60 mg, Oral, Daily naproxen sodium 550 mg Tab, [...] within last 30 days Smokeless Tobacco Use:. chewing tabacco, Household tobacco concerns: No. Yes, 02/18/2024 Family History Family history is negative Screenings and Assessments 03/14/24 11:35:00 Result Name Value Comment Phone Call Monitoring Consent Agreed to continue call Phone Verification Patient Information Full name, street address and date of verified Program Enrollment Provides verbal consent for enrollment Goals and Interventions Care Plan Progress Note Admit Date: 03/10/24 [facility] [place] Date of Discharge: 03/13/24 Follow-up appointment scheduled? yes, 03/31/24 at 1030 Did you understand your discharge instructions? yes Are you able to follow them? yes Did you receive new medications? yes, docusate 100 mg BID Have you filled the Rx's? 'not yet, forgot about that' Are you taking them as prescribed? n/a Are you having difficulty eating or swallowing your pills? no Are you having any stomach upset, diarrhea or constipation? no, last BM 03/13/24 pm 'a little loose from the adipex' How are you sleeping? fine Are you having any pain? no Do you have everything you need at home to care for yourself? yes Do you have Home Health? no Called patient for initial [facility] program call. Patient is a low readmission risk. Reviewed d/c summary and dx of: seizure like activity, obesity. Patient was admitted following EEG on 03/10/24. Medications reconciled with patient list, d/c list, and EHR. Purpose ans side effects of new medications reviewed with patient. Patient states he will start the new medication today. Patient states he is feeling 'pretty good.' Denies having any episodes he describes as 'disassociation episodes' since being home. Patient denies any pain. Patient notes he is drinking a lot of water. Patient notes his appetite is 'good.' He is uncertain of wgt loss, he has no scale to measure. Patient does note at at night he can have hesitancy with voiding. Onset approx. 2 weeks ago. Notes he has spent 45 minutes in the bathroom trying to void. Patient states his stream/ flow is healthy, color urine is good (Message sent to PCP). He denies any other urinary system c/o. Patient notes he was tested in house for UTI andnotes all testing was negative. Patient was referred to psychiatry upon d/c, however patient would like to stay local. Patient states he has not yet heard from [facility] for recent psych referral from PCP.Contact number provided to patient. CN will follow up to be sure referral received. Sooner OV with PCP offered and declined. Patient has neurology follow up on 03/29/24 at 1130 with Chiki Gutiérrez. PCP follow up, MATHEMATICAL TECHNICIAN 03/31/24 at 1030 and to bring medications. Patient denies any further questions or concerns. CN explained [facility] program and gave CN contact number. Communication Events Date: March 14, 2024 Method: Phone call Type: Outbound Duration (min): 11 Outcome: Case discussion Contact Type: Patient Contact Name: ONEAL ECKERT Notes: MATHEMATICAL TECHNICIAN#1- see [facility] note. Created By: Davie Cabrera RNCleveland [facility] 03-13-2024 CNDSHNO ID: [id number] Author: ALFONSO GUERRERO MD Service: Neurology Adult Epilepsy Author Type: Physician Type: Discharge Summary Filed: 03/16/2024 12:31 Note Text: DISCHARGE SUMMARY PATIENT NAME: Oneal Eckert ADMISSION DATE: 03/10/2024 DISCHARGE DATE: 03/13/2024 ADMITTING SERVICE: Epilepsy ATTENDING PHYSICIAN: Dr. Alfonso Guerrero Code Status: Not on file Referring/Secondary Physician: Dr. Rj Guzman Highest Readmission Risk Score: 9 The 30 day readmissions risk score is derived from an internally validated risk model which evaluates patient level characteristics, utilization history, medication orders and lab results up until the day of discharge. Patients with a score of 40 or above are considered highest risk for readmission. Specific patient level drivers will be listed at the bottom of the summary. The 30 day readmissions risk score is derived from an internally validated risk model which evaluates patient level characteristics, utilization history, medication orders and lab results up until the day of discharge. Patients with a score of 40 or above are considered highest risk for readmission. Specific patient level drivers will be listed at the bottom of the summary. REASON FOR HOSPITALIZATION: Diagnosis of Events IMPORTANT TESTS AND PROCEDURES: Continuous Video EEG HOSPITAL COURSE: Oneal Eckert is a 33 year old male with past medical history of anxiety, intermittent explosive DO, migraines, and concussions who was admitted to the [facility] EMU for diagnosis of spells described as losing time. These began during his teenage years and have recently became more frequent. Triggered by migraines. MRI from 2020 reported as unremarkable. Previous EEGs but no results available. The patient was admitted taking Topiramate 200 mg BID (for migraines), which was held on admission. Patient noted to have multiple episodes of dream-like state where he can hear, but not respond or interact with the surroundings without any EEG changes. His typical episode of losing time was not recorded. It was discussed with patient that VEEG inconclusive, but no clinical suspicion for epilepsy given milder episodes recorded without EEG change. Patient expressed concern that his episodes of losing track of time concerning for disassociation.He will follow-up with psychiatry for further evaluation. Seizureprecautions reiterated and he was discharged to home in stable condition.He will follow-up in OP clinic with Dr. Milagros Guzman. Principal Problem: Seizure-like activity (HCC) (POA: Yes) Active Problems: Obesity, Class III, BMI >= 40 (POA: Yes) Resolved Problems: * No resolved hospital problems. * Obesity Class III (BMI +/>40 or >35 with comorbidity) Transitions of Care Critical Issues: SPECIALIST FOLLOW-UP: Dr. Milagros Guzman, Psychiatry LABS AND PROCEDURES PENDING AT DISCHARGE: Finalized Video EEG Report CONSULTING TEAMS DURING HOSPITALIZATION: None PATIENT CONDITION AT DISCHARGE: Stable DISCHARGE DISPOSITION: Home with Relative Discharge Physical Exam: VITAL SIGNS: BP 117/62 Pulse 60 Temp 36.5 ?C (97.7 ?F) (Oral) Resp 16 Ht 180.3 cm (5' 11 ) Wt (!) 185.7 kg (409 lb 6.3 oz) SpO2 100% BMI 57.10 kg/m? Mental Status: Alert and oriented to person, place and time. Able to follow 1 and 2 step commands. Motor: Moves all extremities equally. Exam otherwise unchanged. INFORMATION PROVIDED TO PATIENT: Seizure first aid- DIET: Resume pre-hospital diet ACTIVITY: Seizure Precautions: no bathing or swimming unsupervised, no driving, no use of heavy machinery, no use of sharp moving objects (i.e. power tools), avoid heights. If active epilepsy, driving will need to be cleared by an Epileptologist. Driving laws vary state to state, refer to state law for restrictions. ALLERGIES No Known Allergies DISCHARGE MEDICATION: Medication List START taking these medications docusate sodium 100 mg capsule Commonly known as: COLACE Take 1 capsule by mouth two times a day. CONTINUE taking these medications ADIPEX-P 37.5 mg capsule Generic drug: Phentermine HCl AJOVY AUTOINJECTOR 225 mg/1.5 mL auto-injector Generic drug: fremanezumab-vfrm Inject 1.5 mL subcutaneously once every month. AndroGeL 1.62 % (20.25 mg/1.25 gram) Glpk Generic drug: testosterone DULoxetine 60 mg capsule Commonly known as: CYMBALTA Take 1 capsule by mouth once daily. Naproxen Sodium 550 mg tablet take 1 tablet by mouth 2 times a day as needed nortriptyline 50 mg capsule Commonly known as: PAMELOR Take 1 capsule by mouth daily at bedtime. topiramate 200 mg tablet Commonly known as: TOPAMAX Take 1 tablet by mouth once daily. PLAN OF CARE: Plan of care discussed with Provider, RN, Patient FUTURE APPOINTMENTS: Future Appointments Date Time Provider Department Center 03/29/2024 11:30 AM Tex Ordoñez MD [facility] The patient's risk for 30-day (more content not included)...[facility] W Auto Differential panel (Bld)on [id number] (Bld) [#/Vol]0.05 10*3/uLNormal<0.11CC[facility] on above:Order Comment: Specimen Type: BLOOD SPECIMENOrdering Facility: [facility] Address:[address] [place], [place] [address]Performed By: #### [id number]- 8 ####[facility] [id number] [place] [address] [place] AMERICABasophils/100 WBC (Bld)0.6 % [facility] on above:Order Comment: Specimen Type: BLOOD SPECIMENOrdering Facility: [facility] Address:[address] [place], [place] [address]Performed By: #### 58041-5 ####[facility] [id number] [place] [address] [place] AMERICADifferential cell count method Nom (Bld)AutoNormalCCleveland Clinic Marymount Hospital on above:Order Comment: Specimen Type: BLOOD SPECIMENOrdering Facility: [facility] Address:[address] [place], [place] [address]Performed By: #### 22015-3 ####[facility] [id number] [place] [address] [place] AMERICAEosinophils (Bld) [#/Vol]0.15 10*3/uLNormal<0.46[facility] on above:Order Comment: Specimen Type: BLOOD SPECIMENOrdering Facility: [facility] Address:[address] [place], [place] [address]Performed By: #### 19111-8 ####[facility] [id number] [place] [address] [place] Eosinophils/100 WBC (Bld)1.7 %NormalCleveland Clinic Medina Hospital on above: Order Comment: Specimen Type: BLOOD SPECIMENOrdering Facility: [facility] Address:[address] [place], [place] [address]Performed By: #### 36798- 8 ####[facility] [id number] [place] [address] [place] AMERICAErythrocyte distribution width (RBC) [Ratio]13.5 %Nenplq94.5-15.0[facility] on above: Order Comment: Specimen Type: BLOOD SPECIMENOrdering Facility: [facility] Address:[address] [place], [place] [address]Performed By: #### 90302- 8 ####[facility] [id number] [place] [address] [place] AMERICAHematocrit (Bld) [Volume fraction]43.9 %Tbdlcn97.0-51.0[facility] on above:Order Comment: Specimen Type: BLOOD SPECIMENOrdering Facility: [facility] Address:[address] [place], [place] [address]Performed By: #### 31295- 8 ####[facility] [id number] [place] [address] [place] AMER[place]AHemoglobin (Bld) [Mass/Vol]13.9 g/cKXgtqae08.0-17.0[facility] on above:Order Comment: Specimen Type: BLOOD SPECIMENOrdering Facility: [facility] Address:[address] [place], [place] [address]Performed By: #### 49045-9 ####[facility] [id number] [place] [address] [place] AMERICAImmature granulocytes (Bld) [#/Vol]0.06 10*3/uLNormal<0.10[facility] on above:Order Comment: Specimen Type: BLOOD SPECIMENOrdering Facility: [facility] Address:[address] [place], [place] [address]Performed By: #### 33190- 8 ####[facility] [id number] [place] [address] [place] AMERICAImmature granulocytes/100 WBC (Bld)0.7 %NormalCleveland Clinic Medina Hospital on above:Order Comment: Specimen Type: BLOOD SPECIMENOrdering Facility: [facility] Address:[address] [place], [place] [address]Performed By: #### 56894-8 ####[facility] [id number] [place] [address] [place] AMERICALymphocytes (Bld) [#/Vol]3.09 10*3/uLNormal1.00-4.00[facility] on above:Order Comment: Specimen Type: BLOOD SPECIMENOrdering Facility: [facility] Address:[address] [place], [place] [address]Performed By: #### 85148-6 ####[facility] [id number] [place] [address] [place] AMERICALymphocytes/100 WBC (Bld)36.0 % NormalCleveland Clinic Medina Hospital on above:Order Comment: Specimen Type: BLOOD SPECIMENOrdering Facility: [facility] Address:[address] [place], [place] [address]Performed By: #### 50486-8 ####[facility] [id number] [place] [address] [place] AMERICAMCH (RBC) [Entitic mass]28.6 huLikeft72.0-34.0[facility] on above:Order Comment: Specimen Type: BLOOD SPECIMENOrdering Facility: [facility] Address:[address] [place], [place] [address]Performed By: #### 06693-5 ####[facility] [id number] [place] [address] [place] MCHC (RBC) [Mass/Vol]31.7 g/kVCnrwmy66.5-36.0[facility] on above:Order Comment: Specimen Type: BLOOD SPECIMENOrdering Facility: [facility] Address:[address] [place] [address] Performed By: #### 11071-1 ####[facility] [id number] [place] [address] [place] MCV (RBC) [Entitic vol]90.3 gQJqeooi39.0-100.0[facility] on above:Order Comment: Specimen Type: BLOOD SPECIMENOrdering Facility: [facility] Address:[address] [place] [address] Performed By: #### 58420-6 ####[facility] [id number] [place] [address] [place] Monocytes (Bld) [#/Vol]0.58 10*3/uLNormal<0.87[facility] on above:Order Comment: Specimen Type: BLOOD SPECIMENOrdering Facility: [facility] Address:[address] [place] [address] Performed By: #### 74710-5 ####[facility] [id number] [place] [address] [place] Monocytes/100 WBC (Bld)6.8 %NormalCleveland Clinic Medina Hospital on above: Order Comment: Specimen Type: BLOOD SPECIMENOrdering Facility: [facility] Address:[address] [place], [place] [address]Performed By: #### 65282- 8 ####[facility] [id number] [place] [address] [place] AMERICANeutrophils (Bld) [#/Vol]4.66 10*3/uLNormal1.45-7.50[facility] on above:Order Comment: Specimen Type: BLOOD SPECIMENOrdering Facility: [facility] Address:[address] [place], [place] [address]Performed By: #### 03065-8 ####[facility] [id number] [place] [address] [place] AMERICANeutrophils/100 WBC (Bld)54.2 % NormalCleveland Clinic Med[facility] Hospital on above:Order Comment: Specimen Type: BLOOD SPECIMENOrdering Facility: [facility] Address:[address] [place], [place] [address]Performed By: #### 17710-8 ####[facility] [id number] [place] [address] [place] AMERICANucleated RBC (Bld) [#/Vol]10*3/uLNormal<0.01[facility] on above:Order Comment: Specimen Type: BLOOD SPECIMENOrdering Facility: [facility] Address:[address] [place], [place] [address]Performed By: #### 07852-0 ####[facility] [id number] [place] [address] [place] Nucleated RBC/100 WBC (Bld) [Ratio]0.0 /100 WBCNormalCMercy Health Urbana Hospital Comment on above:Order Comment: Specimen Type: BLOOD SPECIMENOrdering Facility: [facility] Address:[address] [place] [address] Performed By: #### 99152-1 ####[facility] [id number] [place] [address] [place] Platelet mean volume (Bld) [Entitic vol]12.6 fLNormal9.0-12.7CMercy Health Urbana HospitalComment on above:Order Comment: Specimen Type: BLOOD SPECIMENOrdering Facility: [facility] Address:[address] [place], [place] [address]Performed By: #### 69404-4 ####[facility] [id number] [place] [address] [place] Platelets (Bld) [#/Vol]197 10*3/yQRnotlf606-564YraownolpRegency Hospital ToledoComment on above:Order Comment: Specimen Type: BLOOD SPECIMENOrdering Facility: [facility] Address:[address] [place] [address] Performed By: #### 13304-6 ####[facility] [id number] [place] [address] [place] RBC (Bld) [#/Vol]4.86 10*6/uLNormal4.20-6.00[facility] on above:Order Comment: Specimen Type: BLOOD SPECIMENOrdering Facility: [facility] Address:[address] [place], [place] [address]Performed By: #### 49303-0 ####[facility] [id number] [place] [address] [place] AMERICAWBC (Bld) [#/Vol]8.59 10*3/uLNormal3.70-11.00Regency Hospital ToledoComment on above:Order Comment: Specimen Type: BLOOD SPECIMENOrdering Facility: [facility] Address:[address] [place], [place] [address]Performed By: #### 61837-0 ####[facility] [id number] [address] DAY ST[address]CC CBC W AUTO DIFF BLDon 30-45-9713Semukbxur/100 WBC (Bld)0.6 %[facility] BASOPHILS # BLD AUTO 0.05NIPhysicians Regional Medical Center DIFFERENTIAL METHOD BLDAutoNOMWashington University Medical Center EOSINOPHIL # BLD AUTO0.15NINFEastern Missouri State Hospital LYMPHOCYTES # BLD AUTO3.09[facility] MONOCYTES # BLD AUTO0.58NIPhysicians Regional Medical Center NEUTROPHILS # BLD AUTO4.66[facility] NRBC # BLD AUTO<0.01NIPhysicians Regional Medical Center NRBC/100 WBC BLD-RTO0.0/100 WBCEastern [facility] State Hospital PLATELET # BLD JJOV199XJEKColumbia Regional Hospital PMV BLD AUTO12.6 fL9.0 - 12.7 fLEastern [facility] WBC # BLD AUTO8.59NOSaint John's Saint Francis HospitalEosinophils/100 WBC (Bld)1.7 %[facility] CenterErythrocyte distribution width (RBC) [Ratio]13.5 %11.5 - 15.0 %[facility] HealthcareHematocrit (Bld) [Volume fraction]43.9 %39.0 - 51.0 %[facility] CenterHemoglobin (Bld) [Mass/Vol]13.9 g/dL 13.0 - 17.0 g/dLFreeman Cancer Institute GRANULOCYTES # BLD AUTO0.06NITennova Healthcare GRANULOCYTES/LEUK NFR BLD AUTO0.7 %[facility] CenterLymphocytes/100 WBC (Bld)36.0 %[facility] CenterMCH (RBC) [Entitic mass]28.6 pg26.0 - 34.0 pgNOSoutheast Missouri HospitalHC (RBC) [Mass/Vol]31.7 g/dL30.5 - 36.0 g/dLMercy hospital springfieldV (RBC) [Entitic vol]90.3 fL80.0 - 100.0 fLMissouri Rehabilitation CenterMonocytes/100 WBC (Bld)6.8 % [facility]OM[facility] HealthcareNeutrophils/100 WBC (Bld)54.2 %NOMS HealthcareRBC (Bld) [#/Vol] 4.86 10*6/uL4.20 - 6.00 m/uLNOMS HealthcareSpecimen Type: BLOOD SPECIMEN [facility] Address: [address] [place] [address] Original Ordering Provider: MILAGROS MANLEY [facility] metabolic 2000 panelon 32-45-8685Hhrvwry [Mass/Vol]3.7 g/dLLow 3.9-4.9CMercy Health Urbana HospitalComment on above:Order Comment: Specimen Type: BLOOD SPECIMENOrdering Facility: [facility] Address:[address] [place], [place] [address]Performed By: #### 52041-5, 35177-1, 2777-1, 3016-3 ####[facility] TROY[facility] [id number] [place] [address] [place] AMERICAALP [Catalytic activity/Vol]72 U/CJxhwao92-161HnfognrpxC[facility] Clinic [facility]ina Hospital on above:Order Comment: Specimen Type: BLOOD SPECIMENOrdering Facility: [facility] Address:[address] [place], [place] [address]Performed By: #### 54104-0, 85774-3, 2777-1, 3016-3 ####[facility] [id number] [place] [address] [place] AMERICAALT [Catalytic activity/Vol]20 U/QKymhjh17-70XpuvalncvCleveland Clinic Medina Hospital on above:Order Comment: Specimen Type: BLOOD SPECIMENOrdering Facility: [facility] Address:[address] [place], [place] [address]Performed By: #### 43186- 9, 27534-8, 2777-1, 3016-3 ####[facility] [id number] [place] [address] [place] AMERICAAnion gap [Moles/Vol]9 mmol/LNormal8-15[facility] on above: Order Comment: Specimen Type: BLOOD SPECIMENOrdering Facility: [facility] Address:[address] [place], [place] [address]Performed By: #### 18996- 9, 09038-5, 2777-1, 3016-3 ####[facility] [id number] [place] [address] [place] AMERICAAST [Catalytic activity/Vol]15 U/BQvtjgn07-50KzljlyogjCleveland Clinic Medina Hospital on above:Order Comment: Specimen Type: BLOOD SPECIMENOrdering Facility: [facility] Address:[address] [place], [place] [address]Performed By: #### 40926-0, 76408-6, 2777-1, 3016-3 ####[facility] [id number] [place] [address] [place] Bilirubin [Mass/Vol]0.5 mg/dLNormal0.2-1.3CCleveland Clinic [facility] on above:Order Comment: Specimen Type: BLOOD SPECIMENOrdering Facility: [facility] Address:[address] [place], [place] [address]Performed By: #### 24369-9, 51053-1, 2777-1, 3016-3 ####[facility] [id number] [place] [address] [place] Calcium [Mass/Vol]9.0 mg/dLNormal8.5-10.2CCleveland Clinic [facility] Hospital on above:Order Comment: Specimen Type: BLOOD SPECIMENOrdering Facility: [facility] Address:[address] [place], [place] [address]Performed By: #### 68241-8, 93714-7, 2777-1, 3016-3 ####[facility] [id number] [place] [address] [place] Chloride [Moles/Vol]108 mmol/SSwkx86-274NqojaknyqCleveland Clinic Medina Hospital on above:Order Comment: Specimen Type: BLOOD SPECIMENOrdering Facility: [facility] Address:[address] [place], [place] [address]Performed By: #### 20319-0, 09387-3, 2777-1, 3016-3 ####[facility] [id number] [place] [address] [place] CO2 [Moles/Vol]23 mmol/OSspkqx74-45HqkvcwziuCleveland Clinic Medina Hospital on above: Order Comment: Specimen Type: BLOOD SPECIMENOrdering Facility: [facility] Address:[address] [place], [place] [address]Performed By: #### 56352- 9, 23094-8, 2777-1, 3016-3 ####[facility] [id number] [place] [address] [place] Creatinine [Mass/Vol]1.30 mg/dLHigh0.73-1.22[facility] on above:Order Comment: Specimen Type: BLOOD SPECIMENOrdering Facility: [facility] Address:[address] [place], [place] [address]Performed By: #### 64198-5, 84449-9, 2777-1, 3016-3 ####[facility] [id number] [place] [address] [place] Creatinine and Glomerular filtration rate.predicted panel (S/P/Bld)75 mL/min/1.73m???Normal>=60[facility] on above:Order Comment: Specimen Type: BLOOD SPECIMENOrdering Facility: [facility] Address:[address] [place], [place] [address]Aizhvm Comment: Estimated Glomerular Filtration Rate (eGFR) is calculated using the 2020 CKD-EPI cre atinine equation. This equation utilizes serum creatinine, sex, and age as parameters. The creatinine assay has traceable calibration to isotope dilution- mass spectrometry. Refer to KDIGO guidelines for clinical interpretation. In patients with unstable renal function, e.g. those with acute kidney injury, the eGFR may not accurately reflect actual GFR.Performed By: #### 01797-5, 37129-1, 2777-1, 6-3 ####[facility] [id number] [address] [address] [place] AMERICAGlucose [Mass/Vol]99 mg/nPLcvuuu71-14AabdqhycpCleveland Clinic Medina Hospital on above:Order Comment: Specimen Type: BLOOD SPECIMENOrdering Facility: [facility] Address:[address] [place], [place] [address]Bkayxs Comment: The [place] [employer] Association (ADA) provides guidance for cutoff values for fasting glucose and random glucose. The ADA defines fasting as no caloric intake for at least 8 hours. Fasting plasma glucose results between 100 to 125 mg/dL indicate increased risk for diabetes (prediabetes). Fasting plasma glucose results greater than or equal to 126 mg/dL meet the criteria for diagnosis of diabetes. In the absence of unequivocal hyperglycemia, results should be confirmed by repeat testing. In a patient with classic symptoms of hyperglycemia or hyperglycemic crisis, random plasma glucose results greater than or equal to 200 mg/dL meet the criteria for diagnosis of diabetes. Reference: Standards of Medical Care in Diabetes 2016, [place] [employer]. Diabetes Care. 2016.39(Suppl 1).Performed By: #### 61739-1, 69230- 8, 2777-1, 6-3 ####[facility] [id number] [address] [address] [place] AMERICAPotassium [Moles/Vol] 4.3 mmol/LNormal3.7-5.1CCleveland Clinic [facility] Hospital on above:Order Comment: Specimen Type: BLOOD SPECIMENOrdering Facility: [facility] Address:[address] [place], [place] [address]Fkaepuura By: #### 61564-7, 73472-7, 2777-1, 3016-3 ####[facility] [id number] [place] [address] [place] AMERICAProtein [Mass/Vol]6.1 g/dLLow6.3-8.0Reg[facility] Hospital ToledoComment on above:Order Comment: Specimen Type: BLOOD SPECIMENOrdering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 10/11/24NoPomerene [facility] [id number] (NE50MN) NOEAL ECKERT ([id number]) 1990 M Date Time Provider Department 02/24/24 SHERYL WALKER NE50MN During your visit today, we recorded the following information about you: Bassam Reynoso APRN.CATRINA 02/25/2024 7:48 AM Signed [facility] Review of Records Patient: Oneal Eckert Address: [address] [place] [address] Impression: Review of records for Oneal Eckert, a 33 year old male, being referred by Dr. Tex Ordoñez [[facility] Head[facility] Medicine] to Any Epileptologist for further evaluation and treatment. Patient has previously diagnosed staring episodes. EEG has not been resulted. MRI from 2020 reported as unremarkable. Patient has trialed 2 AEDs, mainly as treatment of his migraines or mood. As he is reporting daily events, and his MRI was normal, a brief 24-48 hour VEEG is indicated for event characterization and diagnostic evaluation to determine best treatment options. Summary: Onset: 6 months ago Recent Seizure Frequency: 1-2 times per day Seizure Description(s) Available: Type A: Stares off, blank look, loses chunks of time, frustrated and panicked afterwards, aware that time has passed Duration: 10-20 minutes Current AED(s): Topiramate Previous AED(s): Valproic acid PMH: migraine headache, minor TBI in childhood (sports), concussions, eosinophilic esophagitis, IBS, GERD PRIOR EVALUATIONS: [facility] [address] [facility] [address] [facility] [address] [place] [address] EEG (NA): MRI brain wo/w contrast ([facility], 01/02/2021): Unremarkable MRI of the brain [facility] Recommendations: - Admit to EMU for VEEG monitoring, diagnostic evaluation Location: [facility] [place] - Visit with epileptologist prior to admission - Additional testing to be considered by epilepsy clinicians Signed: Bassam Reynoso APRN.SCANNING TECH February 24, [address] Walker for review and recommendations. MD Recommendations (as discussed with Dr. Walker): - Please proceed with the above plan. Please route this encounter to the EMU Scheduling Pool ( P EMU ) or PMU Scheduling Pool ( P PMU ) through LOS AND Follow up PHASE 1.0 AND 1.5 ORDER SYNOPSIS Patient: Oneal Eckert ([id number]) Best contact number: [phone] Insurance: Payor: [place] MEDICAID / Plan: [facility] [place] MEDICAID [facility] / Product Type: Medicaid / Scheduling Team: Please call for adult patients: EMU coordinator ([phone]) [place] Coordinator ([phone]) PMU coordinator([phone]) Herd Tester ([phone]) Please call for pediatric patients: PMU coordinator ([phone]) [place] Coordinator ([phone]) EMU coordinator ([phone]) Herd Tester ([phone]) 02/25/2024 -- Admission Type EMU Adult Number of Days requested 3 - 24-48 hours Location [facility] [place] Admit Priority Routine 02/25/2024 PURPOSE Patient Being Considered for Epilepsy Surgery? No VEEG recommended to assess seizure burden, address new AND concerning syymptom-sign complex, and/or clarify syndromic epilepsy diagnosis? Yes 02/25/2024 -- Sphenoidal monitoring No Electrode placement Standard Appointments and Tests EPIL VEEG ADMIT TO EMU/PMU Consultations None Please route this encounter to the EMU Scheduling pool ( P EMU ) or PMU Scheduling pool ( P PMU ) through LOS AND Follow up Scheduling coordinators: For all VNS patients being scheduled for NUNO, please schedule VNS off/on office visits. Allergies As of Date: 02/24/2024 (No Known Allergies) Date Reviewed: 12/23/2023 Reviewed by: Tommy Sims MA - Fully Assessed Primary Visit Diagnosis:Staring episodes [R40.4] Order(s):EPIL VEEG ADMIT TO EMU/PMU [[id number]] Order #: [id number]: 1 Prescriptions as of 02/25/2024 - fremanezumab-vfrm (AJOVY AUTOINJECTOR) 225 mg/1.5 mL auto-injector Inject 1.5 mL subcutaneously once every month. - Phentermine HCl (ADIPEX-P) 37.5 mg capsule Take 37.5 mg by mouth once daily. - lurasidone (LATUDA) 40 mg tablet - Naproxen Sodium 550 mg tablet Take 1 tablet by mouth two times a day as needed. - nortriptyline (PAMELOR) 50 mg capsule Take 1 capsule by mouth daily at bedtime. - DULoxetine (CYMBALTA) 60 mg capsule (more content not included)...Normal [facility] Hospitalon [id number] (NIQ) ONEAL ECKERT ([id number]) 1990 Date Time Provider Department 02/24/24 SHERYL WALKER During your visit today, we recorded the following information about you: Tommy Amaral 02/24/2024 4:29 PM Signed [facility] Initial Intake Interview February 24, 2024 4:15 PM Caller: Oneal Relationship to pt: Self Patient name: Oneal Eckert Age: [age] year old Address: [address] [place] [address] (home) Insurance: Payor: [employer] MEDICAID / Plan: [employer] [facility] MEDICAID [facility] / Product Type: Medicaid / Referred by: Physician: Tex Ordoñez M Referring to: ANY Reason for Evaluation: further evaluation and treatment/ Diagnosis Previously evaluated at: [facility] Age AND date of onset of seizures/spells: 6 months ago Frequency: 1-2 times per day Seizure Type A:Staring off/blank, loses chunks of time, when he comes out of it frustrated/panicked, aware that a lot of time has passed Duration: 10-20 minutes Recent injuries (within last 6 months)? No Recent surgeries (within the last 6 weeks)? No Seizure medications Current medications: - n.a Past medications: - n.a Developmental disabilities? No Previous neurosurgery? No Type AND Date: N.A Implants (VNS/NeuroPace/shunt/orthodontic hardware/pacemaker)? No Type AND Date: N.A Would patient require anaesthesia or sedation? No Additional pertinent medical information: migraines Test Yes or No Date Facility EEG Yes 02/2024 [place] Video EEG No MRI brain Yes 2020 [facility] CT brain Yes 2020 [facility] fMRI brain No PET No Ictal SPECT No NUNO No [place] No Neuropsych testing Yes December 2021 [facility] Visual field No Invasive video EEG (brain mapping) No If invasive video-EEG monitoring was performed, request: -- brain maps including any power point presentations -- disks of the study If resection was performed, request: -- operative notes -- surgical pathology reports If patient has had any presurgical or surgical workup, has imaging been requested? No Signed: Tommy Esqueda 02/24/2024 4:29 PM Signed Records in care everywhere Allergies As of Date: 02/24/2024 (No Known Allergies) Date Reviewed: 12/23/2023 Reviewed by: Tommy Sims MA - Fully Assessed Reason for Visit: Future Appointment [256] Cmt: NEW PT ,[place], ANY Prescriptions as of 03/25/2024 - docusate sodium (COLACE) 100 mg capsule Take 1 capsule by mouth two times a day. - nortriptyline (PAMELOR) 50 mg capsule Take 1 capsule by mouth daily at bedtime. - DULoxetine (CYMBALTA) 60 mg capsule Take 1 capsule by mouth once daily. - topiramate (TOPAMAX) 200 mg tablet Take 1 tablet by mouth once daily. - testosterone (ANDROGEL) 1.62 % (20.25 mg/1.25 gram) glpk Apply 1 Pump as directed once daily. - Naproxen Sodium 550 mg tablet take 1 tablet by mouth 2 times a day as needed - fremanezumab-vfrm (AJOVY AUTOINJECTOR) 225 mg/1.5 mL auto-injector Inject 1.5 mL subcutaneously once every month. - Phentermine HCl (ADIPEX-P) 37.5 mg capsule Take 37.5 mg by mouth once daily. Problem List As Of Date: 02/24/2024 (None) Encounter Status:Closed by TOMMY AMARAL on 03/25/24NoWestern Reserve HospitalAmbulatory Visit Summaryon [id number] Visit SummaryAmbulatory Visit Summary ONEAL ECKERT :1990 Visit Date:02/18/2024 Ambulatory Visit Instructions Your Diagnosis Anxiety Depression Eosinophilic esophagitis Smokeless tobacco use BMI 50.0-59.9, adult Morbid obesity Your Care Team Attending Physician - Jeancarlos Maguire Primary Care Physician - Jeancarlos Maguire This Is Your Medications List duloxetine [...] adenoidectomy) postoperative education. Discharge Vitals Temperature (Oral) 37.1 ?C Heart Rate (Peripheral) 75 Respiratory Rate 18 Blood Pressure 138/86 Height 179 cm Height 70 in Weight 191.3 kg Weight 420.86 lb BMI 59.7 What to do next Scheduled Follow-Up Appointments Thursday 9:20 AM EDT With: Where: [address] [id number] 2023 10:00 AM EST With: Jeancarlos Maguire Where: [address] [address]- Medications What How Much When Why Instructions Unchanged duloxetine (duloxetine 60 mg Cap-DR) 60 Milligram By Mouth Every day Unchanged fremanezumab (Ajovy 225 mg/ 1.5 mL subcutaneous solution) 225 Milligram Subcutaneous Oncea month Unchanged lurasidone (lurasidone 40 mg oral tablet) 1 Tablets By Mouth Every day Unchanged naproxen (naproxen sodium 550 mg Tab) 1 Tablets By Mouth 2 times a day as needed Unchanged nortriptyline (nortriptyline 50 mg oral capsule) 1 Capsules By Mouth Once a day (at bedtime) Unchanged phentermine (phentermine 37.5 mg Tab) 1 Tablets By Mouth Every day Encounter for weight management Occipital neuralgia Smokeless tobacco use Adult BMI 60.0-69.9 kg/sq m Obesities, morbid Class 3 obesity 30 day supply Unchanged testosterone (testosterone 20.25 mg/ 1.25 g (1.62%) transdermal gel) 2 Pump Topical Once a day (in the morning) Unchanged topiramate (Topamax 200 mg Tab) 1 Tablets By Mouth Every day at bedtime Allergies No Known Medication Allergies Problems Ongoing - Any problem that you are currently receiving treatment for. Anxiety BMI 50.0-59.9, adult Decreased libido Decreased testosterone level Depression Encounter for weight management Eosinophilic esophagitis Fatigue Hypogonadism male Loud snoring Low testosterone in male Morbid obesity Obstructive sleep apnea Occipital neuralgia Screening for hypercholesterolemia Somnolence, daytime Wellness examination Witnessed episode of apnea Patient Survey You may receive a survey via text or e-mail asking about your office visit. Please share your experience with us by completing your survey. We appreciate your feedback and thank you for choosing us for your care. [facility] Medicine Office/Clinic Noteon [id number] Medicine Office/Clinic NoteV[facility] Office/Clinic Note Chief Complaint Discuss Mental Status HPI Staff Pt is here today for referral to behavioral health Follow up for Mental Status: Medication adherence- Yes, takes medication as prescribed Duloxetine 60mg qd Medication refill needed: no Suicidal thoughts-Not at this time Most recent JOE:11 Most recent PHQ:28 Has been seen by Psych in past (few months ago). 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 Family Hx of Manic Depressant. Believes he fits the SX. History of Present Illness pt presents today to discuss referral for behavioral health Review of Systems PHQ Score Initial Depression Screen Score: 5 SCORE Detailed Depression Screen Score: 23 Total Depression Screen Score: 28 Physical Exam Vitals & Measurements T: 37.1 ?C(Oral) HR: 75(Peripheral) RR: 18 BP: 138/86 SpO2: 98% HT: 70 in HT: 179 cm WT: 191.3 kg WT: 420.86 lb BMI: 59.7 General: alert, no acute distress ENMT: oral mucosa moist, no pharyngeal erythema or exudate Cardiovascular: regular rate and rhythm, normal peripheral perfusion Respiratory: Lungs CTA, respirations non labored Extremities: no deformity, no trauma Neurological: oriented x 4, LOC appropriate for age, CN II-XII intact, motor strength equal & normal bilaterally, speech normal Assessment/Plan 1. Anxiety (F41.9: Anxiety disorder, unspecified) JOE is 11. pt is requesting psych referral. has been to a counselor but feels he needs further evaluation for further diagnosis. Ordered: phentermine, 37.5 mg = 1 tab(s), Oral, Daily, # 30 tab(s), Refills(s) 0, Pharmacy: [facility] [id number], 179, cm, 02/18/24 10:00:00 EDT, Height/Length Dosing, 191.3, kg, 02/18/24 10:00:00 EDT, Weight Dosing [facility] External Ambulatory Referral 2. Depression (F32.A: Depression, unspecified) PQH-9 is 28. is currently taking cymbalta Ordered: phentermine, 37.5 mg = 1 tab(s), Oral, Daily, # 30 tab(s), Refills(s) 0, Pharmacy: [facility] [id number], 179, cm, 02/18/24 10:00:00 EDT, Height/Length Dosing, 191.3, kg, 02/18/24 10:00:00 EDT, Weight Dosing [facility] External Ambulatory Referral 3. Eosinophilic esophagitis (K20.0: Eosinophilic esophagitis) pt was diagnosed with this as a child. was seeing GI annually but has not seen GI in a couple years. will send referral Ordered: phentermine, 37.5 mg = 1 tab(s), Oral, Daily, # 30 tab(s), Refills(s) 0, Pharmacy: [facility] [id number], 179, cm, 02/18/24 10:00:00 EDT, Height/Length Dosing, 191.3, kg, 02/18/24 10:00:00 EDT, Weight Dosing [facility] Internal Ambulatory Referral 4. Smokeless tobacco use (Z72.0: Tobacco use) consider not using tobacco Ordered: phentermine, 37.5 mg = 1 tab(s), Oral, Daily, # 30 tab(s), Refills(s) 0, Pharmacy: [facility] [id number], 179, cm, 02/18/24 10:00:00 EDT, Height/Length Dosing, 191.3, kg, 02/18/24 10:00:00 EDT, Weight Dosing [facility] External Ambulatory Referral [facility] Internal Ambulatory Referral 5. BMI 50.0-59.9, adult (Z68.43: Body mass index [BMI] 50.0-59.9, adult) pt is down another 11 pounds since last visit will refill adipex Ordered: phentermine, 37.5 mg = 1 tab(s), Oral, Daily, # 30 tab(s), Refills(s) 0, Pharmacy: [facility] [id number], 179, cm, 02/18/24 10:00:00 EDT, Height/Length Dosing, 191.3, kg, 02/18/24 10:00:00 EDT, Weight Dosing [facility] External Ambulatory Referral [facility] Internal Ambulatory Referral 6. Morbid obesity (E66.01: Morbid (severe) obesity due to excess calories) see above Ordered: phentermine, 37.5 mg = 1 tab(s), Oral, Daily, # 30 tab(s), Refills(s) 0, Pharmacy: [facility] [id number], 179, cm, 02/18/24 10:00:00 EDT, Height/Length Dosing, 191.3, kg, 02/18/24 10:00:00 EDT, Weight Dosing Body Mass Index (BMI) documented 3008F Current smokeless tobacco user 1035F Depression Screening Positive 3354F Discharge medications reconciled with current medications in outpatient record 1111F Follow-up No qualifying data available Problem List/Past Medical History Ongoing Anxiety BMI 50.0-59.9, adult Decreased libido Decreased testosterone level Depression Encounter for weight management Eosinophilic esophagitis Fatigue Hypogonadism male Loud snoring Low testosterone in male Morbid obesity Obstructive sleep apnea Occipital neuralgia Screening for [...] Tab, 37.5 mg= 1 tab(s), Oral, Daily phentermine 37.5 mg Tab, 37.5 m (more content not included)...[facility] HospitalComment on above:Result Comment: Electronically Signed By: Jeancarlos Maguire\.br\Date and Time Signed: 02/18/24 10:53 EDTAmbulatory Visit Summaryon [id number] Visit SummaryAmbulatory Visit Summary ONEAL ECKERT :1990 Visit Date:01/13/2024 Ambulatory Visit Instructions Your Care Team Attending Physician - Jeancarlos Maguire Primary Care Physician - Jeancarlos Maguire This Is Your Medications List duloxetine [...] Appointments Thursday 9:20 AM EDT With: Where: [facility] Medicine [address] [address]- \.br\ Medications\.br\ What How Much When Why Instructions\.br\ Unchanged duloxetine (duloxetine 60 mg Cap-DR) 60 Milligram By Mouth Every day\.br\ Unchanged fremanezumab (Ajovy 225 mg/ 1.5 mL subcutaneous solution) 225 Milligram Subcutaneous Once a month\.br\ Unchanged lurasidone (lurasidone 40 mg oral tablet) 1 Tablets By Mouth Every day\.br\ Unchanged naproxen (naproxen sodium 550 mg Tab) 1 Tablets By Mouth 2 times a day as needed \.br\Unchanged nortriptyline (nortriptyline 50 mg oral capsule) 1 [...] at bedtime \.br\ Allergies\.br\ No Known Medication Allergies \.br\ Problems\.br\ Ongoing - Any problem that you are currently receiving treatment for.\.br\ Adult BMI 60.0-69.9 kg/sq m\.br\ Decreased libido\.br\ Encounter for weight management\.br\ Fatigue\.br\Hypogonadism male\.br\ Loud snoring\.br\ Low testosterone in male\.br\ Morbid obesity\.br\ Obesities, morbid\.br\ Obstructive sleep apnea\.br\ Occipital neuralgia\.br\ Screening for hypercholesterolemia\.br\ Somnolence, daytime\.br\ Wellness examination\.br\ Witnessed episode of apnea\.br\ Patient Survey\.br\ You may receive a survey via text or e-mail asking about your office visit. Please shareyour experience with us by completing your survey. We appreciate your feedback and thank you for cho osing us for your care.\.br\ \.br\[facility] Medicine Office/Clinic Noteon [phone] Medicine Office/Clinic NoteV[facility]/Clinic Note HPI Staff Oneal is [...] (Z76.89: Persons encountering health services in other specifiedcircumstances) pt presents today for weight management. pt is down another 3 pounds. will see him back in 3 months. Ordered: phentermine, 37.5 mg = 1 tab(s), Oral, Daily, 30 day supply, # 30 tab(s), Refills(s) 0, Pharmacy: [facility] [id number], 180.3, cm, 12/02/23 10:22:00 EDT, Height/Length Dosing, 199.3, kg, 12/01/2409:22:00 EDT, Weight Dosing phentermine, 37.5 mg = 1 tab(s), Oral, Daily, 30 day supply, # 30 tab(s), Refills(s) 0, Pharmacy: [facility] [id number], 180.2, cm, 01/13/24 10:23:00 EDT, Height/Length Dosing, [...] supply, # 30 tab(s), Refills(s) 0, Pharmacy: [facility] [id number], 180.3, cm, 12/02/23 10:22:00 EDT, Height/Length Dosing, 199.3, kg, 12/01/2409:22:00 EDT, Weight Dosing phentermine, 37.5 mg = 1 tab(s), Oral, Daily, 30 day supply, # 30 tab(s), Refills(s) 0, Pharmacy: [facility] [id number], 180.2, cm, 01/13/24 10:23:00 EDT, Height/Length Dosing, 196, kg, 01/13/24 10:23:00 EDT, Weight Dosing Testosterone Level Total Obesities, morbid (E66.01: Morbid (severe) obesity due to excess calories) see above Ordered: phentermine, 37.5 mg = 1 tab(s), Oral, Daily, 30 day supply, # 30 tab(s), Refills(s) 0, Pharmacy: [facility] [id number], 180.3, cm, 12/02/23 10:22:00 EDT, Height/Length Dosing, 199.3, kg, 12/01/2409:22:00 EDT, Weight Dosing phentermine, 37.5 mg = 1 tab(s), Oral, Daily, 30 day supply, # 30 tab(s), Refills(s) 0, Pharmacy: [facility] [id number], 180.2, cm, 01/13/24 10:23:00 EDT, Height/Length Dosing, 196, kg, 01/13/24 10:23:00 EDT, Weight Dosing Smokeless tobacco use (Z72.0: Tobacco use) consider not chewing tobacco Ordered: phentermine, 37.5 mg = 1 tab(s), Oral, Daily, 30 day supply, # 30 tab(s), Refills(s) 0, Pharmacy: [facility] [id number], 180.3, cm, 12/02/23 10:22:00 EDT, Height/Length Dosing, 199.3, kg, 12/01/2409:22:00 EDT, Weight Dosing phentermine, 37.5 mg = 1 tab(s), Oral, Daily, 30 day supply, # 30 tab(s), Refills(s) 0, Pharmacy: [facility] [id number], 180.2, cm, 01/13/24 10:23:00 EDT, Height/Length Dosing, 196, kg, 01/13/24 10:23:00 EDT, Weight Dosing Orders: testosterone, = 2 pump, Topical, qAM, # 75 gm, Refills(s) 1, Pharmacy: [facility] [id number], 180.3, cm, 12/02/23 10:22:00 EDT, Height/Length Dosing, 199.3, kg, 12/02/23 10:22:00 EDT, Weight Dosing testosterone, = 2 pump, Topical, qAM, # 75 gm, Refills(s) 1, Pharmacy: [facility] [id number], 180.2, cm, 01/13/24 10:23:00 EDT, Height/Length Dosing, [...] 225 mg, SubCutaneous, qMonth (more content not included)...[facility] HospitalComment on above:Result Comment: Electronically Signed By: Jeancarlos Maguire\.br\Date and Time Signed: 01/13/24 12:38 EDTAmbulatory Visit Summaryon [id number] Visit Summary ONEAL ECKERT :1990 Visit Date:12/16/2023 Ambulatory Visit Instructions Your Diagnosis Encounter for weight management BMI 60.0-69.9, adult, Adult BMI 60.0-69.9 kg/sq m, Body mass index [BMI] 60.0- 69.9, adult Class 3 severe obesity due to excess calories with body mass index (BMI) of 60.0 to 69.9 in adult, Class 3 obesity, Obesities, morbid Smokeless tobacco use, Smokeless tobacco use Your Care Team Attending Physician - Jeancarlos Maguire Primary Care Physician - Jeancarlos Maguire This Is Your Medications List duloxetine [...] Follow-Up Appointments Thursday 10:00 AM EDT With: Jeancarlos Maguire Where: [facility] Medicine Office/Clinic Noteon [phone] Medicine Office/Clinic NoteHPI Staff Oneal is a 33 year old [...] (Z76.89: Persons encountering health services in other specifiedcircumstances) pt is doing well down 52 pounds. will send refill. RTC 4 weeks Ordered: phentermine, 37.5 mg = 1 tab(s), Oral, Daily, 30 day supply bmi66.08, # 30 tab(s), Refills(s) 0, Pharmacy: [id number], 180.3, cm, 11/17/23 10:09:00 EDT, Height/Length Dosing, 201.4, kg, 11/17/23 10:09:00 EDT, Weight Dosing phentermine, 37.5 mg = 1 tab(s), Oral, Daily, 30 day supply, # 30 tab(s), Refills(s) 0, Pharmacy: [facility] [id number], 180.3, cm, 12/02/23 10:22:00 EDT, Height/Length Dosing, 199.3, kg, 12/01/2409:22:00 EDT, Weight Dosing Body Mass Index (BMI) [...] bmi66.08, # 30 tab(s), Refills(s) 0, Pharmacy: [facility], 180.3, cm, 11/17/23 10:09:00 EDT, Height/Length Dosing, 201.4, kg, 11/17/23 10:09:00 EDT, Weight Dosing phentermine, 37.5 mg = 1 tab(s), Oral, Daily, 30 day supply, # 30 tab(s), Refills(s) 0, Pharmacy: [facility] [id number], 180.3, cm, 12/02/23 10:22:00 EDT, Height/Length Dosing, 199.3, kg, 12/01/2409:22:00 EDT, Weight Dosing Body Mass Index (BMI) [...] to excess calories)Class 3 obesity, (E66.01: Morbid (severe)obesity due to excess calories)Obesities, morbid see above Ordered: phentermine, 37.5 mg = 1 tab(s), Oral, Daily, 30 day supply bmi66.08, # 30 tab(s), Refills(s) 0, Pharmacy: [facility], 180.3, cm, 11/17/23 10:09:00 EDT, Height/Length Dosing, 201.4, kg, 11/17/23 10:09:00 EDT, Weight Dosing phentermine, 37.5 mg = 1 tab(s), Oral, Daily, 30 day supply, # 30 tab(s), Refills(s) 0, Pharmacy: [facility] [id number], 180.3, cm, 12/02/23 10:22:00 EDT, Height/Length Dosing, 199.3, kg, 12/01/2409:22:00 EDT, Weight Dosing Body Mass Index (BMI) [...] bmi66.08, # 30 tab(s), Refills(s) 0, Pharmacy: [facility] 16[facility], 180.3, cm, 11/17/23 10:09:00 EDT, Height/Length Dosing, 201.4, kg, 11/17/23 10:09:00 EDT, Weight Dosing phentermine, 37.5 mg = 1 tab(s), Oral, Daily, 30 day supply, # 30 tab(s), Refills(s) 0, Pharmacy: [facility] [id number], 180.3, cm, 12/02/23 10:22:00 EDT, Height/Length Dosing, 199.3, kg, 12/01/2409:22:00 EDT, Weight Dosing Body Mass Index (BMI) [...] testosterone in male Morb (more content not included)...[facility] HospitalComment on above:Result Comment: Electronically Signed By: Jeancarlos Maguire\.br\Date and Time Signed: 12/16/23 09:52 EDTAmbulatory Visit Summaryon [id number] Visit Summary ONEAL ECKERT :1990 Visit Date:12/02/2023 Ambulatory Visit Instructions Your Diagnosis Wellness examination Screening for hypercholesterolemia Fatigue Morbid obesity BMI 60.0-69.9, adult Non-smoker Your Care Team Attending Physician - Jeancarlos Maguire Primary Care Physician - Jeancarlos Maguire This Is Your Medications List duloxetine [...] Follow-Up Appointments Thursday 8:40 AM EDT With: Jeancarlos Maguire Where: [facility] [place] HospitalCBC w/ Auto Diffon [id number]/100 WBC (Bld)4.0 %High 0.0-2.0[facility] HospitalComment on above:Performed By: #### [id number] #### [facility] [address], [place] [address]Astcillge/Leukocytes Auto (Bld) [Pure # fraction]0.4 E9/LHigh 0.0-0.2[facility] CenterComment on above:Performed By: #### [id number] #### [facility] [address], [place] [address]Whnwttaasrk (Bld) [#/Vol]0.1 E9/LNormal0.0-0.5FUniversity Hospitals Health SystemComment on above:Performed By: #### [id number] #### [facility] [address], [place] [address]Tiquiphtdfa/100 WBC (Bld)1.0 %Normal0.0-8.0[facility] HospitalComment on above:Performed By: #### [id number] #### [facility] [address] [place] [address]Pidrpolmbvy distribution width (RBC) [Ratio]14.1 %Normal 10.9-14.2FUniversity Hospitals Health SystemComment on above:Performed By: #### [id number] #### [facility] [address] [place] [address]Cunlljgncd (Bld) [Volume fraction]44.1 %Pehxic79.7-49.0[facility] HospitalComment on above:Performed By: #### [id number] #### [facility] [address] [place] [address]Ayzegiyjfh (Bld) [Mass/Vol]14.7 g/lYJwcujw87.5-17.5FUniversity Hospitals Health SystemComment on above:Performed By: #### [id number] #### [facility] [address] [place] [address]Flermmkanvn (Bld) [#/Vol]1.8 E9/LNormal1.0-4.0[facility] HospitalComment on above:Performed By: #### [id number] #### [facility] [address], [place] [address]Pebeqqyayqf/100 WBC (Bld)20.2 %Gugnle60.0-50.0[facility] HospitalComment on above:Performed By: #### [id number] #### [facility] [address] [place] [address]ROZ (RBC) [Entitic mass]29.0 ftIsywxs61.0-34.0[facility] HospitalComment on above:Performed By: #### [id number] #### [facility] [address] [place] [address]ZNGO (RBC) [Mass/Vol]33.3 g/yTUybftf18.4-36.0[facility] HospitalComment on above:Performed By: #### [id number] #### [facility] [address] [place] [address]CEL (RBC) [Entitic vol]87.0 sUMkswzi02.0-100.0[facility] HospitalComment on above:Performed By: #### [id number] #### [facility] [address] [place] [address]Aazhmnyfi (Bld) [#/Vol]0.5 E9/LNormal0.2-1.0[facility] HospitalComment on above:Performed By: #### [id number] #### [facility] [address] [place] [address]Qoeezlasomo (Bld) [#/Vol]6.2 E9/LNormal2.0-7.5FUniversity Hospitals Health SystemComment on above:Performed By: #### [id number] #### [facility] [address] [place] [address]Tbyrvyohrxt/100 WBC (Bld)69.2 %Xsnryi03.0-75.0[facility] HospitalComment on above:Performed By: #### [id number] #### [facility] [address] [place] [address]Oytwhbmk711.0 E9/EZggzbk885.0-500.0[facility] Comment on above:Performed By: #### [id number] #### [facility] [address] [place] [address]Esvdnoqa mean volume (Bld) [Entitic vol]10.5 fLNormal6.4-10.8 [facility] HospitalComment on above:Performed By: #### [id number] #### [facility] [address], [place] [address]BAH (Bld) [#/Vol]5.1 E12/LNormal4.3-5.9[facility] HospitalComment on above:Performed By: #### [id number] #### [facility] [address], [place] [address]XBQ corrected for nucl RBC Auto (Bld) [#/Vol]9.0 E9/LNormal 4.0-11.0[facility] HospitalComment on above:Performed By: #### [id number] #### [facility] [address], [place] [address]MDMPPJCRMYxnpacf By: SYSTEM SYSTEM on 39-00-1636Enkxbzs [Mass/Vol]4.2 g/dLNormal3.3 - 5.0 gm/dLRemisol ChemAlbumin/Globulin [Mass ratio] 1.5 {ratio}Normal1.1 - 2.2Remisol ChemALP [Catalytic activity/Vol]68 [iU]/d Ghqsfp44 - 98 Int._Unit/LRemisol ChemALT No additional P-5'-P [Catalytic activity/Vol]15 [iU]/dNormal6 - 46 Int._Unit/LRemisol ChemAnion gap [Moles/Vol] 12 mmol/LNormal6 - 16 mEq/LRemisol ChemAST [Catalytic activity/Vol]14 [iU]/d Normal5 - 43 Int._Unit/LRemisol ChemBilirubin [Mass/Vol]0.5 mg/dLNormal0.0 - 1.1 mg/dLRemisol ChemCalcium [Mass/Vol]8.8 mg/dLLow8.9 - 11.1 mg/dLRemisol Chem Chloride [Moles/Vol]107 mmol/VRbezkx000 - 111 mmol/LRemisol ChemCholesterol [Mass/Vol]149 mg/dUImprxz389 - 200 mg/dLRemisol ChemCholesterol in HDL [Mass/Vol]32 mg/dLInvalid Interpretation CodeRemisol ChemComment on above:Result Comment: '>= 60 LOW RISK' '<= 40 HIGH RISK'Cholesterol in LDL [Mass/Vol]108 mg/dLNormal<=129mg/dLRemisol ChemCholesterol in VLDL [Mass/Vol]14 mg/dLNormal7 - 40 mg/dLRemisol ChemCO2 [Moles/Vol]23 mmol/HMsgdzk26 - 31 mmol/LRemisol ChemCreatinine [Mass/Vol]1.0 mg/dLNormal0.5 - 1.3 mg/dLRemisol ZywgjYZL280 mL/min/1.73 r3Xdjsdu >=59mL/min/1.73 v0Evuiang ChemGlobulin (S) [Mass/Vol]2.8 g/dLNormal1.4 - 4.0 gm/dLRemisol ChemGlucose [Mass/Vol]108 mg/mYLdzzow13 - 199 mg/dLRemisol Chem Potassium [Moles/Vol]3.6 mmol/LNormal3.5 - 5.3 mmol/LRemisol ChemProtein [Mass/Vol]7.0 g/dLNormal6.0 - 7.8 gm/dLRemisol ChemSodium [Moles/Vol]138 mmol/L Gjdoce426 - 145 mmol/LRemisol ChemTriglyceride [Mass/Vol]71 mg/dLNormal <=149mg/dLRemisol ChemTSH Qn1.82 m[IU]/LNormal0.34 - 5.60 mcIU/mLRemisol Chem Urea nitrogen [Mass/Vol]17 mg/dLNormal5 - 21 mg/dLRemisol ChemUrea nitrogen/Creatinine [Mass ratio]17 mg/ndSzhxtj64 - 20Remisol ChemCMPon 18-35-5561Orfyjeo [Mass/Vol]4.2 g/dLNormal3.3-5.0[facility] Comment on above:Performed By: #### [id number] #### [facility] [address] [address]Bypaouc/Globulin (S) [Mass conc ratio]1.8Bgpxfa3.1-2.2[facility] Hospital CenterComment on above:Performed By: #### [id number] #### [facility] [address], [place] [address]ZJG [Catalytic activity/Vol]68 Int._Unit/KAvfibv94-26QgmwcxBethesda North HospitalComment on above:Performed By: #### [id number] #### [facility] [address], [place] [address]XRY No additional P-5'-P [Catalytic activity/Vol]15 Int._Unit/L Normal6-46[facility] North HospitalComment on above:Performed By: #### [id number] #### [facility] [address], [place] [address]Sxkhq gap [Moles/Vol]12 mmol/LNormal6-16[facility] HospitalComment on above:Performed By: #### [id number] #### [facility] [address], [place] [address]UAA [Catalytic activity/Vol]14 Int._Unit/LNormal5-43[facility] HospitalComment on above:Performed By: #### [id number] #### [facility] [address], [place] [address]Tugatilwe [Mass/Vol]0.5 mg/dLNormal0.0-1.1FUniversity Hospitals Health SystemComment on above:Performed By: #### [id number] #### [facility] [address], [place] [address]Fzqzztf [Mass/Vol]8.8 mg/dLLow8.9-11.1FUniversity Hospitals Health SystemComment on above:Performed By: #### [id number] #### [facility] [address], [place] [address]Uzptfswd [Moles/Vol]107 mmol/HJxniss348-639UgibrmBethesda North HospitalComment on above:Performed By: #### [id number] #### [facility] [address], [place] [address]RS0 [Moles/Vol]23 mmol/ZRnxuag41-86NtmhkgBethesda North Hospital Comment on above:Performed By: #### [id number] #### [facility] [address], [place] [address]Diluomuwjw [Mass/Vol]1.0 mg/dLNormal0.5-1.3FUniversity Hospitals Health SystemComment on above:Performed By: #### [id number] #### [facility] [address], [place] [address]Mlqafxdq (S) [Mass/Vol]2.8 g/dLNormal1.4-4.0[facility] HospitalComment on above:Performed By: #### [id number] #### [facility] [address], [place] [address]Mdkqdiv [Mass/Vol]108 mg/aRUjjwsz47-965MjgfdsBethesda North HospitalComment on above:Performed By: #### [id number] #### [facility] [address], [place] [address]Aunplhbgx [Moles/Vol]3.6 mmol/LNormal3.5-5.3FUniversity Hospitals Health SystemComment on above:Performed By: #### [id number] #### [facility] [address], [place] [address]Hglntcj [Mass/Vol]7.0 g/dLNormal6.0-7.8[facility] HospitalComment on above:Performed By: #### [id number] #### [facility] [address], [place] [address]Qlbroq [Moles/Vol]138 mmol/MLwdamt903-473ExqriwBethesda North HospitalComment on above:Performed By: #### [id number] #### [facility] [address], [place] [address]Pydq nitrogen [Mass/Vol]17 mg/dLNormal5-21[facility] North HospitalComment on above:Performed By: #### [id number] #### [facility] [address], [place] [address]Dxnp nitrogen/Creatinine [Mass ratio]17 No KmbnpYihjup98-70 [facility] HospitalComment on above:Performed By: #### [id number] #### [facility] [address] [place], [place] [address]Picrzz Medicine Office/Clinic Noteon [id number] Medicine Office/Clinic NoteHPI Staff Oneal is a 33 year old [...] Diff Comprehensive Metabolic Panel Lab Specimen Collect [id number] Lipid Panel Thyroid Stimulating Hormone 2. Screening for hypercholesterolemia (Z13.220: Encounter for screening for lipoid disorders) lipid drawn in office today Ordered: CBC w/ Auto Diff Comprehensive Metabolic Panel Lab Specimen Collect 76922 Lipid Panel Thyroid Stimulating Hormone 3. Fatigue (R53.83: Other fatigue) testosterone dose increased to 2 pumps. will recheck in 6 weeks Ordered: CBC w/ Auto Diff Comprehensive Metabolic Panel Lab Specimen Collect [id number] Lipid Panel Thyroid Stimulating Hormone 4. Morbid obesity (E66.01: Morbid (severe) obesity due to excess calories) on adipex. has lost 49 pounds so far Ordered: CBC w/ Auto Diff Comprehensive Metabolic Panel Lab Specimen Collect 40859 Lipid Panel Thyroid Stimulating Hormone 5. BMI 60.0-69.9, adult (Z68.44: Body mass index [BMI] 60.0-69.9, adult) BMI education complete 6. Non-smoker (Z78.9: Other specified health status) continue not smoking Orders: testosterone, = 2 pump, Topical, qAM, # 75 gm, Refills(s) 1, Pharmacy: [facility] [id number], 180.3, cm, 12/02/23 10:22:00 EDT, Height/Length Dosing, 199.3, kg, 12/02/23 10:22:00 EDT, Weight Dosing testosterone, = 1 pump, Topical, qAM, # 75 gram, Refills(s) 0, Pharmacy: [facility], 180.3, cm, 09/18/23 10:05:00 EDT, Height/Length Dosing, 214.8, kg, 09/18/23 10:05:00 EDT, Weight Dosing testosterone, = 1 patch(es), Topical, Once a day (at bedtime), # 60 EA, Refills(s) 1, Pharmacy: [facility], 180.3, cm, 09/18/23 10:05:00 EDT, [...] Recorded DTaP, unspecified fo (more content not included)...[facility] HospitalComment on above:Result Comment: Electronically Signed By: Jeancarlos Maguire\.br\Date and Time Signed: 12/02/23 11:24 EDTHEMATOLOGYOrdered By: SYSTEM SYSTEM on 83-72-0835Pnwfbjlli/100 WBC (Bld)4.0 %High0.0 - 2.0 %Remisol Heme Basophils/Leukocytes Auto (Bld) [Pure # fraction]0.4 E9/LHigh0.0 - 0.2 E9/L Remisol HemeEosinophils (Bld) [#/Vol]0.1 E9/LNormal0.0 - 0.5 E9/LRemisol Heme Eosinophils/100 WBC (Bld)1.0 %Normal0.0 - 8.0 %Remisol HemeErythrocyte distribution width (RBC) [Ratio]14.1 %Mbfslk63.9 - 14.2 %Remisol HemeHematocrit (Bld) [Volume fraction]44.1 %Lxiiab62.7 - 49.0 %Remisol HemeHemoglobin (Bld) [Mass/Vol]14.7 g/aYPquhts64.5 - 17.5 gm/dLRemisol HemeLymphocytes (Bld) [#/Vol] 1.8 E9/LNormal1.0 - 4.0 E9/LRemisol HemeLymphocytes/100 WBC (Bld)20.2 %Normal 14.0 - 50.0 %Remisol HemeMCH (RBC) [Entitic mass]29.0 rfRwylrj64.0 - 34.0 pg Remisol HemeMCHC (RBC) [Mass/Vol]33.3 g/eQFmegmb56.4 - 36.0 gm/dLRemisol HemeMCV (RBC) [Entitic vol]87.0 aVRgppzn98.0 - 100.0 fLRemisol HemeMonocytes (Bld) [#/Vol]0.5 E9/LNormal0.2 - 1.0 E9/LRemisol HemeMonocytes/100 WBC (Bld)5.6 % Normal4.0 - 14.0 %Remisol HemeNeutrophils (Bld) [#/Vol]6.2 E9/LNormal2.0 - 7.5 E9/LRemisol HemeNeutrophils/100 WBC (Bld)69.2 %Tiqvgo94.0 - 75.0 %Remisol Heme Ljedgvjt003.0 E9/TBnqtrn331.0 - 500.0 E9/LRemisol HemePlatelet mean volume (Bld) [Entitic vol]10.5 fLNormal6.4 - 10.8 fLRemisol HemeRBC (Bld) [#/Vol]5.1 E12/L Normal4.3 - 5.9 E12/LRemisol HemeWBC corrected for nucl RBC Auto (Bld) [#/Vol] 9.0 E9/LNormal4.0 - 11.0 E9/LRemisol HemeLipid Panelon 90-65-5320Jxjcghgbevb [Mass/Vol]149 mg/fUIefesa855-026UbmycwBethesda North HospitalComment on above: Performed By: #### [id number] #### [facility] [address] [place] [id number] in HDL [Mass/Vol]32 mg/dLInvalid Interpretation CodeBethesda North HospitalComment on above:Result Comment: '>= 60 LOW RISK' '<= 40 HIGH RISK'Performed By: #### [id number] #### [facility] [address], [place] [address]Psbnkornuly in LDL [Mass/Vol]108 mg/dLNormal<=129Bethesda North HospitalComment on above:Performed By: #### [id number] #### [facility] [address], [place] [address]Dehxzikqaig in VLDL [Mass/Vol]14 mg/dLNormal7-40Bethesda North HospitalComment on above:Performed By: #### [id number] #### [facility] [address], [place] [address]Wpllvodwwmmd [Mass/Vol]71 mg/dLNormal<=149Bet[facility] North HospitalComment on above:Performed By: #### [id number] #### [facility] [address], [place] [address]PBZnb 40-96-9847QXZ Qn1.82 m[IU]/LNormal0.34-5.60Bet[facility] North HospitalComment on above:Performed By: #### [id number] #### [facility] [address], [place] [address]dHGIpd 12-62-6296yHDP646 mL/min/1.73 e0Qbabnd>=59Bet[facility]da North HospitalComment on above:Order Comment: Order added by Discern Expert. Performed By: #### [id number] #### [facility] [address], [place] [address]Koifats Totalon 20-50-4838Entvplzllbru [Mass/Vol]266 ng/dL Invalid Interpretation Dpzy810-398NmjqlkBethesda North HospitalComment on above: Result Comment: Adult male reference interval is based on a population of healthy nonobese males (BMI <30) between 19 and 39 years old. Luci et.al. JCEM 2017,102;1281-7964. PMID: [id number]. Performed at: [facility] [address] [id number] PhD David FreitasPerformed By: #### [id number] #### [facility] [address] [place], [place] [address]Sbigwbnrue Visit Summaryon 60-21-5435Fkdkemuqnp Visit Summary ONEAL ECKERT :1990 Visit Date:11/17/2023 Ambulatory Visit Instructions Your Diagnosis Encounter for weight management Low testosterone in male Non-smoker Adult BMI 60.0-69.9 kg/sq m Class 3 obesity, Obesities, morbid Smokeless tobacco use Your Care Team Attending Physician - Jeancarlos Maguire Primary Care Physician - Jeancarlos Maguire This Is Your Medications List duloxetine [...] Appointments Thursday. 2023 10:00 AM EDT With: Jeancarlos Maguire Where: [facility] [address] [address] \.br\ Medications\.br\ What How Much When Why Instructions\.br\ New phentermine (phentermine 37.5 mg Tab) 1 Tablets By Mouth Every day Encounter for weight management Occipital neuralgia Smokeless tobacco use Adult BMI 60.0-69.9 kg/sq m Obesities, morbid Class 3 obesity 30 day supply bmi66.08 Pickup at [facility]\.br\ Unchanged duloxetine (duloxetine 60 mg Cap-DR) 60 Milligram By Mouth Every day\.br\ Unchanged fremanezumab (Ajovy 225 mg/ 1.5 mL subcutaneous solution) 225 Milligram Subcutaneous Once a month\.br\ Unchanged lurasidone (lurasidone 40 mg oral tablet) 1 Tablets By Mouth Every day\.br\ Unchanged naproxen (naproxen s odium 550 mg Tab) 1 Tablets By Mouth [...] Mouth Every day at bedtime \.br\ Pharmacy Information\.br\ [facility]: [address] [place], [place] [id number] [phone]\.br\ Allergies\.br\ No Known Medication Allergies\.br\ Problems\.br\ Charley oing - Any problem that you are currently receiving treatment for.\.br\ Adult BMI 60.0-69.9 kg/sq m\.br\ Decreased libido\.br\ Encounter for weight management\.br\ Fatigue\.br\ Hypogonadism male\.br\Loud snoring\.br\ Low testosterone in male\.br\ Obesities, morbid\.br\ Obstructive sleep apnea\.br\ Occipital neuralgia\.br\ Somnolence, daytime\.br\ Witnessed episode of apnea\.br\ Patient Survey\.br\ You may receive a survey via text or e-mail asking about your office visit. Please share your experience with us by completing your survey. We appreciate your feedback and thank you for choosing usfor your care.\.br\ \.br\[facility] HospitalAmbulatory Visit Summary ONEAL ECKERT :1990 Visit Date:11/17/2023 Ambulatory Visit Instructions Your Diagnosis Encounter for weight management Low testosterone in male Non-smoker Adult BMI 60.0-69.9 kg/sq m Class 3 obesity, Obesities, morbid Smokeless tobacco use Your Care Team Attending Physician - Jeancarlos Maguire Primary Care Physician - Jeancarlos Maguire This Is Your Medications List duloxetine [...] Appointments Thursday. 2023 10:00 AM EDT With: Jeancarlos Maguire Where: [facility] [address] [place] [address] \.br\ Medications\.br\ What How Much When Why Instructions\.br\ New phentermine (phentermine 37.5 mg Tab) 1 Tablets By Mouth Every day Encounter for weight management Occipital neuralgia Smokeless tobacco use Adult BMI 60.0-69.9 kg/sq m Obesities, morbid Class 3 obesity 30 day supply bmi66.08 Pickup at [facility]\.br\ Unchanged duloxetine (duloxetine 60 mg Cap-DR) 60 Milligram By Mouth Every day\.br\ Unchanged fremanezumab (Ajovy 225 mg/ 1.5 mL subcutaneous solution) 225 Milligram Subcutaneous Once a month\.br\ Unchanged lurasidone (lurasidone 40 mg oral tablet) 1 Tablets By Mouth Every day\.br\ Unchanged naproxen (naproxen s odium 550 mg Tab) 1 Tablets By Mouth [...] Mouth Every day at bedtime \.br\ Pharmacy Information\.br\ [facility]: [address] [place], [place] [id number] [phone]\.br\ Allergies\.br\ No Known Medication Allergies\.br\ Problems\.br\ Charley oing - Any problem that you are currently receiving treatment for.\.br\ Adult BMI 60.0-69.9 kg/sq m\.br\ Decreased libido\.br\ Encounter for weight management\.br\ Fatigue\.br\ Hypogonadism male\.br\Loud snoring\.br\ Low testosterone in male\.br\ Obesities, morbid\.br\ Obstructive sleep apnea\.br\ Occipital neuralgia\.br\ Somnolence, daytime\.br\ Witnessed episode of apnea\.br\ Patient Survey\.br\ You may receive a survey via text or e-mail asking about your office visit. Please share your experience with us by completing your survey. We appreciate your feedback and thank you for choosing usfor your care.\.br\ \.br\[facility] [facility] Office/Clinic Noteon 35-54-0578Rjqjgv Medicine Office/Clinic NoteHPI Staff No is a 33 year old [...] (Z76.89: Persons encountering health services in other specifiedcircumstances) pt down another 16 pounds since last visit. pt is doing well. denies needs. RTC 4 weeks. would liketo come back for wellness visit and labs Ordered: phentermine, 37.5 mg = 1 tab(s), Oral, Daily, 30 day supply bmi66.08, # 30 tab(s), Refills(s) 0, Pharmacy: [facility], 180.3, cm, 11/17/23 10:09:00 EDT, Height/Length Dosing, 201.4, kg, 11/17/23 10:09:00 EDT, Weight Dosing phentermine, 37.5 mg = 1 tab(s), Oral, Daily, 30 day supply bmi66.08, # 30 tab(s), Refills(s) 0, Pharmacy: [facility], 180.3, cm, 10/15/23 10:14:00 EDT, [...] bmi66.08, # 30 tab(s), Refills(s) 0, Pharmacy: [facility], 180.3, cm, 11/17/23 10:09:00 EDT, Height/Length Dosing, 201.4, kg, 11/17/23 10:09:00 EDT, Weight Dosing phentermine, 37.5 mg = 1 tab(s), Oral, Daily, 30 day supply bmi66.08, # 30 tab(s), Refills(s) 0, Pharmacy: [facility], 180.3, cm, 10/15/23 10:14:00 EDT, Height/Length Dosing, 208.8, kg, 10/15/23 10:14:00 EDT, Weight Dosing Testosterone Level Total Class 3 obesity, (E66.01: Morbid (severe) obesity due to excess calories)Obesities, morbid see above Ordered: phentermine, 37.5 mg = 1 tab(s), Oral, Daily, 30 day supply bmi66.08, # 30 tab(s), Refills(s) 0, Pharmacy: [facility], 180.3, cm, 11/17/23 10:09:00 EDT, Height/Length Dosing, 201.4, kg, 11/17/23 10:09:00 EDT, Weight Dosing phentermine, 37.5 mg = 1 tab(s), Oral, Daily, 30 day supply bmi66.08, # 30 tab(s), Refills(s) 0, Pharmacy: [facility], 180.3, cm, 10/15/23 10:14:00 EDT, Height/Length Dosing, 208.8, kg, 10/15/23 10:14:00 EDT, Weight Dosing Smokeless tobacco use (Z72.0: Tobacco use) consider not using tobacco Ordered: phentermine, 37.5 mg = 1 tab(s), Oral, Daily, 30 day supply bmi66.08, # 30 tab(s), Refills(s) 0, Pharmacy: [facility], 180.3, cm, 11/17/23 10:09:00 EDT, Height/Length Dosing, 201.4, kg, 11/17/23 10:09:00 EDT, Weight Dosing phentermine, 37.5 mg = 1 tab(s), Oral, Daily, 30 day supply bmi66.08, # 30 tab(s), Refills(s) 0, Pharmacy: [facility], 180.3, cm, 10/15/23 10:14:00 EDT, [...] Topamax 200 mg Tab, (more content not included)...[facility] HospitalComment on above:Result Comment: Electronically Signed By: Jeancarlos Maguire\.br\Date and Time Signed: 11/17/23 10:52 EDTAmbulatory Visit Summaryon 83-87-6037Ysatugkekg Visit Summary ONEAL ECKERT :1990 Visit Date:10/15/2023 Ambulatory Visit Instructions Your Diagnosis Encounter for weight management Low testosterone in male BMI 60.0-69.9, adult Your Care Team Attending Physician - Jeancarlos Maguire Primary Care Physician - Jeancarlos Maguire This Is Your Medications List duloxetine [...] Appointments Thursday. 2023 10:00 AM EDT With: Jeancarlos Maguire Where: [facility] Medicine Office/Clinic Noteon 30-20-8384Sl[facility]bl Medicine Office/Clinic NoteChief Complaint weight loss HPI Staff Oneal is [...] (Z76.89: Persons encountering health services in other specifiedcircumstances) pt presents today for weight management. pt is down 28 pounds. doing very well. all questions answered. RTC 4 weeks Ordered: phentermine, 37.5 mg = 1 tab(s), Oral, Daily, 30 day supply bmi66.08, # 30 tab(s), Refills(s) 0, Pharmacy: [facility], 180.3, cm, 09/18/23 10:05:00 EDT, Height/Length Dosing, 214.8, kg, 09/18/23 10:05:00 EDT, Weight Dosing phentermine, 37.5 mg = 1 tab(s), Oral, Daily, 30 day supply bmi66.08, # 30 tab(s), Refills(s) 0, [facility], 180.3, cm, 10/15/23 10:14:00 EDT, [...] bmi66.08, # 30 tab(s), Refills(s) 0, Pharmacy: [facility], 180.3, cm, 09/18/23 10:05:00 EDT, Height/Length Dosing, 214.8, kg, 09/18/23 10:05:00 EDT, Weight Dosing phentermine, 37.5 mg = 1 tab(s), Oral, Daily, 30 day supply bmi66.08, # 30 tab(s), Refills(s) 0, Pharmacy: [facility], 180.3, cm, 10/15/23 10:14:00 EDT, Height/Length Dosing, 208.8, kg, 10/15/23 10:14:00 EDT, Weight Dosing 9. Obesities, morbid (E66.01: Morbid (severe) obesity due to excess calories) see above Ordered: phentermine, 37.5 mg = 1 tab(s), Oral, Daily, 30 day supply bmi66.08, # 30 tab(s), Refills(s) 0, Pharmacy: [facility], 180.3, cm, 09/18/23 10:05:00 EDT, Height/Length Dosing, 214.8, kg, 09/18/23 10:05:00 EDT, Weight Dosing phentermine, 37.5 mg = 1 tab(s), Oral, Daily, 30 day supply bmi66.08, # 30 tab(s), Refills(s) 0, Pharmacy: [facility], 180.3, cm, 10/15/23 10:14:00 EDT, [...] g (1.62%) transde (more content not included)... [facility] HospitalComment on above:Result Comment: Electronically Signed By: Jeancarlos Maguire\.shaneka\Date and Time Signed: 10/15/23 11:13 EDTPre- Certification Formon 25-76-8306Oac-Certification Form [id number]#1.00TIFFNoMcKitrick HospitalPre-Certification Formon 23-63-6415Flf-Certification Form [id number]#1.00TIFWayne HospitalPre-Certification Formon 52-90-2637Sne-Certification Form [id number]#1.00TIFWayne HospitalTestost Totalon 04-09-7099Lgtwykgvbmxo [Mass/Vol]210 ng/vXOnn973-081Gzrgav[address] [place], [place] [address]Comment on above:Result Comment: Adult male reference interval is based on a population of healthy nonobese males (BMI <30) between 19 and 39 years old. Luci et.al. JCEM 2017,102;9075-8470. PMID: 57052158. Performed at: [facility] [id number] PhD David FreitasPerformed By: #### [id number] ####[facility] [address] [place], [place] [address]Goequk Medicine Office/Clinic Noteon 76-27-2407Gpueiv Medicine Office/Clinic NoteHPI Staff Oneal is a 33 year old [...] (Z76.89: Persons encountering health services in other specifiedcircumstances) pt presents today for weight management. is [...] formulation 1990 Recorded Hib, unspecified formulation 1990 RecordedRiverside Methodist HospitalComment on above:Result Comment: Electronically Signed By: Jeancarlos Maguire\.br\Date and Time Signed: 09/18/23 10:18 EDTAmbulatory Visit Summaryon 77-01-1056Hhiugacmcj Visit Summary ONEAL ECKERT :1990 Visit Date:08/20/2023 Ambulatory Visit Instructions Your Diagnosis Encounter for weight management Obesities, morbid, Class 3 obesity Occipital neuralgia BMI 60.0-69.9, adult Smokeless tobacco use Your Care Team Attending Physician - Jeancarlos Maguire Primary Care Physician - Jeancarlos Maguire This Is Your Medications List duloxetine [...] Follow-Up Appointments Thursday 10:00 AM EDT With: Jeancarlos Maguire Where: [facility] Medicine [facility] Medicine Office/Clinic Noteon 58-56-7582Aoihcu Medicine Office/Clinic NoteHPI Staff Patient presents to establish care. Establish Care: History: anxiety, depression, migraines, occiptial neuralgia Last provider: [facility] Any recent labs: none Health Maintenance UTD: [...] nerve blocks for the occiptal neuralgia @ [facility] Current issues/complaints: History of Present Illness pt [...] (Z76.89: Persons encountering health services in other [facility]) pt would like to discuss weight loss. will start adipex. medication agreement signed. risks and benefits discussed. all questions answered. RTC 4 weeks. Gave [place] information on [place]. he willcheck into that. Ordered: phentermine, 37.5 mg = 1 tab(s), Oral, Daily, # 30 tab(s), Refills(s) 0, [facility], 180.3, cm, 08/20/23 9:34:00 EST, Height/Length Dosing, 221.5, kg, 08/20/23 9:34:00 EST, Weight Dosing 2. Occipital neuralgia (M54.81: Occipital neuralgia) follows neurologist. botox injections Ordered: phentermine, 37.5 mg = 1 tab(s), Oral, Daily, # 30 tab(s), Refills(s) 0, Pharmacy: [facility], 180.3, cm, 08/20/23 9:34:00 EST, Height/Length Dosing, 221.5, kg, 08/20/23 9:34:00 EST, Weight Dosing 3. Smokeless tobacco use (Z72.0: Tobacco use) consider no using tobacco Ordered: phentermine, 37.5 mg = 1 tab(s), Oral, Daily, # 30 tab(s), Refills(s) 0, Pharmacy: [facility], 180.3, cm, 08/20/23 9:34:00 EST, Height/Length Dosing, [...] Daily, # 30 tab(s), Refills(s) 0, [facility]acy: [facility], 180.3, cm, 08/20/23 9:34:00 EST, Height/Length Dosing, [...] Daily, # 30 tab(s), Refills(s) 0, [facility], 180.3, cm, 08/20/23 9:34:00 EST, Height/Length Dosing, [...] mg= 1 tab(s), Oral, (more content not included)...[facility] Methodist HospitalComment on above:Result Comment: Electronically Signed By: Jeancarlos Maguire.shaneka\Date and Time Signed: 08/20/23 10:19 ESTMedication Consenton 24-90-7289Ugalhifeqf Consent [id number]#1.00TIFFNormalBethesda North HospitalCB auto differentialOrdered By: Eligio Soriano on 21-91-2070Xkozoaup Eos # 0.03[facility] HospitalEvikon MCI Work Phone: absolute Immature Granulocyte0.00[facility] HospitalYaphie Phone: absolute Lymph #0.99LowMercy Health Anderson HospitalYaphie Phone: absolute Harlan #0.17[facility] HospitalYaphie Phone: atypical Lymphocytes9 %[employer] Phone: atypical Lymphocytes Absolute0.30k/uLPergunter Phone: basophils (Bld) [#/Vol]0.00 10*3/uLPergunter Phone: basophils/100 WBC (Bld)0 %0 - 2 %[employer] Phone: differential TypeNOT REPORTEDMerEvikon MCI Work Phone: eosinophils/100 WBC (Bld)1 %1 - 4 %[employer] Phone: Hematocrit (Bld) [Volume fraction]46.4 %40.7 - 50.3 % [employer] Phone: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 rate75 /minMohamad Mouchli [address] [place], [place] 9280409-26-2024 11:03-0400Systolic blood roewcbqd841 mm[Hg]Mohamad Mouchli [address] [place], [place] 9280409-24-2024 11:24-0400Body zplpku360.9 Estelle Ordoñez MD Work Phone: [phone]09-24-2024 11:24-0400Body mass index (BMI) [Ratio]56.48 kg/j5UzmoaTex Ordoñez MD Work Phone: [phone]()[phone]09-24-2024 11:24-0400Body pnutag692.9 kgTex Ordoñez MD Work Phone: [phone]()-0675[facility]09-24-2024 11:24-0400Diastolic blood jsmloonh95 mm[Hg]Tex Ordoñez MD Work Phone: [phone]()-[phone]09-24-2024 11:24-0400Heart rate73 /min Tex Ordoñez MD Work Phone: [phone]()[phone]09-24-2024 11:24-0400Systolic blood vfenfibe576 mm[Hg]Tex Ordoñez MD Work Phone: [phone]()-[phone]06-19-2024 14:51-0400Body .9 Estelle Ordoñez MD Work Phone: [phone]()[phone]06-19-2024 14:51-0400Body mass index (BMI) [Ratio]59.13 kg/q8DxisjTex Ordoñez MD Work Phone: [phone]()[phone]06-19-2024 14:51-0400Body vemssk444.77 kgTex Ordoñez MD Work Phone: [phone]()-[phone]06-19-2024 14:51-0400Diastolic blood rcnjknde62 mm[Hg]Tex Ordoñez MD Work Phone: [phone]()[phone]06-19-2024 14:51-0400Heart rate80 /min Tex Ordoñez MD Work Phone: [phone]()-[phone]06-19-2024 14:51-0400Systolic blood nzraunpl604 mm[Hg]Tex Ordoñez MD Work Phone: [phone]()[phone]04-23-2024 13:48-0400Body cqxjse352.9 Estelle Ordoñez MD Work Phone: [phone]()[phone] Good Samaritan HospitalSmttpf95-54-9981 13:48-0400Body mass index (BMI) [Ratio]61.84 kg/b3YvnoqTex Ordoñez MD Work Phone: 1()[phone] Good Samaritan HospitalDonysz51-79-0101 13:48-0400Body .84 kgTex Ordoñez MD Work Phone: [phone]()[phone] Good Samaritan HospitalTsyklk67-87-4179 13:48-0400Diastolic blood sfdksydw39 mm[Hg]Tex Ordoñez MD Work Phone: [phone]()[phone] Good Samaritan HospitalZcwerf05-07-9072 13:48-0400Heart rate80 /min Tex Ordoñez MD Work Phone: [phone]()[phone] Good Samaritan HospitalHbrjvr69-26-9688 13:48-0400Systolic blood arybypnm836 mm[Hg]Tex Ordoñez MD Work Phone: [phone] Good Samaritan HospitalTxacuf53-45-4415 09:59-0500Body nevlmj409.9 cmRojasissa Guillermo PA-C Work Phone: [phone]()[phone]02-27-2024 09:59-0500Body .88 kgRojasissa Guillermo PA-C Work Phone: [phone]()[phone]02-27-2024 09:59-0500Diastolic blood eaogjnzn91 mm[Hg]Haylie Guillermo PA-C Work Phone: [phone]02-27-2024 09:59-0500Heart rate80 /min Haylie Guillermo PA-C Work Phone: [phone]02-27-2024 09:59-0500Systolic blood hefrzezo494 mm[Hg]Haylie Guillermo PA-C Work Phone: [phone]12-05-2023 16:06-0500Body dwseot008.9 Estelle Ordoñez MD Work Phone: [phone]()[phone] Good Samaritan HospitalVwngak00-47-2174 16:06-0500Body .76 kgTex Ordoñez MD Work Phone: [phone] Rueltg13-78-7510 16:06-0500Diastolic blood ptladjqd65 mm[Hg]Tex Ordoñez MD Work Phone: [phone] Ebboql31-06-4992 16:06-0500Heart rate85 /min Tex Ordoñez MD Work Phone: [phone] Bhrkwy30-41-6453 16:06-0500Systolic blood infgupjx982 mm[Hg]Tex Ordoñez MD Work Phone: [phone] Plumzi13-83-5422 11:02-0400Body xnpaml504.9 Estelle Ordoñez MD Work Phone: [phone] Mfronm68-06-9673 11:02-0400Body jnpyka743.54 kgTex Ordoñez MD Work Phone: [phone] Sldhhz51-51-0581 11:02-0400Diastolic blood tzufvzkb40 mm[Hg]Tex Ordoñez MD Work Phone: [phone] Hicerb28-21-0809 11:02-0400Heart rate69 /min Tex Ordoñez MD Work Phone: [phone] Vbkjva05-72-8095 11:02-0400Systolic blood fcuuykeu251 mm[Hg]Tex Ordoñez MD Work Phone: [phone] Exnnpf39-53-2908 15:26-0400Body jumyjn861.9 Estelle Ordoñez MD Work Phone: [phone] Gfduha10-22-6869 15:26-0400Body .04 kgTex Ordoñez MD Work Phone: [phone] Ldnuxz16-81-9891 15:26-0400Diastolic blood axulnkqt56 mm[Hg]Tex Ordoñez MD Work Phone: [phone] Zopadq47-57-1859 15:26-0400Heart rate80 /min Tex Ordoñez MD Work Phone: [phone] Hnwibc62-83-2710 15:26-0400Systolic blood mm[Hg]Tex Ordoñez MD Work Phone: [phone]and Ewpcuc29-20-7719 14:12-0400Body asunhm405.9 Estelle Ordoñez MD Work Phone: [phone] centerand Pkhikn34-37-0162 14:12-0400Body .86 kgTex Ordoñez MD Work Phone: [phone] [place], [place] [address]and Qmzydh45-87-9488 14:12-0400Diastolic blood ejubircu61 mm[Hg]Tex Ordoñez MD Work Phone: [phone] [place], [place] [address]and Btonuv42-65-8342 14:12-0400Heart rate84 /min Tex Ordoñez MD Work Phone: [phone] clinic orthopedic centerand Jotgyi85-76-6510 14:12-0400Systolic blood hlaoezou692 mm[Hg]Tex Ordoñez MD Work Phone: 1(216)[phone] [place], [place] [address]and Qqwrpu66-54-9578 12:47-0400Body udbybr480.9 Estelle Ordoñez MD Work Phone: [phone]opedic centerand Pjnjbl05-93-0139 12:47-0400Body hrviff808.13 kgTex Ordoñez MD Work Phone: [phone] centerand Pqgmhc46-27-4738 12:47-0400Diastolic blood ajkdbtlz50 mm[Hg]Tex Ordoñez MD Work Phone: [phone] clinic orthopedic centerand Ocinko80-64-2817 12:47-0400Heart rate64 /min Tex Ordoñez MD Work Phone: [phone] Zmmpdu85-36-5541 12:47-0400Systolic blood vwbszwso260 mm[Hg]Tex Ordoñez MD Work Phone: [phone] Aqtmzu31-20-9371 15:47-0400Body eaghrr508.9 Estelle Ordoñez MD Work Phone: [phone] Mmuhfw84-02-0291 15:47-0400Body .64 kgTex Ordoñez MD Work Phone: [phone] Qyflqa02-22-9498 15:47-0400Diastolic blood mm[Hg]Tex Ordoñez MD Work Phone: 1([phone])475-4[place] Bathor68-30-2218 15:47-0400Heart rate79 /min Tex Ordoñez MD Work Phone: [phone])077[place] Azgxbw17-71-2524 15:47-4176KrY0% (BldA) [Mass fraction]100 %Tex Ordoñez MD Work Phone: [phone] Wygzem61-88-0780 15:47-0400Systolic blood bwdvpnol131 mm[Hg]Tex Ordoñez MD Work Phone: [phone] Ovajog00-46-6297 11:41-0500Body esxmrq131.9 Estelle Ordoñez MD Work Phone: [phone] Ndhomb95-52-4602 11:41-0500Body iliflz844.84 kgTex Ordoñez MD Work Phone: [phone] Smixmd68-55-9604 11:41-0500Diastolic blood mm[Hg]Tex Ordoñez MD Work Phone: [phone] Hfltqv89-78-0287 11:41-0500Heart rate78 /min Tex Ordoñez MD Work Phone: [phone] Eomcdl30-65-8293 11:41-0500Systolic blood mm[Hg]Tex Ordoñez MD Work Phone: [phone] Inqlrv64-78-2484 11:37-0400Body gprcte464.9 Estelle Ordoñez MD Work Phone: [phone] Kcuxik69-78-2118 11:37-0400Body pdotaf435.86 kgTex Ordoñez MD Work Phone: [phone] Qlwpab68-08-6857 11:37-0400Diastolic blood rnjyvadl13 mm[Hg]Tex Ordoñez MD [facility] Phone: [facility] Aeindx93-07-4889 11:37-0400Heart rate67 /min Tex Ordoñez MD Work Phone: [facility] Dgyijc05-31-2590 11:37-0400Systolic blood dulsnbtx552 mm[Hg]Tex Ordoñez MD Work Phone: [phone] Vjcskl49-94-6293 12:05-0400Body sazbzf112.9 Estelle Ordoñez MD Work Phone: [facility] Woygri41-39-9899 12:05-0400Body temperature 97.11 [degF]Tex Ordoñez MD Work Phone: [phone] Tsknik70-96-0877 12:05-0400Body rtyqpy334.86 kgTex Ordoñez MD Work Phone: [phone] Xielql00-24-9576 12:05-0400Diastolic blood iapkavkv99 mm[Hg]Tex Ordoñez MD Work Phone: [phone] Uzhtds92-29-6749 12:05-0400Heart rate84 /min Tex Ordoñez MD Work Phone: [phone] Tzelzd16-38-6336 12:05-9718IcT6% (BldA) [Mass fraction]99 %Tex Ordoñez MD Work Phone: [facility] Mezgth58-50-9628 12:05-0400Systolic blood mm[Hg]Tex Ordoñez MD Work Phone: [facility] Ikqakd97-19-9712 22:00-2346TqU6% (BldA) [Mass fraction]96 %Haider James DO Work Phone: [employer] Work Phone: [phone] 599-411411-03-2021 20:00-0400Diastolic blood ecarimky17 mm[Hg] Haider James DO Work Phone: [employer] Work Phone: [phone] 155-354611-03-2021 20:00-0400Systolic blood lqdygzmy473 mm[Hg] Haider James Gen110 Phone: [facility] Phone: [phone] 797-887411-03-2021 18:23-0400Body mass index (BMI) [Ratio] 54.24 kg/m2Adam Jacob Gen110 Phone: [facility] Phone: [phone] 540-942211-03-2021 18:23-0400Body wmygihbyhni90.01 [degF]Haider James [employer] Work Phone: [phone] [employer] Phone: [phone] 18:23-0400Body uptlzn679.44 kgAdam Jacob Gen110 Phone: [facility] [employer] Phone: [phone] 373-686511-03-2021 18:23-0400Heart rate83 /minAdam Sutus Phone: [facility] Phone: [phone] 18:23-0400Respiratory rate16 /minAdam Sutus Phone: [facility] Phone: Encounters Encounter DateEncounter TypeCare ProviderFacilityStart: 05-08-2025 End: 12-07-9070vbmtqhuiceYHOV LYNN SCHWABFacility:[facility] Hospitaltart: 04-21-2025 End: 53-14-3188dkoeyuxashGrki L SchwabFacility:FT BellevueStart: 03-23-2025 End: 00-38-7499iadlxjyngaUbri L SchwabFacility:FT BellevueStart: 02-16-2025 End: 13-81-2007mpitknntsrSTR Ejancarlos L SchwabFacility:MCStart: 01-30-2025 End: 89-02-5772Axfdyrl encounter procedureTex Ordoñez MD Work Phone: NeurologyComment on above:Chronic migraine without aura, intractable, without status migrainosusStart: 01-30-2025 End: 79-72-6567jwzmdtlxvlDBUVC M CARDONAFacility:[facility] HospitalStart: 01-10-2025 End: 67-81-9846Wcxxzpvlt encounterTex Ordoñez MD Work Phone: [facility] HB-3Comment on above:Insurance Authorization (/ADDITIONAL INFORMATION NEEDED FOR BOTOX )Start: 11-17-2024 End: 78-32-6117bsuigbzpfrFywy L SchwabFacility:FT BellevueStart: 10-12-2024 End: 76-32-8086rgmnmeqikuSYAMW M CARDONAFacility:[facility] HospitalStart: 10-12-2024 End: 37-02-3261Uxhnnkt encounter procedureTex Ordoñez MD Work Phone: NeurologyComment on above:Chronic migraine without aura, intractable, without status migrainosus (Primary Dx)Start: 08-24-2024 End: 90-94-0743ojdgsnbrldSdif L SchwabFacility:FT BellevueStart: 08-18-2024 End: 21-23-1128xxkvkdiyjtGefm L SchwabFacility:[facility] BellevueStart: 08-05-2024 End: 75-03-1575jkejacypdnDpeovic A. MouchliFacility:[facility] DHStart: 08-05-2024 End: 77-58-3918Ijcyrcm encounter procedureSera Espinoza [phone]-DivjtMarymount Hospital [facility] Start: 08-03-2024 End: 65-31-7738aprhrufcciWTIB SCHWABMercy Helm HospitalStart: 08-03-2024 End: 28-64-2433Frvmepmtyy hospital visit by physicianJeancarlos Gudino APRN - MAY Work Phone: mthz LaboratoryComment on above:BARBARA (obstructive sleep apnea)Start: 07-12-2024 End: 04-92-5626Dqemnhg encounter procedureTex Ordoñez MD Work Phone: NeurologyComment on above:Chronic migraine without aura, intractable, without status migrainosus (Primary Dx)Start: 07-12-2024 End: 24-38-9584skeddiwoptRVLAYAlan Marmolejocility:[facility] HospitalStart: 06-10-2024 End: 13-18-8926brjwpcxulvXHMMJYD R [facility] Start: 06-10-2024 End: 82-01-7314Zrexocvaav hospital visit by Mary Sher DO Work Phone: mhpb [place] ORComment on above:Status post gastric bypass for obesity; Morbid obesity; Hiatal herniaStart: 05-19-2024 End: 38-64-7290pmxcgodanpWoje Critical access hospitalcility:[facility] BridgeueStart: 05-17-2024 End: 97-23-2173ubrdqdspkzAMXDECU Health HospitalStart: 05-17-2024 End: 14-29-8892Eypbkcaaon hospital visit by Mary Sher DO Work Phone: [facility] CT ScanComment on above: Paraesophageal herniaStart: 05-12-2024 End: 08-87-9827fbrrfjzekzFQOHSt. Mary's Medical Center, [place] Campustart: 05-12-2024 End: 83-90-3624Ubwtjfakwv hospital visit by Kandis Medel [address] RadiologyComment on above:Paraesophageal herniaStart: 04-21-2024 End: 47-36-0305Fqt-admission assessmentSera Espinoza [facility] Start: 04-21-2024 End: 98-18-6121btnbvymcvsMvnhlpe A. MouchliFacility:[facility] DHStart: 04-21-2024 End: 15-91-2670Sxozwuu encounter procedureSera Espinoza [phone]-ZuzjwMarymount Hospital [facility]est[facility] Start: 04-15-2024 End: 41-40-5562pvlhvluiqwEEXIO L DESMONDSissy Fajardofin HospitalStart: 04-07-2024 End: 08-70-9254bieuhuqpcgYtzor Stanton PA-C Work Phone: NeurologyComment on above:medical recordsStart: 04-07-2024 End: 33-89-7039Y-mail encounter from Arnulfo Ramirez PA-C Work Phone: NeurologyStart: 04-06-2024 End: 23-07-8561Ewmgzfbsp encounterKatsarah MORILLOSukhdeepNeurologyComment on above: Social Work ServicesStart: 04-06-2024 End: 68-23-1918uquqplqoipYohqlgp A. MouchliFacility:MCStart: 04-06-2024 End: 38-12-6093Uknopod encounter procedureSera Espinoza [facility] Start: 04-01-2024 End: 03-47-5032neawgepicoYiyf L SchwabFacility:[facility] BridgeueStart: 03-31-2024 End: 03-63-1110hchhadmngfEhelwrh A. MouchliFacility:[facility] DHStart: 03-31-2024 End: 11-41-2374Sgtlstt encounter procedureSera Espinoza [phone]-GoutrMarymount Hospital [facility]est[facility] Start: 03-30-2024 End: 59-32-3628vzpwujpkpyVlhgy Stanton PA-C Work Phone: NeurologyComment on above:Seizure-like activity (HCC) (Primary Dx)Start: 03-30-2024 End: 79-29-4486Nwwasetnawse consultation with Autumn Ramirez PA-C Work Phone: NeurologyStart: 03-29-2024 End: 36-46-6147Jmgerie encounter Ivan Ordoñez MD Work Phone: NeurologyComment on above:Chronic migraine without aura, intractable, without status migrainosus (Primary Dx)Start: 03-21-2024 End: 94-84-7401Ttzmxglss Nurys Carr MD Work Phone: NeurologyComment on above:General (EEG)Start: 03-14-2024 End: 17-31-3751xuywnpcbwaXkbl L SchwabFacility:CD:[id number]: 03-11-2024 End: 60-75-2441Gkvacgiio Result EncounterGeneric External Data ProviderNOMS External Department UnsolicitedStart: 03-11-2024 End: 72-70-7767Grkuzxcjm Result EncounterGeneric External Data ProviderNOMS External Department UnsolicitedStart: 03-10-2024 End: 83-57-3728Jymwxpvzi Result EncounterGeneric External Data ProviderNOMS External Department UnsolicitedStart: 03-10-2024 End: 82-16-2301Kreyrvxuy Result EncounterGeneric External Data ProviderNOMS External Department UnsolicitedStart: 03-10-2024 End: 23-35-3225fsojeubespRQSIZF E FRUTHFacility:[facility] Hospitaltart: 03-09-2024 End: 43-25-8780VxwdddQrvdrHina Ordoñez MD Work Phone: NeurologyComment on above:Refill RequestStart: 03-09-2024 End: 15-20-6360ClhsetGvryLacey Leon MD Work Phone: NeurologyComment on above:Refill RequestStart: 03-02-2024 End: 61-45-0922Gen Drop offJodi L Ahmet [facility] Start: 03-02-2024 End: 96-93-2536apuopszgntKchkruAurora Carr MD Work Phone: NeurologyComment on above:Seizure-like activity (HCC) (Primary Dx)Start: 03-02-2024 End: 33-07-6041Woiqhdjhtdng consultation with Casey Carr MD Work Phone: NeurologyStart: 02-29-2024 End: 04-74-7700Uoquotzum encounterTex Ordoñez MD Work Phone: NeurologyComment on above:Received Outside Medical RecordsStart: 02-24-2024 End: 19-22-5250Tshxwzh encounter procedureSheryl Walker MD Work Phone: NeurologyComment on above:Staring episodes (Primary Dx)Start: 02-24-2024 End: 09-80-6812Soslgypcu encounterSheryl Walker MD Work Phone: NeurologyComment on above:Future Appointment (NEW PT ,[place], ANY)Start: 99-97-9503yveqhmfypzLvkf SchwabFacility:[facility] DHStart: 02-18-2024 End: 56-67-2068ykseuxnxihXoew L SchwabFacility:FT FM BellevueStart: 02-12-2024 End: 05-67-8874Sstqpharo Karlene Ordoñez MD Work Phone: NeurologyComment on above:PainStart: 02-04-2024 End: 80-37-4348rshklcrxqcCigsm M Cardona MD Work Phone: NeurologyComment on above:Chronic migraine without aura, intractable, without status migrainosus (Primary Dx); Loss of consciousness (HCC); Transient alteration of awarenessStart: 02-04-2024 End: 65-49-1378Zxgqbxidfavt consultation with Baldev Ordoñez MD Work Phone: NeurologyStart: 01-29-2024 End: 13-28-5731Jyczckekh encounterTex Ordoñez MD Work Phone: NeurologyComment on above:Received Outside Medical RecordsStart: 01-13-2024 End: 08-64-3046jdljvshdbxNdjq L SchwabFacility:FT FM BellevueStart: 12-23-2023 End: 90-94-0608Dcgnvgz encounter procedureTex Ordoñez MD Work Phone: NeurologyComment on above:Chronic migraine without aura, intractable, without status migrainosus (Primary Dx)Start: 12-16-2023 End: 79-29-4869vcqiunmbybDwrw L SchwabFacility:FT FM BellevueStart: 12-02-2023 ambulatoryJodi L SchwabFacility:FTMCStart: 12-02-2023 End: 55-10-4402Crb Drop offJodi L Ahmet [facility] Start: 12-02-2023 End: 07-83-7223ymvgylqkekMajn L SchwabFacility:FT FM BellevueStart: 11-17-2023 End: 61-24-3914xkgxawfszuJreh L SchwabFacility:FTMCStart: 11-17-2023 End: 43-52-3182Adx Drop offJodi L Ahmet [facility] Start: 11-17-2023 End: 25-68-4695oslhcdcdfwBykh L SchwabFacility:FT FM BellevueStart: 10-27-2023 End: 92-39-0002Wqinrql encounter procedureTex Ordoñez MD Work Phone: NeurologyComment on above:Bilateral occipital neuralgia (Primary Dx)Start: 10-15-2023 End: 33-34-8505tjdwakyfisUvnc L SchwabFacility:FT FM BellevueStart: 10-02-2023 End: 07-44-3058fqdvgcyyqbWstn L SchwabFacility:FT FM BellevueStart: 09-22-2023 ambulatoryJodi SchwabFacility:FT FM BellevueStart: 09-18-2023 End: 42-05-8737Tjj Drop offJodi L Ahmet [facility] Start: 09-18-2023 End: 26-12-3784xqllyxmnbnDrfy L SchwabFacility:FTMCStart: 09-01-2023 End: 78-38-3625Aksnirn encounter procedureHaylie Guillermo PA-C Work Phone: NeurologyComment on above:Intractable chronic migraine without aura and without status migrainosus (Primary Dx)Start: 08-20-2023 End: 58-08-6772bbatpcmomsOawq L SchwabFacility:FT FM BellevueStart: 06-09-2023 End: 53-63-7999Imchqzt encounter procedureTex Ordoñez MD Work Phone: NeurologyComment on above:Bilateral occipital neuralgia (Primary Dx); Chronic migraine without aura, intractable, without status migrainosusStart: 04-21-2023 End: 97-86-4023Aponjza encounter procedureTex Ordoñez MD Work Phone: NeurologyComment on above:Chronic migraine without aura, intractable, without status migrainosus (Primary Dx)Start: 04-05-2023 RefillTex Ordoñez MD Work Phone: NeurologyComment on above:Refill RequestStart: 43-81-4150Sdjigztkn encounterTex Ordoñez MD Work Phone: HOSPITAL PHARMACY HB-3Comment on above:Insurance Authorization (Botox denied; Peer to peer requested )Start: 91-65-6817Akikgckulwant Ordoñez MD Work Phone: NeurologyComment on above:Refill RequestStart: 02-17-2023 End: 23-67-0002Oziipqy encounter Ivan Ordoñez MD Work Phone: NeurologyComment on above:Bilateral occipital neuralgia (Primary Dx)Start: 01-08-2023 End: 19-52-9578Kewiyyw encounter Ivan Ordoñez MD Work Phone: NeurologyComment on above:Chronic migraine without aura, intractable, without status migrainosus (Primary Dx)Start: 12-21-2022 RefillTex Ordoñez MD Work Phone: NeurologyComment on above:Refill RequestStart: 12-06-2022 End: 42-61-9633qunepxddmhLieym M Cardona MD Work Phone: NeurologyComment on above:Bilateral occipital neuralgia (Primary Dx)Start: 12-06-2022 End: 19-43-5080Jvksdzxkchpj consultation with Baldev Ordoñez MD Work Phone: [facility]Start: 11-13-2022 End: 21-67-2742Qjvxptn encounter procedureTex Ordoñez MD Work Phone: NeurologyComment on above:Bilateral occipital neuralgia (Primary Dx)Start: 10-09-2022 End: 63-48-9975Szmjqzw encounter Ivan Ordoñez MD Work Phone: NeurologyComment on above:Chronic migraine without aura, intractable, without status migrainosus (Primary Dx)Start: 08-07-2022 Telephone encounterTex Ordoñez MD Work Phone: NeurologyComment on above:AJovyStart: 08-04-2022 End: 08-47-3340wkdexrcpvmHlxwd M Cardona MD Work Phone: NeurologyComment on above:Chronic migraine without aura, intractable, without status migrainosus (Primary Dx)Start: 08-04-2022 End: 09-85-3614Gkorhuenzxdf consultation with Baldev Ordoñez MD Work Phone: [facility]OSPITALStart: 60-70-2638Juvgyujpi encounter Tex Ordoñez MD Work Phone: NeurologyComment on above:Forms/letterStart: 07-10-2022 End: 40-37-4159Fznevto encounter Ivan Ordoñez MD Work Phone: NeurologyComment on above:Chronic migraine without aura, intractable, without status migrainosus (Primary Dx)Start: 12-25-2021 End: 04-09-9437Qaottkz encounter procedureTex Ordoñez MD Work Phone: NeurologyComment on above:Chronic migraine without aura, intractable, without status migrainosus (Primary Dx); Cognitive complaints; AnxietyStart: 10-07-2021 End: 92-02-7837Skxikyd encounter procedureTex Ordoñez MD Work Phone: NeurologyComment on above:Chronic migraine without aura, intractable, without status migrainosus (Primary Dx)Start: 07-25-2021 End: 36-52-0571zdwqxtuqhmZegnf M Cardona MD Work Phone: NeurologyComment on above:Chronic daily headache (Primary Dx)Start: 07-25-2021 End: 68-32-3079Duzeimjzovsf consultation with Baldev Ordoñez MD Work Phone: [facility]ITALStart: 05-08-2021 End: 71-37-0889Ctdgnzzxk department patient visitHaider James DO Work Phone: [facility] EDComment on above:COVID-19 (Primary Dx)Start: 01-30-2021 End: 13-23-2244Vftmjtzibd hospital visit by physicianShaun Magallon DO Work Phone: mthz LaboratoryStart: 01-02-2021 End: 90-17-7788Yxgcpfswuz hospital [facility] by physicianSt[facility] Mri ScannerMer[facility] MRIComment on above:History of motor vehicle accidentStart: 11-05-2020 End: 83-34-0983Jyywuhzzil hospital visit by physicianSt[facility] Cat Scan [facility] CT ScanComment on above:Post-traumatic headache, not intractable, unspecified chronicity pattern; 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Start: 04-11-2019 End: 41-81-9463Zzxutuxuzw hospital visit by Aida MederosMTHZ Physical TherapyStart: 03-17-2019 End: 40-75-6725Xsyejwoshj hospital visit by Shelly HerrearMTHZ Physical TherapyComment on above:ArrivedStart: 07-17-2018 End: 96-70-5624Uwdcxjs encounter procedureJordzaire MartinzaireFacility:[facility] Centertart: 06-18-2017 End: 48-67-0191QkhnzfmvihOUOFBE FOGTFacility:B4Uhexu: 05-20-2017 End: 13-99-2694HkadpclubpYFYRIU FOGTFacility:S2Sxgjn: 04-23-2017 End: 09-79-9558MtoumsxtmmWHXBEL FOGTFacility:E1Updmc: 21-87-9117CmchlmfbmqJFEYAE FOGTFacility:G2Rhsge: 03-22-2017 End: 80-71-4910PalsgcilisPODS HAYFacility:H1 Procedures DateProcedureProcedure DetailPerforming ClinicianStart: 77-52-3276Qvqqwn-up visitFollow Diane KEATINGATRIUM HEALTH KANNAPOLIStart: 61-96-0675Fvlv tst prsmv instrmnt chem analyzers pr dateJordyn Sher [employer] Work Phone: Start: 86-21-9797Rb abdomen & pelvis w/contrast materialJordyn Sher DO Work Phone: Start: 72-24-5130Gdlniltsoc exam upr gi trc double contrast studyJordyn Sher [employer] Work Phone: Start: 53-38-7137LhmyqakoiscudaqilrydomshkaEzynwfr Mouchli Start: 21-03-3415YZJ CBC W AUTO DIFF BLDGeneric External Data ProviderStart: 53-67-7406GIZ URINALYSIS, REFLEX MICROSCOPICGeneric External Data ProviderStart: 80-38-8322Rt thorax w/contrast materialAdam C James DO Work Phone: Start: 05-08-2021 End: 87-12-8670Mxribhybpjicf metabolic panelEligio Soriano MD Work Phone: Start: 44-31-4983PIIDFKNA PLATELET FRACTIONEligio Soriano MD Work Phone: Start: 00-48-4879Pfnjmwtbih exam chest single viewEtan Diego Soriano MD Work Phone: Start: 46-66-8442Mpa routine ecg w/least 12 lds w/i&r Eligio Diego Soriano MD Work Phone: Start: 94-16-6661Qnzqnljc kinase totalMatty Cordoba MD Work Phone: Start: 13-49-9693Jmrsudsxum factor quantitativeMatty Cordoba MD Work Phone: Start: 01-02-2021 End: 58-41-4643Qmd brain brain stem w/o contrast materialMatty Cordoba MD Work Phone: Start: 04-61-2814Qe head/brain w/o contrast material Jesus Hannon Work Phone: ColonoscopyMohamad Mouchli Comment on above:2016Education about postoperative care after adenotonsillectomyJodi Ahmet Esophagogastroduodenoscopic electrohydraulic lithotripsy of bezoar in stomachMohamad Mouchli Comment on above:2016Gastric sleeveJodi Ahmet Surgical procedureMohamad Mouchli TympanotomyJodi Ahmet Comment on above:about 10 times for eustachian tube dysfunction Plan of Treatment DateCare ActivityDetailAuthorStart: 05-08-2025 End: 49-57-5237Aolhzod encounter alvewhtsn66/03/2025 10:30 AM EST Office Visit Neurology [address] [place] [address] Tex Ordoñez [place] [address] [address] [place] [address] botoxNeurologyComment on above:botoxStart: 91-76-3131Pwxnoaoly vaccination [facility]Start: 01-30-2025 End: 52-52-0673Ycioflw encounter niajukqkv41/28/2025 11:00 AM EDT Office Visit Neurology [address] [place] [address] Tex Ordoñez [place] [address] [address] [place], [place] [phone] botoxNeurologyComment on above:botoxStart: 10-12-2024 End: 88-27-1076Gokdure encounter procedureNeurologyComment on above:botoxStart: 08-17-2024 End: 33-08-8516Apjxetq encounter nkjzezdns80/12/2025 10:00 AM EST Office Visit [facility] BARIATRIC [address] [place] [address] Summer Osborn, 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 REPAIRER - SCANNING TECH [address] [facility], [address] [place] [address] ANthem #1 of #3 [facility] Part [facility] Comment on above:ANthem #1 of #3 revisionStart: 07-12-2024 End: 18-91-7166Bcmwyja encounter pjfxbasoa85/07/2025 11:00 AM EST Office Visit Neurology [address] [place] [address] Tex Ordoñez [place] [address] [place], [place] [phone] BotoxNeurologyComment on above:BotoxStart: 06-15-2024 End: 97-86-5126Uggboio encounter ugcmzmoux75/11/2024 10:45 AM EST Office Visit Merc[facility] L[facility]pez Invasive Bariatric Surg [address] [facility] [address] [place] [address] Jordyn Sher DO [address] [facility] [address] [place] [address] follow up EGDMercy Min Invasive Bariatric SurgComment on above:follow up EGDStart: 06-10-2024 End: 66-37-2563Htcrimxeo to same day surgery vbcamv3906/10/2024 10:50 AM EST - 06/10/2024 11:10 AM EST Surgery [facility] [place] [address] [place] [address] Jordyn Sher DO [address] [facility] [address] [place] [address] ESOPHAGOGASTRODUODENOSCOPY BIOPSYKettering Health Behavioral Medical Center ORComment on above: ESOPHAGOGASTRODUODENOSCOPY BIOPSYStart: 06-10-2024 End: 07-94-3998Ico transoral biopsy single/multipleESOPHAGOGASTRODUODENOSCOPY BIOPSY Status post gastric bypass for obesity Morbid obesity Hiatal hernia 06/10/2024 10:50 AM [facility] CenterStart: 97-35-9715Zsxdzrftus hospital visit by /06/2024 10:50 AM EST Hospital Encounter [facility] [place] [address] [address] Jordyn Sher DO [address] [facility] [address] [place] [address] [facility] ORStart: 06-10-2024 End: 09-73-3341Orm transoral biopsy single/multipleESOPHAGOGASTRODUODENOSCOPY BIOPSY Status post gastric bypass for obesity Morbid obesity Hiatal hernia 06/10/2024 9:01 AM [employer] InstallationsMercy Health Anderson HospitalEvikon MCI PB WanetteStart: 05-17-2024 End: 86-64-8964Uateqyj encounter icpmsbqtt98/12/2024 1:45 PM EST [facility] [employer] [address] Scan [address] [place] [address] Jordyn Sher DO [address] [facility] [address] [place] [address] FERNANDA Tarango PT/[employer] HospitalEvikon [facility] [address] CT Scan Comment on above:FERNANDA Tarango PT/EPICStart: 03-30-2024 End: 52-26-5597Qelgrr-up bvzopaeln57/25/2024 11:00 AM EDT [facility] Neurology [address] [place] [address] Gloria Ramirez PA-C [address] [place], [place] [id number] Veeg follow upNeurologyComment on above:Veeg follow upStart: 03-29-2024 End: 24-34-9792Rnvvugi encounter opgyneksn74/24/2024 11:30 AM EDT Office Visit Neurology [address] [place] [address] Tex Ordoñez [place] [address] [place] [address] BotoxNeurologyComment on above:BotoxStart: 53-96-7704Geruiqtwde hospital visit by zesfjrzoj49/05/2024 Hospital Encounter HOSP MAIN M060 [address] [place] [address] Alfonso Guerrero MD [address] [place], [place] [id number] Transient alteration of awareness [R40.4]HOSP MAIN K885Tmzurtq on above:Transient alteration of awareness [R40.4]Start: 03-10-2024 End: 16-24-5523Yvyxraz encounter dlgbmokzb15/05/2024 10:00 AM EDT Office Visit Neurology [address] [place] [id number] ADMITNeurology Comment on above:ADMITStart: 13-45-0237Gqljt-19 Vaccine ( season) Covid-19 Vaccine ()[facility]: 62-99-6856Knnzl-19 Vaccine ()Covid-19 Vaccine ()[facility]: 35-36-2513Pnmxfiugy vaccinationBucyrus Community Hospitaltart: 03-02-2024 End: 81-28-2290Qnsdwkdu Vdatjx3303/02/2024 9:00 AM EDT [facility] Neurology [address] [place] [address] Milagros Orosco MD [address] [place], [place] [phone] NEW CONSULT - PENDING VEEG ORDERS; DO NOT CANCEL OR RESCHEDULE, TRANSFER TO [facility] NeurologyComment on above:NEW CONSULT - PENDING VEEG ORDERS; DO NOT CANCEL OR RESCHEDULE, [place]ER [place] [id number]: 77-45-4617ACbA/Tdap/Td vaccine (7 - Td or Tdap)DTaP/Tdap/Td vaccine (7 - Td or Tdap)[facility]: 28-65-6603XKzB/Tdap/Td vaccine (7 - Td)DTaP/Tdap/Td vaccine (7 - Td)[place]: 66-52-4890Lycea microalbumin profileDTaP,Tdap,Td Vaccine (7 - Td or Tdap)[facility]: 13-18-5989Qnkqksqwd vaccinationFlu vaccine (#1)[facility]: 12-15-2023 End: 03-08-4050Dyfueuw encounter dtukuzwgo56/11/2024 1:30 PM EDT Office Visit Neurology [address] [place] [address] Tex Ordoñez [place] [address] [place] [address] BOTOXNeurologyComment on above:BOTOXStart: 89-63-4961Nfxmqlxubs Health Screening Behavioral Health ScreeningBucyrus Community Hospitaltart: 88-65-1874Ixzzxzmtba AssessmentDepression AssessmentBucyrus Community Hospitaltart: 98-46-1368Uyrds-19 Vaccine ()Covid-19 Vaccine ()[facility]: 87-57-0241Trswouoni vaccinationBucyrus Community Hospitaltart: 02-01-2023Medicare Annual Wellness VisitMedicare Annual Wellness VisitBucyrus Community Hospitaltart: 07-06-2022 DEPRESSION ASSESSMENTDEPRESSION ASSESSMENTBucyrus Community Hospitaltart: 03-06-2022 Influenza vaccinationBucyrus Community Hospitaltart: 81-38-1936Mbjuymrnk vaccination [facility]: 01-23-2021 End: 56-32-1121Hjfsikc encounter iizzctggz20/21/2021 [facility] ONLYStart: 07-13-2019 End: 46-25-3424Fqkngo Visit07/13/2019 Office Visit Farzad Ruano MD [address] [place] [address] [facility]ariat[facility] [place]: 04-13-2019 End: 91-53-3412Bofbwc Visit04/13/2019 Office Visit BariatricFarzad Brown MD [address] [place] [address] [facility]ariat[facility] [place]Start: 92-82-3000Lqmcjmrxj vaccinationFlu vaccine (#1)[facility] [place]Start: 79-14-5612SSH Vaccine (2 - Male 3-dose series)HPV Vaccine (2 - Male 3-dose series)[facility]: 2011 Urine microalbumin profileBucyrus Community Hospitaltart: 09-54-5701Tybbrzk Screening Anxiety ScreeningBucyrus [facility]: 37-03-7829Schvpftvgt ScreeningDepression ScreeningBucyrus Community Hospitaltart: 91-07-7636PBHQUIMSP C SCREENINGHEPATITIS C SCREENINGBucyrus Community Hospitaltart: 78-13-5660Htvccertm C screeningVeterans Health Administration Start: 66-28-2857LFP SCREENINGHIV SCREENINGBucyrus Community Hospitaltart: 75-13-5492ELD screeningHIV ScreeningBucyrus Community Hospitaltart: 99-84-1023GNLDL-19 Vaccine (1) COVID-19 Vaccine (1)[facility] [employer] [facility] Phone: start: 66-30-6834AOY screenHIV screenL[place], [place]Start: 17-98-8968BVU screeningHIV screenBon [facility]: 05-08-3947Guprrzdgi Vaccine (1 of 2 - 13+ 2-dose series)Varicella Vaccine (1 of 2 - 13+ 2-dose series)[facility]: 01-62-8362Hjrmf depression screening assessmentDEPRESSION SCREENINGBucyrus Community Hospitaltart: 33-67-6337PJQLK- 19 Vaccine (1)COVID-19 Vaccine (1)[employer] Phone: start: 67-72-7618Qnullpkxxu ScreenDepression ScreenBon [facility]: 57-78-9129TWVCZ-19 VACCINE (#1)COVID-19 VACCINE (#1) [facility]: 36-92-8511LAVON-19 VACCINE (1)COVID-19 VACCINE (1) [facility]: 47-56-2365Cfdqutbub vaccine (1 of 2 - 2-dose childhood series)Varicella vaccine (1 of 2 - 2-dose childhood series)[facility] [employer] [facility] Phone: start: 26-67-8412AWNYT-19 VACCINE (#1)COVID-19 VACCINE (#1)[facility]: 64-94-7594KHQLAXNWX B (1 of 3 - 3-dose series) HEPATITIS B (1 of 3 - 3-dose series)[facility]: 89-78-5079Cdsmwbiyt B Vaccine (1 of 3 - 3-dose series)Hepatitis B Vaccine (1 of 3 - 3-dose series) [facility]: 46-95-9919Ynwfzaxag C screeningHepatitis C screenPergunter Phone: eKG 12 LeadEKG 12 Lead ECG Routine 05/08/2021 6:35 PM [employer] Phone: End: 26-75-1888RNHZ EEG ROUTINEEPIL EEG ROUTINE NEUROLOGY Routine Loss of consciousness (HCC) Transient alteration of awareness 1 Occurrences starting 02/04/2024 until 02/03/2025[facility] [employer] Phone: Comment on above:1 Occurrences starting 02/04/2024 until 02/03/2025EPIL VEEG ADMIT TO EMU/PMUEPIL VEEG ADMIT TO EMU/PMU NEUROLOGY Routine Staring episodes [facility] Phone: Comment on above:Ordered: 02/25/2024 End: 07-22-9767Ccdjecbbcr A1c/Hemoglobin.total in BloodHemoglobin A1C Lab Routine Once for 1 Occurrences starting 01/30/2021 until 01/30/2021[employer] Phone: comment on above:Once for 1 Occurrences starting 01/30/2021 until 01/30/2021Hemoglobin A1c/Hemoglobin.total in BloodHemoglobin A1C Lab Routine 01/30/2021 10:11 AM [employer] Phone: End: 27-28-1674Uuwyvdz Ab [Titer] in Serum by ImmunofluorescenceANA Lab Routine Once for 1 Occurrences starting 01/30/2021 until 01/30/2021[employer] Phone: comment on above:Once for 1 Occurrences starting 01/30/2021 until 01/30/2021Nuclear Ab [Titer] in Serum by ImmunofluorescenceANA Lab Routine 01/30/2021 10:11 AM [employer] Phone: Oxygen therapy [Minimum Data Set]Initiate Oxygen Therapy Protocol Respiratory Care Routine As Needed until discontinued starting 06/10/2024[facility] Phone: Comment on above:As Needed until discontinued starting 06/10/2024athology studySurgical Pathology Lab Routine Status post gastric bypass for obesity Morbid obesity Hiatal hernia Release Upon Ordering for 1 Occurrences [facility] 06/10/2024[facility] above:Release Upon Ordering for 1 Occurrences starting 06/10/2024 End: 58-99-1174Orpeqenta, urine POCTPregnancy, urine POCT Point of Care Testing Routine One Time for 1 Occurrences starting 06/10/2024 until 06/10/2024on [facility] on above:One Time for 1 Occurrences starting 06/10/2024 until 06/10/2024[facility] Immunizations Immunization DateImmunizationNotesCare RomuaptrGoajzcyh33-29-7544xxjzeobsh virus vaccine, unspecified formulationTex Ordoñez MD Work Phone: [phone]-RfhfwLouis Stokes [facility] 08-91-4020izgkggpuq virus vaccine, unspecified formulationJodi Ahmet 076-6322Ixkvnt-UdnrzLouis [facility] 60-51-0859PSL, unspecified formulationJodi Ahmet 076-6651Jkuqim-HcrmkLouis [facility] 88-44-0474rmdjxofko virus vaccine, whole virusShaela RinehartBon [facility] CenterZqnkxp50-96-8831lcpvtlboc, wholeJodi Ahmet 909-2862Hhrufy-PlnosLouis [facility] 54-46-3180pkzceun toxoid, reduced diphtheria toxoid, and acellular pertussis vaccine, adsorbedShaela RinShelby Memorial Hospital04-23-2009hepatitis B vaccine, pediatric or pediatric/adolescent dosage Jeancarlos Ahmet 876-4930Owwnsc-FdrnqLouis [facility] 99-44-9426vybnzipco B vaccine, pediatric or pediatric/adolescent dosageJodi Ahmet 315-9159Iwlnlp-WtbknLouis [facility] 40-26-1268igdszswet B vaccine, pediatric or pediatric/adolescent dosageJodi Ahmet 177-9291Pfznbd-RvolsLouis Stokes [facility] 63-97-2296krnxgblebnnff ACWY vaccine, unspecified formulationJodi Ahmet 079-7577Snuyio-DkdaaLouis [facility] 02-84-9102QSeI, unspecified formulationJodi Ahmet 913-0037Qutwpd-FbfqcLouis [facility] 61-05-3422ppdeges, mumps and rubella virus vaccineJodi Ahmet 786-5971Ifnxap-MxmmtLouis [facility] 83-59-9893FMtR, unspecified formulationJodi Ahmet 726-9093Vvtuet-WgcriLouis [facility] 06-53-2379Pgh, unspecified formulationJodi Ahmet 878-5135Zvhndt-TwcfwLouis [facility] 71-34-8031sncwyzq, mumps and rubella virus vaccineJodi Ahmet 177-0105Vouidi-GccmrLouis [facility] 39-31-1352Koy, unspecified formulationJodi Ahmet 510-0926Lldpmn-UafgyLouis [facility] 78-79-6408Zol, unspecified formulationJodi Ahmet 961-0472Uzalwy-IuecuLouis [facility] 05-33-3246Kac, unspecified formulationJodi Ahmet 450-8549Eliaxy-PlsdxLouis [facility] Payers DatePayer CategoryPayerPolicy ID2023MedicareMEDICARE [id number] [id number] [id number] 2021MedicaidPARAMOUNT MEDICAID PARAMOUNT ADVANTAGE MEDICAID [id number] 2020-Present [phone] [address] [place] [address] [id number] [id number] 26-92-9618MrkfgkwIHESNLNPN ADVANTAGE PARAMOUNT ADVANTAGE xxxxxxxxxxx 2017- Present [phone] [address] [place], [place] [address]ttgskhmsxft [id number]JZXSM ADVANTAGE PARAMOUNT ADVANTAGE [id number] 2017- [phone] [address] [place] , [place] [id number]1-50-3432Gwkddfn PARAMOUNT ADVANTAGE PARAMOUNT ADVANTAGE [id number] 2017- [phone] [address] [place], [place] [id number] 2.840.1.017152.3.579.[id number] 2.16.840.1.533490.3.579.[id number] 2.16.840.1.760750.3.579.[id number] 2.16.840.1.388258.3.57[id number] 2.16.840.1.597385.3.57[id number] 2.16.840.1.340807.3.579.2.21507-85-4524Mkldixs40086325 2.16840.1.601461.3.579.2.78943-45-4864Hmxyaro05504401 2.840.1.343642.3.579.2.39660-09-4743Itzzanm47321361 2.16840.1.119530.3.57[id number] 2.840.1.825266.3.579.2.90688-42-6360Tslerqc96681145 2.16840.1.672672.3.579.2.04915-87-8725Ytokxjg96487315 2.16840.1.392558.3.579.2.88208-86-6565Tvvbmyo13179029 2.16840.1.053437.3.579.2.24639-90-8262Gbgdygu81772831 2.16840.1.459931.3.579.[id number] 2.16.840.1.353391.3.579.2.86593-94-0244Naqenzr57181251 2.16840.1.464600.3.579.2.50249-96-7895Tfngohz99544136 2.16.840.1.367018.3.579.2.47507-47-8045Vztyfgc60209702 2.16.840.1.165152.3.579.2.63089-88-3266Xhtpqpz08087847 2.16.840.1.261309.3.579.2.42869-52-9430Yspgcoj93485728 2.16.840.1.119716.3.579.2.63722-41-8735Xpwfowv33790577 2.16.840.1.333545.3.579.2.54626-63-0891Cqiwxlk41700787 2.16.840.1.612247.3.579.2.34815-03-0254Sihespo55284125 2.840.1.468770.3.579.2.31507-72-1323Ojbrbrq558003149 2..840.1.288323.3.579.2.83927-14-2551Moosmbm623111241 2..840.1.497552.3.579.2.58981-18-5388Jmtupfo49222056 2.16.840.1.304176.3.579.2.88364-58-4159Rutiiyc16082234 2.16.840.1.419804.3.57[id number] 2.16.840.1.590355.3.579.2.69127-51-1385Pxdqafu18088085 2.16.840.1.312597.3.579.[id number] 2.16.840.1.882524.3.579.2.01945-98-5085Ncisyal37443320 2.16.840.1.963239.3.579.2.92017-22-2507Fsacwzq60522207 2..840.1.398979.3.579.2.22445-65-1076Fogrcdd18010047 2.16.840.1.495094.3.579.2.68813-39-2902Lwooqnu Health [id number] Social History DateTypeDetailFacilityStart: 02-16-2019 End: 62-85-1334Anwtcva smoking status NHISNever smokerVeterans Health Administration End: 70-06-9302Jsvqqjm of tobacco useChews TobaccoLouis Stokes Cleveland VA Medical Centerart: 02-16-2019 End: 32-28-6494Prbxomf intakeNoBucyrus Community Hospitaltart: 14-35-4632Hfb Assigned At BirthNot on [facility]art: 09-14-2019 End: 29-62-9079Vtxgovi use and exposureFormer userPromedica Toledo HospitalStart: 09-14-2019 End: 47-32-2990Nlpyrjt intakeCurrent non-drinker of alcohol (finding)[facility] Work Phone: start: 09-14-2019 End: 08-08-6214Puvqmta intakeVeterans Health AdministrationExposure to SARS-CoV-2 (event)Yes [facility] HospitalTobaSpotzot smoking status NHISTobacco smoking consumption unknownMissouri Rehabilitation CenterStart: 09-27-2021 End: 60-76-8336Cwlgkfxd to SARS-CoV-2 (event)Not sureVeterans Health Administration Work Phone: Start: 10-07-2021 End: 30-69-7358Piejdzp use and exposureUser of smokeless tobaccoVeterans Health Administration Start: 14-13-3804Zlg Assigned At BirthMaleChenry county hospital ClinicStart: 89-71-0743Zqtyq Depression Screening Wobsnrdwgf2Iwvfvtrzo ClinicStart: 50-56-2158Dawfkb identity Identifies as male gender (finding)[facility]tart: 80-94-8854Hmcvyy orientationHeterosexual (finding)Veterans Health AdministrationHistory of tobacco usePassive smokerBon Secours Prom[facility]ica [facility] HospitalTobaccthe [facility]ock center tobacco Tobacco Use:.[facility] Tobacco smoking statusNo Smoking Status EnteredMiami Valley Hospital Start: 38-11-8584Tyxevqo CommentQuit [facility] Functional Status GwvzTjsbkniawtZvblxdHhioiuwg66-00-4477Qkcvqsised StatusN/[facility] Digestive Fehsdy14-67-1370Dnsewbdjih StatusN/[facility] Digestive Uverue61-00-3058Phqpwzolci StatusN/[facility] 23-24-3131Xzzdyxkcft StatusN/[facility] Digestive Health 51-64-4049Lsk you deaf, or do you have serious difficulty hearingNo 03/13/2024 10:05 AM Malina Dasilva RN [facility] HospitalYopfga86-08-5604Fyy you blind, or do you have serious difficulty seeing, even when wearing glassesNo 03/13/2024 10:05 AM Malina Dasilva RN [facility]09-08-2024Do you have serious difficulty walking or climbing stairsNo 03/13/2024 10:05 AM Malina Dasilva RN [facility]09-08-2024Do you have difficulty dressing or bathingNo 03/13/2024 10:05 AM Malina Dasilva [facility] HospitalJmzaci26-55-0363Jmgyuim of a physical, mental, or emotional condition, do you have difficulty doing errands alone such as visiting a physician's office or shoppingNo 03/13/2024 10:05 AM Malina Dasilva RN [facility] Mental Status VvfvFabgvnbvfzPesnvnLofxykba34-75-7897Galtpeg of a physical, mental, or emotional condition, do you have serious difficulty concentrating, remembering, or making decisionsNo 03/13/2024 10:05 AM Malina Dasilva RN [facility] Clinical Notes 05-08-2021 to 05-08-2025 Note Date & ScurHlzbOfsrinvd70-39-8321 NoteHNO ID: [id number] Author: TEX ORDOÑEZ MD Service: ? Author Type: Physician Type: Progress Notes Filed: 05/08/2025 12:04 Note Text: PROGRESS NOTE- HEADACHE MEDICINE SERVICE DATE: May 08, 2025 Participants: patient and provider Location: [facility] Subjective HPI: Oneal Eckert is here for follow up and Botox therapy. Has not been on Ajovy for the lat 3 months due to insurance reasons. He has seen a worsening of his migraines, he is not sure if worsening has been for 3 months or if longer. Had been on Ajovy since 08/04/2022 Migraine description: see note from October 07, 2021 Ubrelvy not helpful. Duloxetine and Nortriptyline for migraine for many years. NO change when discontinued, maybe some help when first prescribed. PAST MEDICAL HISTORY Diagnosis Date Anxiety Chronic migraine without aura Current Outpatient Medications Medication Sig topiramate (TOPAMAX) 200 mg tablet Take 1 tablet by mouth once daily. Naproxen Sodium 550 mg tablet Take 1 tablet by mouth every 12 hours. ALPRAZolam (XANAX) 0.5 mg tablet propranolol (INDERAL) 40 mg tablet hydrOXYzine pamoate (VISTARIL) 25 mg capsule ABILIFY 15 mg tablet Take 1 tablet by mouth once daily. gabapentin (NEURONTIN) 300 mg capsule Take 1 capsule by mouth two times a day for 14 days. For sensitivity following monitoring docusate sodium (COLACE) 100 mg capsule Take 1 capsule by mouth two times a day. testosterone (ANDROGEL) 1.62 % (20.25 mg/1.25 gram) glpk Apply 1 Pump as directed once daily. fremanezumab-vfrm (AJOVY AUTOINJECTOR) 225 mg/1.5 mL auto-injector Inject 1.5 mL subcutaneously once every month. (Patient not taking: Reported on 05/08/2025) No current facility-administered medications for this visit. Current medication review: 1.BOTOX PRIOR TO TREATMENT Total headache days per month: daily Severity of headaches: mild to severe Start date: 12/25/21 AFTER TREATMENT Total headache days per month: 5-10 Severity of headaches: mild to moderate Wearing off: 1 week 2.Topiramate- for migraine prevention 3. STACIA block PRN, last one on 10/27/2023 Allergies: Latex Other: See Comments Aspartame GI Upset Phenylalanine Diarrhea, Unknown BP 131/82 (BP Position: Sitting) Pulse 69 Ht 182.9 cm (6') Wt (!) 213.7 kg (471 lb 2 oz) BMI 63.90 kg/m? Impression/Recommendations - chronic migraine without aura - tension type headaches better after a better management of his anxiety RECS: 1. Migraine prevention: -Continue Botox therapy -Continue Topamax 200 mg at bedtime continue. -Re-start Ajovy 2. Migraine abortive therapy: -Continue naproxen 550 mg. 3. STACIA block PRN 4. Follow-up in 3 months. Tex Ordoñez MD [facility]11-03-2025 NoteHNO ID: [id number] Author: TEX ORDOÑEZ MD Service: ? Author Type: Physician Type: Procedures Filed: 05/08/2025 12:04 Note Text: PROCEDURE NOTE UNIVERSAL PROTOCOL / [...] completed when applicable. Botox procedure note Treatment # 12 Consent in EPIC BOTOX brought in by patient? No Dilution: 5 units/0.1 ml ( 100 unit vial with 2 cc diluent or 200 unit vial with 4 cc diluent) Diluent: normal saline Indication: Chronic Intractable Migraine Injection Sites Muscle Fixed Site/Fixed Dose Bilat Hoister 20 U divided in 2 sites Procerus [...] 200 Total Units wasted: 0 Tex Ordoñez MDMetropolitan State HospitalGtksdpmi47-87-8862 NoteHNO ID: [id number] Author: JESSICA CROCKETT RN Service: ? Author Type: Registered Nurse Type: Progress Notes Filed: 05/08/2025 12:04 Note Text: Patient name and confirmed. Patient states she would like to receive Botox treatment today. 2 vials of Botox A (100 units in each) reconstituted with 2.2 cc of normal saline in each vial. Botox drawn up into four, 1 cc syringes. Each syringe containing 50 units of Botox. Assisted by: SANJAY Farrell Botox, 2 vials: Lot # [id number] Exp Lot # [id number] Botox handed to Dr. Ordoñez to administer and verified order.[facility] 01-30-2025 NoteHNO ID: [id number] Author: TEX ORDOÑEZ MD Service: ? Author Type: Physician Type: Progress Notes Filed: 01/30/2025 13:23 Note Text: PROGRESS NOTE- HEADACHE MEDICINE SERVICE DATE: January 30, 2025 Participants: patient and provider Location: [facility] Subjective HPI: Oneal Eckert is here for follow up and Botox therapy. Awaiting hiatal hernia repair and Gastric bypass surgery. Migraine description: see note from October 07, 2021 Ubrelvy not helpful. Duloxetine and Nortriptyline for migraine for many years. NO change when discontinued, maybe some help when first prescribed. PAST MEDICAL HISTORY Diagnosis Date Anxiety Chronic migraine without aura Current Outpatient Medications Medication Sig ALPRAZolam (XANAX) 0.5 mg tablet propranolol (INDERAL) 40 mg tablet hydrOXYzine pamoate (VISTARIL) 25 mg capsule ABILIFY 15 mg tablet Take 1 tablet by mouth once daily. docusate sodium (COLACE) 100 mg capsule Take 1 capsule by mouth two times a day. testosterone (ANDROGEL) 1.62 % (20.25 mg/1.25 gram) glpk Apply 1 Pump as directed once daily. Phentermine HCl (ADIPEX-P) 37.5 mg capsule Take 37.5 mg by mouth once daily. topiramate (TOPAMAX) 200 mg tablet Take 1 tablet by mouth once daily. fremanezumab-vfrm (AJOVY AUTOINJECTOR) 225 mg/1.5 mL auto-injector Inject 1.5 mL subcutaneously once every month. Naproxen Sodium 550 mg tablet Take 1 tablet by mouth every 12 hours. gabapentin (NEURONTIN) 300 mg capsule Take 1 capsule by mouth two times a day for 14 days. For sensitivity following monitoring No current facility-administered medications for this visit. [...] Ajovy helps, he feels it wearing off. 3.Topiramate- for migraine prevention 4. STACIA block PRN, last one on 10/27/2023 Allergies: No Known Allergies Impression/Recommendations - chronic migraine without aura - tension type headaches better after a better management of his anxiety RECS: 1. Migraine prevention: -Continue Botox therapy -Continue Topamax 200 mg at bedtime continue. -Continue Ajovy 2. Migraine abortive therapy: -Continue naproxen 550 mg. 3. STACIA block PRN 4. Follow-up in 3 months. Tex Ordoñez MD [facility]07-28-2025 History of Present illness Narrative* Tex Ordoñez MD - 01/30/2025 1:20 PM EDT PROGRESS NOTE- HEADACHE MEDICINE SERVICE DATE: January 30, 2025 Participants: patient and provider Location: [facility] Subjective HPI: Oneal Eckert is here for follow up and Botox therapy. Awaiting hiatal hernia repair and Gastric bypass surgery. Migraine description: see note from October 07, 2021 Ubrelvy not helpful. Duloxetine and Nortriptyline for migraine for many years. NO change when discontinued, maybe some help when first prescribed. PAST MEDICAL HISTORY Diagnosis Date Anxiety Chronic migraine without aura Current Outpatient Medications Medication Sig ALPRAZolam (XANAX) 0.5 mg tablet propranolol (INDERAL) 40 mg tablet hydrOXYzine pamoate (VISTARIL) 25 mg capsule ABILIFY 15 mg tablet Take 1 tablet by mouth once daily. docusate sodium (COLACE) 100 mg capsule Take 1 capsule by mouth two times a day. testosterone (ANDROGEL) 1.62 % (20.25 mg/1.25 gram) glpk Apply 1 Pump as directed once daily. Phentermine HCl (ADIPEX-P) 37.5 mg capsule Take 37.5 mg by mouth once daily. topiramate (TOPAMAX) 200 mg tablet Take 1 tablet by mouth once daily. fremanezumab-vfrm (AJOVY AUTOINJECTOR) 225 mg/1.5 mL auto-injector Inject 1.5 mL subcutaneously once every month. Naproxen Sodium 550 mg tablet Take 1 tablet by mouth every 12 hours. gabapentin (NEURONTIN) 300 mg capsule Take 1 capsule by mouth two times a day for 14 days. For sensitivity following monitoring No current facility-administered medications for this visit. [...] Ajovy helps, he feels it wearing off. 3.Topiramate- for migraine prevention 4. STACIA block PRN, last one on 10/27/2023 Allergies: No Known Allergies Impression/Recommendations - chronic migraine without aura - tension type headaches better after a better management of his anxiety RECS: 1. Migraine prevention: -Continue Botox therapy -Continue Topamax 200 mg at bedtime continue. -Continue Ajovy 2. Migraine abortive therapy: -Continue naproxen 550 mg. 3. STACIA block PRN 4. Follow-up in 3 months. Tex Ordoñez MD [facility] [place] * Jami Dowling RN - 01/30/2025 11:10 AM EDT Patient name and confirmed. Patient states he would like to receive Botox treatment today. 2 vials of Botox A (100 units in each) reconstituted with 2.2 cc of normal saline in each vial. Botox drawn up into four, 1 cc syringes. Each syringe containing 50 units of Botox. Assisted by: Christiane Mccall RN Botox,X 2 vials: Lot # [id number] Exp 03/[address] Ordoñez to administer and verified order. documented in this encounterVeterans Health Administration07-28-2025 NoteHNO ID: [id number] Author: TEX ORDOÑEZ MD Service: ? Author Type: Physician Type: Procedures Filed: 01/30/2025 13:23 Note Text: PROCEDURE NOTE UNIVERSAL PROTOCOL / [...] completed when applicable. Botox procedure note Treatment # 11 Consent in EPIC BOTOX brought in by patient? No Dilution: 5 units/0.1 ml ( 100 unit vial with 2 cc diluent or 200 unit vial with 4 cc diluent) Diluent: normal saline Indication: Chronic Intractable Migraine Injection Sites Muscle Fixed Site/Fixed Dose Bilat Hoister 20 U divided in 2 sites Procerus [...] 200 Total Units wasted: 0 Tex Ordoñez MDMetropolitan State HospitalMekklhpt22-50-7734 Procedure note* Tex Ordoñez MD - 01/30/2025 1:18 PM EDT PROCEDURE NOTE UNIVERSAL PROTOCOL / SAFETY CHECKLIST [...] completed when applicable. Botox procedure note Treatment # 11 Consent in EPIC BOTOX brought in by patient? No Dilution: 5 units/0.1 ml ( 100 unit vial with 2 cc diluent or 200 unit vial with 4 cc diluent) Diluent: normal saline Indication: Chronic Intractable Migraine Injection Sites Muscle Fixed Site/Fixed Dose Bilat Hoister 20 U divided in 2 sites Procerus [...] Total Units wasted: 0 Tex Ordoñez MD [facility]07-28-2025 Procedure note* Tex Ordoñez MD - 01/30/2025 1:18 PM EDT PROCEDURE NOTE UNIVERSAL PROTOCOL / SAFETY CHECKLIST [...] completed when applicable. Botox procedure note Treatment # 11 Consent in EPIC BOTOX brought in by patient? No Dilution: 5 units/0.1 ml ( 100 unit vial with 2 cc diluent or 200 unit vial with 4 cc diluent) Diluent: normal saline Indication: Chronic Intractable Migraine Injection Sites Muscle Fixed Site/Fixed Dose Bilat Hoister 20 U divided in 2 sites Procerus [...] 0 Tex Ordoñez MD documented in this encounterVeterans Health Administration07-28-2025 NoteHNO ID: [id number] Author: JAMI DOWLING RN Service: ? Author Type: Registered Nurse Type: Progress Notes Filed: 01/30/2025 13:23 Note Text: Patient name and confirmed. Patient states he would like to receive Botox treatment today. 2 vials of Botox A (100 units in each) reconstituted with 2.2 cc of normal saline in each vial. Botox drawn up into four, 1 cc syringes. Each syringe containing 50 units of Botox. Assisted by: Christiane Mccall RN Botox,X 2 vials: Lot # [id number] Exp 03/[address] Ordoñez to administer and verified order.[facility] 01-10-2025 Telephone encounter Note* Telephone Encounter - Liss Meadows - 01/10/2025 12:12 PM EDT Images from the original note were not included. Julian, Please see below and advise Thank You Liss [facility]07-08-2025 Miscellaneous Notes* Telephone Encounter - Liss Meadows - 01/10/2025 12:12 PM EDT Images from the original note were not included. Julian, Please see below and advise Thank You Liss documented in this encounterVeterans Health Administration04-09-2025 NoteHNO ID: [id number] Author: MARYLOU GONZALEZ RN Service: ? Author Type: Registered Nurse Type: Progress Notes Filed: 10/12/2024 12:35 Note Text: Patient name and confirmed. Patient states she would like to receive Botox treatment today. 2 vials of Botox A (100 units in each) reconstituted with 2.2 cc of normal saline in each vial. Botox drawn up into four, 1 cc syringes. Each syringe containing 50 units of Botox. Assisted by: Jami Dowling RN Botox, 2 vials: Lot # [id number] Exp 11/2026 Lot # [id number] Exp 11/[address] Ordoñez to administer and verified order.[facility] 10-12-2024 History of Present illness Narrative* Marylou Gonzalez RN - 10/12/2024 11:32 AM EDT Patient name and confirmed. Patient states she would like to receive Botox treatment today. 2 vials of Botox A (100 units in each) reconstituted with 2.2 cc of normal saline in each vial. Botox drawn up into four, 1 cc syringes. Each syringe containing 50 units of Botox. Assisted by: Jami Dowling RN Botox, 2 vials: Lot # [id number] Exp 11/2026 Lot # [id number] Exp 11/[address] Ordoñez to administer and verified order. * Tex Ordoñez MD - 10/12/2024 11:13 AM EDT PROGRESS NOTE- HEADACHE MEDICINE SERVICE DATE: October 12, 2024 Participants: patient and provider Location: [facility] Subjective HPI: Oneal Eckert is here for follow up and Botox therapy. Awaiting hiatal hernia repair and Gastric bypass surgery. Migraine description: see note from October 07, 2021 Ubrelvy not helpful. Duloxetine and Nortriptyline for migraine for many years. NO change when discontinued, maybe some help when first prescribed. PAST MEDICAL HISTORY Diagnosis Date Anxiety Chronic migraine without aura Current Outpatient Medications Medication Sig ALPRAZolam (XANAX) 0.5 mg tablet propranolol (INDERAL) 40 mg tablet hydrOXYzine pamoate (VISTARIL) 25 mg capsule ABILIFY 15 mg tablet Take 1 tablet by mouth once daily. fremanezumab-vfrm (AJOVY AUTOINJECTOR) 225 mg/1.5 mL auto-injector Inject 1.5 mL subcutaneously once every month. gabapentin (NEURONTIN) 300 mg capsule Take 1 capsule by mouth two times a day for 14 days. For sensitivity following monitoring docusate sodium (COLACE) 100 mg capsule Take 1 capsule by mouth two times a day. topiramate (TOPAMAX) 200 mg tablet Take 1 tablet by mouth once daily. testosterone (ANDROGEL) 1.62 % (20.25 mg/1.25 gram) glpk Apply 1 Pump as directed once daily. Naproxen Sodium 550 mg tablet take 1 tablet by mouth 2 times a day as needed Phentermine HCl (ADIPEX-P) 37.5 mg capsule Take 37.5 mg by mouth once daily. ARIPiprazole (ABILIFY) 10 mg tablet (Patient not taking: Reported on 10/12/2024) No current facility-administered medications for this visit. [...] Ajovy helps, he feels it wearing off. 3.Topiramate- for migraine prevention 4. STACIA block PRN, last one on 10/27/2023 Allergies: No Known Allergies Impression/Recommendations - chronic migraine without aura - tension type headaches better after a better management of his anxiety RECS: 1. Migraine prevention: -Continue Botox therapy -Continue Topamax 200 mg at bedtime continue. -Continue Ajovy 2. Migraine abortive therapy: -Continue naproxen 550 mg. 3. STACIA block PRN 4. Follow-up in 3 months. Tex Ordoñez MD [facility] [place] documented in this encounterVeter[facility] Health Administration04-09-2025 NoteHNO ID: [id number] Author: TEX ORDOÑEZ MD Service: ? Author Type: Physician Type: Procedures Filed: 10/12/2024 12:35 Note Text: PROCEDURE NOTE UNIVERSAL PROTOCOL / [...] completed when applicable. Botox procedure note Treatment # 10 Consent in EPIC BOTOX brought in by patient? No Dilution: 5 units/0.1 ml ( 100 unit vial with 2 cc diluent or 200 unit vial with 4 cc diluent) Diluent: normal saline Indication: Chronic Intractable Migraine Injection Sites Muscle Fixed Site/Fixed Dose Bilat Hoister 20 U divided in 2 sites Procerus [...] 200 Total Units wasted: 0 Tex Ordoñez MDMet[facility] [id number] Procedure note* Tex Ordoñez MD - 10/12/2024 11:29 AM EDT PROCEDURE NOTE UNIVERSAL PROTOCOL / SAFETY CHECKLIST [...] completed when applicable. Botox procedure note Treatment # 10 Consent in EPIC BOTOX brought in by patient? No Dilution: 5 units/0.1 ml ( 100 unit vial with 2 cc diluent or 200 unit vial with 4 cc diluent) Diluent: normal saline Indication: Chronic Intractable Migraine Injection Sites Muscle Fixed Site/Fixed Dose Bilat Hoister 20 U divided in 2 sites Procerus [...] Total Units wasted: 0 Tex Ordoñez MD [facility]04-09-2025 Procedure note* Tex Ordoñez MD - 10/12/2024 11:29 AM EDT PROCEDURE NOTE UNIVERSAL PROTOCOL / SAFETY CHECKLIST [...] completed when applicable. Botox procedure note Treatment # 10 Consent in EPIC BOTOX brought in by patient? No Dilution: 5 units/0.1 ml ( 100 unit vial with 2 cc diluent or 200 unit vial with 4 cc diluent) Diluent: normal saline Indication: Chronic Intractable Migraine Injection Sites Muscle Fixed Site/Fixed Dose Bilat Hoister 20 U divided in 2 sites Procerus [...] 0 Tex Ordoñez MD documented in this encounterVeterans Health Administration04-09-2025 NoteHNO ID: [id number] Author: TEX ORDOÑEZ MD Service: ? Author Type: Physician Type: Progress Notes Filed: 10/12/2024 12:35 Note Text: PROGRESS NOTE- HEADACHE MEDICINE SERVICE DATE: October 12, 2024 Participants: patient and provider Location: [facility] Subjective HPI: Oneal Eckert is here for follow up and Botox therapy. Awaiting hiatal hernia repair and Gastric bypass surgery. Migraine description: see note from October 07, 2021 Ubrelvy not helpful. Duloxetine and Nortriptyline for migraine for many years. NO change when discontinued, maybe some help when first prescribed. PAST MEDICAL HISTORY Diagnosis Date Anxiety Chronic migraine without aura Current Outpatient Medications Medication Sig ALPRAZolam (XANAX) 0.5 mg tablet propranolol (INDERAL) 40 mg tablet hydrOXYzine pamoate (VISTARIL) 25 mg capsule ABILIFY 15 mg tablet Take 1 tablet by mouth once daily. fremanezumab-vfrm (AJOVY AUTOINJECTOR) 225 mg/1.5 mL auto-injector Inject 1.5 mL subcutaneously once every month. gabapentin (NEURONTIN) 300 mg capsule Take 1 capsule by mouth two times a day for 14 days. For sensitivity following monitoring docusate sodium (COLACE) 100 mg capsule Take 1 capsule by mouth two times a day. topiramate (TOPAMAX) 200 mg tablet Take 1 tablet by mouth once daily. testosterone (ANDROGEL) 1.62 % (20.25 mg/1.25 gram) glpk Apply 1 Pump as directed once daily. Naproxen Sodium 550 mg tablet take 1 tablet by mouth 2 times a day as needed Phentermine HCl (ADIPEX-P) 37.5 mg capsule Take 37.5 mg by mouth once daily. ARIPiprazole (ABILIFY) 10 mg tablet (Patient not taking: Reported on 10/12/2024) No current facility-administered medications for this visit. [...] Ajovy helps, he feels it wearing off. 3.Topiramate- for migraine prevention 4. STACIA block PRN, last one on 10/27/2023 Allergies: No Known Allergies Impression/Recommendations - chronic migraine without aura - tension type headaches better after a better management of his anxiety RECS: 1. Migraine prevention: -Continue Botox therapy -Continue Topamax 200 mg at bedtime continue. -Continue Ajovy 2. Migraine abortive therapy: -Continue naproxen 550 mg. 3. STACIA block PRN 4. Follow-up in 3 months. Tex Ordoñez MD [facility]01-07-2025 NoteHNO ID: [id number] Author: TEX ORDOÑEZ MD Service: ? Author Type: Physician Type: Progress Notes Filed: 07/12/2024 13:42 Note Text: PROGRESS NOTE- HEADACHE MEDICINE SERVICE DATE: July 12, 2024 Participants: patient and provider Location: [facility] Subjective HPI: Oneal Eckert is here for follow up and Botox therapy. He stopped most of his medications after being diagnosed with a hiatal hernia. He restarted all of them except for Duloxetine and Nortriptyline. Migraine description: see note from October 07, 2021 Ubrelvy not helpful. PAST MEDICAL HISTORY Diagnosis Date Anxiety Chronic migraine without aura Current Outpatient Medications Medication Sig ABILIFY 15 mg tablet Take 1 tablet by mouth once daily. ARIPiprazole (ABILIFY) 10 mg tablet gabapentin (NEURONTIN) 300 mg capsule Take 1 capsule by mouth two times a day for 14 days. For sensitivity following monitoring (Patient taking differently: Take 40 mg by mouth two times a day. For sensitivity following monitoring) nortriptyline (PAMELOR) 50 mg capsule Take 1 capsule by mouth daily at bedtime. DULoxetine (CYMBALTA) 60 mg capsule Take 1 capsule by mouth once daily. topiramate (TOPAMAX) 200 mg tablet Take 1 tablet by mouth once daily. fremanezumab-vfrm (AJOVY AUTOINJECTOR) 225 mg/1.5 mL auto-injector Inject 1.5 mL subcutaneously once every month. docusate sodium (COLACE) 100 mg capsule Take 1 capsule by mouth two times a day. testosterone (ANDROGEL) 1.62 % (20.25 mg/1.25 gram) glpk Apply 1 Pump as directed once daily. Naproxen Sodium 550 mg tablet take 1 tablet by mouth 2 times a day as needed Phentermine HCl (ADIPEX-P) 37.5 mg capsule Take 37.5 mg by mouth once daily. Current Facility-Administered Medications Medication Dose Route Frequency onabotulinum toxin type A 200 Units injection (BOTOX) 200 Units INTRAMUSCULAR ONCE (AMB - Up to 30 Days) Current medication review: 1.BOTOX PRIOR TO TREATMENT Total headache days per month: daily Severity of headaches: mild to severe Start date: 12/25/21 AFTER TREATMENT Total headache days per month: 5-10 Severity of headaches: mild to moderate Wearing off: 1 week 2.Ajovy- for migraine prevention since . He also feels that Ajovy helps, he feels it wearing off. 3.Topiramate- for migraine prevention 4. STACIA block PRN, last one on 10/27/2023 Allergies: No Known Allergies Impression/Recommendations - chronic migraine without aura - tension type headaches better after a better management of his anxiety RECS: 1. Migraine prevention: -Continue Botox therapy -Continue Topamax 200 mg at bedtime continue. -I asked him not to re-start Cymbalta 60 mg or Nortriptyline -Continue Ajovy 2. Migraine abortive therapy: -Continue naproxen 550 mg. 3. STACIA block PRN 4. Follow-up in 3 months. Tex Ordoñez MD [facility]01-07-2025 History of Present illness Narrative* Tex Ordoñez MD - 07/12/2024 11:09 AM EST PROGRESS NOTE- HEADACHE MEDICINE SERVICE DATE: July 12, 2024 Participants: patient and provider Location: [facility] Subjective HPI: Oneal Eckert is here for follow up and Botox therapy. He stopped most of his medications after being diagnosed with a hiatal hernia. He restarted all of them except for Duloxetine and Nortriptyline. Migraine description: see note from October 07, 2021 Ubrelvy not helpful. PAST MEDICAL HISTORY Diagnosis Date Anxiety Chronic migraine without aura Current Outpatient Medications Medication Sig ABILIFY 15 mg tablet Take 1 tablet by mouth once daily. ARIPiprazole (ABILIFY) 10 mg tablet gabapentin (NEURONTIN) 300 mg capsule Take 1 capsule by mouth two times a day for 14 days. For sensitivity following monitoring (Patient taking differently: Take 40 mg by mouth two times a day. For sensitivity following monitoring) nortriptyline (PAMELOR) 50 mg capsule Take 1 capsule by mouth daily at bedtime. DULoxetine (CYMBALTA) 60 mg capsule Take 1 capsule by mouth once daily. topiramate (TOPAMAX) 200 mg tablet Take 1 tablet by mouth once daily. fremanezumab-vfrm (AJOVY AUTOINJECTOR) 225 mg/1.5 mL auto-injector Inject 1.5 mL subcutaneously once every month. docusate sodium (COLACE) 100 mg capsule Take 1 capsule by mouth two times a day. testosterone (ANDROGEL) 1.62 % (20.25 mg/1.25 gram) glpk Apply 1 Pump as directed once daily. Naproxen Sodium 550 mg tablet take 1 tablet by mouth 2 times a day as needed Phentermine HCl (ADIPEX-P) 37.5 mg capsule Take 37.5 mg by mouth once daily. Current Facility-Administered Medications Medication Dose Route Frequency onabotulinum toxin type A 200 Units injection (BOTOX) 200 Units INTRAMUSCULAR ONCE (AMB - Up to 30 Days) Current medication review: 1.BOTOX PRIOR TO TREATMENT Total headache days per month: daily Severity of headaches: mild to severe Start date: 12/25/21 AFTER TREATMENT Total headache days per month: 5-10 Severity of headaches: mild to moderate Wearing off: 1 week 2.Ajovy- for migraine prevention since . He also feels that Ajovy helps, he feels it wearing off. 3.Topiramate- for migraine prevention 4. STACIA block PRN, last one on 10/27/2023 Allergies: No Known Allergies Impression/Recommendations - chronic migraine without aura - tension type headaches better after a better management of his anxiety RECS: 1. Migraine prevention: -Continue Botox therapy -Continue Topamax 200 mg at bedtime continue. -I asked him not to re-start Cymbalta 60 mg or Nortriptyline -Continue Ajovy 2. Migraine abortive therapy: -Continue naproxen 550 mg. 3. STACIA block PRN 4. Follow-up in 3 months. Tex Ordoñez MD [facility] [place] * Zabrina Ceron RN - 07/12/2024 11:08 AM EST Patient name and confirmed. Patient states she would like to receive Botox treatment today. 2 vials of Botox A (100 units in each) reconstituted with 2.2 cc of normal saline in each vial. Botox drawn up into four, 1 cc syringes. Each syringe containing 50 units of Botox. Assisted by: Marylou GRACE Botox, 2 vials: Lot # [id number] Exp Lot # [id number] Botox handed to Dr. Ordoñez to administer and verified order. * Zabrina Ceron RN - 07/12/2024 11:08 AM EST 07/12/2024 PROMIS Global Health Physical Health Summary Physical health: Poor Everyday physical activity, ability: A little Fatigue: Moderate Pain level: 5 General health: Poor Social activities/roles, ability: Poor Physical Health T-Score 32.4 (Poor) Physical Health Percentile 4 PROMIS Global Health Mental Health Summary Quality of life: Poor Mental health (mood,thinking): Poor Social satisfaction: Poor Emotional problems (anxious,depressed): Often Mental Health T-Score 25.1 (Poor) Mental Health Percentile 1 Percentiles provide an indication of how a patient's score ranks in relation to the [place] general population. > 31st percentile is within normal limits or better *< 31st percentile is at least SD worse than population, which may be clinically relevant < 16th percentile is at least 1 SD worse than population and warrants attention documented in this encounterVeterans Health Administration01-07-2025 NoteHNO ID: [id number] Author: ZABRINA CERON RN Service: ? Author Type: Registered Nurse Type: Progress Notes Filed: 07/12/2024 13:42 Note Text: Patient name and confirmed. Patient states she would like to receive Botox treatment today. 2 vials of Botox A (100 units in each) reconstituted with 2.2 cc of normal saline in each vial. Botox drawn up into four, 1 cc syringes. Each syringe containing 50 units of Botox. Assisted by: Marylou GRACE Botox, 2 vials: Lot # [id number] Exp Lot # [id number] Botox handed to Dr. Ordoñez to administer and verified order.[facility] 07-12-2024 NoteHNO ID: [id number] Author: ZABRINA CERON RN Service: ? Author Type: Registered Nurse Type: Progress Notes Filed: 07/12/2024 13:42 Note Text: 07/12/2024 PROMIS Global Health Physical Health Summary Physical health: Poor Everyday physical activity, ability: A little Fatigue: Moderate Pain level: 5 General health: Poor Social activities/roles, ability: Poor Physical Health T-Score 32.4 (Poor) Physical Health Percentile 4 PROMIS Global Health Mental Health Summary Quality of life: Poor Mental health (mood,thinking): Poor Social satisfaction: Poor Emotional problems (anxious,depressed): Often Mental Health T-Score 25.1 (Poor) Mental Health Percentile 1 Percentiles provide an indication of how a patient's score ranks in relation to the [place] general population. > 31st percentile is within normal limits or better *< 31st percentile is at least ? SD worse than population, which may be clinically relevant < 16th percentile is at least 1 SD worse than population and warrants attentionMetropolitan State [id number] NoteHNO ID: [id number] Author: TEX ORDOÑEZ MD Service: ? Author Type: Physician Type: Procedures Filed: 07/12/2024 13:42 Note Text: PROCEDURE NOTE UNIVERSAL PROTOCOL / [...] completed when applicable. Botox procedure note Treatment # 9 Consent in EPIC BOTOX brought in by patient? No Dilution: 5 units/0.1 ml ( 100 unit vial with 2 cc diluent or 200 unit vial with 4 cc diluent) Diluent: normal saline Indication: Chronic Intractable Migraine Injection Sites Muscle Fixed Site/Fixed Dose Bilat Hoister 20 U divided in 2 sites Procerus [...] 200 Total Units wasted: 0 Tex Ordoñez MDMetropolitan State [id number] Procedure note* Tex Ordoñez MD - 07/12/2024 11:08 AM EST PROCEDURE NOTE UNIVERSAL PROTOCOL / SAFETY CHECKLIST [...] completed when applicable. Botox procedure note Treatment # 9 Consent in EPIC BOTOX brought in by patient? No Dilution: 5 units/0.1 ml ( 100 unit vial with 2 cc diluent or 200 unit vial with 4 cc diluent) Diluent: normal saline Indication: Chronic Intractable Migraine Injection Sites Muscle Fixed Site/Fixed Dose Bilat Hoister 20 U divided in 2 sites Procerus [...] Total Units wasted: 0 Tex Ordoñez MD [facility]01-07-2025 Procedure note* Tex Ordoñez MD - 07/12/2024 11:08 AM EST PROCEDURE NOTE UNIVERSAL PROTOCOL / SAFETY CHECKLIST [...] completed when applicable. Botox procedure note Treatment # 9 Consent in EPIC BOTOX brought in by patient? No Dilution: 5 units/0.1 ml ( 100 unit vial with 2 cc diluent or 200 unit vial with 4 cc diluent) Diluent: normal saline Indication: Chronic Intractable Migraine Injection Sites Muscle Fixed Site/Fixed Dose Bilat Hoister 20 U divided in 2 sites Procerus [...] 0 Tex Ordoñez MD documented in this encounterVeterans Health Administration12-06-2024 Hospital Discharge instructions* Discharge Instructions* Jordyn Sher DO - 06/10/2024 9:18 AM EST POST-ENDOSCOPY INSTRUCTIONS 1. ACTIVITY No driving, operating machinery, or making important decisions for 24 hours. Resume normal activity after 24 hours. You may return to work after 24 hours. 2. DIET EGD: Resume your usual diet unless specified below. Diet Modification: Regular 3. MEDICATIONS (Do not consume alcohol, tranquilizers, or sleeping medications for 24 hours unless advised by your physician) Resume your usual medications 4. PHYSICIAN FOLLOW-UP Please continue with your previously scheduled appointments See your primary care physician as planned. 6. NORMAL CHANGES YOU MAY EXPERIENCE AFTER ENDOSCOPY: EGD: Sore throat, some abdominal pain and cramping. 7. CALL YOUR PHYSICIAN IF YOU EXPERIENCE ANY OF THE FOLLOWING A. Passing blood rectally or vomiting blood (color may be red or black) B. Severe abdominal pain or tenderness (that is not relieved by passing air) C. Fever, chills, or excessive sweating D. Persistent nausea or vomiting E. Redness or swelling at the IV site If you have additional questions, PLEASE call your doctor or the [facility] at documented in [facility] NoteProgress Note-Physician Patient: ONEAL ECKERT Age: 33 years Sex: Male : 1990 Associated Diagnoses: None Author: Noe SEGAL, Lev Grande Postoperative Information Postoperative disposition: Postoperative disposition: To PACU. Optimetrix number: Optimetrix number [id number]. Anesthetic utilized: General. Health Status Allergies: Allergic Reactions (Selected) No Known Medication Allergies Physical Examination Vital Signs 04/06/2024 10:00 EDT Heart Rate Monitored 68 bpm Respiratory Rate Monitored 18 br/min Systolic Blood Pressure 130 mmHg Diastolic Blood Pressure 75 mmHg Mean Arterial Pressure, Cuff 93 mmHg SpO2 96 % 04/06/2024 9:50 EDT Heart Rate Monitored 76 bpm Respiratory Rate Monitored 18 br/min Systolic Blood Pressure 128 mmHg Diastolic Blood Pressure 83 mmHg Mean Arterial Pressure, Cuff 98 mmHg SpO2 94 % 04/06/2024 9:35 EDT Temperature Temporal Artery 36.6 DegC Heart Rate Monitored 85 bpm Respiratory Rate Monitored 13 br/min Systolic Blood Pressure 149 mmHg HI Diastolic Blood Pressure 75 mmHg Mean Arterial Pressure, Cuff 100 mmHg SpO2 95 % Pain Assessment: Controlled. General: Awake, Appropriate. Respiratory: Adequate air exchange. Cardiovascular: Stable. Neurological Assessment Anesthetic outcome No anesthetic complications noted. Adequate pain relief. Review / Management Condition: Stable. Plan Transfer/Discharge: Transfer/Discharge Discharge when meets criteria ( To home ).[facility] HospitalComment [facility]:Result Comment: Electronically Signed By: Noe SEGAL, Lev Grande\.br\Date and Time Signed: 04/06/24 15:45 EDT 04-06-2024 Note* Addendum Note - Mayela Ramos PA-C - 04/06/2024 3:04 PM EDT Addended by: MAYELA RAMOS on: 04/06/2024 03:04 PM Modules accepted: Orders [facility]10-02-2024 Miscellaneous Notes* Addendum Note - Mayela Ramos PA-C - 04/06/2024 3:04 PM EDTAddended by: MAYELA RAMOS on: 04/06/2024 03:04 PM Modules accepted: Orders * Telephone Encounter - Ni Lujan LISW - 04/06/2024 11:35 AM EDT [employer] received consult stating patient is requesting assistance in finding mental health resources. [employer] called patient to discuss. Patient reported during recent PMU stay providers questioned whetherhis staring spells are caused by mental health concerns/dissociation. He stated he was hoping to get services through an agency near him but he can no longer get a hold of them. He is seeking this account underwriter's assistance. [employer] informed pt account underwriter can ask for a psychiatry consult for patient, which pt said he would appreciate. [employer] also inquired about therapy, and pt said he is interested in beginning talk therapy as well. Pt stated he is not interested in going through [facility] [place], and is open to seeing a female virtually. Patient also reported he has been denied SSDI and is appealing it. He said with his migraines he tends to sleep a lot, and this was witnessed during EMU stay. Pt is curious if a provider from EMU would be willing to write a statement he can provide to SSDI stating his excess sleep. Pt said he spokewith Kaitlin Ramirez about this and she was going to provide patient with some kind of report, but he has not received it yet. Plan: [employer] consulted [facility] team to complete a psychiatry referral [employer] routed message to [facility] team for follow-up regarding report to be sent to pt [employer] sent in request to providers regarding letter [facility] to [facility] [employer] sent patient via [employer] therapy options Encouraged patient to reach back out with additional questions. documented in this encounterVeterans Health Administration10-02-2024 Evaluation + Plan note Extracted from:Title:ANES Post-operative Note---GeneralAuthor:Lev Liu MD Date:04/06/24 Plan Transfer/Discharge: Transfer/Discharge Discharge when meets criteria ( To home ). Extracted from:Title:ANES Pre-operative Note uthor:Lev Liu MDDate: 04/06/24 Plan [place] [employer] (ASA) physical status classification: Class III. Anesthetic Preoperative Plan: Anesthesia General. Future Appointments Appointment Date:05/19/2024 10:00:00 AM Scheduled Provider:Jeancarlos Maguire Location:[facility] Appointment Type:[facility] 10-02-2024 Hospital Discharge instructions Patient Education 04/06/2024 09:49:20 Esophageal Stricture Esophageal Stricture Esophageal stricture is a narrowing of the esophagus. The esophagus is the part of the body that moves food and liquid from your mouth to your stomach. The esophagus can become narrow because of disease or damage to the area. This condition can make swallowing difficult, painful, or even impossible. It also makes choking more likely. What are the causes? The most common cause of this condition is gastroesophageal reflux disease (GERD). Normally, food travels down the esophagus and stays in the stomach to be digested. In GERD, food and stomach acid move back up into the esophagus. Over time, this causes scar tissue and leads to narrowing. Other causes of esophageal stricture include: Scarring from swallowing a harmful substance. Damage from medical instruments used in the esophagus. Radiation therapy. Cancer. Inflammation of the esophagus. What increases the risk? You are more likely to develop an esophageal stricture if you have GERD or esophageal cancer. What are the signs or symptoms? Symptoms of this condition include: Difficulty swallowing. Pain when swallowing. Burning pain or discomfort in the throat or chest (heartburn). Vomiting or spitting up food or liquids. Unexplained weight loss. How is this diagnosed? This condition may be diagnosed based on: Your symptoms and a physical exam. Tests, such as: ?Upper endoscopy. Your health care provider will insert a flexible tube with a tiny camera on it (endoscope) into your esophagus to check for a stricture. A tissue sample may also be taken to be examined under a microscope (biopsy). ?Esophageal pH monitoring. This test involves using a tube to collect acid in the esophagus to determine how much stomach acid is entering the esophagus. ?Barium swallow test. For this test, you will drink a chalky liquid (barium solution) that coats the lining of the esophagus. Then you will have an X-ray taken. The barium solution helps to show if there is a stricture. How is this treated? Treatment for esophageal stricture depends on what is causing your condition and how severe your condition is. Treatment options include: Esophageal dilation. In this procedure, a health care provider inserts an endoscope or a tool called a dilator into the esophagus to gently stretch it and make the opening wider. Stents. In some cases, a health care provider may place a small device (stent) in the esophagus to keep it open. Acid-blocking medicines. Taking these can help you manage GERD symptoms after an esophageal stricture. Controlling your GERD symptoms or being free of them can prevent the stricture from returning. Follow these instructions at home: Eating and drinking Follow instructions from your health care provider about eating or drinking restrictions. Cut your food into small pieces, chew well, and eat slowly. Try to eat soft food that is easier to swallow. Eat and drink only when you are sitting upright. Do not drink alcohol. If you need help quitting, ask your health care provider. Do not eat during the 3 hours before bedtime. Do not overeat at meals. Do not eat foods that can make reflux worse. These include: ?Fatty foods, such as red meat and processed foods. ?Spicy foods. ?Soda. ?Tomato products. ?Chocolate. General instructions Take ytyp-oqt-cvtvehy and prescription medicines only as told by your health care provider. Do not use any products that contain nicotine or tobacco, such as cigarettes, e- cigarettes, and chewing tobacco. If you need help quitting, ask your health care provider. Lose weight if you are overweight. Wear loose, comfortable clothing. When lying in bed, raise your head with pillows. This will help to prevent your stomach contents from backing up into your esophagus while you sleep. Keep all follow-up visits. This is important. Contact a health care provider if: You have problems eating or swallowing. You vomit or spit up food and liquid. Your symptoms do not improve with treatment. Get help right away if: You can no longer keep down any food, drink, or your saliva. Summary Esophageal stricture is a narrowing of the part of the body that moves food and liquid from your mouth to your stomach (esophagus). The esophagus can become narrow because of disease or damage to the area. This can make swallowing difficult, painful, or even impossible. Treatment for esophageal stricture depends on what is causing your condition and how severe your condition is. In some cases, procedures may be done to make the opening of the esophagus wider or to place a stent in the esophagus to keep it open. Do not drink alcohol, overeat at meals, or eat foods that can make reflux worse. This information is not intended to replace advice given to you by your health care provider. Make sure you discuss any questions you have with your health care provider. Document Revised: 11/07/2020 Document Reviewed: 11/07/2020 [employer] Patient Education 2023 [employer]. 04/06/2024 09:49:16 Esophagitis Esophagitis Esophagitis is inflammation of the esophagus. The esophagus is the tube that carries food from the mouth to the stomach. Esophagitis can cause soreness or pain in the esophagus. This condition can make it difficult and painful to swallow. What are the causes? Most causes of esophagitis are not serious. Common causes of this condition include: Gastroesophageal reflux disease (GERD). This is when stomach contents move back up into the esophagus (reflux). Repeated vomiting. An allergic reaction, especially caused by food allergies (eosinophilic esophagitis). Injury to the esophagus by swallowing large pills with or without water, or swallowing certain types of medicines. Swallowing harmful chemicals, such as household cleaning products. Drinking a lot of alcohol. An infection of the esophagus. This most often occurs in people who have a weakened immune system. Radiation or chemotherapy treatment for cancer. Certain diseases such as sarcoidosis, Crohn's disease, and scleroderma. What are the signs or symptoms? Symptoms of this condition include: Difficult or painful swallowing. Pain with swallowing acidic liquids, such as citrus juices. You may also have pain when you burp. Chest pain and difficulty breathing. Nausea and vomiting. Pain in the abdomen. Weight loss. Ulcers in the mouth and white patches in the mouth (candidiasis). Fever. Coughing up blood or vomiting blood. Stool that is black, tarry, or bright red. How is this diagnosed? This condition may be diagnosed based on your medical history and a physical exam. You may also have other tests, including: A test to examine your esophagus and stomach with a small flexible tube with a camera (endoscopy). A test that measures the acidity level in your esophagus. A test that measures how much pressure is on your esophagus. A barium swallow or modified barium swallow to show the shape, size, and functioning of your esophagus. Allergy tests. How is this treated? Treatment for this condition depends on the cause of your esophagitis. In some cases, steroids or other medicines may be given to help relieve your symptoms or to treat the underlying cause of your condition. You may have to make some lifestyle changes, such as: Avoiding alcohol. Quitting any products that contain nicotine or tobacco. These products include cigarettes, chewing tobacco, and vaping devices, such as e-cigarettes. If you need help quitting, ask your health care provider. Changing your diet. Exercising. Changing your sleep habits and your sleep environment. Follow these instructions at home: Medicines Take otfq-nbt-wtiniaa and prescription medicines only as told by your health care provider. Do not take aspirin, ibuprofen, or other NSAIDs unless your health care provider told you to do so. If you have trouble taking pills: ?Use a pill splitter to decrease the size of the pill. This will decrease the chance of the pill getting stuck or injuring your esophagus. ?Drink water after you take a pill. Eating and drinking Avoid foods and drinks that seem to make your symptoms worse. Follow a diet as recommended by your health care provider. This may involve avoiding foods and drinks such as: ?Coffee and tea, with or without caffeine. ?Drinks that contain alcohol. ?Energy drinks and sports drinks. ?Carbonated drinks or sodas. ?Chocolate and cocoa. ?Peppermint and mint flavorings. ?Garlic and onions. ?Horseradish. ?Spicy and acidic foods, including peppers, chili powder, sorto powder, vinegar, hot sauces, and barbecue sauce. ?Scott fruit juices and citrus fruits, such as oranges, oswald, and limes. ?Tomato-based foods, such as red sauce, chili, salsa, and pizza with red sauce. ?Fried and fatty foods, such as donuts, swedish fries, potato chips, and high-fat dressings. ?High-fat meats, such as hot dogs and fatty cuts of red and white meats, such as rib eye steak, sausage, ham, and salcedo. ?High-fat dairy items, such as whole milk, butter, and cream cheese. Lifestyle Eat small, frequent meals instead of large meals. Avoid drinking large amounts of liquid with your meals. Avoid eating meals during the 2 3 hours before bedtime. Avoid lying down right after you eat. Do not exercise right after you eat. Do not use any products that contain nicotine or tobacco. These products include cigarettes, chewing tobacco, and vaping devices, such as e-cigarettes. If you need help quitting, ask your health careprovider. General instructions Pay attention to any changes in your symptoms. Let your health care provider know about them. Wear loose-fitting clothing. Do not wear anything tight around your waist that causes pressure on your abdomen. Raise (elevate) the head of your bed about 6 inches (15 cm). You may need to use a wedge to do this. Try relaxation strategies such as yoga, deep breathing, or meditation to manage stress. If you needhelp reducing stress, ask your health care provider. If you are overweight, reduce your weight to an amount that is healthy for you. Ask your health care provider for guidance about a safe weight loss goal. Keep all follow-up visits. This is important. Contact a health care provider if: You have new symptoms. You have unexplained weight loss. You have difficulty swallowing, or it hurts to swallow. You have wheezing or a cough that does not go away. Your symptoms do not improve with treatment. You have frequent heartburn for more than two weeks. Get help right away if: You have sudden severe pain in your arms, neck, jaw, teeth, or back. You suddenly feel sweaty, dizzy, or light-headed. You have chest pain or shortness of breath. You vomit and the vomit is green, yellow, or black, or it looks like blood or coffee grounds. Your stool is red, bloody, or black. You have a fever. You cannot swallow, drink, or eat. These symptoms may represent a serious problem that is an emergency. Do not wait to see if the symptoms will go away. Get medical help right away. Call your local emergency services (911 in the [place] Do not drive yourself to the hospital. Summary Esophagitis is inflammation of the esophagus. Most causes of esophagitis are not serious. Follow your health care provider's instructions about eating and drinking. Contact a health care provider if you have new symptoms, have weight loss, or coughing that does not stop. Get help right away if you have severe pain in the arms, neck, jaw, teeth, or back, or if you have chest pain, shortness of breath, or fever. This information is not intended to replace advice given to you by your health care provider. Make sure you discuss any questions you have with your health care provider. Document Revised: 12/31/2020 Document Reviewed: 12/31/2020 [employer] Patient Education 2023 [employer]. 04/06/2024 09:49:11 Hiatal Hernia Hiatal Hernia A hiatal hernia occurs when part of the stomach slides above the muscle that separates the abdomen from the chest (diaphragm). A person can be born with a hiatal hernia (congenital), or it may develop over time. In almost all cases of hiatal hernia, only the top part of the stomach pushes through the diaphragm. Many people have a hiatal hernia with no symptoms. The larger the hernia, the more likely it is that you will have symptoms. In some cases, a hiatal hernia allows stomach acid to flow back into the tube that carries food from your mouth to your stomach (esophagus). This may cause heartburn symptoms. The development of heartburn symptoms may mean that you have a condition called gastroesophageal reflux disease (GERD). What are the causes? This condition is caused by a weakness in the opening (hiatus) where the esophagus passes through the diaphragm to attach to the upper part of the stomach. A person may be born with a weakness in thehiatus, or a weakness can develop over time. What increases the risk? This condition is more likely to develop in: Older people. Age is a major risk factor for a hiatal hernia, especially if you are over the age of50. women. People who are overweight. People who have frequent constipation. What are the signs or symptoms? Symptoms of this condition usually develop in the form of GERD symptoms. Symptoms include: Heartburn. Upset stomach (indigestion). Trouble swallowing. Coughing or wheezing. Wheezing is making high-pitched whistling sounds when you breathe. Sore throat. Chest pain. Nausea and vomiting. How is this diagnosed? This condition may be diagnosed during testing for GERD. Tests that may be done include: X-rays of your stomach or chest. An upper gastrointestinal (GI) series. This is an X-ray exam of your GI tract that is taken after you swallow a chalky liquid that shows up clearly on the X-ray. Endoscopy. This is a procedure to look into your stomach using a thin, flexible tube that has a tiny camera and light on the end of it. How is this treated? This condition may be treated by: Dietary and lifestyle changes to help reduce GERD symptoms. Medicines. These may include: ?Xykd-odz-cpvfzpx antacids. ?Medicines that make your stomach empty more quickly. ?Medicines that block the production of stomach acid (H2 blockers). ?Stronger medicines to reduce stomach acid (proton pump inhibitors). Surgery to repair the hernia, if other treatments are not helping. If you have no symptoms, you may not need treatment. Follow these instructions at home: Lifestyle and activity Do not use any products that contain nicotine or tobacco. These products include cigarettes, chewing tobacco, and vaping devices, such as e-cigarettes. If you need help quitting, ask your health careprovider. Try to achieve and maintain a healthy body weight. Avoid putting pressure on your abdomen. Anything that puts pressure on your abdomen increases the amount of acid that may be pushed up into your esophagus. ?Avoid bending over, especially after eating. ?Raise the head of your bed by putting blocks under the legs. This keeps your head and esophagus higher than your stomach. ?Do not wear tight clothing around your chest or stomach. ?Try not to strain when having a bowel movement, when urinating, or when lifting heavy objects. Eating and drinking Avoid foods that can worsen GERD symptoms. These may include: ?Fatty foods, like fried foods. ?Scott fruits, like oranges or lemon. ?Other foods and drinks that contain acid, like orange juice or tomatoes. ?Spicy food. ?Chocolate. Eat frequent small meals instead of three large meals a day. This helps prevent your stomach from getting too full. ?Eat slowly. ?Do not lie down right after eating. ?Do not eat 1 2 hours before bed. Do not drink beverages with caffeine. These include cola, coffee, cocoa, and tea. Do not drink alcohol. General instructions Take nscq-oag-xsqbjgr and prescription medicines only as told by your health care provider. Keep all follow-up visits. Your health care provider will want to check that any new prescribed medicines are helping your symptoms. Contact a health care provider if: Your symptoms are not controlled with medicines or lifestyle changes. You are having trouble swallowing. You have coughing or wheezing that will not go away. Your pain is getting worse. Your pain spreads to your arms, neck, jaw, teeth, or back. You feel nauseous or you vomit. Get help right away if: You have shortness of breath. You vomit blood. You have bright red blood in your stools. You have black, tarry stools. These symptoms may be an emergency. Get help right away. Call 911. Do not wait to see if the symptoms will go away. Do not drive yourself to the hospital. Summary A hiatal hernia occurs when part of the stomach slides above the muscle that separates the abdomen from the chest. A person may be born with a weakness in the hiatus, or a weakness can develop over time. Symptoms of a hiatal hernia may include heartburn, trouble swallowing, or sore throat. Management of a hiatal hernia includes eating frequent small meals instead of three large meals a day. Get help right away if you vomit blood, have bright red blood in your stools, or have black, tarry stools. This information is not intended to replace advice given to you by your health care provider. Make sure you discuss any questions you have with your health care provider. Document Revised: 08/19/2022 Document Reviewed: 08/19/2022 [employer] Patient Education 2023 [employer]. 04/06/2024 09:49:05 Endoscopy, Care After Procedure [facility] ([facility]) Endoscopy Care After Procedure Please read the instructions outlined below and refer to this sheet in the next few weeks. These discharge instructions provide you with general information on caring [facility] Your doctor may also give you specific instructions. While your treatment has been planned according to the most current medical practices available, unavoidable complications occasionally occur. If you have any problems or questions after discharge, please call your doctor. ACTIVITY You may resume your regular activity but move at a slower pace for the next 24 hours. Take frequent rest periods for the next 24 hours. Walking will help expel (get rid of) the air and reduce the bloated feeling in your abdomen. No driving for 24 hours (because of the anesthesia (medicine) used during the test). You may shower. Do not sign any important legal documents or operate any machinery for 24 hours (because of the anesthesia used during the test). NUTRITION Drink plenty of fluids. You may resume your normal diet. Begin with a light meal and progress to your normal diet. Avoid alcoholic beverages for 24 hours or as instructed by your caregiver. MEDICATIONS You may resume your normal medications unless your caregiver tells you otherwise. WHAT YOU CAN EXPECT TODAY You may experience abdominal discomfort such as a feeling of fullness or gas pains. FOLLOW-UP Your doctor will discuss the results of your test with you. SEEK IMMEDIATE MEDICAL ATTENTION IF ANY OF THE FOLLOWING OCCUR: Excessive nausea (feeling sick to your stomach) and/or vomiting. Severe abdominal pain and distention (swelling). Trouble swallowing. Temperature over 100 F (37.8 C). Rectal bleeding or vomiting of blood. Document Released: 02/03/2005 Document Re-Released: 12/14/2006 [employer] Patient Information 2009 [employer]. Follow Up Care 03/31/2024 15:15:33 With:Alexis SEGAL, ROSIO Amador, [facility] Address: When: Unknown Comments:Call for any problems. The office will reach out in about one week from procedure date. [facility] 10-02-2024 Telephone encounter Note* Telephone Encounter - Ni Ljuan LISW - 04/06/2024 11:35 AM EDT [employer] received consult stating patient is requesting assistance in finding mental health resources. [employer] called patient to discuss. Patient reported during recent [facility] stay providers questioned whetherhis staring spells are caused by mental health concerns/dissociation. He stated he was hoping to get services through an agency near him but he can no longer get a hold of them. He is seeking this account underwriter's assistance. [employer] informed pt account underwriter can ask for a psychiatry consult for patient, which pt said he would appreciate. [employer] also inquired about therapy, and pt said he is interested in beginning talk therapy as well. Pt stated he is not interested in going through [facility] [place], and is open to seeing a female virtually. Patient also reported he has been denied SSDI and is appealing it. He said with his migraines he tends to sleep a lot, and this was witnessed during [facility] stay. Pt is curious if a provider from [facility] would be willing to write a statement he can provide to SSDI stating his excess sleep. Pt said he spokewith Kaitlin Ramirez about this and she was going to provide patient with some kind of report, but he has not received it yet. Plan: [employer] consulted [facility] team to complete a psychiatry referral [employer] routed message to [facility] team for follow-up regarding report to be sent to pt [employer] sent in request to providers regarding letter pt is hoping to receive about excess sleep in [place] [facility] [employer] sent patient via [facility] [facility] Encouraged patient to reach back out with additional questions. [facility]10-02-2024 NotePatient Education - Text Endoscopy Care After Procedure Please read the instructions outlined below and refer to this sheet in the next few weeks. These discharge instructions provide you with general information on caring for [facility] Your doctor may also give you specific instructions. While your treatment has been planned according to the most current medical practices available, unavoidable complications occasionally occur. If you have any problems or questions after discharge, please call your doctor. ACTIVITY ? You may resume your regular activity but move at a slower pace for the next 24 hours. ? Take frequent rest periods for the next 24 hours. ?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 information to criminally investigate or prosecute any alcohol or drug abuse patient.[facility] AdministrationIn the event this information is protected by the Federal Confidentiality of Alcohol and Drug Abuse Patient Records regulations: The Federal rules restrict any use of the information to criminally investigate or prosecute any alcohol or drug abuse patient.[facility] AdministrationIn the event this information is protected by the Federal Confidentiality of Alcohol and Drug Abuse Patient Records regulations: The Federal rules restrict any use of the information to criminally investigate or prosecute any alcohol or drug abuse patient.[facility] AdministrationIn the event this information is protected by the Federal Confidentiality of Alcohol and Drug Abuse Patient Records regulations: The Federal rules restrict any use of the information to criminally investigate or prosecute any alcohol or drug abuse patient.[facility] AdministrationIn the event this information is protected by the Federal Confidentiality of Alcohol and Drug Abuse Patient Records regulations: The Federal rules restrict any use of the information to criminally investigate or prosecute any alcohol or drug abuse patient.[facility] AdministrationIn the event this information is protected by the Federal Confidentiality of Alcohol and Drug Abuse Patient Records regulations: The Federal rules restrict any use of the information to criminally investigate or prosecute any alcohol or drug abuse patient.[facility] AdministrationIn the event this information is protected by the Federal Confidentiality of Alcohol and Drug Abuse Patient Records regulations: The Federal rules restrict any use of the information to criminally investigate or prosecute any alcohol or drug abuse patient.[facility] AdministrationIn the event this information is protected by the Federal Confidentiality of Alcohol and Drug Abuse Patient Records regulations: The Federal rules restrict any use of the information to criminally investigate or prosecute any alcohol or drug abuse patient.[facility] AdministrationIn the event this information is protected by the Federal Confidentiality of Alcohol and Drug Abuse Patient Records regulations: The Federal rules restrict any use of the information to criminally investigate or prosecute any alcohol or drug abuse patient.[facility] AdministrationIn the event this information is protected by the Federal Confidentiality of Alcohol and Drug Abuse Patient Records regulations: The Federal rules restrict any use of the information to criminally investigate or prosecute any alcohol or drug abuse patient.[facility] AdministrationIn the event this information is protected by the Federal Confidentiality of Alcohol and Drug Abuse Patient Records regulations: The Federal rules restrict any use of the information to criminally investigate or prosecute any alcohol or drug abuse patient.[facility] AdministrationIn the event this information is protected by the Federal Confidentiality of Alcohol and Drug Abuse Patient Records regulations: The Federal rules restrict any use of the information to criminally investigate or prosecute any alcohol or drug abuse patient.[facility] AdministrationIn the event this information is protected by the Federal Confidentiality of Alcohol and Drug Abuse Patient Records regulations: The Federal rules restrict any use of the information to criminally investigate or prosecute any alcohol or drug abuse patient.[facility] AdministrationIn the event this information is protected by the Federal Confidentiality of Alcohol and Drug Abuse Patient Records regulations: The Federal rules restrict any use of the information to criminally investigate or prosecute any alcohol or drug abuse patient.[facility] AdministrationIn the event this information is protected by the Federal Confidentiality of Alcohol and Drug Abuse Patient Records regulations: The Federal rules restrict any use of the information to criminally investigate or prosecute any alcohol or drug abuse patient.[facility] AdministrationIn the event this information is protected by the Federal Confidentiality of Alcohol and Drug Abuse Patient Records regulations: The Federal rules restrict any use of the information to criminally investigate or prosecute any alcohol or drug abuse patient.[facility]In the event this information is protected by the Federal Confidentiality of Alcohol and Drug Abuse Patient Records regulations: The Federal rules restrict any use of the information to criminally investigate or prosecute any alcohol or drug abuse patient.[facility] AdministrationIn the event this information is protected by the Federal Confidentiality of Alcohol and Drug Abuse Patient Records regulations: The Federal rules restrict any use of the information to criminally investigate or prosecute any alcohol or drug abuse patient.[facility] AdministrationIn the event this information is protected by the Federal Confidentiality of Alcohol and Drug Abuse Patient Records regulations: The Federal rules restrict any use of the information to criminally investigate or prosecute any alcohol or drug abuse patient.[facility] Care Teams (unrecognized sec tion and content) Team MemberRelationshipSpecialtyStart DateEnd Date Jesus Hannon CNP [address] [place] [address] PCP - GeneralFamily Practice10/07/21Team MemberRelationshipSpecialtyStart DateEnd Date Jesus Hannon CNP [address] [facility] [address] [place] [address] PCP - GeneralFamily Practice10/07/21Team MemberRelationshipSpecialtyStart DateEnd Date Riddhi Jesus E, SCANNING TECH [address] [place] [address] PCP - GeneralFamily Medicine10/07/21Team MemberRelationshipSpecialtyStart DateEnd Date Riddhi Jesus E, SCANNING TECH [address] [place] [address] PCP - GeneralFamily Medicine10/07/21Team MemberRelationshipSpecialtyStart DateEnd Date Riddhi Jesus E, SCANNING TECH [address] [place] [address] PCP - GeneralFamily Medicine10/07/21Team MemberRelationshipSpecialtyStart DateEnd Date Frusoniya Jesus E, SCANNING TECH [address] [place] [address] PCP - GeneralFamily Medicine10/07/21Team MemberRelationshipSpecialtyStart DateEnd Date Riddhi Jesus E, SCANNING TECH [address] [place] [address] PCP - GeneralFamily Medicine10/07/21Team MemberRelationshipSpecialtyStart DateEnd Date Riddhi Jesus E, SCANNING TECH [address] [place] [address] PCP - GeneralFamily Medicine10/07/21Team MemberRelationshipSpecialtyStart DateEnd Date Frusoniya Jesus E, SCANNING TECH [address] [place] [address] PCP - GeneralFamily Medicine10/07/21Team MemberRelationshipSpecialtyStart DateEnd Date Fruth Jesus E, SCANNING TECH [address] [place] [address] PCP - GeneralFamily Medicine10/07/21Team MemberRelationshipSpecialtyStart DateEnd Date Jesus Hannon, CATRINA [address] [place] [address] PCP - GeneralFamily Medicine10/07/21Team MemberRelationshipSpecialtyStart DateEnd Date Jesus Hannon, SCANNING TECH [address] [place] [address] PCP - GeneralFamily Medicine10/07/21Team MemberRelationshipSpecialtyStart DateEnd Date Jesus Hannon, SCANNING TECH [address] [place] [address] PCP - GeneralFamily Medicine10/07/21Team MemberRelationshipSpecialtyStart DateEnd Date Jesus Hannon, SCANNING TECH [address] [place] [address] PCP - GeneralFamily Medicine10/07/21Team MemberRelationshipSpecialtyStart DateEnd Date Jesus Hannon CNP [address] [place] [address] PCP - GeneralFamily Medicine10/07/21Team MemberRelationshipSpecialtyStart DateEnd Date Jesus Hannon, SCANNING TECH [address] [place] [address] PCP - GeneralFamily Medicine10/07/21Team MemberRelationshipSpecialtyStart DateEnd Date Jesus Hannon, SCANNING TECH [address] [place] [address] PCP - GeneralFamily Medicine10/07/21Team MemberRelationshipSpecialtyStart DateEnd Date Jesus Hannon CNP [address] [place] [address] PCP - GeneralFamily Medicine10/07/21Team MemberRelationshipSpecialtyStart DateEnd Date Riddhi Jesus E, SCANNING TECH [address] [place] [address] PCP - GeneralFamily Medicine10/07/21Team MemberRelationshipSpecialtyStart DateEnd Date Jesus Hannon, SCANNING TECH [address] [place] [address] PCP - GeneralFamily Medicine10/07/21Team MemberRelationshipSpecialtyStart DateEnd Date soniyaJesus, SCANNING TECH [address] [place] [address] PCP - GeneralFamily Medicine10/07/21Team MemberRelationshipSpecialtyStart DateEnd Date Jesus Hannon, SCANNING TECH [address] [place] [address] PCP - GeneralFamily Medicine10/07/21Team MemberRelationshipSpecialtyStart DateEnd Date Jeancarlos Gudino, 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 REPAIRER.SCANNING TECH [address] [place] [address] PCP - GeneralNurse Practitioner03/09/24Team MemberRelationshipSpecialtyStart Date End Date Jeancarlos Gudino, 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 REPAIRER.SCANNING TECH [address] [place], [place] [phone] PCP - GeneralNurse Practitioner03/09/24Team MemberRelationshipSpecialtyStart Date End Date Jeancarlos Gudino APRN.SCANNING TECH [address] [place] [address] [phone] PCP - GeneralNurse Practitioner03/09/24Team MemberRelationshipSpecialtyStart Date End Date Jesus Hannon, SCANNING TECH [address] [place], [place] [id number] PCP - GeneralFamily Medicine Jeancarlos Gudino APRN.SCANNING TECH [address] [place] [address] PCP - GeneralNurse Practitioner03/09/24Team MemberRelationshipSpecialtyStart Date End Date Jeancarlos Gudino APRN.SCANNING TECH [address] [place] [address] PCP - GeneralNurse Practitioner03/09/24Team MemberRelationshipSpecialtyStart Date End Date Jeancarlos Gudino 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 REPAIRER.SCANNING TECH [address] [place], [place] [phone] PCP - GeneralNurse Practitioner03/09/24Team MemberRelationshipSpecialtyStart Date End Date Jeancarlos Gudino APRN.SCANNING TECH [address] [place] [address] [phone] PCP - GeneralNurse Practitioner03/09/24Team MemberRelationshipSpecialtyStart Date End Date Jeancarlos Gudino APRN - SUPERVISOR TUBING [address] [place] [address] PCP - [id number]/9/24Team MemberRelationshipSpecialtyStart DateEnd Date Jeancarlos Gudino, 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 TUBING [address] [place] [address] PCP - [id number]/9/24Team MemberRelationshipSpecialtyStart DateEnd Date Jeancarlos Gudino, 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 TUBING [address] [place] [address] PCP - [id number]/9/24Team MemberRelationshipSpecialtyStart DateEnd Date Jeancarlos Gudino, 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 REPAIRER.SCANNING TECH [address] [place] [address] PCP - GeneralNurse Practitioner03/09/24Team MemberRelationshipSpecialtyStart Date End Date Jeancarlos Gudino 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 TUBING [address] [place] [address] PCP - [id number]/9/24Team MemberRelationshipSpecialtyStart DateEnd Date Jesus Hannon SCANNING TECH [address] [place], [place] [id number] PCP - GeneralFamily Medicine10/07/ Jeancarlos Gudino, 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 REPAIRER.SCANNING TECH [address] [place] [address] PCP - GeneralNurse Practitioner03/09/24Team MemberRelationshipSpecialtyStart Date End Date Jeancarlos Gudino, 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 REPAIRER.SCANNING TECH [address] [place] [address] PCP - GeneralNurse Practitioner03/09/24Team MemberRelationshipSpecialtyStart Date End Date Jesus Hannon, CATRINA [address] [place] [address] PCP - GeneralFamily Medicine Jeancarlos Gudino 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 REPAIRER.SCANNING TECH [address] [place], [place] [id number] PCP - GeneralNurse Practitioner03/09/24Team MemberRelationshipSpecialtyStart Date End Date Jeancarlos Gudino 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 REPAIRER.CATRINA [address] [place] [address] [phone] PCP - GeneralNurse Practitioner03/09/24Team MemberRelationshipSpecialtyStart Date End Date Jeancarlos Gudino 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 REPAIRER.SCANNING TECH [address] [place] [address] PCP - GeneralNurse Practitioner03/09/24 Inactive Administered Medications - up to 3 most recent administrations Administered Medications (un recognized section and content) Medication OrderMAR ActionAction DateDoseRateSite onabotulinum toxin type A 200 Units injection (BOTOX) 200 Units, INTRAMUSCULAR, ONCE (UP TO 30 DAYS AMB), 1 dose, On Thu09/01/23 at 1000, This record documents the total dose provided to patient. See progress note for specific locations and amounts administered. REFRIGERATE - Pharmaceutical Waste: Lab Pack - Given09/01/2023 10:26 AM [id number] UnitsOther FOR RECORDS PERTAINING TO PATIENTS WHO ARE [...] BE BASED ON THE PRIMARY CLINICAL RECORDS. [facility]. provides no warranty or guarantee of the accuracy or completeness of information in this document.
== END 2025-05-24 16:05 | disposition home or self-care (01) ==
PROVIDERS: Emergency Provider Emergency Medicine; PCP Nurse Practitioner
DX: J34.89 Other specified disorders of nose and nasal sinuses (principal)
CPT/HCPCS: 99283